=== PATIENT | female | born 1965 | race Caucasian/White ===

== ENCOUNTER → 2019-10-27 10:29 | Outpatient (CLI) | payer BC, SELFPAY ==
--- NOTE | ~2019-10-27 | US_ITS ---
EXAMINATION: US transvaginal DATE: 10/27/2019 10:52 INDICATION: Pelvic pain Comparison:11/20/2017 TECHNIQUE: Multiple endovaginal sonographic images of the pelvis performed. FINDINGS: The uterus measures 7.4 x 3.7 x 4.7 cm. There is a uterine fibroid measuring 1.7 x 1.2 x 1. 7 cm The endometrial complex measures 9 mm. The right ovary measures 1.7 x 1.3 x 1.2 cm and the left ovary measures 1.6 x 1.1 x 1.3 cm. There ar e small follicles in each ovary. There is no free fluid in the pelvis. There are no abnormal masses seen on either side. IMPRESSION: 1. Thickened endomtrial complex. The differential diagnosis includes endometrial hyperplasia, polyp a nd carcinoma. Biopsy is recommended. 2: Uterine fibroid measuring 1.7 cm. Reviewed, dictated and finalized at location A. IMPRESSION: 1. Thickened endomtrial complex. The differential diagnosis includes endometria l hyperplasia, polyp and carcinoma. Biopsy is recommended. 2: Uterine fibroid measuring 1.7 cm.
== END ==
PROVIDERS: PCP Family Medicine; Visit Provider Nurse Practitioner
DX: D25.9 Leiomyoma of uterus, unspecified (principal)
CPT/HCPCS: 76830

== ENCOUNTER 2019-11-10 09:47 | Outpatient (CLI) | payer BC, SELFPAY ==
[2019-11-10 09:59] LABS: Hemoglobin 12.3 g/dL (12.0-15.0)
== END 2019-11-10 09:48 | disposition home or self-care (01) ==
LOC: ANHSURGERY 09:49
PROVIDERS: Anesthesiology; PCP Family Medicine; Visit Provider Obstetrics & Gynecology Gynecology
DX: Z01.812 Encounter for preprocedural laboratory examination (principal); D64.9 Anemia, unspecified
CPT/HCPCS: 36415; 85014; 85018

== ENCOUNTER 2019-11-17 01:28 | Outpatient (CLI) | payer BC, SELFPAY ==
[2019-11-17 16:30] LABS: SARS-CoV-2 RNA PCR Negative
== END 2019-11-17 01:29 | disposition home or self-care (01) ==
LOC: ANHCOVIDDT 01:28
PROVIDERS: PCP Family Medicine; Visit Provider Obstetrics & Gynecology Gynecology
DX: Z01.812 Encounter for preprocedural laboratory examination (principal); Z20.828 Contact with and (suspected) exposure to other viral communicable diseases
CPT/HCPCS: 87635; C9803; U0003

== ENCOUNTER 2019-11-20 02:30 | Day surgery (SDC) | payer BC, SELFPAY ==
[2019-11-06 15:44] VITALS: BMI 25.1
[2019-11-20 06:52] VITALS: BP 109/74; PULSE 77; RESP 16; TEMP 36.8; O2SAT 99
[2019-11-20] MEDS: ACETAMINOPHEN 500 MG TABLET 1000 MG PO (07:06)
[2019-11-20] MEDS: LACTATED RINGERS 1,000 ML 30 ML IV CONT (07:15)
--- NOTE | 2019-11-20 07:23 | P.HP_ITS ---
History of Present Illness History of Present Illness Consent: Risks, benefits, and alternatives have been discussed and questions answered. Patient agrees to proceed with procedure. Chief complaint: thick endometrium Narrative: Ira Virk is a 54 year old female who had pelvic u/s done for pelvic pain. U/s showed thickened endometrium at 9 mm. Recommend to work up with hysteroscopy and EMB. Risks of infection, bleeding, perforation, and possible pathology reviewed. Agrees to proceed and questions answered. [facility] Past Medical History Medical History (Updated 11/20/19 @ 07:28 by Missy Gallardo MD) Atrial flutter Breast cancer Left DCIS Fibromyalgia Hypothyroidism Interstitial cystitis MVP (mitral valve prolapse) (normal spontaneous vaginal delivery) x 2 Status post hysteroscopy 2016 Surgical History Surgical History (Updated 11/20/19 @ 07:27 by Missy Gallardo MD) H/O breast biopsy H/O lumpectomy S/P D&C (status post dilation and curettage) 1998 for SAb S/P laparoscopic procedure Social History Social History Smoking status: Never smoker Alcohol intake: current Spiritual care concerns: No Meds Home Medications and Allergies Home Medications Medication Instructions Recorded Confirmed Type anastrozole 1 mg tablet 1 mg PO DAILY 02/22/19 11/20/19 History lactobacillus combination no.4 3 3,000 mmu cells PO DAILY 02/22/19 11/20/19 History billion cell capsule metoprolol tartrate 25 mg tablet 25 mg PO QPM 02/22/19 11/20/19 History omega-3 fatty acids 1,000 mg 1,000 mg PO DAILY 02/22/19 11/20/19 History capsule ascorbic acid (vitamin C) 500 mg 500 mg PO DAILY 08/21/19 11/20/19 History tablet cholecalciferol (vitamin D3) 125 125 mcg PO DAILY 08/21/19 11/20/19 History mcg (5,000 unit) capsule glucosamine HCl 500 mg tablet 500 mg PO DAILY tablet 08/21/19 11/20/19 History coenzyme Q10 100 mg PO DAILY 11/06/19 11/20/19 History iron 159 mg PO DAILY PRN 11/06/19 11/20/19 History levothyroxine [Synthroid] 75 mcg PO DAILY 11/06/19 11/20/19 History Allergies Allergy/AdvReac Type Severity Reaction Status Date / Time Sulfa (Sulfonamide Allergy Intermediate Muscle Verified 11/20/19 07:07 Antibiotics) Spasms moxifloxacin Allergy Mild Rash Verified 11/20/19 07:07 peanut Allergy Mild Itchy Mouth Verified 11/20/19 07:07 Exam Const: General: no acute distress Resp: Auscultation: clear to auscultation bilaterally Cardio: Rate: regular rate Rhythm: regular rhythm GI: GI Palp: Yes Soft to palpation : Speculum Exam - Vagina: normal appearance of the vagina Speculum Exam - Cervix: normal appearance of the cervix Bimanual exam- vagina & uterus: normal bimanual exam Assessment and Plan Assessment and plan (1) Endometrial thickening on ultrasound: Code(s): R93.89 - Abnormal findings on diagnostic imaging of other specified body structures Status: Acute Assessment and Plan: Plan to proceed with hysteroscopy with D&C.
--- NOTE | 2019-11-20 07:29 | WPDHPUPDATE1 ---
History and Physical Update Update Date/Time: 11/20/19 07:29 History and Physical has been reviewed, including an updated exam of the patient. There are NO changes in the patient's condition. Risks, benefits, and alternatives have been discussed and questions answered. Patient agrees to proceed with procedure.
--- NOTE | 2019-11-20 07:50 | WPDANESEPPF ---
Anes - Initial Pre Proc Eval Procedure: Operation Date: 11/20/19 08:30 Proposed Procedures p Hysteroscopy, Dilation and Curettage - Missy Gallardo MD Date/Time: 11/20/19 07:50 Surgeon: Missy Gallardo MD Pre Op Diagnosis: thick endometrium Patient Data Age: 54 Gender: F Height: 1.75 m Weight: 76.1 kg Allergies Allergy/AdvReac Type Severity Reaction Status Date / Time Sulfa (Sulfonamide Allergy Intermediate Muscle Verified 11/20/19 07:07 Antibiotics) Spasms moxifloxacin Allergy Mild Rash Verified 11/20/19 07:07 peanut Allergy Mild Itchy Mouth Verified 11/20/19 07:07 Home Medications Medication Instructions Recorded Confirmed Type anastrozole 1 mg tablet 1 mg PO DAILY 02/22/19 11/20/19 History lactobacillus combination no.4 3 3,000 mmu cells PO DAILY 02/22/19 11/20/19 History billion cell capsule metoprolol tartrate 25 mg tablet 25 mg PO QPM 02/22/19 11/20/19 History omega-3 fatty acids 1,000 mg 1,000 mg PO DAILY 02/22/19 11/20/19 History capsule ascorbic acid (vitamin C) 500 mg 500 mg PO DAILY 08/21/19 11/20/19 History tablet cholecalciferol (vitamin D3) 125 125 mcg PO DAILY 08/21/19 11/20/19 History mcg (5,000 unit) capsule glucosamine HCl 500 mg tablet 500 mg PO DAILY tablet 08/21/19 11/20/19 History coenzyme Q10 100 mg PO DAILY 11/06/19 11/20/19 History iron 159 mg PO DAILY PRN 11/06/19 11/20/19 History levothyroxine [Synthroid] 75 mcg PO DAILY 11/06/19 11/20/19 History Patient hx anesthesia problems: post op nausea/vomiting Family hx anesthesia problems: none PMFSH Past Medical History Medical History (Updated 11/20/19 @ 07:51 by Keo Dozier DO) Atrial flutter one occurence, 8 years ago while on sudafed. Came to ED and was treated with IV medication. No incidence since Breast cancer Left DCIS Fibromyalgia Hypothyroidism Interstitial cystitis MVP (mitral valve prolapse) occasional palpitation (normal spontaneous vaginal delivery) x 2 Status post hysteroscopy 2017 Surgical History Surgical History (Updated 11/20/19 @ 07:27 by Missy Gallardo MD) H/O breast biopsy H/O lumpectomy S/P D&C (status post dilation and curettage) 1998 for SAb S/P laparoscopic procedure Social History Social History Smoking status: Never smoker Alcohol intake: current Spiritual care concerns: No Anes - Eval Final PreProcedure Day of Procedure 11/20/19 07:50 Patient weight: normal Heart: regular rate and rhythm Lungs: clear to auscultation and normal air movement Airway: Mallampati scale class II Neurological: alert and oriented Last oral intake: >/= 8 hours ASA classification: III Emergent: no Anesthetic plan: proceed Anesthesia type and monitoring: general GIVS and standard monitoring Informed Consent: The patient's anesthetic plan and its attendant risks and benefits were discussed with the patient/family/POA. Questions were solicited and answers provided to the satisfaction of the patient/family/POA.
--- NOTE | 2019-11-20 08:53 | SUR.OPER ---
50ml ns in, 50ml ns out. aware
[2019-11-20 09:00] VITALS: BP 103/58; PULSE 70; RESP 18; O2SAT 98
--- NOTE | 2019-11-20 09:03 | P.OP_ITS ---
Procedure Note - Detailed Date of procedure: 11/20/19 Pre-op diagnosis: thick endometrium Post-op diagnosis: same Procedure performed: D&C hysteroscopy Description of procedure: The patient is taken to the operating room and placed in the dorsal lithotomy position under anesthesia. [place] speculum was placed in the vagina and the cervix grasped anterior lip with a tenaculum. The uterus was attempted to be sounded and the internal os is noted to be stenotic. The os Finders were requested and used to open the cervix. The uterus is then sounded to 7cm. The cervix is serially dilated with Hegars. The diagnostic hysteroscope was placed with no abnormalities noted. The endometrium is then sharply curetted until a good uterine cry was noted in all areas. Minimal material is obtained consistent with the atrophic appearance. All instruments are then removed and the patient is awakened from anesthesia. She was taken to the recovery room in stable condition. Anesthesia: MAC and local Surgeon: Missy Gallardo MD Estimated blood loss (mL): 5 Drains: No Packing: No Pathology: yes (endometrial) Complications: No immediate complications Condition: stable Disposition: PACU Findings: internal os stenotic; endometrium atrophic
[2019-11-20 09:30] VITALS: BP 97/57; PULSE 64; RESP 14; O2SAT 100
[2019-11-20 10:00] VITALS: BP 105/60; PULSE 70; RESP 14
--- NOTE | 2019-11-20 10:19 | SUR.PHASEII ---
1005; PT AWAKE AND ALERT. DENIES PAIN OR NAUSEA. MEETS DISCHARGE CRITERIA.
== END 2019-11-20 10:12 | disposition home or self-care (01) ==
PROVIDERS: PCP Family Medicine; Visit Provider Obstetrics & Gynecology Gynecology
PROC: 0U5B8ZZ Destruction of Endometrium, Via Natural or Artificial Opening Endoscopic (ICD-10-PCS; CPT 58563; principal; 2019-11-20 08:30)
DX: R93.89 Abnormal findings on diagnostic imaging of other specified body structures (principal); M79.7 Fibromyalgia; E03.9 Hypothyroidism, unspecified; I34.1 Nonrheumatic mitral (valve) prolapse; Z85.3 Personal history of malignant neoplasm of breast; Z79.811 Long term (current) use of aromatase inhibitors
CPT/HCPCS: 58558; 88305; A9270; J1100; J2250; J2405; J2704; J3010; J7120

== ENCOUNTER 2019-12-30 06:17 | Emergency (ER) | payer BC, SELFPAY ==
[2019-12-30 06:21] VITALS: BP 116/78; PULSE 96; RESP 18; TEMP 36.1; O2SAT 100
--- NOTE | 2019-12-30 07:20 | ED.ABDPAIN ---
HPI - Abdominal Pain General Chief Complaint: Abdominal Pain Stated Complaint: stomach ache/chills/diarrhea/weak Time Seen by Provider: 12/30/19 06:49 Source: patient Mode of arrival: ambulatory Limitations: no limitations History of Present Illness HPI narrative: This patient is a 54 year old female with history of IBS who presents for evaluation of diarrhea. She reports mid abdominal cramping intermittently with diarrhea since Wednesday. She reports she had multiple episodes of watery diarrhea today. She also reports chills but she denies having a fever. She also denies blood in her stool. She has not taken any medication for her diarrhea. She is here because she is concerned that she has COVID, and she is due to pick her mother up from the hospital today. She denies cough, sob, or loss of taste or smell. Related Data Home Medications Medication Instructions Recorded Confirmed anastrozole 1 mg tablet 1 mg PO DAILY 02/22/19 11/20/19 lactobacillus combination no.4 3 3,000 mmu cells PO DAILY 02/22/19 11/20/19 billion cell capsule metoprolol tartrate 25 mg tablet 25 mg PO QPM 02/22/19 11/20/19 omega-3 fatty acids 1,000 mg 1,000 mg PO DAILY 02/22/19 11/20/19 capsule ascorbic acid (vitamin C) 500 mg 500 mg PO DAILY 08/21/19 11/20/19 tablet cholecalciferol (vitamin D3) 125 125 mcg PO DAILY 08/21/19 11/20/19 mcg (5,000 unit) capsule glucosamine HCl 500 mg tablet 500 mg PO DAILY tablet 08/21/19 11/20/19 coenzyme Q10 100 mg PO DAILY 11/06/19 11/20/19 iron 159 mg PO DAILY PRN 11/06/19 11/20/19 levothyroxine [Synthroid] 75 mcg PO DAILY 11/06/19 11/20/19 Allergies Allergy/AdvReac Type Severity Reaction Status Date / Time Sulfa (Sulfonamide Allergy Intermediate Muscle Verified 12/30/19 06:24 Antibiotics) Spasms moxifloxacin Allergy Mild Rash Verified 12/30/19 06:24 peanut Allergy Mild Itchy Mouth Verified 12/30/19 06:24 Review of Systems Review of Systems: All systems reviewed & are unremarkable except as noted in HPI and below Constitutional: Constitutional: Reports chills, Reports fatigue and Denies fever(s) Cardiovascular: Cardiovascular: Denies chest pain Respiratory: Respiratory: Denies cough and Denies dyspnea Gastrointestinal: Gastrointestinal: Reports abdominal pain, Denies constipation and Reports diarrhea PMFSH Past Medical History Medical History Atrial flutter one occurence, 8 years ago while on sudafed. Came to ED and was treated with IV medication. No incidence since Breast cancer Left DCIS Fibromyalgia Hypothyroidism Interstitial cystitis MVP (mitral valve prolapse) occasional palpitation (normal spontaneous vaginal delivery) x 2 Status post hysteroscopy 2016 Surgical History Surgical History H/O breast biopsy H/O lumpectomy S/P D&C (status post dilation and curettage) 1998 for SAb S/P laparoscopic procedure Family History Family History Other Diabetes mellitus Family history of Alzheimer's disease Family history of arthritis Family history of atrial fibrillation Family history of cardiovascular disease Family history of congestive heart failure Family history of kidney disease Family history of osteoporosis Family history of thyroid disease Hypertension Social History Social History Smoking status: Never smoker Alcohol intake: current Gender identity (if verbalized by the patient): Female Sexual Orientation (if Verbalized by the Patient): Straight or Heterosexual Spiritual care concerns: No Exam Const: General: no acute distress and alert Orientation/consciousness: patient oriented x3 Eyes: EOM: EOMs intact bilaterally Neck: Neck: normal visual inspection Chest: Chest palpation & inspection: normal insp
[2019-12-30 07:26] LABS: Basophils Absolute Auto 0.1 K/mm3 (0.0-0.1); Basophils Percent Auto 1.1 % (0.2-1.2); Eosinophils Absolute Auto 0.1 K/mm3 (0-0.3); Hematocrit 35.9 % (37.0-47.0); Immature Granulocyte Absolute 0.02 K/mm3 (0.00-0.031); Immature Granulocyte Percent A 0.3 % (0-0.5); Lymphocytes Percent Auto 25.4 % (18.3-44.2); Mean Corpuscular HGB Conc 33.4 g/dl (32-36); Mean Corpuscular Hemoglobin 32.4 pg (26-34); Mean Platelet Volume 9.8 fl (7.4-10.4); Monocytes Absolute Auto 0.5 K/mm3 (0.1-0.6); Monocytes Percent Auto 7.3 % (2.6-8.5); Neutrophils Absolute Auto 4.5 K/mm3 (1.3-6.7); Neutrophils Percent Auto 63.9 % (45.5-73.1); Platelet Count Result 266 k/mm3 (150-375); Red Cell Distribution Width 12.6 % (11.5-14.5); White Blood Count 7.1 K/mm3 (4.5-10.0)
[2019-12-30 07:28] LABS: Add Urine Microscopic? NO; Appearance Urine Clear (Clear); Bilirubin Urine Negative (Negative); Blood Urine Negative (Negative); Color Urine Yellow (Yellow); Glucose Urine UA Negative (Negative); Ketones Urine Negative (Negative); Leukocyte Esterase Ur Negative LEU/UL (Negative); Nitrate Urine Negative (Negative); Protein Urine Negative (Negative); Specific Grav Ur 1.019 (1.001-1.035); Urobilinogen Urine Negative mg/dL (<2.0)
[2019-12-30 07:40] LABS: Alanine Aminotransferase 20 U/L (4-35); Albumin Level 4.3 g/dL (3.5-5.1); Alkaline Phosphatase 50 U/L (38-126); Anion Gap 11 mmol/L (8-16); Aspartate Amino Transferase 28 U/L (14-36); Bilirubin,Total 0.3 mg/dL (0.2-1.3); Blood Urea Nitrogen 17 mg/dL (7-17); Calcium 9.3 mg/dL (8.4-10.2); Carbon Dioxide 26 mmol/L (22-30); Chloride 103 mmol/L (98-107); Estimated CRCL calculation 84 ml/min; Estimated Glomerular Filt Rate > 60; Glucose 124 mg/dL (65-105); Lipase 46 U/L (23-300); Sodium 140 mmol/L (137-145)
[2019-12-30 08:25] VITALS: BP 132/78; PULSE 75; RESP 16; O2SAT 100
[2019-12-30 21:18] LABS: SARS-CoV-2 RNA PCR Negative
== END 2019-12-30 08:25 | disposition home or self-care (01) ==
PROVIDERS: Emergency Provider General Practice; PCP Family Medicine
DX: K58.0 Irritable bowel syndrome with diarrhea (principal); Z20.828 Contact with and (suspected) exposure to other viral communicable diseases; I48.92 Unspecified atrial flutter; Z85.3 Personal history of malignant neoplasm of breast; M79.7 Fibromyalgia; E03.9 Hypothyroidism, unspecified; I34.1 Nonrheumatic mitral (valve) prolapse
CPT/HCPCS: 36415; 80053; 81003; 81025; 83690; 85025; 87635; 99283; C9803; U0003

== ENCOUNTER → 2020-04-25 10:26 | Outpatient (CLI) | payer BC, SELFPAY ==
[2020-04-26 18:59] LABS: SARS-CoV-2 RNA PCR Negative
== END ==
PROVIDERS: PCP Family Medicine; Visit Provider Physician Assistant
DX: Z20.822 Contact with and (suspected) exposure to COVID-19 (principal)
CPT/HCPCS: C9803; U0003; U0005

== ENCOUNTER 2020-04-28 20:21 | Emergency (ER) | payer BC, SELFPAY ==
--- NOTE | ~2020-04-28 | XR_ITS ---
EXAMINATION: XR chest 1V portable 04/28/2020 20:59 INDICATION: Chest palpitations PROCEDURE: AP portable chest COMPARISON: 09/10/2014 FINDINGS: The lungs are clear. The cardiomediastinal silhouette is within normal limits. There are no pleural effusions. There is no pneumothorax suspected. IMPRESSION: 1: NO ACUTE CARDIOPULMONARY DISEASE. Reviewed, dictated and finalized at location A.
[2020-04-28 20:24] VITALS: BP 144/99; PULSE 79; RESP 19; TEMP 36.6; O2SAT 100
--- NOTE | 2020-04-28 20:47 | ECG_ITS ---
Measurements Intervals [place] Rate: 77 P: 35 OR: 139 QRS: 23 QRSD: 85 T: 32 QT: 374 QTc: 424 Interpretive Statements SINUS RHYTHM VENTRICULAR PREMATURE COMPLEX EARLY PRECORDIAL R/S TRANSITION BORDERLINE ST-T WAVE ABNORMALITY- DIFFUSE LEADS BASELINE WANDER- V1-V3 BORDERLINE ECG Electronically Signed On 04-29-2020 7:04:37 CDT by Dickson Ríos D.O.
[2020-04-28 20:57] LABS: Basophils Absolute Auto 0.1 K/mm3 (0.0-0.1); Basophils Percent Auto 1.1 % (0.2-1.2); Eosinophils Absolute Auto 0.5 K/mm3 (0-0.3); Eosinophils Percent Auto 5.7 % (0-4.4); Hematocrit 37.1 % (37.0-47.0); Hemoglobin 12.5 g/dL (12.0-15.0); Immature Granulocyte Absolute 0.03 K/mm3 (0.00-0.031); Immature Granulocyte Percent A 0.4 % (0-0.5); Lymphocytes Absolute Auto 3.57 K/mm3 (0.9-3.2); Lymphocytes Percent Auto 43.2 % (18.3-44.2); Mean Corpuscular HGB Conc 33.7 g/dl (32-36); Mean Corpuscular Hemoglobin 32.2 pg (26-34); Mean Corpuscular Volume 95.6 fl (80-100); Mean Platelet Volume 9.6 fl (7.4-10.4); Monocytes Absolute Auto 0.7 K/mm3 (0.1-0.6); Monocytes Percent Auto 8.7 % (2.6-8.5); Neutrophils Absolute Auto 3.4 K/mm3 (1.3-6.7); Neutrophils Percent Auto 40.9 % (45.5-73.1); Platelet Count Result 280 k/mm3 (150-375); Red Blood Count 3.88 M/mm3 (4.2-5.4); Red Cell Distribution Width 12.8 % (11.5-14.5); White Blood Count 8.3 K/mm3 (4.5-10.0)
[2020-04-28 21:00] VITALS: BP 115/80; PULSE 69; RESP 15; O2SAT 98
[2020-04-28 21:00] LABS: Add Urine Microscopic? NO; Appearance Urine Clear (Clear); Bilirubin Urine Negative (Negative); Blood Urine Negative (Negative); Color Urine Colorless (Yellow); Glucose Urine UA Negative (Negative); Ketones Urine Negative (Negative); Leukocyte Esterase Ur Negative LEU/UL (Negative); Nitrate Urine Negative (Negative); Protein Urine Negative (Negative); Specific Grav Ur 1.006 (1.001-1.035); Urobilinogen Urine Negative mg/dL (<2.0)
[2020-04-28 21:07] LABS: INR 0.8; Partial Thromboplastin Time 26.3 SECONDS (22.3-36.8); Prothrombin Time 12.1 Seconds (11.1-14.7)
[2020-04-28 21:09] LABS: Anion Gap 6 mmol/L (8-16); Blood Urea Nitrogen 19 mg/dL (7-17); Calcium 9.4 mg/dL (8.4-10.2); Carbon Dioxide 31 mmol/L (22-30); Chloride 103 mmol/L (98-107); Estimated CRCL calculation 73 ml/min; Estimated Glomerular Filt Rate > 60; Glucose 127 mg/dL (65-105); Sodium 140 mmol/L (137-145)
[2020-04-28 21:21] LABS: Troponin I < 0.012 ng/mL (0.000-0.034)
[2020-04-28 21:28] LABS: Alanine Aminotransferase 20 U/L (4-35); Albumin Level 4.5 g/dL (3.5-5.1); Alkaline Phosphatase 49 U/L (38-126); Aspartate Amino Transferase 30 U/L (14-36); Bilirubin,Total 0.2 mg/dL (0.2-1.3); Lipase 76 U/L (23-300)
[2020-04-28 21:30] VITALS: BP 103/80; PULSE 66; RESP 17; O2SAT 98
--- NOTE | 2020-04-28 21:41 | ED.GENADULT ---
HPI - General Adult General Chief complaint: Arrhythmia/Palpitations Stated complaint: chest palpitations Time Seen by Provider: 04/28/20 20:28 History of Present Illness HPI narrative: Patient is a 55-year-old female who presents the emergency department with chief complaint of palpitations. Patient reports she has history of PACs and also history of PVCs is also had mitral valve prolapse the patient reports that today she had some tightness in her chest and also started feeling some palpitations in her chest. Patient denies diaphoresis denies shortness of breath. The patient reports symptoms or not worsened by anything or they improved by anything. Related Data Home Medications Medication Instructions Recorded Confirmed anastrozole 1 mg tablet 1 mg PO DAILY 02/22/19 11/20/19 lactobacillus combination no.4 3 3,000 mmu cells PO DAILY 02/22/19 11/20/19 billion cell capsule metoprolol tartrate 25 mg tablet 25 mg PO QPM 02/22/19 11/20/19 omega-3 fatty acids 1,000 mg 1,000 mg PO DAILY 02/22/19 11/20/19 capsule ascorbic acid (vitamin C) 500 mg 500 mg PO DAILY 08/21/19 11/20/19 tablet glucosamine HCl 500 mg tablet 500 mg PO DAILY tablet 08/21/19 11/20/19 coenzyme Q10 100 mg PO DAILY 11/06/19 11/20/19 azithromycin 04/28/20 levothyroxine [Tirosint] PO 04/28/20 lifitegrast [Xiidra] drp 04/28/20 Allergies Allergy/AdvReac Type Severity Reaction Status Date / Time Sulfa (Sulfonamide Allergy Intermediate Muscle Verified 04/28/20 20:36 Antibiotics) Spasms moxifloxacin Allergy Mild Rash Verified 04/28/20 20:36 peanut Allergy Mild Itchy Mouth Verified 04/28/20 20:36 Review of Systems Review of Systems: Narrative: A 10 system review of systems was completed on the patient and is negative except for what is stated in the HPI. Nursing and ancillary documentation was reviewed. [facility] Past Medical History Medical History Atrial flutter one occurence, 8 years ago while on sudafed. Came to ED and was treated with IV medication. No incidence since Breast cancer Left DCIS Colon cancer screening Fibromyalgia Hypothyroidism Interstitial cystitis MVP (mitral valve prolapse) occasional palpitation (normal spontaneous vaginal delivery) x 2 Status post hysteroscopy 2017 Surgical History Surgical History H/O breast biopsy H/O lumpectomy S/P D&C (status post dilation and curettage) 1998 for SAb S/P laparoscopic procedure Family History Family History Other Diabetes mellitus Family history of Alzheimer's disease Family history of arthritis Family history of atrial fibrillation Family history of cardiovascular disease Family history of congestive heart failure Family history of kidney disease Family history of osteoporosis Family history of thyroid disease Hypertension Social History Social History Smoking status: Never smoker Alcohol intake: current Gender identity (if verbalized by the patient): Female Spiritual care concerns: No Exam Narrative: Exam Narrative: GENERAL: Well-appearing, well-nourished, and in no acute distress. HEAD: Normocephalic, atraumatic. EYES: PERRLA and EOMI. ENT: Nares clear, no rhinorrhea or epistaxis. Mucous membranes moist. NECK: Supple. CHEST: Clear to auscultation. No respiratory distress. HEART: Regular rate and rhythm. No murmur heard. Normal peripheral pulses. ABDOMEN: Soft, nontender, nondistended, normal active bowel sounds. EXTREMITIES: Normal range of motion. No edema. SKIN: Warm, dry, no rash. NEURO: No focal deficits. Alert and oriented x3. PSYCH: Normal mood and affect. Course Course Emergency Course: EKG shows sinus rhythm rate of [address] elevation or ST depression there is an occasion
[2020-04-28 21:45] VITALS: BP 114/79; PULSE 65; RESP 12; TEMP 36.6; O2SAT 99
[2020-04-28 22:37] VITALS: BP 114/84; PULSE 69; RESP 13; O2SAT 98
== END 2020-04-28 22:38 | disposition home or self-care (01) ==
PROVIDERS: Emergency Provider Emergency Medicine; PCP Family Medicine
DX: R00.2 Palpitations (principal); R07.89 Other chest pain; I34.1 Nonrheumatic mitral (valve) prolapse; Z85.3 Personal history of malignant neoplasm of breast; M79.7 Fibromyalgia; E03.9 Hypothyroidism, unspecified; I49.3 Ventricular premature depolarization; R94.31 Abnormal electrocardiogram [ECG] [EKG]
CPT/HCPCS: 36415; 71045; 80053; 81003; 81025; 83690; 83735; 84484; 85025; 85610; 85730; 93005; 99284

== ENCOUNTER 2020-07-08 13:38 | Outpatient (CLI) | payer BC, SELFPAY ==
--- NOTE | ~2020-07-08 | XR_ITS ---
XR hand RT min 3V 07/08/2020 13:54 Indication: Right hand pain Procedure: 3 views right hand Comparison: No prior studies for comparison. Findings: No fracture or traumatic malalignment. No significant soft tissue abnormality. No foreign b odies. Normal mineralization. There are mild degenerative changes of multiple interphalangeal joints. Impression: 1: Mild polyarticular osteoarthritis. Reviewed, dictated and finalized at location A. Impression: 1: Mild polyarticular osteoarthritis.
== END 2020-07-08 13:39 | disposition home or self-care (01) ==
LOC: ANHIMG 13:40
PROVIDERS: PCP Family Medicine; Visit Provider Family Medicine
DX: M19.041 Primary osteoarthritis, right hand (principal)
CPT/HCPCS: 73130

== ENCOUNTER → 2020-11-30 00:39 | Outpatient (CLI) | payer BC, SELFPAY ==
[2020-11-30 17:04] LABS: SARS-CoV-2 RNA PCR Negative
== END ==
PROVIDERS: PCP Family Medicine; Visit Provider Internal Medicine Gastroenterology
DX: Z01.812 Encounter for preprocedural laboratory examination (principal); Z20.822 Contact with and (suspected) exposure to COVID-19
CPT/HCPCS: C9803; U0003; U0005

== ENCOUNTER 2020-12-04 01:03 | Day surgery (SDC) | payer BC, SELFPAY ==
[2020-11-20 12:18] VITALS: BMI 18.5
--- NOTE | 2020-12-03 10:26 | WPDANESEPPF ---
Anes - Initial Pre Proc Eval Procedure: Operation Date: 12/04/20 10:30 Proposed Procedures p Esophagogastroduodenoscopy - Scott Mccurdy MD Date/Time: 12/03/20 10:26 Surgeon: Scott Mccurdy MD Pre Op Diagnosis: GERD Patient Data Age: 55 Gender: F Height: 1.75 m Weight: 57 kg Allergies Allergy/AdvReac Type Severity Reaction Status Date / Time Sulfa (Sulfonamide Allergy Intermediate Muscle Verified 12/04/20 10:02 Antibiotics) Spasms moxifloxacin Allergy Mild Rash Verified 12/04/20 10:02 peanut Allergy Mild Itchy Mouth Verified 12/04/20 10:02 Home Medications Medication Instructions Recorded Confirmed Type anastrozole 1 mg tablet 1 mg PO DAILY 02/22/19 12/04/20 History metoprolol tartrate 25 mg tablet 25 mg PO QPM 02/22/19 12/04/20 History omega-3 fatty acids 1,000 mg 1,000 mg PO DAILY 02/22/19 12/04/20 History capsule ascorbic acid (vitamin C) 500 mg 500 mg PO DAILY 08/21/19 12/04/20 History tablet glucosamine HCl 500 mg tablet 500 mg PO DAILY tablet 08/21/19 12/04/20 History coenzyme Q10 100 mg PO DAILY 11/06/19 12/04/20 History Bacillus coagulans 250 million 250 cell PO DAILY 10/28/20 12/04/20 History cell chewable tablet cholecalciferol (vitamin D3) 125 125 mcg PO DAILY 10/28/20 12/04/20 History mcg (5,000 unit) capsule zinc acetate 50 mg (zinc) capsule 50 mg PO DAILY 10/28/20 12/04/20 History cetirizine [Zyrtec] 10 mg PO DAILY 11/20/20 12/04/20 History famotidine [Pepcid AC] 10 mg PO DAILY 11/20/20 12/04/20 History levothyroxine [Tirosint] 88 mcg PO DAILY 11/20/20 12/04/20 History omeprazole 20 mg capsule,delayed 20 mg PO DAILY #30 cap 12/04/20 Rx release Patient hx anesthesia problems: none Family hx anesthesia problems: none Results Review: All pre-operative results and documents have been reviewed as part of the pre-operative evaluation. [facility] Past Medical History Medical History (Updated 12/04/20 @ 11:00 by Scott Mccurdy MD) Atrial flutter one occurence, 8 years ago while on sudafed. Came to ED and was treated with IV medication. No incidence since Bloating Breast cancer Left DCIS Colon cancer screening Epigastric pain Fibromyalgia Hypothyroidism Interstitial cystitis MVP (mitral valve prolapse) occasional palpitation (normal spontaneous vaginal delivery) x 2 Overweight (BMI 25.0-29.9) Status post hysteroscopy 2016 Surgical History Surgical History H/O breast biopsy H/O lumpectomy S/P D&C (status post dilation and curettage) 1998 for SAb S/P laparoscopic procedure Family History Family History Other Diabetes mellitus Family history of Alzheimer's disease Family history of arthritis Family history of atrial fibrillation Family history of cardiovascular disease Family history of congestive heart failure Family history of kidney disease Family history of osteoporosis Family history of thyroid disease Hypertension Social History Social History Smoking status: Never smoker Alcohol intake: never Substance use type: does not use Living arrangements: with family Gender identity (if verbalized by the patient): Female Sexual Orientation (if Verbalized by the Patient): Straight or Heterosexual Spiritual care concerns: No Anes - Eval Final PreProcedure Day of Procedure 12/03/20 10:26 Patient weight: thin Heart: regular rate and rhythm Lungs: clear to auscultation and normal air movement Airway: Mallampati scale class II Neurological: alert and oriented Last oral intake: >/= 8 hours ASA classification: III Emergent: no Anesthetic plan: proceed Anesthesia type and monitoring: general GIVS and standard monitoring Results Review: All pre-operative results and documents have been reviewed as part of the pre-operat
[2020-12-04 10:03] VITALS: BP 119/71; PULSE 68; RESP 16; TEMP 35.7; O2SAT 100
[2020-12-04] MEDS: LACTATED RINGERS 1,000 ML 150 ML IV CONT (10:15)
--- NOTE | 2020-12-04 10:59 | PM.HPGS ---
History of Present Illness History of Present Illness Consent: Risks, benefits, and alternatives have been discussed and questions answered. Patient agrees to proceed with procedure. Chief complaint: GERD Narrative: Ira Virk is a 55 year old female with epigastric pain and bloating but lately better, never had egd Review of Systems Constitutional: Constitutional: Denies headache(s) and Denies weakness Eyes: Eyes: Denies blurry vision ENT: Reports Normal hearing present, Denies headache(s) and Denies neck pain Cardiovascular: Cardiovascular: Denies chest pain and Denies dyspnea Respiratory: Respiratory: Denies dyspnea Gastrointestinal: Gastrointestinal: Reports no additional gastrointestinal complaints Genitourinary: Genitourinary: Denies dysuria Musculoskeletal: Musculoskeletal: Denies neck pain Integumentary/Breasts: Skin/Breast: Denies dry skin Neurologic: Reports Normal hearing present, Denies headache(s) and Denies weakness Psychiatric: Psychiatric: Denies anxiety Endocrine: Endocrine: Denies change in body appearance Hematologic/Lymphatic: Hematologic/Lymphatic: Denies easy bleeding Allergic/Immunologic: Allergic/Immunologic: Denies urticaria PMF Past Medical History Medical History (Updated 12/04/20 @ 11:00 by Scott Mccurdy MD) Atrial flutter one occurence, 8 years ago while on sudafed. Came to ED and was treated with IV medication. No incidence since Bloating Breast cancer Left DCIS Colon cancer screening Epigastric pain Fibromyalgia Hypothyroidism Interstitial cystitis MVP (mitral valve prolapse) occasional palpitation (normal spontaneous vaginal delivery) x 2 Overweight (BMI 25.0-29.9) Status post hysteroscopy 2016 Surgical History Surgical History H/O breast biopsy H/O lumpectomy S/P D&C (status post dilation and curettage) 1998 for SAb S/P laparoscopic procedure Family History Family History Other Diabetes mellitus Family history of Alzheimer's disease Family history of arthritis Family history of atrial fibrillation Family history of cardiovascular disease Family history of congestive heart failure Family history of kidney disease Family history of osteoporosis Family history of thyroid disease Hypertension Social History Social History Smoking status: Never smoker Alcohol intake: never Substance use type: does not use Living arrangements: with family Gender identity (if verbalized by the patient): Female Sexual Orientation (if Verbalized by the Patient): Straight or Heterosexual Spiritual care concerns: No Meds Home Medications and Allergies Home Medications Medication Instructions Recorded Confirmed Type anastrozole 1 mg tablet 1 mg PO DAILY 02/22/19 12/04/20 History metoprolol tartrate 25 mg tablet 25 mg PO QPM 02/22/19 12/04/20 History omega-3 fatty acids 1,000 mg 1,000 mg PO DAILY 02/22/19 12/04/20 History capsule ascorbic acid (vitamin C) 500 mg 500 mg PO DAILY 08/21/19 12/04/20 History tablet glucosamine HCl 500 mg tablet 500 mg PO DAILY tablet 08/21/19 12/04/20 History coenzyme Q10 100 mg PO DAILY 11/06/19 12/04/20 History Bacillus coagulans 250 million 250 cell PO DAILY 10/28/20 12/04/20 History cell chewable tablet cholecalciferol (vitamin D3) 125 125 mcg PO DAILY 10/28/20 12/04/20 History mcg (5,000 unit) capsule zinc acetate 50 mg (zinc) capsule 50 mg PO DAILY 10/28/20 12/04/20 History cetirizine [Zyrtec] 10 mg PO DAILY 11/20/20 12/04/20 History famotidine [Pepcid AC] 10 mg PO DAILY 11/20/20 12/04/20 History levothyroxine [Tirosint] 88 mcg PO DAILY 11/20/20 12/04/20 History Allergies Allergy/AdvReac Type Severity Reaction Status Date / Time Sulfa (Sulfonamide Allergy Intermediate Muscle Verified 12/04/20 1
[2020-12-04 11:18] VITALS: BP 87/57; PULSE 62; RESP 18; O2SAT 100
[2020-12-04 11:28] VITALS: BP 95/63; PULSE 63; RESP 20; O2SAT 100
[2020-12-04 11:38] VITALS: BP 94/62; PULSE 62; RESP 16; O2SAT 100
[2020-12-04 11:47] VITALS: BP 96/66; PULSE 61; RESP 12; O2SAT 100
== END 2020-12-04 12:03 | disposition home or self-care (01) ==
PROVIDERS: PCP Family Medicine; Visit Provider Internal Medicine Gastroenterology
PROC: 0DJ08ZZ Inspection of Upper Intestinal Tract, Via Natural or Artificial Opening Endoscopic (ICD-10-PCS; CPT 43235; principal; 2020-12-04 10:30)
DX: K29.70 Gastritis, unspecified, without bleeding (principal); E03.9 Hypothyroidism, unspecified; M79.7 Fibromyalgia; I34.1 Nonrheumatic mitral (valve) prolapse; Z79.811 Long term (current) use of aromatase inhibitors; Z85.3 Personal history of malignant neoplasm of breast
CPT/HCPCS: 43239; 87081; 88305; J2704; J7120

== ENCOUNTER → 2021-02-18 08:52 | Outpatient (CLI) | payer BC, SELFPAY ==
--- NOTE | ~2021-02-18 | XR_ITS ---
XR hand RT 2V DATE: 02/18/2021 09:27 INDICATION: Right hand pain TECHNIQUE: AP and lateral views COMPARISON: None FINDINGS: There is minimal spurring at the first carpometacarpal joint. There is narrowing at some in terphalangeal joints. A small degenerative ossicle at the medial aspect of the distal interphalangeal joint of the second digit. No fracture, dislocation, periosteal reaction or bone destruction, erosive change or chondrocalcinosi s. IMPRESSION: Mild polyarticular osteoarthritis Reviewed, dictated and finalized at location A. APPLICATIONS ARCHITECT
--- NOTE | ~2021-02-18 | XR_ITS ---
XR foot RT 2V DATE: 02/18/2021 09:27 INDICATION: Right foot pain. Myalgia. Malaise. TECHNIQUE: AP and lateral views COMPARISON: None FINDINGS: There is mild osteoarthritis at the first metatarsophalangeal joint. Mild hallux valgus and bunion deformity. No fracture or dislocation, periosteal reaction or bone destruction. IMPRESSION: Mild osteoarthritic the first metatarsophalangeal joint Mild hallux valgus and bunion deformity Reviewed, dictated and finalized at location A. R WINDER
--- NOTE | ~2021-02-18 | XR_ITS ---
XR ankle LT 2V DATE: 02/18/2021 09:27 INDICATION: Left ankle pain, myalgia TECHNIQUE: AP and lateral views COMPARISON: None FINDINGS: No fracture or dislocation of the ankle or disruption of the ankle mortise. No periosteal r eaction or bone destruction. No soft tissue swelling. IMPRESSION: Negative Reviewed, dictated and finalized at location A. S ADMINISTRATOR IMPRESSION: Negative
--- NOTE | ~2021-02-18 | XR_ITS ---
XR ankle RT 2V DATE: 02/18/2021 09:27 INDICATION: Right ankle pain TECHNIQUE: AP and lateral views COMPARISON: None FINDINGS: No fracture or dislocation of the ankle or disruption of the ankle mortise. No soft tissue swelling. IMPRESSION: Negative Reviewed, dictated and finalized at location A. NE STEAMFITTER IMPRESSION: Negative
--- NOTE | ~2021-02-18 | XR_ITS ---
XR sacroiliac joints min 3V DATE: 02/18/2021 09:27 INDICATION: Sacroiliac pain. Myalgia. Malaise. TECHNIQUE: 6 views COMPARISON: None FINDINGS: The pubic symphysis and sacroiliac joints are intact. No sacroiliac erosions or ankylosis. No fracture or bone destruction of the sacrum is detected. IMPRESSION: Negative Reviewed, dictated and finalized at Location A. Reviewed, dictated and finalized at location A. GHT CAR CLEANER IMPRESSION: Negative
--- NOTE | ~2021-02-18 | XR_ITS ---
XR hand LT 2V DATE: 02/18/2021 09:27 INDICATION: Left hand pain. Myalgia. Malaise. TECHNIQUE: AP and lateral views COMPARISON: None FINDINGS: There is mild spurring at the first carpometacarpal joint. There is joint space narrowing at some of the interphalangeal joints and minimal spurring at the inte rphalangeal joint of the first digit. No fracture or dislocation, periosteal reaction or bone destruction. No erosive change or chondrocalc inosis. IMPRESSION: Mild polyarticular osteoarthritis Reviewed, dictated and finalized at location A. ERCIAL PROPERTY ADMINISTRATOR
--- NOTE | ~2021-02-18 | XR_ITS ---
XR wrist LT 2V DATE: 02/18/2021 09:27 INDICATION: Left wrist pain. Myalgia. Malaise. TECHNIQUE: AP and lateral views COMPARISON: None FINDINGS: No fracture or dislocation, periosteal reaction or bone destruction, erosive change or abbey drocalcinosis. There is minimal spurring consistent with slight osteoarthritis at the first carpometa carpal joint. Joint spaces are preserved. IMPRESSION: Slight osteoarthritis at first carpometacarpal joint. Reviewed, dictated and finalized at location A. CT SUPPORT WORKER
--- NOTE | ~2021-02-18 | XR_ITS ---
XR foot LT 2V DATE: 02/18/2021 09:27 INDICATION: Left foot pain TECHNIQUE: AP and lateral views COMPARISON: None FINDINGS: There is mild osteoarthritis at first metatarsophalangeal joint. There is mild hallux valgus and bunion deformity. There is slight plantar calcaneal enthesopathy. No fracture or dislocation, periosteal reaction or bone destruction. IMPRESSION: Slight plantar calcaneal enthesopathy Mild osteoarthritis at first metatarsophalangeal joint Mild hallux valgus and bunion deformity Reviewed, dictated and finalized at location A. ITUTION LIBRARIAN
--- NOTE | ~2021-02-18 | XR_ITS ---
XR wrist RT 2V DATE: 02/18/2021 09:27 INDICATION: Right wrist pain TECHNIQUE: AP and lateral views COMPARISON: None FINDINGS: There is mild spurring at the first carpometacarpal joint consistent with osteoarthritis. No fracture or dislocation, periosteal reaction or bone destruction, erosive change or chondrocalcino sis. IMPRESSION: Mild osteoarthritis at first carpometacarpal joint Reviewed, dictated and finalized at location A. ESS TECHNICIAN
== END ==
DX: M25.50 Pain in unspecified joint (principal); R53.81 Other malaise; M79.10 Myalgia, unspecified site
CPT/HCPCS: 72202; 73100; 73120; 73600; 73620

== ENCOUNTER → 2021-06-16 15:29 | Outpatient (CLI) | payer BC, SELFPAY ==
--- NOTE | ~2021-06-16 | US_ITS ---
EXAMINATION: US soft tissue head and neck DATE: 06/16/2021 15:48 INDICATION: Goiter. Ibrahima's. TECHNIQUE: Multiple ultrasound images of the thyroid were obtained. COMPARISON: 09/17/2016 FINDINGS: The right thyroid lobe measures 1.7 x 0.6 x 0.9 cm. The left thyroid lobe measures 1.4 x 0.5 x 0.9 c m. No discrete nodules identified. There is coarsened echotexture throughout the left and right thyr oid lobes. IMPRESSION: 1. Diffusely small/atrophic thyroid with coarsened echotexture without discrete nodules, likely seque la of chronic thyroiditis. Reviewed, dictated and finalized at location A. IMPRESSION: 1. Diffusely small/atrophic thyroid with coarsened echotexture without discrete nodules, likely sequela of chronic thyroiditis.
== END ==
PROVIDERS: PCP Family Medicine; Visit Provider Internal Medicine Endocrinology, Diabetes & Metabolism
DX: E04.9 Nontoxic goiter, unspecified (principal)
CPT/HCPCS: 76536

== ENCOUNTER → 2021-08-13 10:10 | Outpatient (CLI) | payer BC, SELFPAY ==
--- NOTE | ~2021-08-13 | DEXA_ITS ---
Bone Density Report Name: LEIGH JOHNSON Age: 56 Sex: Female Ethnicity: White Date of : 1965 Indication: postmenopausal; screening for osteoporosis; parental hip fracture; cancer; rheumatoid arthritis; Referring Provider: CASPER VERDIN Study: Bone densitometry was performed. Exam Date: August 13, 2021 Accession number: [id number] Bone Density: Region BMD T-score Z-score Classification AP Spine (L1-L4) 0.860 -1.7 -0.6 Osteopenia Femoral Neck (Left) 0.718 -1.2 -0.1 Osteopenia Total Hip (Left) 0.842 -0.8 -0.1 Normal Femoral Neck (Right) 0.703 -1.3 -0.2 Osteopenia Total Hip (Right) 0.830 -0.9 -0.2 Normal Total Hip Mean 0.836 -0.9 -0.2 Normal World Health Organization criteria for BMD impression classify patients as: Normal (T-score at or above -1.0), Osteopenia (T-score between -1.0 and -2.5), or Osteoporosis (T-score at or below -2.5). 10-year Fracture Risk(1): Major Osteoporotic Fracture 16% Hip Fracture 0.6% Reported Risk Factors: [place] (), Neck BMD=0.703, BMI=26.5, parental fracture, rheumatoid arthritis (1) FRAX(R) Version 3.08. Fracture probability calculated for an untreated patient. Fracture probability may be lower if the patient has received treatment. Clinical Information Provided by Patient: Parent has had a hip fracture Has rheumatoid arthritis Has used the following medications: Vitamin D, Calcium, anestrozol Has the following medical conditions: Cancer Patient maximum height was 68.5 Menopause Age: 48 No regular weight bearing exercise Drinks caffeinated beverages Onset of menses at age 14 Number of children 2 Impression: The patient has low bone mass, based on the Total Spine T-score. The patient has an estimated ten-year risk of hip fracture of 0.6% and an estimated ten-year risk of major fracture of 16%, based on the WHO FRAX algorithm. The patient has risk factors, including: parental hip fracture. Discussion: BONE DENSITY IS LOW AT ONE OR MORE SKELETAL SITES. This patient's lowest T-score is low at one or more skeletal sites. It meets the World Health Organization's (WHO) criteria for ?low bone mass? (T-score between -1.0 and -2.5). The patient's 10-year risk of fracture as calculated by FRAX is less than the threshold where pharmacological therapy is recommended by the National Osteoporosis Foundation (NOF). However, all treatment decisions require clinical judgment and consideration of individual patient factors, including patient preferences, comorbidities, previous drug use, risk factors not captured in the FRAX model (e.g., frailty, falls, vitamin D deficiency, increased bone turnover, interval significant decline in bone density) and possible under or overestimation of fracture risk by FRAX. The patient should follow a healthful lifestyle (good nu
== END ==
PROVIDERS: PCP Family Medicine; Visit Provider Obstetrics & Gynecology Gynecology
DX: Z78.0 Asymptomatic menopausal state (principal); M85.88 Other specified disorders of bone density and structure, other site; M85.852 Other specified disorders of bone density and structure, left thigh; M85.851 Other specified disorders of bone density and structure, right thigh
CPT/HCPCS: 77080

== ENCOUNTER 2021-10-13 08:59 | Emergency (ER) | payer BC, SELFPAY ==
--- NOTE | ~2021-10-13 | XR_ITS ---
EXAMINATION: XR chest 1V portable DATE: 10/13/2021 10:00 INDICATION: Fever. TECHNIQUE: A single frontal view of the chest was obtained. COMPARISON: Chest single view 04/28/2020 FINDINGS: The chest demonstrates clear lungs without pneumonia, pleural effusion, or pneumothorax. Th e heart size is normal. IMPRESSION: 1. No acute cardiopulmonary disease. Reviewed, dictated and finalized at location A.
[2021-10-13 09:01] VITALS: BP 137/84; PULSE 106; RESP 16; TEMP 37.9; O2SAT 98
[2021-10-13] MEDS: ACETAMINOPHEN 500 MG TABLET 1000 MG PO (09:19)
--- NOTE | 2021-10-13 09:24 | ED.FEVER ---
HPI - Fever General Chief Complaint: Fever Stated Complaint: elevated HR and low fever that began this morning Time Seen by Provider: 10/13/21 09:08 History of Present Illness HPI Narrative: 56-year-old female presents the emergency room with a sudden onset of elevated temperature and heart rate. Patient states she woke up this morning with body aches and a headache and noticed that her heart rate was in the low 100s. Patient proceeded to take her temperature where she found that the T-max of 100. Patient denies any ear pain, sinus congestion, postnasal drip, sore throat, cough, abdominal pain, or dysuria. Denies any known rashes or recent insect bites. Patient states she is concerned that she is experiencing thyroid storm, and is requesting to have her thyroid level checked. Related Data Home Medications Medication Instructions Recorded Confirmed anastrozole 1 mg tablet 1 mg PO DAILY 02/22/19 12/04/20 metoprolol tartrate 25 mg tablet 25 mg PO QPM 02/22/19 12/04/20 omega-3 fatty acids 1,000 mg 1,000 mg PO DAILY 02/22/19 12/04/20 capsule (Fish Oil Concentrate) ascorbic acid (vitamin C) 500 mg 500 mg PO DAILY 08/21/19 12/04/20 tablet glucosamine HCl 500 mg tablet 500 mg PO DAILY 08/21/19 12/04/20 coenzyme Q10 100 mg tablet 100 mg PO DAILY 11/06/19 12/04/20 Bacillus coagulans 250 million 250 cell PO DAILY 10/28/20 12/04/20 cell chewable tablet (Digestive Advantage Probiotic Gummy) cholecalciferol (vitamin D3) 125 125 mcg PO DAILY 10/28/20 12/04/20 mcg (5,000 unit) capsule zinc acetate 50 mg (zinc) capsule 50 mg PO DAILY 10/28/20 12/04/20 (Galzin) cetirizine 10 mg capsule (Zyrtec) 10 mg PO DAILY 11/20/20 12/04/20 famotidine 10 mg tablet (Pepcid AC) 10 mg PO DAILY 11/20/20 12/04/20 levothyroxine 88 mcg capsule 88 mcg PO DAILY 11/20/20 12/04/20 (Tirosint) Allergies Allergy/AdvReac Type Severity Reaction Status Date / Time Sulfa (Sulfonamide Allergy Intermediate Muscle Verified 10/13/21 09:00 Antibiotics) Spasms moxifloxacin Allergy Mild Rash Verified 10/13/21 09:00 peanut Allergy Mild Itchy Mouth Verified 10/13/21 09:00 Review of Systems Review of Systems: CONSTITUTIONAL: Reports fever EYES: Denies visual changes, redness, or discharge. ENT: Denies rhinorrhea, congestion, sore throat, or otalgia. CARDIOVASCULAR: Denies chest pain, palpitations, or edema. RESPIRATORY: Denies cough or dyspnea. GASTROINTESTINAL: Denies abdominal pain, nausea, vomiting, or diarrhea. GENITOURINARY: Denies dysuria or hematuria. SKIN: Denies rash or itching. MUSCULOSKELETAL: Denies back pain, joint pain, or myalgia. NEUROLOGIC: Denies headache, numbness, dizziness, or weakness. PSYCHIATRIC: Denies anxiety or depression. [facility] Past Medical History Medical History Atrial flutter one occurence, 8 years ago while on sudafed. Came to ED and was treated with IV medication. No incidence since Bloating Breast cancer Left DCIS Colon cancer screening Epigastric pain Fibromyalgia Hypothyroidism Interstitial cystitis MVP (mitral valve prolapse) occasional palpitation (normal spontaneous vaginal delivery) x 2 Overweight (BMI 25.0-29.9) Status post hysteroscopy 2016 Surgical History Surgical History H/O breast biopsy H/O lumpectomy S/P D&C (status post dilation and curettage) 1998 for SAb S/P laparoscopic procedure Family History Family History Other Diabetes mellitus Family history of Alzheimer's disease Family history of arthritis Family history of atrial fibrillation Family history of cardiovascular disease Family history of congestive heart failure Family history of kidney disease Family history of osteoporosis Family history of thyroid disease Hypertension Social History Social History (Reviewed 10/13/21 @ 09:25 by Wes San
[2021-10-13 09:43] LABS: Basophils Absolute Auto 0.1 K/mm3 (0.0-0.1); Basophils Percent Auto 0.7 % (0.2-1.2); Eosinophils Absolute Auto 0.2 K/mm3 (0-0.3); Eosinophils Percent Auto 3.4 % (0-4.4); Hematocrit 36.6 % (37.0-47.0); Hemoglobin 12.2 g/dL (12.0-15.0); Immature Granulocyte Absolute 0.01 K/mm3 (0.00-0.031); Immature Granulocyte Percent A 0.1 % (0-0.5); Lymphocytes Absolute Auto 0.56 K/mm3 (0.9-3.2); Lymphocytes Percent Auto 7.9 % (18.3-44.2); Mean Corpuscular HGB Conc 33.3 g/dl (32-36); Mean Corpuscular Hemoglobin 31.4 pg (26-34); Mean Corpuscular Volume 94.3 fl (80-100); Mean Platelet Volume 9.5 fl (7.4-10.4); Monocytes Absolute Auto 0.6 K/mm3 (0.1-0.6); Monocytes Percent Auto 7.9 % (2.6-8.5); Neutrophils Absolute Auto 5.7 K/mm3 (1.3-6.7); Platelet Count Result 253 k/mm3 (150-375); Red Blood Count 3.88 M/mm3 (4.2-5.4); Red Cell Distribution Width 13.2 % (11.5-14.5); White Blood Count 7.1 K/mm3 (4.5-10.0)
[2021-10-13 09:52] LABS: Appearance Urine Clear (Clear); Bilirubin Urine Negative (Negative); Color Urine Yellow (Yellow); Glucose Urine UA Negative (Negative); Ketones Urine Negative (Negative); Leukocyte Esterase Ur Negative LEU/UL (Negative); Nitrate Urine Negative (Negative); Protein Urine Negative (Negative); Specific Grav Ur <= 1.005 (1.001-1.035); Urobilinogen Urine 0.2 mg/dL (<2.0)
[2021-10-13 09:53] LABS: Add Urine Microscopic? YES; Blood Urine Trace-Intact (Negative)
[2021-10-13 09:53] LABS: Alanine Aminotransferase 21 U/L (6-35); Albumin Level 4.6 g/dL (3.5-5.1); Alkaline Phosphatase 56 U/L (38-126); Anion Gap 14 mmol/L (8-16); Aspartate Amino Transferase 28 U/L (14-36); Bilirubin,Total 0.3 mg/dL (0.2-1.3); Blood Urea Nitrogen 17 mg/dL (7-17); Calcium 9.4 mg/dL (8.4-10.2); Carbon Dioxide 25 mmol/L (22-30); Chloride 100 mmol/L (98-107); Estimated CRCL calculation 79 ml/min; Estimated Glomerular Filt Rate > 60; Glucose 109 mg/dL (65-110); Potassium 3.8 mmol/L (3.4-5.0); Sodium 139 mmol/L (137-145)
[2021-10-13 10:07] LABS: Mucus Urine Rare /lpf; RBC Urine 0-2 /hpf (0-2); Squamous Epithelial Cell Urine Rare /hpf (Few); WBC Urine 0-3 /hpf
[2021-10-13 10:14] VITALS: BP 118/65; PULSE 105; RESP 18; O2SAT 97
[2021-10-13 10:19] LABS: Influenza A QL RT-PCR Negative (Negative); Influenza B QL RT-PCR Negative (Negative); SARS-CoV-2 RNA PCR Positive
[2021-10-13 10:23] LABS: Thyroid Stimulating Hormone 0.226 uIU/mL (0.465-4.680)
[2021-10-13 11:09] VITALS: PULSE 91; RESP 18; O2SAT 97
== END 2021-10-13 11:11 | disposition home or self-care (01) ==
PROVIDERS: Emergency Provider Nurse Practitioner Family; PCP Family Medicine
DX: U07.1 COVID-19 (principal); R94.6 Abnormal results of thyroid function studies; Z85.3 Personal history of malignant neoplasm of breast; M79.7 Fibromyalgia; E03.9 Hypothyroidism, unspecified; I34.1 Nonrheumatic mitral (valve) prolapse; E66.3 Overweight; Z68.26 Body mass index [BMI] 26.0-26.9, adult; Z90.710 Acquired absence of both cervix and uterus
CPT/HCPCS: 36415; 71045; 80053; 81001; 84443; 85025; 87502; 99283; A9270; C9803; U0003; U0005

== ENCOUNTER 2022-03-10 08:52 | Emergency (ER) | payer BC, SELFPAY ==
[2022-03-10] VITALS (23 sets, daily range): BP systolic 108–126; BP diastolic 74–95; PULSE 70–90; RESP 12–18; TEMP 36.7; O2SAT 96–100
--- NOTE | ~2022-03-10 | XR_ITS ---
Clinical Indication: Shortness of breath PA and lateral views of the chest: Comparison: 10/13/2021 Findings: The lungs are clear, without evidence of focal consolidation or pleural effusion. Cardiome diastinal silhouette is within normal limits. Bones and soft tissues are unremarkable. Impression: Normal chest. Reviewed, dictated and finalized at [facility]. SERVICES COORDINATOR Impression: Normal chest.
--- NOTE | 2022-03-10 09:12 | ECG_ITS ---
Measurements Intervals [place] Rate: 79 P: 47 MN: 127 QRS: 41 QRSD: 82 T: -15 QT: 370 QTc: 424 Interpretive Statements SINUS RHYTHM BORDERLINE ST-T WAVE ABNORMALITY- DIFFUSE LEADS BORDERLINE ECG COMPARED TO ECG 04/28/2020 20:27:36 NO SIGNIFICANT CHANGES Electronically Signed On 03-10-2022 10:14:37 BUTCHER ASSISTANT by Dickson Ríos D.O.
[2022-03-10 09:31] LABS: Basophils Absolute Auto 0.1 K/mm3 (0.0-0.1); Basophils Percent Auto 1.1 % (0.2-1.2); Eosinophils Absolute Auto 0.1 K/mm3 (0-0.3); Eosinophils Percent Auto 0.7 % (0-4.4); Hematocrit 40.3 % (37.0-47.0); Hemoglobin 13.3 g/dL (12.0-15.0); Immature Granulocyte Absolute 0.02 K/mm3 (0.00-0.031); Immature Granulocyte Percent A 0.3 % (0-0.5); Lymphocytes Absolute Auto 1.85 K/mm3 (0.9-3.2); Lymphocytes Percent Auto 26.2 % (18.3-44.2); Mean Corpuscular Hemoglobin 31.5 pg (26-34); Mean Corpuscular Volume 95.5 fl (80-100); Mean Platelet Volume 9.8 fl (7.4-10.4); Monocytes Absolute Auto 0.5 K/mm3 (0.1-0.6); Monocytes Percent Auto 6.9 % (2.6-8.5); Neutrophils Absolute Auto 4.6 K/mm3 (1.3-6.7); Neutrophils Percent Auto 64.8 % (45.5-73.1); Platelet Count Result 294 k/mm3 (150-375); Red Blood Count 4.22 M/mm3 (4.2-5.4); White Blood Count 7.1 K/mm3 (4.5-10.0)
[2022-03-10 09:46] LABS: Alanine Aminotransferase 28 U/L (6-35); Albumin Level 4.5 g/dL (3.5-5.1); Alkaline Phosphatase 56 U/L (38-126); Anion Gap 8 mmol/L (8-16); Aspartate Amino Transferase 33 U/L (14-36); Bilirubin,Total 0.4 mg/dL (0.2-1.3); Blood Urea Nitrogen 18 mg/dL (7-17); Calcium 9.2 mg/dL (8.4-10.2); Carbon Dioxide 28 mmol/L (22-30); Chloride 106 mmol/L (98-107); Estimated CRCL calculation 81 ml/min; Estimated Glomerular Filt Rate > 60; Glucose 127 mg/dL (65-110); Potassium 4.2 mmol/L (3.4-5.0); Sodium 142 mmol/L (137-145)
--- NOTE | 2022-03-10 11:19 | PC.NURSE ---
Patient report received from Brandy, RN. All questios answered and care of patient assumed.
--- NOTE | 2022-03-10 11:48 | PC.NURSE ---
Patient resting quietly in stretcher. NAD noted. VSS. Respirations regular and non-labored though she continues to report feeling SOB. Awaiting EDP evaluation and further orders. Call-light within reach.
--- NOTE | 2022-03-10 12:40 | ED.SOB ---
HPI - SOB/Dyspnea General Chief Complaint: Shortness of Breath/Dyspnea Stated Complaint: breathing feels off x3 days Time Seen by Provider: 03/10/22 11:28 History of Present Illness HPI Narrative: 57-year-old female presented emerged department for evaluation of shortness of breath this morning. Patient does have history of sleep apnea and feels that her sleep apnea has been worsening over the last few days. Patient states that she woke up she felt that she took longer to recover from sleeping. Patient denies any associated chest pain with this. Patient states that this time her symptoms have significantly improved. Related Data Home Medications Medication Instructions Recorded Confirmed anastrozole 1 mg tablet 1 mg PO DAILY 02/22/19 12/04/20 metoprolol tartrate 25 mg tablet 25 mg PO QPM 02/22/19 12/04/20 omega-3 fatty acids 1,000 mg 1,000 mg PO DAILY 02/22/19 12/04/20 capsule (Fish Oil Concentrate) ascorbic acid (vitamin C) 500 mg 500 mg PO DAILY 08/21/19 12/04/20 tablet glucosamine HCl 500 mg tablet 500 mg PO DAILY 08/21/19 12/04/20 coenzyme Q10 100 mg tablet 100 mg PO DAILY 11/06/19 12/04/20 Bacillus coagulans 250 million 250 cell PO DAILY 10/28/20 12/04/20 cell chewable tablet (Digestive Advantage Probiotic Gummy) cholecalciferol (vitamin D3) 125 125 mcg PO DAILY 10/28/20 12/04/20 mcg (5,000 unit) capsule zinc acetate 50 mg (zinc) capsule 50 mg PO DAILY 10/28/20 12/04/20 (Galzin) cetirizine 10 mg capsule (Zyrtec) 10 mg PO DAILY 11/20/20 12/04/20 famotidine 10 mg tablet (Pepcid AC) 10 mg PO DAILY 11/20/20 12/04/20 levothyroxine 88 mcg capsule 88 mcg PO DAILY 11/20/20 12/04/20 (Tirosint) Allergies Allergy/AdvReac Type Severity Reaction Status Date / Time Sulfa (Sulfonamide Allergy Intermediate Muscle Verified 10/13/21 09:00 Antibiotics) Spasms moxifloxacin Allergy Mild Rash Verified 10/13/21 09:00 peanut Allergy Mild Itchy Mouth Verified 10/13/21 09:00 Review of Systems Review of Systems: CONSTITUTIONAL: Denies fever, chills, or sweats. EYES: Denies visual changes, redness, or discharge. ENT: Denies rhinorrhea, congestion, sore throat, or otalgia. CARDIOVASCULAR: Denies chest pain, palpitations, or edema. RESPIRATORY: See HPI GASTROINTESTINAL: Denies abdominal pain, nausea, vomiting, or diarrhea. GENITOURINARY: Denies dysuria or hematuria. SKIN: Denies rash or itching. MUSCULOSKELETAL: Denies back pain, joint pain, or myalgia. NEUROLOGIC: Denies headache, numbness, or weakness. [facility] Past Medical History Medical History Atrial flutter one occurence, 8 years ago while on sudafed. Came to ED and was treated with IV medication. No incidence since Bloating Breast cancer Left DCIS Colon cancer screening Epigastric pain Fibromyalgia Hypothyroidism Interstitial cystitis MVP (mitral valve prolapse) occasional palpitation (normal spontaneous vaginal delivery) x 2 Overweight (BMI 25.0-29.9) Status post hysteroscopy 2016 Surgical History Surgical History H/O breast biopsy H/O lumpectomy S/P D&C (status post dilation and curettage) 1998 for SAb S/P laparoscopic procedure Family History Family History Other Diabetes mellitus Family history of Alzheimer's disease Family history of arthritis Family history of atrial fibrillation Family history of cardiovascular disease Family history of congestive heart failure Family history of kidney disease Family history of osteoporosis Family history of thyroid disease Hypertension Social History Social History Smoking status: Never smoker Alcohol intake: never Substance use type: does not use Living arrangements: with family Gender identity (if verbalized by the patient): Female Sexual [place]
--- NOTE | 2022-03-10 13:30 | PC.NURSE ---
RT at bedside to obtain ABG.
[2022-03-10 13:34] LABS: Base Excess ABG 3.8 mEq/l (+/-2.0); Fractional Inspired Oxygen 21 %; Oxygen Content ABG 19.5 %vol (16.0-22.0); Oxygen Saturation ABG 97.9 % (95.0-100.0); Oxyhemoglobin 96.6 % THb (90.0-100.0); PCO2 ABG 40.7 mmHg (35.0-45.0); PO2 ABG 101.7 mmHg (80.0-100.0); PO2 FiO2 Ratio Arterial Blood 4.84 %; Total Hemoglobin 14.3 g/dL (12.0-18.0); pH ABG 7.455 (7.350-7.450)
[2022-03-10 13:35] LABS: Device ROOM AIR; Modified Allen's Test Pass; Site Drawn RIGHT RADIAL
== END 2022-03-10 15:25 | disposition home or self-care (01) ==
PROVIDERS: Emergency Provider Emergency Medicine; PCP Family Medicine
DX: R06.02 Shortness of breath (principal); E03.9 Hypothyroidism, unspecified; M79.7 Fibromyalgia; Z85.3 Personal history of malignant neoplasm of breast
CPT/HCPCS: 36415; 36600; 71046; 80053; 82805; 85025; 93005; 99284

== ENCOUNTER 2022-07-17 03:11 | Day surgery (SDC) | payer BC, SELFPAY ==
[2022-07-01 14:00] VITALS: BMI 25.9
[2022-07-17 06:57] VITALS: BP 99/77; PULSE 83; RESP 20; TEMP 36.1; O2SAT 99; BMI 24.7
[2022-07-17] MEDS: LACTATED RINGERS 1,000 ML 150 ML IV CONT (07:08)
--- NOTE | 2022-07-17 07:50 | WPDANESEPPF ---
Anes - Initial Pre Proc Eval Procedure: Operation Date: 07/17/22 08:00 Proposed Procedures p Screening Colonoscopy - Scott Mccurdy MD Date/Time: 07/17/22 07:50 Surgeon: Scott Mccurdy MD Pre Op Diagnosis: neoplasm screening Patient Data Age: 57 Gender: F Height: 1.75 m Weight: 76.2 kg Last Vital Signs Temp 96.9 F L 07/17/22 06:57 Pulse 83 07/17/22 06:57 Resp 20 07/17/22 06:57 BP 99/77 L 07/17/22 06:57 Pulse Ox 99 07/17/22 06:57 O2 Del Method Room Air 07/17/22 06:57 Allergies Allergy/AdvReac Type Severity Reaction Status Date / Time Sulfa (Sulfonamide Allergy Intermediate Muscle Verified 07/17/22 06:56 Antibiotics) Spasms moxifloxacin Allergy Mild Rash Verified 07/17/22 06:56 peanut Allergy Mild Itchy Mouth Verified 07/17/22 06:56 Home Medications Medication Instructions Recorded Confirmed Type anastrozole 1 mg tablet 1 mg PO DAILY 02/22/19 07/01/22 History ascorbic acid (vitamin C) 500 mg 500 mg PO DAILY 08/21/19 07/01/22 History tablet coenzyme Q10 100 mg tablet 100 mg PO DAILY 11/06/19 07/01/22 History cholecalciferol (vitamin D3) 125 125 mcg PO DAILY 10/28/20 07/01/22 History mcg (5,000 unit) capsule cetirizine 10 mg capsule (Zyrtec) 10 mg PO DAILY 11/20/20 07/01/22 History famotidine 10 mg tablet (Pepcid AC) 10 mg PO DAILY PRN Indigestion 11/20/20 07/01/22 History levothyroxine 88 mcg tablet 88 mcg PO DAILY #90 tabs 03/25/22 07/01/22 Rx (Synthroid) metoprolol succinate 25 mg 25 mg PO DAILY #30 tabs 03/25/22 07/01/22 Rx tablet,extended release 24 hr omega-3 fatty acids 1,000 mg 1,000 mg PO DAILY PRN other 03/25/22 07/01/22 History capsule (Fish Oil Concentrate) ferrous sulfate 325 mg (65 mg 325 mg PO DAILY 04/03/22 07/01/22 History iron) tablet,delayed release magnesium carb,citrate,oxide 300 mg PO DAILY 04/03/22 07/01/22 History (Magnesium Complex) mecobalamin (vitamin B12) 5,000 5,000 mcg PO DAILY 07/01/22 07/01/22 History mcg lozenge multivitamin with minerals-folic 1 tablet PO DAILY 07/01/22 07/01/22 History acid 0.4 mg tablet Patient hx anesthesia problems: none Family hx anesthesia problems: none Results Review: All pre-operative results and documents have been reviewed as part of the pre-operative evaluation. [facility] Past Medical History Medical History (Updated 07/10/22 @ 15:12 by NANETTE Luz) Allergic rhinitis Fibromyalgia Generalized anxiety disorder GERD (gastroesophageal reflux disease) 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 Hypothyroidism Interstitial cystitis Irritable bowel syndrome (IBS) MVP (mitral valve prolapse) occasional palpitation Osteopenia after menopause Sleep apnea Vitamin D deficiency Surgical History Surgical History H/O breast biopsy H/O lumpectomy History of partial mastectomy of left breast 08/2017 S/P D&C (status post dilation and curettage) 1998 for SAb S/P laparoscopic procedure Family History Family History Other Diabetes mellitus Family history of Alzheimer's disease Family history of arthritis Family history of atrial fibrillation Family history of cardiovascular disease Family history of congestive heart failure Family history of kidney disease Family history of osteoporosis Family history of thyroid disease Hypertension Social History Social History Smoking status: Never smoker Alcohol intake: current Alcohol use details: sips Substance use: never Substance use type: does not use Lack of Transportation: No Lack of Food: Never True Current Housing: I Have Housing Concerned About Future Housing: No Difficulty Paying Gas/Electric Bills: No Difficulty Paying for Meds: No Currently Unemployed: No Education: Bachelor's Degre
--- NOTE | 2022-07-17 07:58 | PM.HPGS ---
History of Present Illness History of Present Illness Consent: Risks, benefits, and alternatives have been discussed and questions answered. Patient agrees to proceed with procedure. Chief complaint: neoplasm screening Narrative: Ira Virk is a 57 year old female here for screening colonoscopy, last one 2016 Review of Systems Constitutional: Constitutional: Denies headache(s) and Denies weakness Eyes: Eyes: Denies blurry vision ENT: Reports Normal hearing present, Denies headache(s) and Denies neck pain Cardiovascular: Cardiovascular: Denies chest pain and Denies dyspnea Respiratory: Respiratory: Denies dyspnea Gastrointestinal: Gastrointestinal: Reports no additional gastrointestinal complaints Genitourinary: Genitourinary: Denies dysuria Musculoskeletal: Musculoskeletal: Denies neck pain Integumentary/Breasts: Skin/Breast: Denies dry skin Neurologic: Reports Normal hearing present, Denies headache(s) and Denies weakness Psychiatric: Psychiatric: Denies anxiety Endocrine: Endocrine: Denies change in body appearance Hematologic/Lymphatic: Hematologic/Lymphatic: Denies easy bleeding Allergic/Immunologic: Allergic/Immunologic: Denies urticaria PMFSH Past Medical History Medical History (Updated 07/10/22 @ 15:12 by NANETTE Luz) Allergic rhinitis Fibromyalgia Generalized anxiety disorder GERD (gastroesophageal reflux disease) 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 Hypothyroidism Interstitial cystitis Irritable bowel syndrome (IBS) MVP (mitral valve prolapse) occasional palpitation Osteopenia after menopause Sleep apnea Vitamin D deficiency Surgical History Surgical History H/O breast biopsy H/O lumpectomy History of partial mastectomy of left breast 08/2017 S/P D&C (status post dilation and curettage) 1998 for SAb S/P laparoscopic procedure Family History Family History Other Diabetes mellitus Family history of Alzheimer's disease Family history of arthritis Family history of atrial fibrillation Family history of cardiovascular disease Family history of congestive heart failure Family history of kidney disease Family history of osteoporosis Family history of thyroid disease Hypertension Social History Social History Smoking status: Never smoker Alcohol intake: current Alcohol use details: sips Substance use: never Substance use type: does not use Lack of Transportation: No Lack of Food: Never True Current Housing: I Have Housing Concerned About Future Housing: No Difficulty Paying Gas/Electric Bills: No Difficulty Paying for Meds: No Currently Unemployed: No Education: Bachelor's Degree Difficulty w/ Childcare or Family Care: No Living arrangements: with family Occupation/Education: unemployed Gender identity (if verbalized by the patient): Female Sexual Orientation (if Verbalized by the Patient): Straight or Heterosexual Spiritual care concerns: No Meds Home Medications and Allergies Home Medications Medication Instructions Recorded Confirmed Type anastrozole 1 mg tablet 1 mg PO DAILY 02/22/19 07/01/22 History ascorbic acid (vitamin C) 500 mg 500 mg PO DAILY 08/21/19 07/01/22 History tablet coenzyme Q10 100 mg tablet 100 mg PO DAILY 11/06/19 07/01/22 History cholecalciferol (vitamin D3) 125 125 mcg PO DAILY 10/28/20 07/01/22 History mcg (5,000 unit) capsule cetirizine 10 mg capsule (Zyrtec) 10 mg PO DAILY 11/20/20 07/01/22 History famotidine 10 mg tablet (Pepcid AC) 10 mg PO DAILY PRN Indigestion 11/20/20 07/01/22 History levothyroxine 88 mcg tablet 88 mcg PO DAILY #90 tabs 03/25/22 07/01/22 Rx (Synthroid) metoprolol succinate 25 mg 25 mg PO DAILY #30 tabs 03/25/22 07/01/22 Rx tablet,extended release 24 hr omega-3
[2022-07-17 08:13] VITALS: BP 90/81; PULSE 61; RESP 18; O2SAT 99
[2022-07-17 08:23] VITALS: BP 98/74; PULSE 62; RESP 16; O2SAT 99
[2022-07-17 08:33] VITALS: BP 111/71; PULSE 66; RESP 16; O2SAT 99
== END 2022-07-17 08:44 | disposition home or self-care (01) ==
PROVIDERS: PCP Family Medicine; Visit Provider Internal Medicine Gastroenterology
PROC: 0DJD8ZZ Inspection of Lower Intestinal Tract, Via Natural or Artificial Opening Endoscopic (ICD-10-PCS; CPT 45378; principal; 2022-07-17 08:00)
DX: Z12.11 Encounter for screening for malignant neoplasm of colon (principal); K64.8 Other hemorrhoids; E03.9 Hypothyroidism, unspecified; K21.9 Gastro-esophageal reflux disease without esophagitis; M79.7 Fibromyalgia; F41.1 Generalized anxiety disorder; K58.9 Irritable bowel syndrome, unspecified; G47.30 Sleep apnea, unspecified; E55.9 Vitamin D deficiency, unspecified; Z85.3 Personal history of malignant neoplasm of breast; Z79.811 Long term (current) use of aromatase inhibitors
CPT/HCPCS: 45378; J2704; J7120

== ENCOUNTER 2022-11-08 02:12 | Emergency (ER) | payer BC, SELFPAY ==
--- NOTE | 2022-11-08 02:13 | ECG_ITS ---
Measurements Intervals [place] Rate: 80 P: 54 [place]: 140 QRS: 43 QRSD: 86 T: 87 QT: 366 QTc: 424 Interpretive Statements SINUS RHYTHM NONSPECIFIC ST & T-WAVE ABNORMALITY- DIFFUSE LEADS BORDERLINE ECG COMPARED TO ECG 03/10/2022 09:16:37 T-WAVE ABNORMALITY NOW PRESENT Electronically Signed On 11-08-2022 7:04:41 CDT by Dickson Ríos D.O.
[2022-11-08 02:20] VITALS: BP 125/79; PULSE 89; RESP 19; TEMP 36.4; O2SAT 100
[2022-11-08 03:01] VITALS: BP 120/72; PULSE 71; RESP 15; O2SAT 100
[2022-11-08 03:02] VITALS: PULSE 74
--- NOTE | 2022-11-08 03:22 | ED.ARRPALP ---
HPI - Arrhythmia/Palpitations General Chief Complaint: Arrhythmia/Palpitations Stated Complaint: Palpitations Time Seen by Provider: 11/08/22 03:07 History of Present Illness HPI narrative: Patient is a 57-year-old female presenting with palpitations. States that she has a history of palpitations and has undergone a work-up for this. She was recently placed on a higher dose of Synthroid due to an elevated TSH. States that she was having a lot of palpitations before this but it seemed to help for a while. States that she also had a Holter monitor at some point that read multiple episodes of SVT. States that she has had episodes of palpitations this week but they resolved on their own. States that for the last 12 hours she has had pretty persistent palpitations. States that she woke up from sleep with a sensation of heart pounding. No chest pain or shortness of breath. No lightheadedness or leg swelling. No further complaints. Related Data Home Medications Medication Instructions Recorded Confirmed anastrozole 1 mg tablet 1 mg PO DAILY 02/22/19 07/01/22 ascorbic acid (vitamin C) 500 mg 500 mg PO DAILY 08/21/19 07/01/22 tablet coenzyme Q10 100 mg tablet 100 mg PO DAILY 11/06/19 07/01/22 cholecalciferol (vitamin D3) 125 125 mcg PO DAILY 10/28/20 07/01/22 mcg (5,000 unit) capsule cetirizine 10 mg capsule (Zyrtec) 10 mg PO DAILY 11/20/20 07/01/22 famotidine 10 mg tablet (Pepcid AC) 10 mg PO DAILY PRN Indigestion 11/20/20 07/01/22 omega-3 fatty acids 1,000 mg 1,000 mg PO DAILY PRN other 03/25/22 07/01/22 capsule (Fish Oil Concentrate) ferrous sulfate 325 mg (65 mg 325 mg PO DAILY 04/03/22 07/01/22 iron) tablet,delayed release magnesium carb,citrate,oxide 300 mg PO DAILY 04/03/22 07/01/22 (Magnesium Complex) mecobalamin (vitamin B12) 5,000 5,000 mcg PO DAILY 07/01/22 07/01/22 mcg lozenge multivitamin with minerals-folic 1 tablet PO DAILY 07/01/22 07/01/22 acid 0.4 mg tablet Allergies Allergy/AdvReac Type Severity Reaction Status Date / Time Sulfa (Sulfonamide Allergy Intermediate Muscle Verified 11/08/22 02:23 Antibiotics) Spasms moxifloxacin Allergy Mild Rash Verified 11/08/22 02:23 peanut Allergy Mild Itchy Mouth Verified 11/08/22 02:23 Review of Systems Review of Systems: All systems reviewed & are unremarkable except as noted in HPI and below PMFSH Past Medical History Medical History Allergic rhinitis Fibromyalgia Generalized anxiety disorder GERD (gastroesophageal reflux disease) 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 Hypothyroidism Interstitial cystitis Irritable bowel syndrome (IBS) MVP (mitral valve prolapse) occasional palpitation Osteopenia after menopause Sleep apnea Vitamin D deficiency Surgical History Surgical History H/O breast biopsy H/O lumpectomy History of partial mastectomy of left breast 08/2017 S/P D&C (status post dilation and curettage) 1998 for SAb S/P laparoscopic procedure Family History Family History Other Diabetes mellitus Family history of Alzheimer's disease Family history of arthritis Family history of atrial fibrillation Family history of cardiovascular disease Family history of congestive heart failure Family history of kidney disease Family history of osteoporosis Family history of thyroid disease Hypertension Social History Social History Smoking status: Never smoker Alcohol intake: current Alcohol use details: sips Substance use: never Substance use type: does not use Lack of Transportation: No Lack of Food: Never True Current Housing: I Have Housing Concerned About Future Housing: No Difficulty Paying Gas/Electric Bills: No Difficulty Paying for Meds: No Curre
[2022-11-08 04:26] LABS: Basophils Absolute Auto 0.1 K/mm3 (0.0-0.1); Basophils Percent Auto 1.7 % (0.2-1.2); Eosinophils Absolute Auto 0.2 K/mm3 (0-0.3); Eosinophils Percent Auto 4.4 % (0-4.4); Hematocrit 36.3 % (37.0-47.0); Hemoglobin 11.9 g/dL (12.0-15.0); Immature Granulocyte Absolute 0.01 K/mm3 (0.00-0.031); Immature Granulocyte Percent A 0.2 % (0-0.5); Lymphocytes Absolute Auto 2.17 K/mm3 (0.9-3.2); Lymphocytes Percent Auto 40.2 % (18.3-44.2); Mean Corpuscular HGB Conc 32.8 g/dl (32-36); Mean Corpuscular Volume 97.6 fl (80-100); Mean Platelet Volume 9.9 fl (7.4-10.4); Monocytes Absolute Auto 0.5 K/mm3 (0.1-0.6); Neutrophils Absolute Auto 2.4 K/mm3 (1.3-6.7); Neutrophils Percent Auto 43.5 % (45.5-73.1); Platelet Count Result 247 k/mm3 (150-375); Red Blood Count 3.72 M/mm3 (4.2-5.4); Red Cell Distribution Width 12.8 % (11.5-14.5); White Blood Count 5.4 K/mm3 (4.5-10.0)
[2022-11-08 04:35] LABS: Alanine Aminotransferase 21 U/L (6-35); Albumin Level 4.4 g/dL (3.5-5.1); Alkaline Phosphatase 52 U/L (38-126); Anion Gap 6 mmol/L (8-16); Aspartate Amino Transferase 26 U/L (14-36); Bilirubin,Total 0.4 mg/dL (0.2-1.3); Blood Urea Nitrogen 19 mg/dL (7-17); Calcium 9.1 mg/dL (8.4-10.2); Carbon Dioxide 29 mmol/L (22-30); Chloride 105 mmol/L (98-107); Estimated CRCL calculation 81 ml/min; Estimated Glomerular Filt Rate > 60; Glucose 109 mg/dL (65-110); Magnesium 2.3 mg/dL (1.6-2.3); Potassium 3.9 mmol/L (3.4-5.0); Sodium 140 mmol/L (137-145)
[2022-11-08 04:41] LABS: Prothrombin Time 13.4 Seconds (11.1-14.7)
[2022-11-08 04:42] LABS: Partial Thromboplastin Time 28.7 SECONDS (22.3-36.8)
[2022-11-08 04:47] LABS: Troponin I 0.016 ng/mL (0.000-0.034)
[2022-11-08 06:00] VITALS: BP 116/74; PULSE 69; RESP 14; O2SAT 97
[2022-11-08 06:12] VITALS: PULSE 72
[2022-11-08] MEDS: SODIUM CHLORIDE 0.9% IV 1,000 ML 999 ML IV CONT (06:12)
[2022-11-08] MEDS: METOPROLOL TARTRATE 50 MG TAB 25 MG PO (06:12)
[2022-11-08 06:15] VITALS: BP 108/75; PULSE 83; RESP 14; O2SAT 100
[2022-11-08 07:24] LABS: Troponin I < 0.012 ng/mL (0.000-0.034)
== END 2022-11-08 07:54 | disposition home or self-care (01) ==
PROVIDERS: Emergency Provider Emergency Medicine; PCP Family Medicine
DX: R00.2 Palpitations (principal); I34.1 Nonrheumatic mitral (valve) prolapse; E03.9 Hypothyroidism, unspecified; E55.9 Vitamin D deficiency, unspecified; G47.30 Sleep apnea, unspecified; K58.9 Irritable bowel syndrome, unspecified; K21.9 Gastro-esophageal reflux disease without esophagitis; M85.80 Other specified disorders of bone density and structure, unspecified site; M79.7 Fibromyalgia; Z85.3 Personal history of malignant neoplasm of breast; Z90.12 Acquired absence of left breast and nipple
CPT/HCPCS: 36415; 80053; 83735; 84484; 85025; 85610; 85730; 93005; 96360; 99284; A9270; J7030

== ENCOUNTER 2022-12-18 10:33 | Outpatient (NON) | payer BC, SELFPAY | END 2022-12-18 10:34 | disposition home or self-care (01) | PROVIDERS: PCP Family Medicine; Visit Provider Nurse Practitioner | DX: K58.1 Irritable bowel syndrome with constipation (principal) | CPT/HCPCS: 87177; 87209 ==

== ENCOUNTER 2023-09-02 09:48 | Outpatient (CLI) | payer OTHER, SELFPAY ==
--- NOTE | ~2023-09-02 | US_ITS ---
Thyroid ultrasound. Clinical History: Autoimmune thyroiditis Findings: Real-time sonography of the thyroid gland was performed. The right lobe measures 1.8 x 0.8 x 0.7 cm. The left lobe measures 1.4 x 0.6 x 0.6 cm. The isthmus is 1 mm in AP diameter. No discrete thyroid nodule seen. Impression: Small thyroid gland, without discrete nodule.. Reviewed, dictated and finalized at location . Impression: Small thyroid gland, without discrete nodule..
== END 2023-09-02 09:49 ==
PROVIDERS: PCP Family Medicine
DX: E06.3 Autoimmune thyroiditis (principal)
CPT/HCPCS: 76536

== ENCOUNTER 2024-06-19 14:17 | Outpatient (CLI) | payer OTHER, SELFPAY ==
--- NOTE | ~2024-06-19 | CT_ITS ---
Non-contrast CT scan of the Abdomen Clinical indication: Disorder of adrenal gland Technique: 2.5 mm axial scans were obtained through the abdomen without intravenous or oral contrast . Dose reduction technique was used on this scan by utilizing automated exposure control and iterativ e reconstruction technique. The dose-length product (DLP) was 387.38 mGy-cm. Findings: Images through the lung bases reveal 5 mm left lower lobe pulmonary nodule (axial image 13 ). There is no evidence of renal or ureteral calculi. The kidneys and the ureters are nondilated. Probable diffuse hepatic steatosis. The spleen, pancreas, gallbladder, and adrenals appear normal. T here is no aortic aneurysm. Visualized bowel loops are unremarkable. No ascites. Impression: No adrenal gland abnormality seen. Probable diffuse hepatic steatosis. 5 mm left lower lobe pulmonary nodule. According to Fleischner Society criteria, for a low-risk patie nt, no further follow-up required. For a high-risk patient, consider 12 month follow-up CT. Reviewed, dictated and finalized at location . Impression: No adrenal gland abnormality seen. Probable diffuse hepatic steatosis. 5 mm left lower lobe pulmonary nodule. According to Fleischner Society criteria , for a low-risk patient, no further follow-up required. For a high-risk patien t, consider 12 month follow-up CT.
== END 2024-06-19 14:18 | disposition home or self-care (01) ==
LOC: MICIMG 14:18
PROVIDERS: PCP Family Medicine; Visit Provider Internal Medicine Endocrinology, Diabetes & Metabolism
DX: E27.9 Disorder of adrenal gland, unspecified (principal); R91.1 Solitary pulmonary nodule
CPT/HCPCS: 74150

== ENCOUNTER 2024-07-05 10:14 | Outpatient (CLI) | payer OTHER, SELFPAY ==
[2024-07-05 10:34] LABS: Hematocrit 39.5 % (37.0-47.0); Hemoglobin 12.7 g/dL (12.0-15.0); Mean Corpuscular HGB Conc 32.2 g/dl (32-36); Mean Corpuscular Hemoglobin 30.9 pg (26-34); Mean Corpuscular Volume 96.1 fl (80-100); Mean Platelet Volume 9.6 fl (7.4-10.4); Platelet Count Result 290 k/mm3 (150-375); Red Blood Count 4.11 M/mm3 (4.2-5.4); Red Cell Distribution Width 13.1 % (11.5-14.5); White Blood Count 5.5 K/mm3 (4.5-10.0)
[2024-07-05 10:44] LABS: Alanine Aminotransferase 42 U/L (6-35); Albumin Level 4.8 g/dL (3.5-5.1); Alkaline Phosphatase 48 U/L (38-126); Anion Gap 10 mmol/L (4-12); Aspartate Amino Transferase 43 U/L (14-36); Bilirubin,Total 0.4 mg/dL (0.2-1.3); Blood Urea Nitrogen 20 mg/dL (7-17); Calcium 9.4 mg/dL (8.4-10.2); Carbon Dioxide 26 mmol/L (22-30); Chloride 104 mmol/L (98-107); Estimated Glomerular Filt Rate > 60; Glucose 107 mg/dL (65-110); Potassium 4.5 mmol/L (3.4-5.0); Sodium 140 mmol/L (137-145)
[2024-07-05 10:45] LABS: INR 0.9
--- OUTSIDE RECORDS SUMMARY | 2024-07-05 10:49 | XMS_ITS | CONTINUITY OF CARE DOCUMENT ---
Author Name javier, javier Address Unknown Organization [facility] Address [address] [place] [address] Phone [phone] Care Team Providers Care Mingler Operator Name Role Phone Maximino RED, [place] Unavailable [phone] Hilda Molina Unavailable Hilda Molina Unavailable [phone] PROBLEMS Condition Status Date Provider Notes S/P Implantable Loop Recorde r-Biotronik ( MRI Safe) active Kandi Perez HYPOTHYROIDISM active Kaitlynn Streetmidviolette PALPITATIONS--echo ef 60%, 10/2020 active ? R ruchi Espino Abdominal pain on protonix a nd probiotics active Dayton Stanton MD SVT active Dayton Stanton MD Atrial flutter paroxysmal active Tariq zheng MD Hyperlipidemia active Dayton Stanton MD DCIS, left breast active Dayton Stanton MD Chest pain- active Dayton Stanton MD Exposure to COVID-19 coronavirus active Cale Stanton MD PVC active Derick Doyle Ventricular preexcitation syndrome active Violette Doyle NIKOLAY--on cpap active Dayton Stanton MD ENCOUNTERS Date Type Provider Location Encounter Diag nosis - In-person encounter Office Visit Melyssa Mccormick MD [place] [facility] - In-person encounter Office Visit [place] Stanton MD [facility] Office - In-person encounter Office Visit Dayton Stanton MD [place] [facility] - In-person encounter Office Visit Dayton Stanton MD [place] [facility] - In-person encounter Office Visit Melyssa Mccormick MD [place] [facility] - In-person encounter Office Visit Melyssa Mccormick MD [place] [facility] PVCVentricular preexcitation syndrome - In-person encounter Office Visit Dayton Stanton MD [place] [facility] SVTChest pain- - In-person encounter Office Visit Dayton Stanton MD [place] [facility] NIKOLAY--on cpap - In-person encounter Office Visit Dayton Stanton MD [facility] Office - In-person encounter Office Visit Dayton Stanton MD [facility] NIKOLAY--on cpapExposure to COVID-19 coronavirus - In-person encounter Office Visit Dayton Stanton MD [place] [facility] PALPITATIONS--echo e f 60%, 10/2020 - In-person encounter Office Visit Dayton Stanton MD [facility] PALPITATIONS--echo e f 60%, 10/2020 - In-person encounter Office Visit Dayton Stanton MD [place] [facility] - In-person encounter Office Visit Dayton Stanton MD [place] [facility] - In-person encounter Office Visit Dayton Stanton MD [place] [facility] - In-person encounter Office Visit Dayton Stanton MD [place] [facility] Chest pain- - In-person encounter Office Visit Dayton Stanton MD [place] [facility] DCIS, left breast - In-person encounter Office Visit Dayton Stanton MD [facility] Hyperlipidemia - In-person encounter Office Visit Dayton Stanton MD [place] [facility] - In-person encounter Office Visit Dayton Stanton MD [place] [facility] - In-person encounter Office Visit Tariq López Office - In-person encounter Office Visit Tariq Soresnon MD [facility] Atrial flutter paroxysmal - In-person encounter Office Visit Dayton Stanton MD [place] [facility] - In-person encounter Office Visit Dayton Stanton MD [place] SVT - In-person encounter Office Visit Hanna Irving MD [place] [facility] - In-person encounter Office Visit [place] Stanton MD [place] [facility] PALPITATIONS--echo e f 60%, bdominal pain on protonix and probiotics - In-person encounter Office Visit Dayton Stanton MD [place] [facility] - In-person encounter Office Visit Dayton Stanton MD [place] [facility] - In-person encounter Office Visit Dayton Stanton MD [place] [facility] - In-person encounter Office Visit Dayton Stanton MD [place] [facility] - In-person encounter Office Visit Dayton Stanton MD [place] [facility] - In-person encounter Office Visit Dayton Stanton MD [place] [facility] - In-person encounter Office Visit [place] Stanton MD [place] VITAL SIGNS Date Observation Value Provider Body Mass Index (Ratio) 28.35 kg/m2 Albaro Mccormick MD blood pressure, diastolic 80 mm[Hg] An jaswant Cornejo blood pressure, systolic 109 mm[Hg] Viviana vieira [place] oxygen saturation, oximetry 97 % [facility] 68 [facility] respiratory rate E&M 12 /min [facility] weight E&M 192 [lb_av] [facility] height E&M 69 [in_i] [facility] blood pressure, cuff size regular [facility] Body Mass Index (Ratio) 28.06 kg/m2 Beto Stanton MD blood pressure, cuff size regular Aguila price [facility] blood pressure, diastolic 77 mm[Hg] Aguila yla [facility] blood pressure, systolic 121 mm[Hg] Milagros [facility], oximetry 99 % Maura [facility] pulse rate 86 /min Maura [facility] weight E&M 190 [lb_av] Maura [facility] height E&M 69 [in_i] Maura [facility] Body Mass Index (Ratio) 28.06 kg/m2 Beto Stanton MD blood pressure, diastolic 80 mm[Hg] [facility], systolic 110 mm[Hg] Viviana [facility], oximetry 99 % [facility] pulse rate 68 /min [facility] respiratory rate E&M 12 /min [facility] weight E&M 190 [lb_av] [facility] height E&M 69 [in_i] [facility] blood pressure, cuff size regular [facility] Body Mass Index (Ratio) 26.73 kg/m2 Beto Stanton MD blood pressure, cuff size regular Micky Salgado RN blood pressure, diastolic 74 mm[Hg] Micky Salgado RN blood pressure, systolic 118 mm[Hg] Arnold Salgado RN oxygen saturation, oximetry 97 % Arnold Salgado RN respiratory rate E&M 18 /min Arnold corea RN pulse rate 88 /min Arnold Salgado RN weight E&M 181 [lb_av] Arnold Salgado RN Body Mass Index (Ratio) 25.40 kg/m2 Albaro Mccormick MD weight E&M 172 [lb_av] Renee Mcguire [facility] height E&M 69 [in_i] Renee Shayla [facility] Body Mass Index (Ratio) 25.10 kg/m2 Jigar smith [place] blood pressure, diastolic 84 mm[Hg] Li nkLogic blood pressure, systolic 102 mm[Hg] Belinda kLog blood pressure, cuff size regular [facility] blood pressure, diastolic 84 mm[Hg] [facility] blood pressure, systolic 102 mm[Hg] [facility], oximetry 97 % [facility] respiratory rate E&M 16 /min Kathy Levar illenelly pulse rate 65 /min [facility] weight E&M 170 [lb_av] [facility] height E&M 69 [in_i] [facility] Body Mass Index (Ratio) 26.14 kg/m2 Beto Stanton MD blood pressure, cuff size regular Micky rret blood pressure, diastolic 71 mm[Hg] Ja rret blood pressure, systolic 98 mm[Hg] Celio samuel pulse rate 72 /min Gunner elen lr oxygen saturation, oximetry 97 % [facility] respiratory rate E&M 12 /min Gunner weight E&M 177 [lb_av] Gunner height E&M 69 [in_i] [facility] y Body Mass Index (Ratio) 25.54 kg/m2 Beto Stanton MD blood pressure, diastolic 74 mm[Hg] Li nkLogic blood pressure, systolic 115 mm[Hg] Belinda kLogic blood pressure, cuff size regular Ja et blood pressure, diastolic 74 mm[Hg] Ja et blood pressure, systolic 115 mm[Hg] [facility] pulse rate 68 /min Gunner respiratory rate E&M 12 /min [facility] oxygen saturation, oximetry 96 % [facility] weight E&M 173 [lb_av] Gunner height E&M 69 [in_i] [facility] y Body Mass Index (Ratio) 26.61 kg/m2 Beto Stanton MD pulse rate 80 /min Beckie Reyes blood pressure, cuff size regular Li zbeth Reyes blood pressure, diastolic 78 mm[Hg] Li zbeth Reyes blood pressure, systolic 108 mm[Hg] Tash elicia Reyes oxygen saturation, oximetry 98 % Beckie Reyes respiratory rate E&M 14 /min Beckie Reyes weight E&M 180.2 [lb_av] Beckie Reyes height E&M 69 [in_i] Beckie Reyes Body Mass Index (Ratio) 27.17 kg/m2 Beto Stanton MD blood pressure, cuff size regular St zoraida Salgado blood pressure, diastolic 86 mm[Hg] zoraida Damian blood pressure, systolic 126 mm[Hg] Marck Salgado oxygen saturation, oximetry 98 % Renetta Damian pulse rate 76 /min Renetta Salgado weight E&M 184 [lb_av] Renetta Damian respiratory rate E&M 18 /min Renetta Chew charli height E&M 69 [in_i] Renetta Damian Body Mass Index (Ratio) 27.17 kg/m2 Beto Stanton MD blood pressure, diastolic 73 mm[Hg] Sa ra Leblanc blood pressure, systolic 118 mm[Hg] Jose Martin a Leblanc oxygen saturation, oximetry 98 % Carla Leblanc respiratory rate E&M 18 /min Carla Si ms pulse rate 84 /min Carla Leblanc blood pressure, cuff size regular Sa ra Leblanc weight E&M 184 [lb_av] Carla Leblanc height E&M 69 [in_i] Carla Leblanc Body Mass Index (Ratio) 26.28 kg/m2 Beto Stanton MD blood pressure, diastolic 72 mm[Hg] Ariela nkLog blood pressure, systolic 132 mm[Hg] Belinda kLog blood pressure, cuff size large Ke rri Gruenenfelder blood pressure, diastolic 72 mm[Hg] Ke rri Gruenenfelder blood pressure, systolic 132 mm[Hg] Sravani Morejon oxygen saturation, oximetry 98 % Renee Morejon respiratory rate E&M 16 /min Renee kaiser pulse rate 73 /min Renee haq weight E&M 178 [lb_av] Renee Duongnenfe [facility] height E&M 69 [in_i] Renee Shayla [facility] Body Mass Index (Ratio) 26.14 kg/m2 Beto Stanton MD blood pressure, diastolic 70 mm[Hg] To [facility] blood pressure, systolic 102 mm[Hg] Ton [facility] oxygen saturation, oximetry 96 % [facility] pulse rate 68 /min [facility] weight E&M 177 [lb_av] [facility] height E&M 69 [in_i] [facility] Body Mass Index (Ratio) 25.40 kg/m2 Beto Stanton MD blood pressure, diastolic 80 mm[Hg] Ki [facility] blood pressure, systolic 110 mm[Hg] Miguel Angel pennie [place] oxygen saturation, oximetry 98 % [facility] respiratory rate E&M 16 /min [facility] pulse rate 81 /min [facility] weight E&M 172 [lb_av] [facility] height E&M 69 [in_i] [facility] Body Mass Index (Ratio) 25.10 kg/m2 Beto Stanton MD blood pressure, cuff size regular Ke rri Danieluenethais blood pressure, diastolic 70 mm[Hg] Ke rri Gruenenfmichelle blood pressure, systolic 110 mm[Hg] Sravani ri Darleen oxygen saturation, oximetry 98 % Renee Morejon respiratory rate E&M 18 /min Renee kaiser pulse rate 68 /min Renee Shayla [facility] weight E&M 170 [lb_av] Renee Shayla [facility] height E&M 69 [in_i] Renee Shayla [facility] Body Mass Index (Ratio) 24.98 kg/m2 Beto Stanton MD blood pressure, diastolic 75 mm[Hg] Margaux Keenan blood pressure, systolic 118 mm[Hg] Jalyn Keenan oxygen saturation, oximetry 98 % Watson Keenan respiratory rate E&M 18 /min Francesco Keenan pulse rate 73 /min Watson cota weight E&M 169.2 [lb_av] Watson loeraon height E&M 69 [in_i] Watson cota Body Mass Index (Ratio) 24.95 kg/m2 Beto Stanton MD blood pressure, diastolic 70 mm[Hg] Margaux Crowley Keenan blood pressure, systolic 102 mm[Hg] Jalyn Keenan oxygen saturation, oximetry 97 % Watson Keenan respiratory rate E&M 18 /min Francesco Keenan pulse rate 70 /min Watson cota weight E&M 169 [lb_av] Watson cota height E&M 69 [in_i] Watson Duffy iván Body Mass Index (Ratio) 26.58 kg/m2 Beto Stanton MD blood pressure, diastolic 78 mm[Hg] Al galo Banda blood pressure, systolic 118 mm[Hg] All paul [facility] oxygen saturation, oximetry 99 % Sagrario [facility] respiratory rate E&M 15 /min Sagrario [facility] pulse rate 79 /min Sagrario [facility] blood pressure, resting No Kvng joe Veronika weight E&M 180 [lb_av] Sagrario [facility] height E&M 69 [in_i] Sagrario Veronika Body Mass Index (Ratio) 26.73 kg/m2 Beto Stanton MD blood pressure, cuff size regular Basia Elliott blood pressure, diastolic 80 mm[Hg] Basia Elliott blood pressure, systolic 110 mm[Hg] Merced Elliott oxygen saturation, oximetry 99 % Aicha Elliott respiratory rate E&M 16 /min Aicha Elliott pulse rate 70 /min Aicha Elliott weight E&M 181 [lb_av] Aicha Elliott height E&M 69 [in_i] Aicha Elliott blood pressure, diastolic 74 mm[Hg] Margaux Crowley Keenan blood pressure, systolic 106 mm[Hg] Jalyn Kruse Keenan pulse rate 74 /min Watson Duffy ishmaeliván oxygen saturation, oximetry 98 % Watson Keenan respiratory rate E&M 16 /min SahraDestini junie Keenan Body Mass Index (Ratio) 26.43 kg/m2 Sahra Keenan weight E&M 179 [lb_av] Watson Duffy iván blood pressure, diastolic 77 mm[Hg] Me damion Morfin blood pressure, systolic 107 mm[Hg] Ashley Morfin pulse rate 76 /min Lillie Morfin oxygen saturation, oximetry 98 % Lillie Morfin respiratory rate E&M 16 /min Lillie Morfin Body Mass Index (Ratio) 26.11 kg/m2 Kendra Morfin weight E&M 176.8 [lb_av] Lillie Navjot Body Mass Index (Ratio) 25.10 kg/m2 Maine Gordon blood pressure, diastolic 74 mm[Hg] Aries Gordon blood pressure, systolic 117 mm[Hg] Javi Gordon pulse rate 71 /min Suzanne Gordon oxygen saturation, oximetry 98 % Suzanne Gordon respiratory rate E&M 17 /min Suzanne Gordon weight E&M 170 [lb_av] Suzanne Gordon pulse rate 86 /min Lillie Henley oxygen saturation, oximetry 97 % Lillie Henley respiratory rate E&M 14 /min Lillie Henley blood pressure, diastolic 65 mm[Hg] Me bruno Henley blood pressure, systolic 107 mm[Hg] Ashley denson Henley Body Mass Index (Ratio) 24.95 kg/m2 Kendra fowler Hen[place] weight E&M 169 [lb_av] Lillie Henley Body Mass Index (Ratio) 25.10 kg/m2 Kendra fowler [place] blood pressure, diastolic 77 mm[Hg] Me bruno Henley blood pressure, systolic 115 mm[Hg] Ashley denson [place] pulse rate 73 /min Lillie Henley oxygen saturation, oximetry 98 % Lillie Henley respiratory rate E&M 14 /min Lillie Henley weight E&M 170 [lb_av] Lillie Henley Body Mass Index (Ratio) 24.81 kg/m2 Anea gretta [facility] blood pressure, diastolic, left arm 76 mm [Hg] Aneatris Brown blood pressure, systolic, left arm 108 mm [Hg] Aneatris Brown blood pressure, diastolic, right arm 79 m m[Hg] Aneatris Brown blood pressure, systolic, right arm 114 m m[Hg] Aneatris Brown blood pressure, diastolic 76 mm[Hg] An eatris Brown blood pressure, systolic 108 mm[Hg] Ane atris Brown pulse rate 85 /min Aneatris Brown oxygen saturation, oximetry 98 % Aneatris Brown respiratory rate E&M 17 /min Aneatri s Brown weight E&M 168 [lb_av] Aneatris Brown Body Mass Index (Ratio) 24.95 kg/m2 Anea gretta Brown blood pressure, diastolic 74 mm[Hg] An eatris Rosas blood pressure, systolic 108 mm[Hg] Ane atris Brown pulse rate 84 /min Aneatris Brown oxygen saturation, oximetry 98 % Aneatris Rosas respiratory rate E&M 18 /min Aneatri tania Pillai weight E&M 169 [lb_av] Jocelynatris Rosas blood pressure, diastolic 90 mm[Hg] Micky velez Salgado RN blood pressure, systolic 132 mm[Hg] Arnold Isaacs RN pulse rate 96 /min Arnold Isaacs RN oxygen saturation, oximetry 97 % Arnold Isaactania AVILES respiratory rate E&M 16 /min Arnold Dominguez tania AVILES Body Mass Index (Ratio) 24.90 kg/m2 Arnold Isaactania AVILES weight E&M 168 [lb_av] Arnold Isaactania AVILES Body Mass Index (Ratio) 25.64 kg/m2 Meza i Darleen blood pressure, diastolic 73 mm[Hg] Ke rri Darleen blood pressure, systolic 105 mm[Hg] Sravani Morejon pulse rate 88 /min Renee dukeer oxygen saturation, oximetry 98 % Renee Morejon respiratory rate E&M 15 /min Renee kaiser weight E&M 173 [lb_av] Renee dukeer Body Mass Index (Ratio) 25.34 kg/m2 Meza i Darleen blood pressure, diastolic 79 mm[Hg] Ke rri Darleen blood pressure, systolic 116 mm[Hg] Sravani Morejon pulse rate 75 /min Renee dukeer oxygen saturation, oximetry 99 % Renee Morejon respiratory rate E&M 17 /min Reneeniya kaiser weight E&M 171 [lb_av] Renee Shayla dukeer height E&M 69 [in_i] Renee Shayla dukeer blood pressure, diastolic 68 mm[Hg] Lionel flacorosie Espinosa blood pressure, systolic 104 mm[Hg] Miles wheeler [place] pulse rate 68 /min Luiz Espinosa oxygen saturation, oximetry 98 % Milesitzelrita Espinosa respiratory rate E&M 16 /min Milesitzelrita Espinosa weight E&M 160 [lb_av] Luiz Espinosa blood pressure, diastolic 70 mm[Hg] Dann Thrasher blood pressure, systolic 102 mm[Hg] Russell Thrasher pulse rate 71 /min Bria Thrasher oxygen saturation, oximetry 96 % Bria Thrasher respiratory rate E&M 14 /min Guerrero Thrasher weight E&M 158 [lb_av] Bria Thrasher blood pressure, diastolic 67 mm[Hg] Anya arellano [place] blood pressure, systolic 101 mm[Hg] Mitul anand [facility] pulse rate 69 /min [facility]y [facility], oximetry 98 % [facility]y [facility] rate E&M 16 /min Dusty [place] weight E&M 161 [lb_av] Dusty Dao blood pressure, diastolic, left arm 62 mm [Hg] Libby [place] blood pressure, systolic, left arm 105 mm [Hg] Libby [place] blood pressure, diastolic 65 mm[Hg] Markos [place] blood pressure, systolic 100 mm[Hg] Healy pulse rate 70 /min Libby [place] oxygen saturation, oximetry 98 % Libby [place] respiratory rate E&M 18 /min Libby barrera weight E&M 156 [lb_av] Libby [place] ALLERGIES Allergy Name Onset Date Reaction Criticality Status AUGMENTIN High Criticality active SULFA High Criticality active AVELOX Low Criticality active RESULTS Date Observation Value Provider Reference Range Interpretation Location thyroid stimulating hormone, serum 6.28 u[IU]/mL [facility] 0.40-4.50 High thyroxine, serum, free 1.0 ng/dL [facility] 0.8-1.8 Normal triiodothyronine (T3), serum 88 ng/dL [facility] 76-181 Normal alanine aminotransferase (SGPT), serum 17 1/L [facility] 6-29 Normal aspartate aminotransferase (SGOT), serum 19 1/L [facility] 10-35 Normal alkaline phosphatase, serum 56 1/L [facility] 37-153 Normal bilirubin, serum, total 0.3 mg/dL [facility] 0.2-1.2 Normal albumin/globulin ratio, serum 1.6 (calc) [facility] 1.0-2.5 Normal globulins, serum, total 2.8 G/DL (CALC) [facility] 1.9-3.7 Normal albumin, serum 4.5 g/dL [facility] 3.6-5.1 Normal protein, total, serum 7.3 g/dL [facility] 6.1-8.1 Normal calcium, serum 9.3 mg/dL [facility] 8.6-10.4 Normal carbon dioxide, venous blood 28 mmol/L [facility] 20-32 Normal chloride, serum 100 mmol/L [facility] 98-110 Normal potassium, serum 4.1 mmol/L [facility] 3.5-5.3 Normal sodium, serum 138 mmol/L [facility] 135-146 Normal urea nitrogen/creatinine ratio, serum 30 (calc) [facility] 6-22 High creatinine, serum 0.87 mg/dL [facility] 0.50-1.03 Normal urea nitrogen, blood 26 mg/dL [facility] 7-25 High blood glucose, random 108 mg/dL [facility] 65-139 Normal magnesium, serum 2.3 mg/dL [facility] 1.5-2.5 Normal magnesium, serum 2.3 mg/dL [facility] 1.6-2.3 lipoprotein, beta, serum, point, quantitative, calculated 68 mg/dL [facility] 0-99 very low density lipoproteins 50 mg/dL [facility] 5-40 High HDL cholesterol, serum 66 mg/dL [facility] >39 triglyceride, serum, random 248 mg/dL [facility] 0-149 High cholesterol, serum 184 mg/dL [facility] [id number] 3851/01/ 09 alanine aminotransferase (SGPT), serum 14 1/L [facility] 0-32 aspartate aminotransferase (SGOT), serum 17 1/L [facility] 0-40 alkaline phosphatase, serum 49 1/L [facility] 39-117 bilirubin, serum, total <0.2 mg/dL [facility] 0.0-1.2 albumin/globulin ratio, serum 1.6 [facility] 1.2-2.2 globulin, serum 2.8 [facility] 1.5-4.5 albumin, serum 4.6 g/dL [facility] 3.5-5.5 protein, total, serum 7.4 g/dL [facility] 6.0-8.5 calcium, serum 9.4 mg/dL [facility] 8.7-10.2 carbon dioxide, venous blood 24 mmol/L [facility] 20-29 chloride, serum 101 mmol/L [facility] 96-106 potassium, serum 4.2 mmol/L [facility] 3.5-5.2 sodium, serum 142 mmol/L [facility] [phone]/01/ 09 urea nitrogen/creatinine ratio, serum 16 [facility] 9-23 eGFR if 108 mL/min/{1 .73_m2} [facility] >59 eGFR if not 94 mL/min/{1 .73_m2} [facility] >59 creatinine, serum 0.74 mg/dL [facility] 0.57-1.00 urea nitrogen, blood 12 mg/dL [facility] 6-24 blood glucose, random 107 mg/dL [facility] High platelet count 259 10*3/mm3 [facility] hematocrit, blood 36.2 % [facility] triglyceride, serum, fasting 77 mg/dL [facility] HDL cholesterol, serum 77 mg/dL [facility] cholesterol/HDL ratio, serum 2.3 [facility] lipoprotein, beta, serum, point, quantitative, calculated 84 mg/dL [facility] cholesterol, serum 176 mg/dL [facility] thyroid stimulating hormone, serum 1.59 u[IU]/mL [facility] alanine aminotransferase (SGPT), serum 11 1/L [facility] aspartate aminotransferase (SGOT), serum 18 1/L [facility] blood glucose, random 74 mg/dL [facility] creatinine, serum 0.79 mg/dL [facility] urea nitrogen, blood 16 mg/dL [facility] potassium, serum 4.6 mmol/L [facility] sodium, serum 139 mmol/L [facility] thyroid stimulating hormone, serum 0.4503 u[IU]/mL [facility] cholesterol/HDL ratio, serum 2.5 [facility] triglyceride, serum, fasting 56 mg/dL [facility] HDL cholesterol, serum 61 mg/dL [facility] LDL cholesterol, serum 81 mg/dL [facility] cholesterol, serum 153 mg/dL [facility] globulins, serum, total 3.1 g/dL [facility] Estimated Glomerular Filtration Rate (calc) >60 [facility] anion gap, serum 13 [facility] albumin/globulin ratio, serum 1.3 [facility] protein, total, serum 7.2 g/dL [facility] albumin, serum 4.1 g/dL [facility] bilirubin, serum, total 0.4 mg/dL [facility] alkaline phosphatase, serum 31 1/L [facility] alanine aminotransferase (SGPT), serum 10 1/L [facility] aspartate aminotransferase (SGOT), serum 16 1/L [facility] calcium, serum 8.9 mg/dL [facility] blood glucose, fasting 78 mg/dL [facility] creatinine, serum 0.8 mg/dL [facility] urea nitrogen, blood 11 mg/dL [facility] carbon dioxide, serum, total 26 mmol/L [facility] chloride, serum 107 mmol/L [facility] potassium, serum 4.5 mmol/L [facility] sodium, serum 141 mmol/L [facility] platelet count 253 10*3/uL [facility] red blood cell distribution width 13.6 % [facility] mean corpuscular hemoglobin concentration, RBC 34.5 g/dL [facility] mean corpuscular hemoglobin, RBC 33.8 pg [facility] mean corpuscular volume, RBC 97.9 fL [facility] hematocrit, blood 37.2 % [facility] hemoglobin, blood 12.8 g/dL [facility] erythrocyte (RBC) count 3.80 10*6/mm3 [facility] monocyte count, blood 0.4 10*3/mm3 [facility] lymphocyte count, blood 2.5 10*3/mm3 [facility] monocytes as percent of blood leukocytes 5.5 % [facility] lymphocytes as percent of blood leukocytes 38.6 % [facility] leukocyte count, blood 6.4 10*3/mm3 [facility] HISTORY OF MEDICATION USE Medication Status Instructions Dates Provider Indications Com ments cephalexin 500 mg capsule active one capsule three times daily for 10 days 03/03 Melyssa Mccormick MD clindamycin HCl 300 mg capsule completed Take 1 capsule by mouth three times a day - 03/03 Melyssa Mccormick MD Percocet 5-325 mg tablet active Take 1 tablet by mouth every eight hours for pain 03/02 Melyssa Mccormick MD metoprolol succinate 25 mg tablet extended release 24 hr active Take 1 tablet by mouth once a day Renee Morejon levothyroxine 100 mcg tablet active Take 1 tablet by mouth once a day alternating with 88 mcg Dayton Stanton MD omeprazole 40 mg capsule,delayed release(DR/EC) active TAKE 1 CAPSULE BY MOUTH DAILY Dayton Stanton MD Percocet 5-325 mg tablet completed Take 1 tablet by mouth every eight hours as needed for pain do not drive or use any machinery for 12 hours after taking this medication 04/01 - 07/20 Dayton Stanton MD cephalexin 250 mg capsule completed Take 1 capsule by mouth three times a day 04/01 - 07/20 Dayton Stanton MD flecainide 100 mg tablet completed Take 1 tablet by mouth twice a day 02/15 - 07/20 Dayton Stanton MD alprazolam 0.25 mg tablet completed TAKE 1 TABLET BY MOUTH EVERY DAY AT BEDTIME NEEDED FOR ANXIETY - 07/20 Dayton Stanton MD metformin (Glucophage XR) 500 mg tablet extended release 24 hr completed TAKE 1 TABLET BY MOUTH EVERY DAY AT DINNER - 07/20 Dayton Stanton MD insulin syringe-needle U-100 1 mL 31 gauge x 5/16 syringe completed INJECT B12 SUBCUATENEOUSLY ONCE WEEKLY FOR 90 DAYS - 07/20 Dayton Stanton MD metoprolol succinate 25 mg tablet extended release 24 hr completed Take 1 tablet by mouth once a day TAKE 1 TABLET BY MOUTH ONCE DAILY DIRECTED 08/17 - Renee Morejon metoprolol succinate 25 mg tablet extended release 24 hr completed TAKE 1 TABLET BY MOUTH ONCE DAILY DIRECTED 04/11 - 08/17 Amanuel Nicole Tirosint 88 mcg capsule completed TAKE 1 CAPSULE BY MOUTH EVERY DAY IN THE MORNING - 07/20 Dayton Stanton MD Arimidex 1 mg tablet completed once a day - 07/20 Dayton Stanton MD Vitamin D3 125 mcg (5,000 unit) tablet active 1 tablet by mouth once a day Dayton Stanton MD vitamin E (dl, acetate) 180 mg (400 unit) capsule completed 1 tablet once a day - 10/06 Kulwant Espino ZYRTEC ALLERGY 10 MG ORAL CAPSULE completed take one cap po once daily prn - 09/20 Watson Shlomo LINZESS CAPSULE completed 1 tab daily - 09/20 Aicha Elliott Acidophilus capsule completed Take as directed - 10/06 Kulwant Ahmedzai MAGNESIUM 500 MG ORAL CAPSULE active 1 tablet once a day Kulwant Espino VITAMIN D3 53983 UNIT ORAL TABLET completed take 1 tab once weekly - 09/25 Mukul Sanchez CYCLOBENZAPRINE HCL 10 MG ORAL TABLET completed as needed to sleep - 09/20 Renee Morejon PANTOPRAZOLE SODIUM 40 MG INTRAVENOUS SOLUTION RECONSTITUTED completed - 09/20 Aneatris Brown IRON FORMULA CAPSULE completed 27 daily - 09/20 Aneatris Brown VITAMIN B COMPLEX completed daily - 09/20 Aneatris Brown ascorbic acid (vitamin C) 500 mg capsule completed once a day - 07/20 Dayton Stanton MD TRAVIS ALLERGY TABLET completed - 07/23 Lillie Henley VITAMIN D (ERGOCALCIFEROL) 57613 UNIT ORAL CAPSULE completed every 10 days - 09/20 Renee Morejon FLAX SEED OIL CAPSULE completed take daily - 09/20 Renee Morejon OMEGA-3 FISH OIL CAPS completed Take once a day - 05/27 Kulwant Ahmedzaariane MONONESSA TABLET completed 1 tablet by rina th daily - 09/20 Enma Pillai metoprolol succinate 25 mg tablet extended release 24 hr completed Take 1 tablet by mouth once a day as directed 09/18 - 04/11 Danya Rider RN ZYRTEC 10 MG TABS completed ONE TAB. DAILY - 04/17 Arnold Salgado RN Synthroid 75 mcg tablet completed Take 1 tablet once a day 09/27 - 09/24 Renee Morejon SOCIAL HISTORY Date Observation Value Provider drug use none Derick Doyle alcohol use no Derick Doyle passive cigarette sm sherman exposure no Derick Doyle smoking status Never smoker Derick Doyle drug use none Bong Khalil alcohol use no Bong Khalil passive cigarette sm sherman exposure no Bong [place] smoking status Never smoker [place] drug use none Kulwant Espino alcohol use no Kulwant Espino passive cigarette sm sherman exposure no Kulwant Espino smoking status Never smoker Kulwant Espino drug use none Sharad Orourke alcohol use no Sharad Orourke passive cigarette sm sherman exposure no Sharad Orourke smoking status Never smoker Sharad núñez number of grandchildren Melyssa Orourke drug use none Kathy Campuzano alcohol use no Kathy Campuzano passive cigarette sm sherman exposure no [facility] smoking status Never smoker Kathy [place] social history reviewed E&M revi ewed - no changes required Dayton Stanton MD social history reviewed E&M revi ewed - no changes required Kulwant Espino social history E&M Marital Statu s: L shubham with family/friends E thnicity: Smoking History: P elieco has never smoked. Kulwant Espino smoking status Never smoker Beckie Reyes social history reviewed E&M revi ewed - no changes required Kulwant Espino social history E&M Marital Statu s: L shubham with family/friends E thnicity: Smoking History: P eliceo has never smoked. Kulwant Espino physical exercise, f requency, days per week yes Renetta Salgado caffeine use, averag e drinks per day yes Renetta Salgado passive cigarette sm sherman exposure no Renetta Salgado smoking status Never smoker Renetta Salgado social history reviewed E&M revi ewed - no changes required Dayton Stanton MD social history reviewed E&M revi ewed - no changes required Kulwant Espino social history E&M Marital Statu s: L shubahm with family/friends E thnicity: S moking History: P eliceo has never smoked. Kulwant Espino social history reviewed E&M revi ewed - no changes required Kulwant Espino drug use none Xavier Doyle alcohol use no Xavier Doyle social history reviewed E&M revi ewed - no changes required Xavier Doyle social history E&M Marital Statu s: L shubham with family/friends E thnicity: Smoking History: P eliceo has never smoked. Xavier Doyle smoking status Never smoker Xavier Doyle social history E&M Marital Statu s: L shubham with family/friends E thnicity: Smoking History: P eliceo has never smoked. Dayton Stanton MD social history reviewed E&M revi ewed - no changes required Dayton Stanton MD physical exercise, f requency, days per week yes Negin Quiroz caffeine use, averag e drinks per day yes Negin Quiroz passive cigarette sm sherman exposure no Negin Quiroz smoking status Never smoker Negin santillan social history reviewed E&M revi ewed - no changes required Dayton Stanton MD physical exercise, f requency, days per week yes Reneeniya Morejon alcohol use, average drinks per day none Reneeniya Morejon alcohol use no Reneeniya dukeer caffeine use, averag e drinks per day yes Reneeniya Morejon drug use none Renee Shayla dukeer passive cigarette sm sherman exposure no Renee Darleen smoking status Never smoker Renee Sanchezcasper sanchez social history E&M Marital Statu s: L shubham with family/friends E thnicity: Smoking History: P eliceo has never smoked. Dayton Stanton MD social history reviewed E&M revi ewed - no changes required Dayton Stanton MD physical exercise, f requency, days per week yes Watson Keenan alcohol use, average drinks per day none Watson Keenan alcohol use no Watson cota caffeine use, averag e drinks per day yes Watson Keenan drug use none Watson Sinclaire beata passive cigarette sm sherman exposure no Watson Keenan smoking status Never smoker Watson Merchant physical exercise, f requency, days per week yes Watson Keenan alcohol use, average drinks per day none Watson Keenan alcohol use no Watson cota caffeine use, averag e drinks per day yes Watson Keenan drug use none Watson quiñoneson passive cigarette sm sherman exposure no Watson Keenan smoking status Never smoker Watson Merchant social history reviewed E&M revi ewed - no changes required Dyaton Stanton MD number of grandchildren Dayton Stanton MD A sharonapaul Veronika social history reviewed E&M revi ewed - no changes required Dayton Stanton MD physical exercise, f requency, days per week yes Aicha Elliott alcohol use, average drinks per day none Aicha Elliott alcohol use no Aicha Elliott caffeine use, averag e drinks per day yes Aicha Ellitot drug use none Aicha Elliott passive cigarette sm sherman exposure no Aichacontreras Elliott smoking status Never smoker Aicha Earl social history reviewed E&M revi ewed - no changes required Dayton Stanton MD physical exercise, f requency, days per week yes Watson Keenan alcohol use, average drinks per day none Watson Keenan alcohol use no Watson Duffy ishmaeliván caffeine use, averag e drinks per day yes Watson Keenan drug use none Watson Duffy ishmaeliván passive cigarette sm sherman exposure no Watson Keenan smoking status Never smoker Watson Merchant social history reviewed E&M revi ewed - no changes required Tariq Sorenson MD physical exercise, f requency, days per week yes Lillie Morfin alcohol use, average drinks per day none Lilliejaniya Morfin alcohol use no Lillie Navjot caffeine use, averag e drinks per day yes Lillie Morfin drug use none Lillie Morfin passive cigarette sm sherman exposure no Lillie Morfin smoking status Never smoker Lillie Morfin social history reviewed E&M revi ewed - no changes required Tariq Sorenson MD social history reviewed E&M revi ewed - no changes required Dayton Stanton MD physical exercise, f requency, days per week yes Lillie Henley alcohol use, average drinks per day none Lillie Henley caffeine use, averag e drinks per day yes Lillie Henley drug use none Lillie Henley passive cigarette sm sherman exposure no Lillie Henley smoking status Never smoker Lillie Urbina n social history reviewed E&M revi ewed - no changes required Dayton Stanton MD physical exercise, f requency, days per week yes Lillie Henley alcohol use, average drinks per day none Lillie Henley caffeine use, averag e drinks per day yes Lillie Henley drug use none Lillie Henley passive cigarette sm sherman exposure no Lillie Henley smoking status Never smoker Lillie Urbina n smoking status Never smoker Cristin william NP social history reviewed E&M revi ewed - no changes required Dayton Stanton MD social history reviewed E&M reviewed Arnold Salgado RN social history reviewed E&M reviewed Dayton Stanton MD social history reviewed E&M reviewed Dayton Stanton MD drug use none Dayton Stanton MD passive cigarette sm sherman exposure no Renee Morejon smoking status never smoker Renee sanchez social history reviewed E&M reviewed Dayton Stanton MD drug use none Dayton Stanton MD social history reviewed E&M reviewed Dayton Stanton MD social history E&M Marital Statu s: Phil jalloh with family/friends E thnicity: Dayton Stanton MD social history reviewed E&M reviewed Hilda Moon RN physical exercise, f requency, days per week yes [employer] caffeine use, averag e drinks per day yes [employer] alcohol use, average drinks per day none [employer] smoking status Non-smoker [facility] MENTAL STATUS Date Observation Value Provider assessment of judgme nt and insight E&M Alert and oriented to time, place and person. Mood and affect are normal. Arnold Salgado RN assessment of judgme nt and insight E&M Alert and oriented to time, place and person. Mood and affect are normal. Dayton Stanton MD assessment of judgme nt and insight E&M Alert and oriented to time, place and person. Mood and affect are normal. Dayton Stanton MD assessment of judgme nt and insight E&M Alert and oriented to time, place and person. Mood and affect are normal. Dayton Stanton MD assessment of judgme nt and insight E&M Alert and oriented to time, place and person. Mood and affect are normal. Dayton Stanton MD assessment of judgme nt and insight E&M Alert and oriented to time, place and person. Mood and affect are normal. Hilda Moon RN assessment of judgme nt and insight E&M Alert and oriented to time, place and person. Mood and affect are normal. Dayton Stanton MD FAMILY HISTORY Family Member Condition Mother Family History of Co ronary Artery Disease: Mother Family History of Di abetes: INSURANCE PROVIDERS Payer name Policy type / Coverage type [employer] democr[email or web address] Other [id number] ADVANCE DIRECTIVES Name Date DISCUSSED - NO DECISION MADE TREATMENT PLAN Date Name Performer [id number] Riaz Ahmedza i [id number],Kulwant Messina i [id number],S, Kulwant Ahmedza i [id number],S, Kulwant Ahmedza i [id number],S, Kulwant Ahmedza i [id number],S, Kulwant Ahmedza i [id number],S, Kulwant Ahmedza i [id number],S, Kulwant Ahmedza i [id number],S, Kulwant Ahmedza i [id number],S, Kulwant Ahmedza i [id number],S, Kulwant Ahmedza i [id number],W, Kulwant Ahmedza i [id number],S, Kulwant Ahmedza i [id number],S, Kulwant Ahmedza i [id number],S, Kulwant Ahmedza i [id number],S, Kulwant Ahmedza i [id number],S, Kulwant Ahmedza i [id number],S, Kulwant Ahmedza i [id number],S, Kulwant Ahmedza i [id number],S, Kulwant Ahmedza i [id number],S, Kulwant Ahmedza i [id number],S, Kulwant Ahmedza i [id number],S, Kulwant Ahmedza i [id number],B, Kulwant Ahmedza i [id number],B, Kulwant Ahmedza i [id number],S, Kulwant Ahmedza i [id number],B, Kulwant Ahmedza i [id number],S, Kulwant Ahmedza i [id number],S, Kulwant Ahmedza i [id number],B, Kulwant medza i [id number],S, Kulwant Ahmedza i [id number],B, Kulwant medza i [id number],S, Dayton Stanton MD [id number],B, Datyon Stanton MD [id number],B, Dayton Stanton MD [id number],B, Dayton Stanton MD [id number],S, Kulwant Leyvamedza i [id number],S, Kulwant Ahmedza i [id number],S, Kulwant Ahmedza i [id number],S, Kulwant Ahmedza i [id number],S, Kulwant Ahmedza i [id number],S, Kulwant Gordonmedza i Electrophysiology: H er updated medication list for this problem includes: Metoprolol Succinate 25 Mg Tablet Extended Release 24 Hr (Metoprolol succinate) ..... Take 1 tablet by mouth once a day Melyssa Mccormick MD Electrophysiology Melyssa maza MD Electrophysiology Melyssa maza MD Electrophysiology Melyssa maza MD Electrophysiology: H er updated medication list for this problem includes: Metoprolol Succinate 25 Mg Tablet Extended Release 24 Hr (Metoprolol succinate) ..... Take 1 tablet by mouth once a day Melyssa Mccormick MD Cardiology:This visi t has been a part of the consistent, comprehensive, and ongoing management of the chronic medical condition(s) listed above for the patient. Dayton Stanton MD Cardiology Bong Khalil Cardiology Bong Khalil Cardiology Bong Khalil Cardiology Bong Khalil Cardiology Bong Khalil Cardiology: H er updated medication list for this problem includes: Metoprolol Succinate 25 Mg Tablet Extended Release 24 Hr (Metoprolol succinate) ..... Take 1 tablet by mouth once a day Dayton Stanton MD Cardiology Dayton Stanton MD Cardiology: H er updated medication list for this problem includes: Metoprolol Succinate 25 Mg Tablet Extended Release 24 Hr (Metoprolol succinate) ..... Take 1 tablet by mouth once a day Dayton Stanton MD Cardiology: H er updated medication list for this problem includes: Metoprolol Succinate 25 Mg Tablet Extended Release 24 Hr (Metoprolol succinate) ..... Take 1 tablet by mouth once a day Dayton Stanton MD Cardiology: H er updated medication list for this problem includes: Metoprolol Succinate 25 Mg Tablet Extended Release 24 Hr (Metoprolol succinate) ..... Take 1 tablet by mouth once a day T his visit has been a part of the consistent, comprehensive, and ongoing management of the chronic medical condition(s) listed above for the patient. Dayton Stanton MD Cardiology Dayton Stanton MD Cardiology Dayton Stanton MD Cardiology: T he following medications were removed from the medication list: Tirosint 88 Mcg Capsule (Levothyroxine) ..... Take 1 capsule by mouth every day in the morning Her updated medication list for this problem includes: Levothyroxine 100 Mcg Tablet (Levothyroxine) ..... Take 1 tablet by mouth once a day alternating with 88 mcg Dayton Stanton MD Cardiology Dayton Stanton MD Cardiology Dayton Stanton MD Electrophysiology wound check -I LR> 10 days Melyssa Mccormick MD Electrophysiology wo und check -ILR> 10 days: W ould not recommend antirhytmics at this time Sharad Haven Electrophysiology wo und check -ILR> 10 days:The patient is using CPAP on a regular basis. The patient has been benefiting from therapy and should continue use. Sharad Orourke Electrophysiology wo und check -ILR> 10 days:noted on ILR Sharad Orourke Electrophysiology wo und check -ILR> 10 days:attributes some episodes to anxiety but others seem to have no clear etiology P ACs and PVCs on ILR H er updated medication list for this problem includes: Flecainide 100 Mg Tablet (Flecainide) ..... Take 1 tablet by mouth twice a day Metoprolol Succinate 25 Mg Tablet Extended Release 24 Hr (Metoprolol succinate) ..... Take 1 tablet by mouth once a day take 1 tablet by mouth once daily as directed Sharad Orourke Electrophysiology:Wo uld not recommend antirhytmics at this time Derick Doyle Electrophysiology:Th e patient is using CPAP on a regular basis. The patient has been benefiting from therapy and should continue use. Derick Doyle Electrophysiology Derick Doyle Electrophysiology Derick Doyle Electrophysiology: H er updated medication list for this problem includes: Flecainide 100 Mg Tablet (Flecainide) ..... Take 1 tablet by mouth twice a day Metoprolol Succinate 25 Mg Tablet Extended Release 24 Hr (Metoprolol succinate) ..... Take 1 tablet by mouth once a day take 1 tablet by mouth once daily as directed Derick Doyle Electrophysiology:katie Doyle Cardiology Kulwant Ahmedzai Cardiology Kulwant Ahmedzai Cardiology Kulwant Ahmedzai Cardiology Kulwant Ahmedzai Cardiology Kulwant Ahmedzai Telehealth Kulwant Ahmedzai Telehealth Kulwant Ahmedzai Telehealth Kulwant Ahmedzai Telehealth Kulwant Ahmedzai Telehealth Kulwant Ahmedzai Cardiology Kulwant Ahmedzai Cardiology Kulwant Ahmedzai Cardiology Kulwant Ahmedzai Cardiology Kulwant Ahmedzai Cardiology Kulwant Ahmedzai Cardiology Kulwant Ahmedzai Cardiology Kulwant Ahmedzai Cardiology Kulwant Ahmedzai Cardiology Kulwant Ahmedzai Cardiology Kulwant Ahmedzai Cardiology Kulwant Ahmedzai Cardiology Kulwant Ahmedzai Cardiology Kulwant Ahmedzai Cardiology Kulwant Ahmedzai Cardiology Kulwant Ahmedzai Cardiology Kulwant Ahmedzai Cardiology Kulwant Ahmedzai Cardiology Kulwant Ahmedzai Cardiology Kulwant Ahmedzai Cardiology Kulwant Ahmedzai Cardiology Kulwant Ahmedzai Cardiology Kulwant Ahmedzai Telehealth needs f/up May 27 1 45 pm/done Dayton Stanton MD Telehealth needs f/up May 27 1 45 pm/done Dayton Stanton MD Telehealth needs f/up May 27 1 45 pm/done Dayton Stanton MD Telehealth needs f/up May 27 1 45 pm/done Dayton Stanton MD Cardiology Kulwant Ahmedzai Cardiology Kulwant Ahmedzai Cardiology Kulwant Ahmedzai Cardiology Kulwant Ahmedzaariane Cardiology Kulwant Leyvamedzaariane Cardiology Kulwant Leyvamedzaariane Cardiology:Patient b rought labs to ofc visit today. Her TSH is high but T4 is low. This may be secondary to stress. These labs were taken as her son was in the hospital. Advised that she gets this re-checked in a few weeks. She reports that when her thyroid was low she was fatigued and not very active. H er updated medication list for this problem includes: Synthroid 75 Mcg Oral Tablet (Levothyroxine sodium) ..... Take 1 tab once orin Stanton MD Cardiology:Patient b rought labs to ofc visit today. Her TSH is high but T4 is low. This may be secondary to stress. These labs were taken as her son was in the hospital. Advised that she gets this re-checked in a few weeks. H er updated medication list for this problem includes: Synthroid 75 Mcg Oral Tablet (Levothyroxine sodium) ..... Take 1 tab once orin Doyle Cardiology:No reoccurance of pal pitations at night Xavier Doyle Cardiology Xavier Doyle Cardiology Dayton Stanton MD Cardiology Dayton Stanton MD Cardiology Dayton Stanton MD Cardiology Dayton Stanton MD Cardiology Dayton Stanton MD Cardiology Follow up Dayton shields MD Cardiology Follow up Dayton shields MD Cardiology Follow up Dayton shields MD Cardiology Follow up Dayton shields MD Cardiology Dayton Stanton MD Cardiology Dayton Stanton MD Cardiology Dayton Stanton MD Cardiology Dayton Stanton MD Cardiology Dayton Stanton MD Cardiology:TSH normal Dayton benitez MD Cardiology:a1c decreased, LDL sl ightly high Dayton Stanton MD Cardiology:Was on Re [facility] to address her menopause symptoms. Had a lumpectomy on her left breast on August 20, 2017, and was recommended for radiation. Candidate for partial 5 day radiation. Would not recommend radiation. Dayton Stanton MD Cardiology:We await labs from Ms Jason Miles's office. Dayton Stanton MD Cardiology Dayton Stanton MD Cardiology:Recurrenc e of symptoms that wake the patient from sleep. Unknown etiology. Will check in-home sleep study and get recent labs from PCP. Her TSH has, per pt, remained within normal limits. No increase in caffeine use or noncompliance with Toprol. Will also check echocardiogram. Dayton Stanton MD Cardiology Follow up Dayton shields MD Cardiology Follow up Dayton shields MD Cardiology Follow up Dayton shields MD Cardiology Follow up Dayton shields MD Cardiology Dayton Stanton MD Cardiology Dayton Stanton MD Cardiology Dayton Stanton MD Cardiology:Today Ms. Virk and I readdressed the pathophysiology and treatment of atrial flutter. Her symptoms are well controlled with Toprol 50 mg once daily and we will continue the medication. Further, her CHADS-VASc score remains 1 and, therefore, we will continue ASA 81 mg once daily. Ms. Virk will return to clinic in nine months. Tariq Sorenson MD Cardiology,HFU:Today I discussed in depth with Ms. Virk the pathophysiology and treatment of atrial flutter. Her CHADS-VASc score is 1 and, therefore, I advised her to start ASA 81 mg once daily. We also discussed the risks and benefits of medical management versus cardiac electrophysiologic study. At this time Ms. Virk would like to increase the Toprol to 25 mg bid. She will reconsider electrophysiologic study if the episodes of atrial flutter become more frequent despite the Toprol. She will return to clinic in two months. Tariq Sorenson MD follow up: H er updated medication list for this problem includes: Synthroid 88 Mcg Tabs (Levothyroxine sodium) ..... Take one a day Labs Reviewed: T SH: 1.59 (03/11/2013) C hol: 176 (03/11/2013) HDL: 77 (03/11/2013) LDL: 84 (03/11/2013) T (03/11/2013) Dayton Stanton MD follow up: H er updated medication list for this problem includes: Synthroid 88 Mcg Tabs (Levothyroxine sodium) ..... Take one a day Labs Reviewed: T SH: 1.59 (03/11/2013) C hol: 176 (03/11/2013) HDL: 77 (03/11/2013) LDL: 84 (03/11/2013) T (03/11/2013) Dayton Stanton MD follow up:Patient is having increased palpitations. We will ask that she get her TSH checked with her PCP this week. Her updated medication list for this problem includes: Synthroid 88 Mcg Tabs (Levothyroxine sodium) ..... Take one a day Cristin Talavera NP follow up:Patient pr esents with continued complaints of palpitations. She has had an echocardiogram in 04/2013 with normal LV function and wore a 24 hour Holter which show no arrhythmias. She had been takin Metoprolol XL 12.5mg each evening. She had an episode last night when lying down when she could feel her heart beating throughout her entire torso. Denies chest pain, SOB or syncope. Will ask that she wear a event monitor to r/o arrhythmia. She will increase her Metoprolol XL to 25mg each evening. She will get her TSH and CBC checked through her PCP this week and forward results to our office. F/U with Dr. Stanton in 4 weeks. H er updated medication list for this problem includes: Toprol Xl 25 Mg Tb24 (Metoprolol succinate) ..... Po daily Orders: E KG ([id number]) Cristin Talavera NP follow up: H er updated medication list for this problem includes: Synthroid 88 Mcg Tabs (Levothyroxine sodium) ..... Take one a day Labs Reviewed: T SH: 1.59 (03/11/2013) C hol: 176 (03/11/2013) HDL: 77 (03/11/2013) LDL: 84 (03/11/2013) T (03/11/2013) Dayton Stanton MD : H er updated medication list for this problem includes: Toprol Xl 25 Mg Tb24 (Metoprolol succinate) ..... 1/2 tad qd BP today: / Prior BP: 105/73 (01/09/2013) H gb: 12.8 (09/14/2009) HCT: 37.2 (09/14/2009) RBC: 3.80 (09/14/2009) WBC: 6.4 (09/14/2009) B UN: 11 (09/14/2009) Creat: 0.8 (09/14/2009) Glucose: 78 (09/14/2009) N a+: 141 (09/14/2009) K+: 4.5 (09/14/2009) Cl: 107 (09/14/2009) Anion Gap: 13 (09/14/2009) Calcium: 8.9 (09/14/2009) TSH: 0.4503 (09/14/2009) Holter Monitor Comments: NS and SB up to 1mm ST segment depression noted. QT interval up to .46. There were 221 multifocal ventricular ectopic beats detected with no repetitive ventricular ectopy. 1 supraventricular ectopic beat detected. (04/09/2003) Orders: E KG (CPT-35090) Dayton Stanton MD : H er updated medication list for this problem includes: Synthroid 88 Mcg Tabs (Levothyroxine sodium) ..... Take one a day Labs Reviewed: T SH: 0.4503 (09/14/2009) C hol: 153 (09/14/2009) HDL: 61 (09/14/2009) LDL: 81 (09/14/2009) T (09/14/2009) Dayton Stanton MD Follow up: H er updated medication list for this problem includes: Toprol Xl 25 Mg Tb24 (Metoprolol succinate) ..... 1/2 tad qd Orders: E KG (CPT-[id number]) BP today: 105/73 Prior BP: 116/79 (12/22/2011) H gb: 12.8 (09/14/2009) HCT: 37.2 (09/14/2009) RBC: 3.80 (09/14/2009) WBC: 6.4 (09/14/2009) B UN: 11 (09/14/2009) Creat: 0.8 (09/14/2009) Glucose: 78 (09/14/2009) Na+: 141 (09/14/2009) K+: 4.5 (09/14/2009) Cl: 107 (09/14/2009) Anion Gap: 13 (09/14/2009) Calcium: 8.9 (09/14/2009) TSH: 0.4503 (09/14/2009) Holter Monitor Comments: NS and SB up to 1mm ST segment depression noted. QT interval up to .46. There were 221 multifocal ventricular ectopic beats detected with no repetitive ventricular ectopy. 1 supraventricular ectopic beat detected. (04/09/2003) Dayton Stanton MD Follow up: H er updated medication list for this problem includes: Synthroid 88 Mcg Tabs (Levothyroxine sodium) ..... Take one a day Labs Reviewed: T SH: 0.4503 (09/14/2009) C hol: 153 (09/14/2009) HDL: 61 (09/14/2009) LDL: 81 (09/14/2009) T (09/14/2009) Dayton Stanton MD follow up: H er updated medication list for this problem includes: Toprol Xl 25 Mg Tb24 (Metoprolol succinate) ..... 1/2 tad qd Orders: E KG (CPT-[id number]) BP today: 116/79 Prior BP: 104/68 (09/01/2010) H gb: 12.8 (09/14/2009) HCT: 37.2 (09/14/2009) RBC: 3.80 (09/14/2009) WBC: 6.4 (09/14/2009) B UN: 11 (09/14/2009) Creat: 0.8 (09/14/2009) Glucose: 78 (09/14/2009) Na+: 141 (09/14/2009) K+: 4.5 (09/14/2009) Cl: 107 (09/14/2009) Anion Gap: 13 (09/14/2009) Calcium: 8.9 (09/14/2009) TSH: 0.4503 (09/14/2009) Holter Monitor Comments: NS and SB up to 1mm ST segment depression noted. QT interval up to .46. There were 221 multifocal ventricular ectopic beats detected with no repetitive ventricular ectopy. 1 supraventricular ectopic beat detected. (04/09/2003) Dayton Stanton MD follow up: H er updated medication list for this problem includes: Synthroid 88 Mcg Tabs (Levothyroxine sodium) ..... Take one a day Labs Reviewed: T SH: 0.4503 (09/14/2009) C hol: 153 (09/14/2009) HDL: 61 (09/14/2009) LDL: 81 (09/14/2009) T (09/14/2009) Dayton Stanton MD follow up: H er updated medication list for this problem includes: Toprol Xl 25 Mg Tb24 (Metoprolol succinate) ..... 1/2 tad qd Orders: E KG (CPT-[id number]) BP today: 104/68 Prior BP: 102/70 (08/30/2009) H gb: 12.8 (09/14/2009) HCT: 37.2 (09/14/2009) RBC: 3.80 (09/14/2009) WBC: 6.4 (09/14/2009) B UN: 11 (09/14/2009) Creat: 0.8 (09/14/2009) Glucose: 78 (09/14/2009) Na+: 141 (09/14/2009) K+: 4.5 (09/14/2009) Cl: 107 (09/14/2009) Anion Gap: 13 (09/14/2009) Calcium: 8.9 (09/14/2009) TSH: 0.4503 (09/14/2009) Holter Monitor Comments: NS and SB up to 1mm ST segment depression noted. QT interval up to .46. There were 221 multifocal ventricular ectopic beats detected with no repetitive ventricular ectopy. 1 supraventricular ectopic beat detected. (04/09/2003) Echocardiogram: Normal LV systolic function, size and wall thickness. Normal E/E` 5.0. LV EF 60%. [place] [facility] (08/03/2008) Dayton Stanton MD follow up: H er updated medication list for this problem includes: Synthroid 100 Mcg Tabs (Levothyroxine sodium) ..... Qd Labs Reviewed: T SH: 0.4503 (09/14/2009) C hol: 153 (09/14/2009) HDL: 61 (09/14/2009) LDL: 81 (09/14/2009) T (09/14/2009) Dayton Stanton MD f/u: H er updated medication list for this problem includes: Toprol Xl 25 Mg Tb24 (Metoprolol succinate) ..... 1/2 tad qd BP today: 102/70 Prior BP: 101/67 (08/03/2008) H olter Monitor Comments: NS and SB up to 1mm ST segment depression noted. QT interval up to .46. There were 221 multifocal ventricular ectopic beats detected with no repetitive ventricular ectopy. 1 supraventricular ectopic beat detected. (04/09/2003) E chocardiogram: Normal LV systolic function, size and wall thickness. Normal E/E` 5.0. LV EF 60%. [place] [facility] (08/03/2008) Dayton Stanton MD f/u: H er updated medication list for this problem includes: Synthroid 100 Mcg Tabs (Levothyroxine sodium) ..... Qd Dayton Stanton MD yearly follow-up-: H er updated medication list for this problem includes: Synthroid 100 Mcg Tabs (Levothyroxine sodium) ..... Qd Dayton Stanton MD yearly follow-up-: H er updated medication list for this problem includes: Toprol Xl 25 Mg Tb24 (Metoprolol succinate) ..... 1/2 tad qd BP today: 101/67 Prior BP: 100/65 (07/29/2007) Holter Monitor Comments: NS and SB up to 1mm ST segment depression noted. QT interval up to .46. There were 221 multifocal ventricular ectopic beats detected with no repetitive ventricular ectopy. 1 supraventricular ectopic beat detected. (04/09/2003) E chocardiogram: EF 55-60%. Diastolic dysfuncton. MVP. Trace MR & TR with a PA pressure of 25mmHg. (05/12/2006) Dayton Stanton MD yearly follow-up-: H er updated medication list for this problem includes: Toprol Xl 25 Mg Tb24 (Metoprolol succinate) ..... 1/2 tad qd BP today: 101/67 Prior BP: 100/65 (07/29/2007) Holter Monitor Comments: NS and SB up to 1mm ST segment depression noted. QT interval up to .46. There were 221 multifocal ventricular ectopic beats detected with no repetitive ventricular ectopy. 1 supraventricular ectopic beat detected. (04/09/2003) E chocardiogram: EF 55-60%. Diastolic dysfuncton. MVP. Trace MR & TR with a PA pressure of 25mmHg. (05/12/2006) Hilda Moon RN Date Name EKG EKG CT, Coronary Calcium Score BASIC METABOLIC PANE L W/EGFR Stress Exercise Card iolite Holter Monitor 48 hr MAGNESIUM TSH, free T4, total T3 COMPREHENSIVE METABO LIC PANEL, W/EGFR Sleep Study Home Complete Echo Monitor - Telemetry (Mobile Cardiac) MAGNESIUM COMPREHENSIVE METABO LIC PANEL, W/EGFR LIPID PANEL Complete Echo Sleep Study Home Complete Echo Sleep Study Home Complete Echo HISTORY OF PROCEDURES Procedure Date Procedure Name Provider Procedure Notes S tatus Complex e/m visit add on Melyssa Mccormick MD completed Complex e/m visit add on Dayton Stanton MD completed Complex e/m visit add on Dayton Stanton MD completed Complex e/m visit add on Dayton Stanton MD completed Complex e/m visit add on Dayton Stanton MD completed EKG Melyssa Mccormick MD comp leted EKG Dayton Stanton MD completed EKG Dayton Stanton MD completed Event Monitor Dayton Stanton MD comple pino EKG Dayton Stanton MD completed EKG Dayton Stanton MD completed EKG Dayton Stanton MD completed EKG Dayton Stanton MD completed SNOMED-CT: 780911363932346 Current Medications Documented Dayton Stanton MD completed ZIO Avelinoter Hookfroilan Stanton MD co mpleted EKG Dayton Stanton MD completed SNOMED-CT: 624045991948946 Current Medications Documented Dayton Stanton MD completed SNOMED-CT: [id number] Physical Exam, Performed: Pulse Exam of Foot Dayton Stanton MD completed SNOMED-CT: [id number] Current Medications Documented Dayton Stanton MD completed SNOMED-CT: [id number] Current Medications Documented Tariq Sorenson MD completed EKG Tariq Sorenson MD comp leted EKG Tariq Sorenson MD comp leted EKG Hanna Irving MD compl eted EKG Dayton Stanton MD completed EKG Dayton Stanton MD completed EKG Dayton Stanton MD completed EKG Dayton Stanton MD completed
--- OUTSIDE RECORDS SUMMARY | 2024-07-05 10:49 | XMS_ITS | Referral Summary ---
Author Organization [facility] Healthcare Address [address] [place] [address] Care Team Providers Care Tire Trucker Name Role Phone Ean Yuen MD Primary Care Provider [phone] Yasmeen Todd MD Unavailable Allergies Active Allergy Reactions Criticality Noted Date Comments Amoxicillin-Pot Clavulanate Other (See comments) Low 06/21/2022 Ear pain and hearing loss Moxifloxacin Rash Medium 07/26/2017 Peanut Other (See comments) Medium 07/26/2017 Itchy throat Sulfa (Sulfonamide Antibiotics) Muscle pain Medium 07/26/2017 Medications cetirizine (ZyrTEC) 10 mg tabletIndicatio ns:Seasonal Allergic Rhinitis Take 1 tablet (10 mg total) by mouth daily as needed for allergies Active metoprolol XL (TOPROL-XL) 25 mg extended release tablet daily 0 Active levothyroxine (SYNTHROID) 88 mcg tablet Take 1 tablet (88 mcg total) by mouth pourer metal before breakfast Active famotidine (PEPCID) 20 mg tablet Take 1 tablet (20 mg total) by mouth as needed for heartburn Active omega 4-wkz-zgm-fish oil (Fish OiL) 1,000 mg (120 mg-180 mg) capsule Active cholecalciferol (VITAMIN D-3) 50,000 unit capsule Take 1 capsule (50,000 Units total) by mouth once a week 4 Active Active Problems Problem Noted Date Diagnosed Date Chronic maxillary sinusitis 07/20/2022 Non-seasonal allergic rhinitis due to pollen 06/2022 Theresa bullosa 07/20/2022 Chronic pansinusitis 06/29/2022 Hypertrophy of both inferior nasal turbinates Tinnitus of both ears 06/29/2022 Encounter for follow-up surveillance of breast c ancer 01/01/2021 manager terminal (current) use of aromatase inhibitors 01/01/2021 ER+ (estrogen receptor positive status) 04/28/19 19 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 Cancer Staging:Pathologic stage from 08/20/2017:Stage 0(pTis (DCIS), pN0, cM0, ER: Positive, KS: Negative, HER2: Not Assessed) - Signed by Yasmeen Todd MD on 09/24/2017 Resolved Problems Problem Noted Date Diagnosed Date Resolved Date Abnormal mammogram of right breast 07/26/2017 09/09/2017 Social History Tobacco Use Types Packs/Day Years Used Date Smoking Tobacco: Never Smokeless Tobacco: Never Tobacco Cessation:Counseling Given: Not Answered Alcohol Use Standard Drinks/Week Comments Yes 1 (1 standard drink = 0.6 oz pur e alcohol) socially Comments Unknown Sex and Gender Information Value Date Recorded Sex Assigned at Not on file Legal Sex Female 8:51 AM CDT Gender Identity Not on file Sexual Orientation Not on file Last Filed Vital Signs Vital Sign Reading Time Taken Comments Blood Pressure 122/75 11/19/2022 1:00 PM CDT Pulse 82 11/19/2022 1:00 PM CDT Temperature 36.3 C (97.4 F) 11/19/2022 1:00 PM CDT Respiratory Rate 18 11/19/2022 1:00 PM CDT Oxygen Saturation 99% 11/19/2022 1:00 PM CDT Inhaled Oxygen Concentration - - Weight 78.5 kg (173 lb) 11/29/2023 9:23 AM CDT Height 175.3 cm (5' 9 ) 11/29/2023 9:23 AM CDT Body Mass Index 25.55 11/29/2023 9:23 AM CDT Plan of Treatment Not on file Procedures Procedure Name Priority Date/Time Associated Diagnosis Comments DIAGNOSTIC MAMMOGRAM BILATERAL W BILL Schedule Routine, Read Routine (OP Routine) 04/23/2022 1:10 PM SEDIMENT REMEDIATION CONSULTANT Ductal carcinoma in situ (DCIS) of left breast from Last 3 Months or Most Recently Relevant to Health Maintenance Results * Diagnostic Mammogram Bilateral W Bill (04/23/2022 1:10 PM SEDIMENT REMEDIATION CONSULTANT) Anatomical Region Laterality Modality Breast Bilateral Mammography 04/23/2022 1:14 PM SEDIMENT REMEDIATION CONSULTANT Impressions 04/23/2022 1:14 PM SEDIMENT REMEDIATION CONSULTANT No mammographic or sonographic evidence of malignancy. OVERALL FINAL ASSESSMENT: BI-RADS Category 2: Benign. RECOMMENDATION: Annual screening mammography is recommended. Electronically signed by: Missy Murdock M.D. 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 The patient describes 2 bands of palpable tissue in the upper inner RIGHT breast. COMPARISON: Multiple priors, most recently 04/14/2021 and dating back to 07/26/2017 TECHNIQUE: Full field digital mammographic views of BOTH breasts were performed, including computer aided detection (CAD) and BILATERAL digital breast tomosynthesis (DBT). Directed ultrasound evaluation of the RIGHT breast was performed. BREAST PARENCHYMAL COMPOSITION: The breasts are heterogenously dense, which may obscure small masses. MAMMOGRAM FINDINGS: No suspicious new dominant mass, grouped microcalcification, or architectural distortion is seen within EITHER breast. Treatment changes are stable within the LEFT breast. Palpable markers were placed upon the patient's skin in the RIGHT breast and no suspicious underlying abnormality is seen. SONOGRAM FINDINGS: There is no focal abnormal solid or cystic lesion suggestive of malignancy in the area of recent concern. 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 The patient describes 2 bands of palpable tissue in the upper inner RIGHT breast. COMPARISON: Multiple priors, most recently 04/14/2021 and dating back to 07/26/2017 TECHNIQUE: Full field digital mammographic views of BOTH breasts were performed, including computer aided detection (CAD) and BILATERAL digital breast tomosynthesis (DBT). Directed ultrasound evaluation of the RIGHT breast was performed. BREAST PARENCHYMAL COMPOSITION: The breasts are heterogenously dense, which may obscure small masses. MAMMOGRAM FINDINGS: No suspicious new dominant mass, grouped microcalcification, or architectural distortion is seen within EITHER breast. Treatment changes are stable within the LEFT breast. Palpable markers were placed upon the patient's skin in the RIGHT breast and no suspicious underlying abnormality is seen. SONOGRAM FINDINGS: There is no focal abnormal solid or cystic lesion suggestive of malignancy in the area of recent concern. IMPRESSION: No mammographic or sonographic evidence of malignancy. OVERALL FINAL ASSESSMENT: BI-RADS Category 2: Benign. RECOMMENDATION: Annual screening mammography is recommended. Electronically signed by: Missy Murdock M.D. Tati Garza MD PhD IMG MAMMO PROCEDURES Final Result from Last 3 Months or Most Recently Relevant to Health Maintenance Insurance [employer] [facility] [id number] Care Teams Tire Trucker Relationship Specialty Start Date End Date Ean Yuen MD [address] [place] [address] [place] [address] PCP - General 06/30/17 Yasmeen Todd MD [address] [facility] [address] [place] [address] Radiation Oncologist Radiation Oncology 09/21/17
--- OUTSIDE RECORDS SUMMARY | 2024-07-05 10:49 | XMS_ITS | Clinical Summary ---
Author Organization 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 exterminator helper termite (current) use of aromatase inhibitors 01/01/2021 ER+ (estrogen receptor positive status) 04/28/19 19 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 Cancer Staging:Pathologic stage from 08/20/2017:Stage 0(pTis (DCIS), pN0, cM0, ER: Positive, NE: Negative, HER2: Not Assessed) - Signed by Yasmeen Todd MD on 09/24/2017 Resolved Problems Problem Noted Date Diagnosed Date Resolved Date Abnormal mammogram of right breast 07/26/2017 09/09/2017 Surgical History Surgery Date Site/Laterality Comments BREAST BIOPSY BREAST BIOPSY 07/26/2017 Left LAPAROSCOPY 02/15/1998 - 02/14/1999 DILATION AND CURETTAGE OF UTERUS 02/15/1998 - 02/14/1999 INCISIONAL BREAST BIOPSY 02/16/1996 - 02/14/1997 SINUS SURGERY Balloon procedure done by outside ENT office Medical History Medical History Date Comments Thyroid disease Ibrahima's Thyr oiditis Fibromyalgia MVP (mitral valve prolapse) Atrial flutter (HCC) Breast cancer (HCC) PONV (postoperative nausea and vomiting) Allergic rhinitis Autoimmune disease Anxiety GERD (gastroesophageal reflux disease) Sinusitis Ear problems Tinnitus Sleep difficulties Family History Medical History Relation Name Comments PPM Father Stomach cancer Maternal Grandfather Dementia Maternal Grandmother Diabetes Maternal Grandmother Heart disease Maternal Grandmother Dementia Mother Diabetes Mother Heart disease Mother Heart failure Mother Stomach cancer Mother's Brother Breast cancer Mother's Sister Relation Name Status Comments Father Maternal Grandfather Maternal Grandmother Mother living age 85 Mother's Brother Mother's Sister Social History Tobacco Use Types Packs/Day Years [...] on file Sexual Orientation Not on file Obstetrics History Last Filed Vital Signs Vital Sign Reading [...] 11/29/2023 9:23 AM CDT Plan of Treatment Health Maintenance Due Date Last Done Comments Cervical Cancer Screening 1966 Colon Cancer Screening-Colonoscopy 1966 Depression Screening 1966 Hepatitis C Screening 1966 Hepatitis B Screening 1984 Regular Well Visit/Exam 18-64 1984 Zoster Vaccine (1 of 2) 2016 DTaP/Tdap/Td Vaccine (2 - Td or Tdap) 11/16/2016 11/16/2006 Breast Cancer Screening-Mammogram 04/24/2023 04/23/2022, 04/14/2021, 04/08/2020, Additional history exists Influenza Vaccine (Season Ended) 2024 Pneumococcal vaccine <65 Aged Out No longer eligible based on patient's age to complete this topic Procedures Procedure Name Priority Date/Time Associated Diagnosis Comments DIAGNOSTIC MAMMOGRAM BILATERAL W BILL Schedule Routine, Read Routine (OP Routine) 04/23/2022 1:10 PM BUSINESS MANAGER Ductal carcinoma in situ (DCIS) of left breast from Last 3 Months or Most Recently Relevant to Health Maintenance Results * Diagnostic Mammogram Bilateral W Bill (04/23/2022 1:10 PM BUSINESS MANAGER) Anatomical Region Laterality Modality Breast Bilateral Mammography 04/23/2022 1:14 PM BUSINESS MANAGER Impressions 04/23/2022 1:14 PM BUSINESS MANAGER No mammographic or sonographic evidence of malignancy. OVERALL FINAL ASSESSMENT: BI-RADS Category 2: Benign. RECOMMENDATION: Annual screening mammography is recommended. Electronically signed by: Missy Murdock M.D. Narrative 04/23/2022 1:14 PM BUSINESS MANAGER EXAMINATION: BILATERAL DIGITAL DIAGNOSTIC MAMMOGRAM INCLUDING CAD [...] Most Recently Relevant to Health Maintenance Insurance Smart Panel ID Smart Panel ID [facility] [id number] Care Teams Vulnerability Assessment Analyst Relationship Specialty Start Date End Date Ean Yuen MD [address] [place] [address] [place] [address] PCP - General 06/30/17 Yasmeen Todd MD [address] [facility] [address] [place] [address] Radiation Oncologist Radiation Oncology 09/21/17
--- OUTSIDE RECORDS SUMMARY | 2024-07-05 10:50 | XMS_ITS | Encounter Summary ---
Author Organization [facility] Address [address] [place] [address] Phone Care Team Providers Care Assistant Department Manager Name Role Phone Ean Yuen MD Primary Care Provider [phone] Yasmeen Todd MD Unavailable Encounter Details Date Type Department Care Team (Latest Contact Info) Description 03/05/2019 Orders Only [facility] Scanning, Provider Social History Tobacco Use Types Packs/Day Years Used Date Smoking Tobacco: Never Smokeless Tobacco: Never Alcohol Use Standard Drinks/Week Comments Yes 1 (1 standard drink = 0.6 oz pur e alcohol) socially Comments Unknown Sex and Gender Information Value Date Recorded Sex Assigned at Not on file Legal Sex Female 8:51 AM CDT Gender Identity Not on file Sexual Orientation Not on file documented as of this encounter Plan of Treatment Not on file documented as of this encounter Procedures Procedure Name Priority Date/Time Associated Diagnosis Comments SCAN - LABS 03/05/2019 documented in this encounter Results * SCAN - LABS (03/05/2019) us Provider Scanning Final Result documented in this encounter Visit Diagnoses Not on filedocumented in this encounter Care Teams Assistant Department Manager Relationship Specialty Start Date End Date Ean Yuen MD [address] [place] [address] [place] [address] PCP - General 06/30/17 Yasmeen Todd MD [address] [facility] [address] [place] [address] Radiation Oncologist Radiation Oncology 09/21/17 documented as of this encounter
--- OUTSIDE RECORDS SUMMARY | 2024-07-05 10:50 | XMS_ITS | Encounter Summary ---
Author Organization [facility] Address [address] [place] [address] Phone Care Team Providers Care Steel Post Installer Supervisor Name Role Phone Ean Yuen MD Primary Care Provider [phone] Yasmeen Todd MD Unavailable Encounter Details Date Type Department Care Team (Latest Contact Info) Description 11/22/2018 Orders Only [facility] Scanning, Provider [...] Date/Time Associated Diagnosis Comments SCAN - LABS 11/22/2018 documented in this encounter Results * SCAN - LABS (11/22/2018) us Provider Scanning Final Result documented in this encounter Visit Diagnoses Not on filedocumented in this encounter Care Teams Steel Post Installer Supervisor Relationship Specialty Start Date End Date Ean Yuen MD [address] [place] [address] [place] [address] PCP - General 06/30/17 Yasmeen Todd MD [address] [facility] [address] [place] [address] Radiation Oncologist Radiation Oncology 09/21/17 documented as of this encounter
--- OUTSIDE RECORDS SUMMARY | 2024-07-05 10:50 | XMS_ITS | Encounter Summary ---
Author Organization [facility] Address [address] [place] [address] Phone Care Team Providers Care Shirrer Name Role Phone Ean Yuen MD Primary Care Provider [phone] Yasmeen Todd MD Unavailable Encounter Details Date Type Department Care Team (Latest Contact Info) Description 02/28/2019 Orders Only [facility] Scanning, Provider [...] Date/Time Associated Diagnosis Comments SCAN - LABS 02/28/2019 documented in this encounter Results * SCAN - LABS (02/28/2019) us Provider Scanning Final Result documented in this encounter Visit Diagnoses Not on filedocumented in this encounter Care Teams Shirrer Relationship Specialty Start Date End Date Ean Yuen MD [address] [place] [address] [place] [address] PCP - General 06/30/17 Yasmeen Todd MD [address] [facility] [address] [place] [address] Radiation Oncologist Radiation Oncology 09/21/17 documented as of this encounter
--- OUTSIDE RECORDS SUMMARY | 2024-07-05 10:50 | XMS_ITS | Encounter Summary ---
Author Organization [facility] Health Address [address] [place] [address] Care Team Providers Care Biomedical Engineering Supervisor Name Role Phone Unavailable Primary Care Provider Unavailabl e Encounter Details Date Type Department Care Team (Late st Contact Info) Description 07/07/2022 Lab Requisition [facility] - DermPath Lab [address] [facility] [place] [id number] Kaitlynn Varner DO [address] [facility] [address] [place] [address] Social History Tobacco Use Types Packs/Day Years Used Date Smoking Tobacco: Never Assessed Comments Unknown Sex and Gender Information Value Date Recorded Sex Assigned at Not on file Legal Sex Female 6:26 AM SERVER MANAGER Gender Identity Not on file Sexual Orientation Not on file documented as of this encounter Plan of Treatment Not on file documented as of this encounter Procedures Procedure Name Priority Date/Time Associated Diagnosis Comments DERMATOPATHOLOGY Routine 07/07/2022 1:23 PM CDT documented in this encounter Results * DERMATOPATHOLOGY (07/07/2022 1:23 PM CDT) Case Report Dermatopathology Report Case: [id number] Authorizing Provider: Kaitlynn Varner DO Collected: 07/07/2022 01:23 PM Ordering Location: [facility] DermPath Lab Received: 07/09/2022 05:59 AM Pathologist: Mila Elliott MD Specimen: Skin, left popliteal fossae 1:05 PM CDT DERMATOPATHOLOGY LABORATORY Final Diagnosis Specimen A. 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 The specimen consists of a shave biopsy measuring 6x4x1 mm. Jar 0. 3 1:05 PM CDT DERMATOPATHOLOGY LABORATORY Microscopic Description Specimen A. SKIN, left popliteal fossae: The epidermis is mildly acanthotic. There is a lichenoid infiltrate with vacuolar changes of basilar keratinocytes and scattered necrotic keratinocytes. Mild papillary dermal edema and scattered eosinophils are present. COMMENT: Arthropod bite reaction was also considered. 3 1:05 PM CDT DERMATOPATHOLOGY LABORATORY Disclaimer An external and internal positive and negative controls are appropriate for the histochemical, immunohistochemical and immunofluorescence stain(s) in this case (if any), except where stated explicitly. The performance characteristics of the stain(s) cited in this report were developed and its performance characteristic determined by the Dermatopathology Laboratory at [facility], directed by Dr. Robert Mendez. These tests need not be, and therefore are not, approved by the [place] Food and Drug Administration. The tests are used for clinical purposes. Billing Codes Specimen Charges Stain Charges 95896 1 3 1:05 PM CDT DERMATOPATHOLOGY LABORATORY Embedded Images 3 1:05 PM CDT DERMATOPATHOLOGY LABORATORY Pathology/Cytolo gy TISSUE SPECIMEN FROM SKIN / Unknown 07/07/2022 1:23 PM CDT 07/09/2022 5:59 AM CDT us Kaitlynn Varner DO LAB - PATHOLOGY/CYTOLOGY ORDERABLES Final Result DERMATOPATHOLOGY LABORATORY [facility] - Department of Dermatology [address], [address] [phone] documented in this encounter Visit Diagnoses Not on filedocumented in this encounter
--- OUTSIDE RECORDS SUMMARY | 2024-07-05 10:50 | XMS_ITS | Clinical Summary ---
Author Organization [facility] Address [address] [place] [address] Care Team Providers Care Leach Runner Name Role Phone Unavailable Primary Care Provider Unavailabl e Source Comments [facility],non-owned Affiliates and Associated Physician Practices is amultiple site organization consisting of ambulatory clinics and hospital sitesin [place], [place], [place] and [place]. This disclosure is being madepursuant to the Care Everywhere program and may not contain all information available regarding this patient. 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 Gender Identity Not on file Sexual Orientation Not on file Plan of Treatment Health Maintenance Due Date Last Done Comments COLOGUARD (AGES 45-75) - COL ON CA SCREENING 1966 COLON MONITORING 1966 COLONOSCOPY - COLON CA SCREENING 1966 CT COLONOGRAPHY - COLON CA SCREENING 1966 Colorectal Cancer Screening 1966 FIT - COLON CA SCREENING 1966 FLEX SIG - COLON CA SCREENING 1966 LIPID TESTING 1966 MAMMOGRAM 1966 PAP SMEAR 1966 HIV SCREENING 1981 HEPATITIS C SCREENING 02/27/1984 DTAP/TDAP/TD VACCINES (1 - Tdap) 1985 HEPATITIS B VACCINE (1 of 3 - 19+ 3-dose series) 1985 PNEUMOCOCCAL VACCINE 50+ (1 of 1 - PCV) 2016 ZOSTER VACCINE (1 of 2) 2016 COVID-19 VACCINE ( - 2023-2 5 season) 2023 DEPRESSION SCREENING 02/16/2024 INFLUENZA VACCINE (Season Ended) 2024 HIB VACCINE Aged Out No longer eligi ble based on patient's age to complete this topic HPV VACCINE Aged Out No longer eligi ble based on patient's age to complete this topic MENINGOCOCCAL (Group B) VACC INE SHARED DECISION-MAKING Aged Out No longer eligibl e based on patient's age to complete this topic MENINGOCOCCAL GROUPS A/C/Y/W VACCINE Aged Out No longer eligible b ased on patient's age to complete this topic Insurance [employer]
[2024-07-05 10:54] LABS: Immunoglobulin G 1296 mg/dL (700-1600)
[2024-07-05 14:02] LABS: Hepatitis B Surface Antigen Negative (Negative)
[2024-07-05 14:08] LABS: HAV RESULT Negative (Negative); Hepatitis B Core IgM Result Negative (Negative)
[2024-07-05 14:19] LABS: Hepatitis B Surface Anti Res Negative; Hepatitis C Virus Antibody Negative (Negative)
[2024-07-06 05:19] LABS: Alpha-1-Antitrypsin, QN 120 mg/dL (83-199); Ceruloplasmin 31 mg/dL (14-48)
[2024-07-06 07:04] LABS: Hepatitis A Antibody Total NON-REACTIVE (NON-REACTIVE); Hepatitis B Core Ab Total NON-REACTIVE (NON-REACTIVE)
[2024-07-08 22:59] LABS: Actin Antibody (IgG) <20 U (<20)
[2024-07-09 14:04] LABS: LKM 1 Antibody <=20.0 U (<=20.0)
[2024-07-10 12:54] LABS: ALT 30 U/L (6-29); Alpha-2-Macroglobulin 196 mg/dL (106-279); Apolipoprotein A1 190 mg/dL (101-198); Fibrosis Score 0.07; Fibrosis Stage F0; GGT 12 U/L (3-70); Haptoglobin 145 mg/dL (43-212); Necroinflammat Act Grade A0; Reference ID 5503361; Total Bilirubin 0.4 mg/dL (0.2-1.2)
[2024-07-11 13:35] LABS: Mitochondrial (M2) Ab (IgG) <20.0 U
== END 2024-07-05 10:15 | disposition home or self-care (01) ==
LOC: ANHLAB 10:16
PROVIDERS: PCP Family Medicine; Visit Provider Nurse Practitioner
DX: K76.0 Fatty (change of) liver, not elsewhere classified (principal)
CPT/HCPCS: 36415; 80053; 80074; 81596; 82103; 82390; 82728; 82784; 83520; 85027; 85610; 86038; 86039; 86364; 86376; 86704; 86706; 86708

== ENCOUNTER 2024-09-01 11:37 | Emergency (ER) | payer OTHER, SELFPAY ==
--- OUTSIDE RECORDS SUMMARY | 2024-09-01 11:40 | XMS_ITS | Encounter Summary ---
Author Organization [facility] Address [address] [place] [id number] Care Team Providers Care Night Auditor Name Role Phone Brandi Houston DO Primary Care Provider [phone] Encounter Details Date Type Department Care Team (Late st Contact Info) Description 02/06/2024 [employer] Message Enc [facility] [place] [address] [place] [address] Brandi Houston DO 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 Legal Sex Female 1:00 PM CDT Gender Identity Female 04/18/2024 1:56 PM HOUSEHOLD REFRIGERATION MECHANIC Sexual Orientation Not on file documented as of this encounter Plan of Treatment Not on file documented as of this encounter Visit Diagnoses Not on filedocumented in this encounter Additional Health Concerns Infection Onset Date Last Indicated Resolved Time Respiratory Rule Out 04/18/2024 04/18/2024 025 2:09 PM HOUSEHOLD REFRIGERATION MECHANIC Influenza - Seasonal 04/18/2024 04/18/2024 025 12:32 AM CDT Assessment Noted Time PHQ-9 Depression Total Score: 6 12/12/20 24 10:34 AM HOUSEHOLD REFRIGERATION MECHANIC documented as of this encounter Care Teams Night Auditor Relationship Specialty Start Date End Date Brandi Houston DO [address] [place] [address] PCP - General FAMILY PRACTICE 11/23/23 10/08/24 documented as of this encounter
--- OUTSIDE RECORDS SUMMARY | 2024-09-01 11:40 | XMS_ITS | Patient Health Record ---
Author Organization [employer] [facility] Address [address] [address] Care Team Providers Care Clinical Counselor Name Role Phone Kali Mel Primary Care Provider Liz Dickerson Unavailable [phone] Lance Moon Unavailable [phone] Migration, Provider Unavailable Unavailable Allergies Allergen (clinical drug ingredient) Drug/Non Drug Allergy documented on EMR Reaction Allergy Type Onset Date Status sulfamethoxazole / trimethoprim Sulfamethoxazole-Tr imethoprim Unknown Drug Allergy Active amoxicillin / clavulanate Augmentin Unknown Drug Allergy Active Results Component Value Reference Range Notes CORTISOL, TOTAL Reviewed date:09/15/2023 09:42:58 AM Interpretation: Performing Lab:[place], [facility], [address] [place], [address] Emmy Loomis MD Notes/Report: COMPREHENSIVE METABOLIC PANE L Reviewed date:09/30/2023 09:36:15 AM Interpretation: Performing Lab:[facility], [address], [place], [address] Emmy Loomis Notes/Report: FASTING:YES FASTING: YES ALDOSTERONE/PLASMA RENIN ACT IVITY RATIO,LC/MS/MS Reviewed date:10/04/2023 02:22:37 PM Interpretation: Performing Lab:[facility],, [address] [place], [address] Evon Dodge MD,PhD,BRENDA Notes/Report: FASTING:YES FASTING: YES ALDOSTERONE, LC/MS/MS 8 Adult Reference Ranges for Aldosterone: Upright 8:00-10:00 am < or = 28 ng/dL Upright 4:00-6:00 pm < or = 21 ng/dL Supine 8:00-10:00 am 3-16 ng/dL This test was developed and its analytical performance characteristics have been determined by [employer]. It has not been cleared or approved by FDA. This assay has been validated pursuant to the CLIA regulations and is used for clinical purposes. PLASMA RENIN ACTIVITY, LC/MS/MS 0.79 0.25-5.82 ng/mL/h EFRAIN/PRA RATIO 10.1 0.9-28.9 Ratio ACTH, PLASMA Reviewed date:10/06/2023 03:25:26 PM Interpretation: Performing Lab:[facility], [address], [place], [address] Mike Atkinson M.D.,PhD Notes/Report: FASTING:YES FASTING: YES T3, FREE Reviewed date:10/04/2023 02:22:37 PM Interpretation: Performing Lab:[facility], [address] [place], [address] Emmy Loomis MD Notes/Report: FASTING:YES FASTING: YES INSULIN Reviewed date:09/30/2023 09:36:15 AM Interpretation: Performing Lab:[facility], [address] [place], [address] Emmy Loomis MD Notes/Report: FASTING:YES FASTING: YES T4, FREE Reviewed date:09/30/2023 09:36:15 AM Interpretation: Performing Lab:[facility], [address] , [place], [address] Emmy Loomis Notes/Report: FASTING:YES FASTING: YES TSH Reviewed date:09/30/2023 09:36:15 AM Interpretation: Performing Lab:[facility], [address] [place], [address] Emmy Loomis Notes/Report: FASTING:YES FASTING: YES VITAMIN D, 25-HYDROXY, LC/MS /MS Reviewed date:12/23/2023 08:38:11 PM Interpretation: Performing Lab:[facility], [address], [place], [place], [address] Emmy Loomis MD Notes/Report: FASTING:YES FASTING: YES T3, FREE Reviewed date:12/23/2023 08:38:26 PM Interpretation: Performing Lab:[place], [facility], [address], [place], [place], [address] Emmy Loomis MD Notes/Report: FASTING:YES FASTING: YES CORTISOL, A.M. Reviewed date:12/23/2023 08:38:48 PM Interpretation: Performing Lab:[place], [facility], [address], [place], [place], [address] Emmy Loomis MD Notes/Report: FASTING:YES FASTING: YES CORTISOL, A.M. 8.7 Reference Range 8 a.m. (7-9 a.m.) Specimen: 4.0-22.0 HEMOGLOBIN A1c Reviewed date:12/23/2023 08:38:04 PM Interpretation: Performing Lab:[facility], [address] [place], [address] [facility] Notes/Report: FASTING:YES FASTING: YES T4, FREE Reviewed date:12/23/2023 08:38:41 PM Interpretation: Performing Lab:[facility], [address] [place], [address] [facility] Georgina Notes/Report: FASTING:YES FASTING: YES TSH Reviewed date:12/23/2023 08:38:18 PM Interpretation: Performing Lab:[facility], [address] [place], [address] [facility] Georgina Notes/Report: FASTING:YES FASTING: YES THYROID PEROXIDASE ANTIBODIE S Reviewed date:12/30/2023 08:12:22 PM Interpretation: Performing Lab:[facility], [address] [facility], [place], [address] Giuseppe Sepulveda Notes/Report: FASTING:YES FASTING: YES THYROID PEROXIDASE ANTIBODIES 17 <9 IU/mL VITAMIN D, 25-HYDROXY, LC/MS /MS Reviewed date:06/07/2024 08:06:51 AM Interpretation: Performing Lab:[facility], [address] [place], [address] Emmy Loomis MD Notes/Report: FASTING:YES FASTING: YES T3, FREE Reviewed date:06/07/2024 08:06:51 AM Interpretation: Performing Lab:[facility], [address] [place], [address] Emmy Loomis MD Notes/Report: FASTING:YES FASTING: YES HEMOGLOBIN A1c Reviewed date:06/07/2024 08:06:51 AM Interpretation: Performing Lab:[facility], [address], [place], [address] Emmy Loomis Notes/Report: FASTING:YES FASTING: YES T4, FREE Reviewed date:06/07/2024 08:06:51 AM Interpretation: Performing Lab:[facility], [address] [place], [address] Emmy Loomis MD Notes/Report: FASTING:YES FASTING: YES TSH Reviewed date:06/07/2024 08:06:51 AM Interpretation: Performing Lab:[facility], [address] [place], [address] Emmy Loomis MD Notes/Report: FASTING:YES FASTING: YES Reason For Referral No Information Medications Medication SIG (Take, Route, Frequency, Duration) Notes Start Date End Date Status Cholecalciferol 1250 MCG 1 CAP(S) ORALLY ONCE A WEEK for 90 days *Please review and pick correct strength-formulati on from Medispan options. If intended option is not shown, discontinue and re-order from Quick Search* 10/22/2023 Active Vitamin D3 *Please review a nd pick correct strength-formulati on from Medispan options. If intended option is not shown, discontinue and re-order from Quick Search* Active ZINC IMMUNE HEALTH *Please revie w for potential replacement for e-prescription and drug interaction check* Active Potassium Citrate *Please review and pick correct strength-formulati on from Medispan options. If intended option is not shown, discontinue and re-order from Quick Search* Active Pepcid *Please review a nd pick correct strength-formulati on from Medispan options. If intended option is not shown, discontinue and re-order from Quick Search* Active Metoprolol Succinate ER 25 MG 1 TAB(S) ORALLY ONCE A DAY *Please review and pick correct strength-formulati on from Medispan options. If intended option is not shown, discontinue and re-order from Quick Search* Active ZyrTEC *Please review a nd pick correct strength-formulati on from Medispan options. If intended option is not shown, discontinue and re-order from Quick Search* Active MAGNESIUM AMINO ACIDS CHELATE *Please review for potential replacement for e-prescription and drug interaction check* Active Hydroxocobalamin *Please review and pick correct strength-formulati on from [employer] options. If intended option is not shown, discontinue and re-order from Quick Search* Active Synthroid 100 MCG 1 tab(s) orally once a day alternating 100 mcg and 88mcg Active Vitamin D (Ergocalciferol) 1.25 MG (85246 UT) 1 cap(s) orally once a week for 90 days 10/22/2023 Active Synthroid 100 MCG 1 tab(s) orally once a day for 45 days 10/12/2023 Active Synthroid 88 MCG 1 tab(s) orally once a day for 45 days 10/12/2023 Active Problems Problem Type SNOMED Code ICD Code Onset Dates Problem Status W/U Status Risk Notes Problem Vitamin D deficiency (75632797) Vitamin D deficiency, unspecified (E55.9) Active confirmed Problem Insomnia (160787460) Insomnia, unspecified (G47.00) Active confirmed Problem Autoimmune thyroiditis (03359465) Autoimmune thyroiditis (E06.3) Active confirmed Problem Corticoadrenal insufficiency (370564603) Unspecified adrenocortical insufficiency (E27.40) Active confirmed Problem Ventricular premature depolarization (098569385) Ventricular premature depolarization (I49.3) Active confirmed Vital Signs Heart Rate 81 /min 01/05/2024 Blood pressure diastolic 65 mm Hg 01/05/2024 Height 69 in 01/05/2024 Blood pressure systolic 97 mm Hg 01/05/2024 Weight 188.0 lbs 01/05/2024 BMI 27.76 kg/m2 01/05/2024 Encounters Encounter Location Date Provider Diagnosis [facility] [address] [place] [address] 10/08/2023 Liz Dickerson Insomnia, unspecifie d G47.00 ; Autoimmune thyroiditis E06.3 ; Unspecified adrenocortical insufficiency E27.40 ; Ventricular premature depolarization I49.3 ; Other fatigue R53.83 and Vitamin D deficiency, unspecified E55.9 [facility] - Mel Bass [address] [place] [address] 01/05/2024 LiliaBraeden Moon Insomnia, unspecifie d G47.00 ; Autoimmune thyroiditis E06.3 ; Unspecified adrenocortical insufficiency E27.40 ; Ventricular premature depolarization I49.3 ; Other fatigue R53.83 ; Vitamin D deficiency, unspecified E55.9 and Prediabetes R73.03 [facility] - Mel Bass [address] [place] [address] 04/04/[address] [address] 01/01/2024 Provider [facility]- [facility]. Nix [address] [place] [address] 09/02/2023 Mel Bass [facility] [address] [place] [address] 09/03/2023 Mel [facility] - Mel Bass [address] [place] [address] 09/09/2023 Mel [facility] - Mel Bass [address] [place] [address] 12/29/2023 Mel [facility] - Mel Bass [address] [place] [address] 12/30/2023 Mel [facility] - Mel Bass [address] [place] [address] 09/15/2023 Mel [facility] - Mel Bass [address] [place] [address] 10/08/2023 Mel [facility] - Mel Bass [address] [place] [address] 10/12/2023 Mel [facility] - Mel Bass [address] [place] [address] 10/21/2023 Mel [facility], [facility] - Mel Bass [address] [place] [address] 10/22/2023 Mel [facility], [facility] - Mel Kali [address] [place] [address] 10/22/2023 Mel Bass [facility], [facility] - Mel Bass [address] [place] [address] 11/01/2023 Mel Bass [facility], [facility] - Mel Bass [address] [place] [address] 04/25/2024 Mel Kali Assessments Encounter Date Diagnosis (ICD Code) Assessment Notes Treatment Notes Treatment Clinical Notes Section Notes 10/08/2023 Insomnia, unspecified (ICD-10 - G47.00) Continue seeing a chiropractor for temporary relief. - Continue counseling and therapy sessions. - Monitor sleep quality with CPAP, ensure no issues. - Reassess sleep patterns after adjusting other factors (e.g., medication, diet). Plan: Monitor and reassess sleep quality and patterns, continue supportive therapies. 10/08/2023 Autoimmune thyroiditis (ICD-10 - E06.3) - Continue alternating 100 and 88 mcg for TSH. - Monitor thyroid levels with labs in December. - Maintain current Synthroid dosage. - Consider adjusting dosage if weight changes significantly. Plan: Monitor thyroid function and adjust treatment as necessary. 01/05/2024 Insomnia, unspecified (ICD-10 - G47.00) 10/08/2023 Unspecified adrenocortical insufficiency (ICD-10 - E27.40) 01/05/2024 Autoimmune thyroiditis (ICD-10 - E06.3) 01/05/2024 Unspecified adrenocortical insufficiency (ICD-10 - E27.40) 10/08/2023 Ventricular premature depolarization (ICD-10 - I49.3) - Continue Metoprolol as prescribed. - Discuss long-term use with primary care provider given her hypotension. She denies side effects like dizziness or feeling faint. - Monitor blood pressure at home and report any significant changes. Plan: Continue medication and monitoring, discuss long-term management. 01/05/2024 Ventricular premature depolarization (ICD-10 - I49.3) 10/08/2023 Other fatigue (ICD-10 - R53.83) - Continue gluten-free diet and avoidance of oxalates. - Monitor reactions to specific foods. - Maintain consumption of low-oxalate vegetables and lean meats. - Avoid overeating and skipping meals. - Consider following the autoimmune paleo diet for additional guidance. Plan: Continue dietary management and monitor for improvements or necessary adjustments. 01/05/2024 Other fatigue (ICD-10 - R53.83) 10/08/2023 Vitamin D deficiency, unspecified (ICD-10 - E55.9) - Continue taking 4,000 IU of Vitamin D daily. - Recheck Vitamin D levels during December labs. - Consider increasing dosage if levels remain suboptimal. - Discuss with provider if interested in trying 50,000 IU once a week. Plan: Monitor Vitamin D levels and adjust supplementation as needed. 01/05/2024 Vitamin D deficiency, unspecified (ICD-10 - E55.9) 01/05/2024 Prediabetes (ICD-10 - R73.03) 10/08/2023 Other - Continue nerv ous system and vagus nerve exercises. - Consider discussing ashwagandha with provider, keeping Ibrahima's in mind. - Monitor cortisol levels with AM cortisol test in December. Plan: Continue current management strategies and monitor for effectiveness. 01/05/2024 Other Assessment and Plan: 1. MTHFR mutation- Patient is currently taking folic acid and a non-methylated B12 supplement. Encourage the patient to continue with the current supplement regimen and monitor for any changes in mood or anxiety levels. 2. Hypothyroidism (Ibrahima's)- Patient is on Synthroid, alternating between 100 and 88 mcg depending on how they feel. They report improvement in hair loss and energy levels, but still experience fatigue and the need for daily naps.- Plan: Continue the current Synthroid regimen and monitor symptoms. Recheck thyroid function tests in 3 months. 3. Vitamin D deficiency- Patient is currently taking 50,000 units of vitamin D once a week. They report difficulty absorbing vitamin D.- Plan: Continue the current vitamin D supplementation and recheck vitamin D levels in 3 months. Consider switching to vitamin D3 if levels remain low. 4. Prediabetes- Patient has an A1c in the prediabetic range. They are hesitant to try metformin due to previous GI side effects.- Plan: Encourage the patient to start with a low dose of metformin (250 mg) and gradually increase to 500 mg if tolerated. Recheck A1c in 3 months. 5. Hyperlipidemia- Patient's cholesterol levels are stable but elevated. They are working on dietary changes to improve cholesterol levels.- Plan: Continue monitoring cholesterol levels and encourage the patient to maintain a heart-healthy diet. Recheck lipid panel in 3-6 months. 6. Postmenopausal osteopenia- Patient has a history of osteopenia and is due for a bone density test next year.- Plan: Schedule a bone density test next year to monitor for osteoporosis. If osteopenia persists, consider adding a calcium supplement to prevent fractures. 7. Fatigue and palpitations- Patient is on metoprolol 25 mg daily for palpitations. They report improvement in palpitations but experience fatigue, which may be related to the medication.- Plan: Discuss with the patient's research and insights executive the possibility of adjusting the metoprolol dose or switching to a cdb-ykwkuxqt-hmaio se formulation to help with fatigue. 8. Medication refills- Plan: Send in a refill for Synthroid to ensure the patient has an adequate supply. Dear Ira, Thank you for visiting us today. I appreciate your commitment to improving your health and managing your conditions. Here's a summary of the bajwa instructions we discussed: - Continue taking folic acid or folate supplements as discussed, considering your MTHFR mutation.- Maintain your current regimen of Synthroid, alternating between 100 mcg and 88 mcg as needed based on how you feel.- Monitor your vitamin D levels; continue taking 50,000 units once a week.- Consider trying metformin at 250 mg before potentially increasing to 500 mg, monitoring for GI side effects.- Stay on metoprolol 25 mg daily; discuss with your research and insights executive the possibility of adjusting the dose to manage fatigue.- Recheck your labs in three months, including vitamin D and A1c levels.- Continue using your CPAP machine and monitor its effectiveness on your sleep quality and anxiety.- Discuss with your primary care doctor or research and insights executive about any changes in your medication or symptoms, especially related to fatigue and palpitations. I have provided you with educational materials on vitamin supplementation and managing thyroid health. Please review these at your convenience to better understand your treatment plan. If you have any questions or need further clarification on your treatment plan, feel free to contact our office. Best regards, Sole Moon [facility] Medicine Patient assessment and plan of care discussed with patient Plan Of Treatment Pending Test Test Name Order Date Ultrasound thyroid 08/26/2023 VITAMIN D, 25-HYDROXY, LC/MS/MS 01/05/20 T3, FREE 01/05/2024 HEMOGLOBIN A1c 01/05/2024 T4, FREE 01/05/2024 TSH 01/05/2024 Insurance Providers Payer Name Payer Address Payer Phone Subscriber Number Group Number Insured Name Patient Relationship to Insured Coverage Start Date Coverage End Date [employer] [address] [place] [address] [phone] [id number] Ira Virk Self - patient is the insured Medical (General) History Medical History History ICD Code Hypothyroidism Hashimotos Fibromyaligia Sleep Apnea Chronic Fatigue Prediabetes MVP atrial flutter = Palpitations Surgical History Surgery Date(Month/Year) Implant Loop Recorder Septo plasty - Right side of nose Laparoscopy Breast Biopsy - left Hospitalization History Reason Date(Month/Year) pneumonia
--- OUTSIDE RECORDS SUMMARY | 2024-09-01 11:41 | XMS_ITS ---
Author Organization [employer] Address [address] [place] [address] Care Team Providers Care Flying Squad Salesperson Name Role Phone Mel Bass Primary Care Provider Lance Moon [phone] REASON FOR VISIT follow up Encounters Encounter Location Date Provider Diagnosis [facility] - Mel Bass [address] [place] [address] 04/04/2024 Lance Moon Plan Of Treatment No Information Progress Notes * Yobany VIRKOB:1965 (59 yo F)Acc No.[id number]:04/04/2024 Patient: Ira SMITH Provider: JESUS GANDHI EA :1965 A ge:59 Y S ex:Female Date:04/04/2024 Address:[facility] [address], [place] Pcp:Mel Bass Subjective: * Chief Complaints: * 1 . Follow up. * Medical History: Objective: * Vitals: Assessment: Plan: * Treatment: * Billing Information: * Visit Code: * Procedure Codes: * Electronic signature of JESUS Kimble on 09/01/2024 at 11:41 AM CDT Sign off status: Pending * Provider: JESUS GANDHI EA Date: 04/04/2024 Generated for Printi ng/Faxing/eTransmitting on: 0 09/01/2024 11:41 AM CDT
--- OUTSIDE RECORDS SUMMARY | 2024-09-01 11:41 | XMS_ITS | Clinical Summary ---
Author Organization [facility] Address [facility] [place] [address] Care Team Providers Care Travel Ticketing Reviewer Name Role Phone Brandi Houston DO Primary Care Provider [phone] Allergies Active Allergy Reactions Criticality Noted Date Comments Amoxicillin-Pot Clavulanate Other (see comment) Low 06/21/2022 Pressure in ear Moxifloxacin Rash Medium 07/26/2017 Peanut (Diagnostic) Other (see comment) Medium 018 Itchy throat Sulfa Antibiotics Myalgias High 06/21/2022 Muscle cramping Medications cetirizine (ZYRTEC) 10 MG tablet Take 1 tablet (10 mg total) by mouth daily as needed. Active famotidine (PEPCID) 20 MG tablet Take 1 tablet (20 mg total) by mouth nightly as needed for Heartburn. As needed Active levothyroxine (SYNTHROID) 88 MCG tablet Take 1 tablet (88 mcg total) by mouth 4 (four) times a week. Active levothyroxine (SYNTHROID) 100 MCG tablet Take 1 tablet (100 mcg total) by mouth 3 (three) times a week. Active metoprolol succinate ER (TOPROL-XL) 25 MG 24 hr tablet Take 1 tablet (25 mg total) by mouth daily. 4 Active MAGNESIUM MALATE OR Take 500 mg by mouth daily. Active Calcium 250 MG CapIndications:C alcium D Glucoronate Take 500 mg by mouth daily. Indications: Calcium D Glucoronate Active vitamin D2, ergocalciferol, (DRISDOL) 1.25 mg capsule Take 1 capsule (1.25 mg total) by mouth once a week. 4 Active CPAP MACHINE 1 Device by Does not apply route nightly at bedtime. Active Active Problems Problem Noted Date Diagnosed Date Decreased glomerular filtration rate (GFR) 04/18 Overview (04/18/2024): CMP 03/20/2024 GFR ESTIMATE > OR = 60 mL/min/1.73m2 72 04/18/2024: Patient is asking about decreased kidney function. Assessment & Plan (04/18/2024 2:35 PM FLOOR CLERK): Discussed with patient that this is likely teleservices representative of chronic decrease in GFR however will need to repeat in June 2024 Costochondritis 02/28/2024 Overview (02/28/2024): 02/28/2024: She reports she gets costochondritis when she gets stressed which has come and gone over the last 10 or so years. Wears contact lenses 01/27/2024 Overview (01/27/2024): She reports wearing contact lenses and glasses for many years. She reports last vision exam in August 2023. She reports following with Dr. Trevino in [place], [place]. Need for qvisjcskmr-awmqljh-gyhbatayp (Tdap) vac cine 12/28/2023 Overview (12/28/2023): Patient is due for Tdap vaccine. Assessment & Plan (12/28/2023 11:16 AM FLOOR CLERK): She was offered this vaccine at this visit however reports that she would like to think about it. Influenza vaccine refused 12/28/2023 Assessment & Plan (12/28/2023 11:17 AM FLOOR CLERK): Patient was offered influenza vaccine at this visit however she declined. H/O: whooping cough 12/28/2023 Overview (12/28/2023): Patient reports she was diagnosed with whooping cough when her son was 3 years old in 2001. Assessment & Plan (12/28/2023 11:18 AM FLOOR CLERK): Patient was counseled to obtain Tdap booster especially as she has had whooping cough in the past. History of vitamin D deficiency 12/28/2023 Overview (01/27/2024): 12/28/2023: Vitamin D, 25-OH, total 43 drawn 12/22/2023 She reports she has been taking vitamin D 50,000 units once daily however her levels have not increased. 01/27/2024: She reports vitamin D has only mildly increased based on labs and private banker wants to continue her on high-dose weekly supplementation at this time. Assessment & Plan (12/28/2023 12:58 PM FLOOR CLERK): She is counseled that her vitamin D levels are within normal limits and it is not necessary for her to take high-dose vitamin D at this time. She can however take vitamin D3/cholecalciferol 5000 IUs daily and we can continue to monitor her levels. Colon cancer screening 12/28/2023 Overview (12/28/2023): Colonoscopy 07/17/2022 at [facility] with Dr. Mccurdy: The colon was examined and was normal. No colitis, no polyps. A few small sized internal hemorrhoids were seen in the rectum. The hemorrhoids were not actively bleeding. Instructed to return in 10 years Internal hemorrhoids without complication 2023 Overview (12/28/2023): Colonoscopy 07/17/2022 at [facility] with Dr. Mccurdy: The colon was examined and was normal. No colitis, no polyps. A few small sized internal hemorrhoids were seen in the rectum. The hemorrhoids were not actively bleeding. Lipodystrophy, not elsewhere classified 12/28/19 Overview (12/28/2023): Patient reports noticing swelling and changes in her right leg. She denies pain and/or redness of the skin and pain in her calf. 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 This is primarily a cosmetic concern. No medical treatment necessary at this time. Mixed hyperlipidemia 12/27/2023 Overview (01/27/2024): Component Ref Range & Units 12/07/23 0730 CHOLESTEROL <200 MG/DL 223 High TRIGLYCERIDES <150 MG/DL 72 HDL >40 MG/DL 77 LDL-C <100 MG/DL 132 High VLDL CALCULATION 5 - 28 MG/DL 14 CHOL/HDL RATIO 0.0 - 4.0 2.9 LDL/HDL 0.41 - 2.13 1.7 NON HDL CHOLESTEROL <140 MG/DL 146 High She reports she saw her spring coverer recently and they recommended medication therapy to lower LDL cholesterol. She reports she wants to try to do with diet and exercise. Cardiology also recommended patient have coronary artery calcium score performed and patient reports that is scheduled within the next few months. Assessment & Plan (01/27/2024 10:46 AM FLOOR CLERK): The 10-year ASCVD risk score (Ana Lilia HERMAN, et al., 2019) is: 1.8% Values used to calculate the score: Age: 58 years Sex: Female Is Non- : No Diabetic: No Tobacco smoker: No Systolic Blood Pressure: 120 mmHg Is BP treated: No HDL Cholesterol: 77 MG/DL Total Cholesterol: 223 MG/DL Discussed ASCVD risk score with patient. I would recommend cholesterol-lowering medication in the setting of patient's family history of cardiovascular disease and her comorbidities with having increased LDL cholesterol. Patient would like to continue to try to address with diet and exercise. It was discussed with her at length regarding increasing dietary fiber. Assessment & Plan (12/28/2023 1:10 PM FLOOR CLERK): Patient was previously counseled on dietary modification such as increasing intake of dietary fiber and decreasing intake of saturated fats. Also, as patient has comorbidities, it is communicated to her that she would be a good candidate for cholesterol-lowering medication with statin therapy. Patient was counseled that it is not entirely necessary as she does not meet certain parameters such as LDL being greater than 190 however given her comorbidities and previous cancer history, it is recommended as cardiovascular disease develops over many years. Patient reports she is not interested at this time in medication therapy. 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 History of breast cancer in female 11/30/2023 Gastroesophageal reflux dise ase, unspecified whether esophagitis present 11/30/2023 Overview (12/28/2023): Reports she only takes Pepcid 20 mg as needed. She states she has not been taking this medication within the last week and denies dyspepsia symptoms. Reports her last upper endoscopy was in 2020. Assessment & Plan (12/28/2023 12:18 PM FLOOR CLERK): She is counseled to not eat for 3 to 4 hours prior to bedtime and to avoid trigger foods. Continue taking Pepcid as needed. Theresa bullosa 07/20/2022 Non-seasonal allergic rhinitis due to pollen 06/2022 Chronic pansinusitis 06/29/2022 Hypertrophy of both inferior nasal turbinates Tinnitus of both ears 06/29/2022 Overview (12/28/2023): She describes an occasional whoosing sound in ears. She reports that it typically presents upon awakening however not every day. She reports that it resolves after short period of time and is not persistent. She states that she noticed that it gets worse with certain things that she eats. She denies worsening of episodes in frequency and/or intensity. Assessment & Plan (12/28/2023 1:05 PM FLOOR CLERK): This is not concerning as self resolves and episodes are not increasing in frequency and/or intensity. Patient instructed to continue to monitor. Prediabetes 04/24/2022 Overview (02/28/2024): 12/28/2023: Hemoglobin A1c 5.8% collected 12/22/2023 Patient reports she has tried metformin in the past. She states she was on 500 mg extended release and she took 1 pill once daily for 2 days and did not tolerate the medication as she felt very tired and fatigued. 01/27/2024: Patient reports she started metforminlast Wednesday and cut tablet in half. She endorses having had some diarrhea the first few days which seem to taper off however yesterday took metformin 15 minutes after eating cabbage and carrots and then began having abdominal pain which radiated to her right back for 2 hours. Reports the pain eventually resolved however today she doesn't have much of an appetite. She reports she also ate fried chicken on Wednesday and [employer] hashbrown Wednesday morning. Patient reports she saw endocrinology recently and they also encouraged her to continue with metformin. 02/28/2024: She reports she stopped taking metformin as she thought it contributed to upper respiratory infection as she read online that it can cause upper respiratory infection. Assessment & Plan (02/28/2024 7:06 PM FLOOR CLERK): Counseled her that metformin likely did not contribute to upper respiratory infection and was more likely related to interaction with virus. Recommended to restart metformin at titration starting with 250 mg once daily and titrating upward as tolerated and previously discussed. CMP ordered to evaluate fasting blood glucose prior to next visit. Assessment & Plan (01/27/2024 10:38 AM FLOOR CLERK): Encouraged patient to continue metformin and titrating as previously described as tolerated. Assessment & Plan (12/28/2023 11:21 AM FLOOR CLERK): Recommended that patient start regular metformin 250 mg once daily with food for 1 week and can titrate if patient tolerates up to 250 mg twice daily with food. She is to cut 500 mg tablets in half. Hypothyroidism 11/07/2021 Overview (01/27/2024): 12/28/2023: Recent labs collected 12/22/2023 TSH: 2.4 Free T4: 1.3 Free T3: 2.8 Thyroid peroxidase antibodies: 17 Patient is following with endocrinology in [place], [place]. She is alternating levothyroxine 88 mcg and 100 mcg daily. 01/27/2024: Patient reports she saw endocrinology recently and they had labs ordered and made no changes to her levothyroxine. Assessment & Plan (12/28/2023 1:13 PM FLOOR CLERK): She is to continue following with endocrinology and continue current medication management. ER+ (estrogen receptor positive status) 04/28/19 19 Resolved Problems Problem Noted Date Diagnosed Date Resolved Date Erythema of breast 01/27/2024 Overview (02/28/2024): 01/27/2024: Patient reports this morning after she got out of the shower and had her towel wrapped around her body her left nipple and breast was hurting. When she took the towel off, she noticed redness and reports her breast felt kind of raw and now feels uncomfortable. Denies stabbing, burning. Denies changing personal care products recently. 02/28/2024: She reports erythema resolved within a few days. She reports that she thinks it was related to her loop recorder implant. She reports she did not receive mammogram and or ultrasound. She reports no concerns regarding her breast today. Assessment & Plan (01/27/2024 10:44 AM FLOOR CLERK): Discussed with patient that she has no risk factors for cellulitis and she is not lactating, has not had breast surgery within the last month, had no trauma or lesions on her skin. Erythema at this point is limited to left areola. Counseled patient to monitor redness and if spreads and worsens, is to return for reevaluation. I would like to get left breast ultrasound in the setting of patient's previous history of ductal carcinoma in situ. She reports she was released from oncology in October 2022. Encounter for screening for cardiovascular disorders 01/29/2023 03/06/2024 Vitamin B12 deficiency (non anemic) 08/14/2022 02/28/2024 Chronic maxillary sinusitis 07/20/2022 01/27/2024 Vitamin D deficiency 12/16/2021 024 Contact with and (suspected) exposure to other viral communicable diseases 11/24/20212023 snf (current) use of a romatase inhibitors 01/01/2021 11/30/2023 Carcinoma in situ of breast 09/28/2017 01/27/2024 Unspecified atrial flutter ([facility]) 5 02/28/2024 Overview (02/28/2024): 02/28/2024: She reports that they have not seen any abnormal heart rhythms since having implantable loop recorder placed. Abdominal pain 10/23/2013 02/28/2024 Immunizations Immunization Administration Dates Next Due Tdap (Generic) 11/16/2006 Family History Medical History Relation Comments Breast Cancer Cousin Heart Disease Father Mitral valve prolapse Father Pacemaker [Other] Father Sudden Father Age of 86 Breast Cancer Maternal Aunt Lymphoma Maternal Grandfather in late 60s CHF Maternal Grandmother Diabetes Maternal Grandmother On insulin Lymphoma Maternal Uncle Heart Disease Mother Hypertension Mother Rheumatoid Arthritis Mother Alcohol Abuse Paternal Grandfather in 60s No Known Problems Paternal Grandmother No Known Problems Son 1 Kidney Stones Son 2 Ulcers Son 2 Perforated gastr ic ulcer at 16 Relation Status Comments Cousin Alive Father Maternal Aunt Maternal Grandfather Maternal Grandmother Maternal Uncle Mother Paternal Grandfather Paternal Grandmother Son 1 Alive Son 2 Alive Social History Tobacco Use Types Packs/Day Years Used Date Smoking Tobacco: Never Passive Smoke Exposure: Past Smokeless Tobacco: Never Tobacco Cessation:Counseling Given: No Alcohol Use Standard Drinks/Week Comments Never 0 (1 standard drink = 0.6 oz pur e alcohol) PHQ-2 Answer Date Recorded Patient Health Questionnaire-2 Score 0 01/27/2024 Comments No Sex and Gender Information Value Date Recorded Sex Assigned at Female 04/18/2024 1:56 PM FLOOR CLERK Legal Sex Female 1:00 PM CDT Gender Identity Female 04/18/2024 1:56 PM FLOOR CLERK Sexual Orientation Not on file Last Filed Vital Signs Vital Sign Reading Time Taken Comments Blood Pressure 126/66 04/18/2024 1:56 PM FLOOR CLERK Pulse 106 04/18/2024 1:56 PM FLOOR CLERK Temperature 37.3 C (99.2 F) 04/18/2024 1:56 PM FLOOR CLERK Respiratory Rate 16 04/18/2024 1:56 PM FLOOR CLERK Oxygen Saturation 97% 02/28/2024 11:48 AM FLOOR CLERK Inhaled Oxygen Concentration - - Weight 85.3 kg (188 lb) 04/18/2024 1:56 PM FLOOR CLERK Height 175.3 cm (5' 9) 04/18/2024 1:56 PM FLOOR CLERK Body Mass Index 27.76 04/18/2024 1:56 PM FLOOR CLERK Plan of Treatment Health Maintenance Due Date Last Done Comments Hepatitis B Vaccines (1 of 3 - 19+ 3-dose series) 1985 Pneumococcal Vaccine: 50+ Years (1 of 2 - PCV) 1985 Cervical Cancer Screening Pap with HPV Testing (Age 30 to 64) Every 5 Years 1996 Zoster Vaccines (1 of 2) 2016 DTaP, Tdap and Td Vaccines (2 - Td or Tdap) 11/16/2016 11/16/2006 COVID-19 Vaccine ( season) 2023 PHQ-2 (Physician [place]) 02/16/2024 01/27/2024 Mammogram Screening 04/23/2024 04/23/2022, 04/14/2021, 04/08/2020, Additional history exists Annual Physical 01/26/2025 01/27/2024 Cervical Cancer Screening Pap Smear (Age 30 to 64) Every 3 Years 11/07/2026 11/08/2023 Cervical Cancer Screening with HPV 11/07/2026 Colorectal Cancer Screening Colonoscopy (10 Years) 07/17/2032 07/17/2022 Hepatitis C Completed 12/07/2023, 04/2021, 02/17/2021 Meningococcal B Vaccine Aged Out No l onger eligible based on patient's age to complete this topic Meningococcal Vaccine Aged Out No mark celine eligible based on patient's age to complete this topic RSV Immunizations Under 20 Months Aged Out No longer eligible based on patient's age to complete this topic Procedures Procedure Name Priority Date/Time Associated Diagnosis Comments HEPATITIS C ANTIBODY Routine 12/07/2023 7:30 AM CDT Encounter for hepatitis C screening test for low risk patient OUTSIDE CYTOPATH CERV/VAG INTERPRET (PAP) (SCAN ORDER) 11/08/2023 COLONOSCOPY GENERIC (SCAN ORDER) 07/17/2022 from Last 3 Months or Most Recently Relevant to Health Maintenance Results * HEPATITIS C ANTIBODY (12/07/2023 7:30 AM CDT) HEPATITIS C AB NON-REACTI VE NON-REACT GEOFF 12/07/2023 9:34 PM CDT [facility] Comment: ANTIBODIES TO HCV NOT DETECTED. DOES NOT EXCLUDE THE POSSIBILITY OF EXPOSURE TO HCV. 12/07/2023 7:30 AM CDT Brandi Houston DO LABORATORY Final Result [facility] [address] [place] [address], [phone] * PAP SMEAR (SCAN ORDER) (11/08/2023) 11/08/2023 [facility] Scanned SCANNING Final Resu lt * COLONOSCOPY GENERIC (SCAN ORDER) (07/17/2022) 07/17/2022 [facility] Scanned SCANNING Final Resu lt from Last 3 Months or Most Recently Relevant to Health Maintenance Insurance [employer] [facility] Care Teams Travel Ticketing Reviewer Relationship Specialty Start Date End Date Brandi Houston DO [address] [facility] [address] [place] [address] PCP - General FAMILY PRACTICE 11/23/23 10/08/24
--- OUTSIDE RECORDS SUMMARY | 2024-09-01 11:41 | XMS_ITS | Clinical Summary ---
Author Organization [facility] Address [address] [place] [address] Care Team Providers Care Glove Cutter Name Role Phone Unavailable Primary Care Provider Unavailabl e Source Comments [facility]non-owned Affiliates and Associated Physician Practices is amultiple site organization consisting of ambulatory clinics and hospital sitesin [place], [place], [place] and [place]. This disclosure is being madepursuant to the Care Everywhere program and may not contain all information available regarding this patient. Last updated 17.[facility] 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
--- OUTSIDE RECORDS SUMMARY | 2024-09-01 11:41 | XMS_ITS | Data Portability ---
Author Organization [facility], Main Office Address [address] [place] [address] Assessment No assessment recorded. Plan of Treatment Reminders Order Date Submit Date Provider Last Modified By Organization Details Last Modified Time Details Appointments None recorded. Lab vitamin B12 + folate, serum or blood 2022 023 [facility], [address], [address], 3 22:36:40 HbA1c (hemoglobin A1c), blood 2022 023 [facility], [address], [address], 3 22:36:42 insulin, serum 2022 023 [employer] [facility], [address], [address], 3 22:36:38 TSH, serum or plasma 2022 023 [employer] [facility], [address], [address], 3 22:36:40 T4, free, serum 2022 023 [employer] [facility], [address], [address], 3 22:36:39 T3, free, serum or plasma 2022 023 [facility], [address], [place], [address], 3 22:36:41 CMP, serum or plasma 2022 023 [facility], [address], [place], [address], 3 22:36:36 HbA1c (hemoglobin A1c), blood [address], [address] [place], [address], 3 13:06:41 CMP, serum or plasma 2022 023 [facility], [address] [place], [address], 3 12:01:25 insulin, serum [address], [address] [place], [address], 3 13:06:41 TSH, serum or plasma 2022 023 [facility], [address] [place], [address], 3 03:05:42 T4, free, serum 2022 023 [facility], [address] [place], [address], 3 03:05:41 T3, free, serum or plasma 2022 023 [facility], [address] [place], [address], 3 03:05:42 thyroid peroxidase (tpo) Ab, serum 2022 023 [facility], [address] [place], [address], 3 12:01:26 vitamin B12 + folate, serum or blood 2022 023 [facility], [address] [place], [address], 3 12:01:27 Referral None recorded. Procedures None recorded. Surgeries None recorded. Imaging None recorded. Medication Orders cyanocobala min (vit B-12) 1,000 mcg/mL injection solution 2022 023 [id number], [address] [place], [place], [id number], 3 10:57:04 metformin ER 500 mg tablet,exte nded release 24 hr [address] [place] [address] [id number], [address], [place], [id number], 3 10:33:35 Patient TargetsNo targets recorded. Patient InstructionsNo instructions recorded. Reason for Referral None Reported. Results Created Date Observation Date Name Description Value Unit Range Abnormal Flag Note LastModifiedBy Organization Detail LastModifiedTime 02/24/19 22 03/08/2021 HEMOG LOBIN A1C hemoglobin A1C 5.6 %_of_ total _HGB <5.7 normal Not Available [facility] [place] [address] [place], [address], 03/08/2021 17:43:18 02/24/19 22 03/08/2021 VITAM IN D,25- OH,TO RENETTA,I A vitamin D,25-oh,tota l,ia 47 NG/mL 30-100 normal Vitam in D Statu s 25-OH Vitam in D: Defic iency : <20 ng/mL Insuf ficie ncy: 20 - 29 ng/mL Optim al: > or = 30 ng/mL For 25-OH Vitam in D testi ng on patie nts on D2-thompson pplem entat ion and patie nts for whom quant itati on of D2 and D3 fract ions is requi red, the Quest Assur eD(TM ) 25-OH VIT D, (D2,D 3), LC/MS /MS is recom phil d: order code 72939 (gisselle ents >2yrs ). See Note 1 Note 1 For addit ional infor suma craft e refer to http: //[facility] kelsey Taboria gnost ics.c om/fa q/FAQ 199 (This link is being provi ded for infor raymon morales/ educa stephani william purpo ses only. ) Not Available [facility] [address], [address], 03/08/2021 17:43:17 02/24/19 22 03/08/2021 T3, FREE T3, free 2.8 pg/mL 2.3-4. 2 normal Not Available [facility] [address], [address], 03/08/2021 17:43:16 02/24/1903/08/2021 TSH TSH 2.62 mIU/L normal Refer ence Range > or = 20 Years 0.40- 4.50 Pregn priscilla Range s First trime ster 0.26- 2.66 Secon d trime ster 0.55- 2.73 Third trime ster 0.43- 2.91 Not Available [facility] [address], [address], 03/08/2021 17:43:15 02/24/1903/08/2021 T4, FREE T4, free 1.2 NG/dL 0.8-1. 8 normal Not Available [facility] [address], [address], 03/08/2021 17:43:15 02/24/19 22 03/08/2021 INSUL IN, FREE (BIOA CTIVE ) insulin, free (bioactive) 9.0 uIU/m L 1.5-14 .9 Insul in level s vary widel y in speci mens taken from non-f astin g indiv idual s. Insul in analo gues may demon strat e non-l inear cross -reac tivit y in this assay . Inter pret resul ts accor dingl y. Not Available [facility] [place] [address] [place], [address], 03/08/2021 17:43:14 02/24/19 22 03/08/2021 COMPR EHENS GEOFF METAB OLIC PANEL glucose 96 mg/dL 65-99 normal Fasti ng refer ence inter ray Not Available [facility] [place] [address] [place], [address], 03/08/2021 17:43:14 02/24/19 22 03/08/2021 COMPR EHENS GEOFF METAB OLIC PANEL urea nitrogen (BUN) 21 mg/dL 7-25 normal Not Available [place] [address] [place], [address], 03/08/2021 17:43:14 02/24/19 22 03/08/2021 COMPR EHENS GEOFF METAB OLIC PANEL creatinine 0.76 mg/dL 0.50-1 .05 normal For patie nts >49 years of age, the refer ence limit for Creat inine is appro ximat valeriy 13% highe r for peopl e ident ified as Afric an-Am luanne n. Not Available [facility] [address] [place], [address], 03/08/2021 17:43:14 02/24/19 22 03/08/2021 COMPR EHENS GEOFF METAB OLIC PANEL eGFR non-afr. japanese 89 mL/mi n/1.7 3m2 > or = 60 normal Not Available [facility] [place] [address] [place], [address], 03/08/2021 17:43:14 02/24/19 22 03/08/2021 COMPR EHENS GEOFF METAB OLIC PANEL eGFR 103 mL/mi n/1.7 3m2 > or = 60 normal Not Available [address] [place], [address], 03/08/2021 17:43:14 02/24/19 22 03/08/2021 COMPR EHENS GEOFF METAB OLIC PANEL BUN/creatini ne ratio not applic able (calc ) 6-22 Not Available [address], [address], 03/08/2021 17:43:14 02/24/19 22 03/08/2021 COMPR EHENS GEOFF METAB OLIC PANEL sodium 139 mmol/ L 135-14 6 normal Not Available [address], [address], 03/08/2021 17:43:14 02/24/19 22 03/08/2021 COMPR EHENS GEOFF METAB OLIC PANEL potassium 4.4 mmol/ L 3.5-5. 3 normal Not Available [place] [address] [place], [address], 03/08/2021 17:43:14 02/24/19 22 03/08/2021 COMPR EHENS GEOFF METAB OLIC PANEL chloride 103 mmol/ L 98-110 normal Not Available [place] [address] [place], [address], 03/08/2021 17:43:14 02/24/19 22 03/08/2021 COMPR EHENS GEOFF METAB OLIC PANEL carbon dioxide 28 mmol/ L 20-32 normal Not Available [place] [address] [place], [address], 03/08/2021 17:43:14 02/24/19 22 03/08/2021 COMPR EHENS GEOFF METAB OLIC PANEL calcium 9.4 mg/dL 8.6-10 .4 normal Not Available [place] [address] [place], [address], 03/08/2021 17:43:14 02/24/19 22 03/08/2021 COMPR EHENS GEOFF METAB OLIC PANEL protein, total 7.3 g/dL 6.1-8. 1 normal Not Available [address], [address], 03/08/2021 17:43:14 02/24/19 22 03/08/2021 COMPR EHENS GEOFF METAB OLIC PANEL albumin 4.6 g/dL 3.6-5. 1 normal Not Available [place] [address] [place], [address], 03/08/2021 17:43:14 02/24/1903/08/2021 COMPR EHENS GEOFF METAB OLIC PANEL globulin 2.7 g/dL_ (calc ) 1.9-3. 7 normal Not Available [address], [address], 03/08/2021 17:43:14 02/24/19 22 03/08/2021 COMPR EHENS GEOFF METAB OLIC PANEL albumin/glob ulin ratio 1.7 (calc ) 1.0-2. 5 normal Not Available [address], [address], 03/08/2021 17:43:14 02/24/19 22 03/08/2021 COMPR EHENS GEOFF METAB OLIC PANEL bilirubin, total 0.5 mg/dL 0.2-1. 2 normal Not Available [address] [place], [address], 03/08/2021 17:43:14 02/24/19 22 03/08/2021 COMPR EHENS GEOFF METAB OLIC PANEL alkaline phosphatase 54 U/L 37-153 normal Not Available [place] [address] [place], [address], 03/08/2021 17:43:14 02/24/19 22 03/08/2021 COMPR EHENS GEOFF METAB OLIC PANEL AST 20 U/L 10-35 normal Not Available [address], [address], 03/08/2021 17:43:14 02/24/19 22 03/08/2021 COMPR EHENS GEOFF METAB OLIC PANEL ALT 24 U/L 6-29 normal Not Available [address], [address], 03/08/2021 17:43:14 02/24/19 22 03/08/2021 LIPID PANEL , STAND ORTEGA cholesterol, total 208 mg/dL <200 high Not Available [address], [address], 03/08/2021 17:43:13 02/24/19 22 03/08/2021 LIPID PANEL , STAND ORTEGA HDL cholesterol 72 mg/dL > or = 50 normal Not Available [address], [address], 03/08/2021 17:43:13 02/24/19 22 03/08/2021 LIPID PANEL , STAND ORTEGA triglyceride s 96 mg/dL <150 normal Not Available [address], [address], 03/08/2021 17:43:13 02/24/1903/08/2021 LIPID PANEL , STAND [place]TE[place] LDL-choleste rol 116 mg/dL _(gracie c) high Refer ence range : <100 Bryan able range <100 mg/dL for prima ry preve ntion ; <70 mg/dL for patie nts with CHD or diabe tic patie nts with > or = 2 CHD risk facto rs. LDL-C is now calcu lated using the Estefani n-Hop kins calcu lathollie n, which is a valid ated novel metho d provi ding tanya r accur acy than the Fried earl equat ion in the estim ation of LDL-C . Estefani velez SS et al. JESSE. 2013; 310(1 9): 2061- 2067 (http ://ed ucati on.Qu Travis 5to1. com/f aq/FA Q164) Not Available [facility] [address] [address] , [place], [address], 03/08/2021 17:43:13 02/24/19 22 03/08/2021 LIPID PANEL , STAND ORTEGA chol/HDLC ratio 2.9 (calc ) <5.0 normal Not Available [facility] [address] [address], [place], [address], 03/08/2021 17:43:13 02/24/19 22 03/08/2021 LIPID PANEL , STAND ORTEGA non HDL cholesterol 136 mg/dL _(gracie c) <130 high For patie nts with diabe kelsey plus 1 major ASCVD risk facto r, treat ing to a non-H DL-C goal of <100 mg/dL (LDL- C of <70 mg/dL ) is consi nafisa a thera pecaroline c optio n. Not Available [facility] [address] [address] , [place], [address], 03/08/2021 17:43:13 04/16/1904/16/2021 VITAM IN D,25- OH,TO RENETTA,I A vitamin D,25-oh,tota l,ia 55 NG/mL 30-100 normal Vitam in D Statu s 25-OH Vitam in D: Defic iency : <20 ng/mL Insuf ficie ncy: 20 - 29 ng/mL Optim al: > or = 30 ng/mL For 25-OH Vitam in D testi ng on patie nts on D2-thompson pplem entat ion and patie nts for whom quant itati on of D2 and D3 fract ions is requi red, the Quest Assur eD(TM ) 25-OH VIT D, (D2,D 3), LC/MS /MS is recom phil d: order code 96970 (gisselle ents >2yrs ). See Note 1 Note 1 For addit ional infor suma craft refer to http: //edu kelsey dc ics.c om/fa q/FAQ 199 (This link is being provi ded for infor raymon morales/ gunner reyeso ses only. ) Not Available [address] [place], [address], 04/16/2021 04:11:28 04/16/19 22 04/16/2021 T3, FREE T3, free 3.1 pg/mL 2.3-4. 2 normal Not Available [address], [address], 04/16/2021 04:11:27 04/16/1904/16/2021 VITAM IN B12/F OLATE , SERUM PANEL vitamin B12 735 pg/mL 200-11 00 normal Not Available [address], [address], 04/16/2021 04:11:27 04/16/19 22 04/16/2021 VITAM IN B12/F OLATE , SERUM PANEL folate, serum 13.9 NG/mL normal Refer ence Range Low: <3.4 Borde rline : 3.4-5 .4 Kalie l: >5.4 Not Available [address], [address], 04/16/2021 04:11:27 04/16/1904/16/2021 TSH TSH 0.20 mIU/L low Refer ence Range > or = 20 Years 0.40- 4.50 Pregn priscilla Range s First trime ster 0.26- 2.66 Secon d trime ster 0.55- 2.73 Third trime ster 0.43- 2.91 Not Available [address], [address], 04/16/2021 04:11:26 04/16/19 22 04/16/2021 T4, FREE T4, free 1.4 NG/dL 0.8-1. 8 normal Not Available [facility] [place] [address] [place], [address], 04/16/2021 04:11:25 05/30/19 22 06/04/2021 HEMOG LOBIN A1C hemoglobin A1C 5.5 %_of_ total _HGB <5.7 normal For the purpo se of alyssa ag for the prese nce of diabe kelsey: <5.7% Consi stent with the absen ce of diabe kelsey 5.7-6 .4% Consi stent with incre ased risk for diabe kelsey (pred iabet es) > or =6.5% Consi stent with diabe kelsey This assay resul t is consi stent with a decre ased risk of diabe kelsey. Curre ntly, no conse nsus exist s regar ding use of hemog lobin A1c for diagn osis of diabe kelsey in child audrey. Accor ding to Ameri can Diabe kelsey Assoc iatio n (ADA) guide lines , hemog lobin A1c <7.0% repre sents optim al contr ol in non-p regna nt diabe tic patie nts. Diffe rent metri cs may apply to speci fic patie nt popul ation s. Stand ards of Medic al Care in Diabe kelsey(A DA). Not Available [facility] [address] [place], [address], 06/04/2021 21:08:36 05/30/19 22 06/04/2021 VITAM IN D,25- OH,TO RENETTA,I A vitamin D,25-oh,tota l,ia 52 NG/mL 30-100 normal Vitam in D Statu s 25-OH Vitam in D: Defic iency : <20 ng/mL Insuf ficie ncy: 20 - 29 ng/mL Optim al: > or = 30 ng/mL For 25-OH Vitam in D testi ng on patie nts on D2-thompson pplem entat ion and patie nts for whom quant itati on of D2 and D3 fract ions is requi red, the Quest Assur eD(TM ) 25-OH VIT D, (D2,D 3), LC/MS /MS is recom phil d: order code [id number] (gisselle ents >2yrs ). See Note 1 Note 1 For addit ional infor suma craft e refer to http: //agustín Loco stDia gnost ics.c om/fa q/FAQ 199 (This link is being provi ded for infor raymon morales/ educcontreras william purpo ses only. ) Not Available [address], [address], 06/04/2021 21:08:35 05/30/19 22 06/04/2021 T3, FREE T3, free 3.2 pg/mL 2.3-4. 2 normal Not Available [address], [address], 06/04/2021 21:08:34 05/30/19 22 06/04/2021 TSH TSH 0.19 mIU/L low Refer ence Range > or = 20 Years 0.40- 4.50 Pregn priscilla Range s First trime ster 0.26- 2.66 Secon d trime ster 0.55- 2.73 Third trime ster 0.43- 2.91 Not Available [facility] [address] [place], [address], 06/04/2021 21:08:34 05/30/19 22 06/04/2021 T4, FREE T4, free 1.3 NG/dL 0.8-1. 8 normal Not Available [address], [address], 06/04/2021 21:08:33 05/30/19 22 06/04/2021 INSUL IN, FREE (BIOA CTIVE ) insulin, free (bioactive) 7.8 uIU/m L 1.5-14 .9 Insul in level s vary widel y in speci mens taken from non-f astin g indiv idual s. Insul in analo gues may demon strat e non-l inear cross -reac tivit y in this assay . Inter pret resul ts accor dingl y. Not Available [address], [address], 06/04/2021 21:08:33 05/30/19 22 06/04/2021 COMPR EHENS GEOFF METAB OLIC PANEL glucose 96 mg/dL 65-99 normal Fasti ng refer ence inter ray Not Available [address], [address], 06/04/2021 21:08:33 05/30/19 22 06/04/2021 COMPR EHENS GEOFF METAB OLIC PANEL urea nitrogen (BUN) 20 mg/dL 7-25 normal Not Available [address], [address], 06/04/2021 21:08:33 05/30/19 22 06/04/2021 COMPR EHENS GEOFF METAB OLIC PANEL creatinine 0.75 mg/dL 0.50-1 .05 normal For patie nts >49 years of age, the refer ence limit for Creat inine is appro ximat valeriy 13% highe r for peopl e ident ified as Afric an-Am luanne n. Not Available [facility] [place] [address] [place], [address], 06/04/2021 21:08:33 05/30/19 22 06/04/2021 COMPR EHENS GEOFF METAB OLIC PANEL eGFR non-afr. japanese 90 mL/mi n/1.7 3m2 > or = 60 normal Not Available [facility] [place] [address] [place], [address], 06/04/2021 21:08:33 05/30/19 22 06/04/2021 COMPR EHENS GEOFF METAB OLIC PANEL eGFR 104 mL/mi n/1.7 3m2 > or = 60 normal Not Available [facility] [place] [address] [place], [address], 06/04/2021 21:08:33 05/30/19 22 06/04/2021 COMPR EHENS GEOFF METAB OLIC PANEL BUN/creatini ne ratio not applic able (calc ) 6-22 Not Available [address], [address], 06/04/2021 21:08:33 05/30/19 22 06/04/2021 COMPR EHENS GEOFF METAB OLIC PANEL sodium 138 mmol/ L 135-14 6 normal Not Available [address], [address], 06/04/2021 21:08:33 05/30/19 22 06/04/2021 COMPR EHENS GEOFF METAB OLIC PANEL potassium 4.2 mmol/ L 3.5-5. 3 normal Not Available [address], [address], 06/04/2021 21:08:33 05/30/19 22 06/04/2021 COMPR EHENS GEOFF METAB OLIC PANEL chloride 104 mmol/ L 98-110 normal Not Available [address], [address], 06/04/2021 21:08:33 05/30/19 22 06/04/2021 COMPR EHENS GEOFF METAB OLIC PANEL carbon dioxide 27 mmol/ L 20-32 normal Not Available [address], [address], 06/04/2021 21:08:33 05/30/19 22 06/04/2021 COMPR EHENS GEOFF METAB OLIC PANEL calcium 9.5 mg/dL 8.6-10 .4 normal Not Available [address], [address], 06/04/2021 21:08:33 05/30/19 22 06/04/2021 COMPR EHENS GEOFF METAB OLIC PANEL protein, total 7.1 g/dL 6.1-8. 1 normal Not Available [facility] [address] [place], [address], 06/04/2021 21:08:33 05/30/19 22 06/04/2021 COMPR EHENS GEOFF METAB OLIC PANEL albumin 4.3 g/dL 3.6-5. 1 normal Not Available [address], [address], 06/04/2021 21:08:33 05/30/19 22 06/04/2021 COMPR EHENS GEOFF METAB OLIC PANEL globulin 2.8 g/dL_ (calc ) 1.9-3. 7 normal Not Available [address], [address], 06/04/2021 21:08:33 05/30/19 22 06/04/2021 COMPR EHENS GEOFF METAB OLIC PANEL albumin/glob ulin ratio 1.5 (calc ) 1.0-2. 5 normal Not Available [facility] [address] [place], [address], 06/04/2021 21:08:33 05/30/19 22 06/04/2021 COMPR EHENS GEOFF METAB OLIC PANEL bilirubin, total 0.4 mg/dL 0.2-1. 2 normal Not Available [address], [address], 06/04/2021 21:08:33 05/30/19 22 06/04/2021 COMPR EHENS GEOFF METAB OLIC PANEL alkaline phosphatase 55 U/L 37-153 normal Not Available [place] [address] [place], [address], 06/04/2021 21:08:33 05/30/19 22 06/04/2021 COMPR EHENS GEOFF METAB OLIC PANEL AST 20 U/L 10-35 normal Not Available [facility] [address] [place], [address], 06/04/2021 21:08:33 05/30/19 22 06/04/2021 COMPR EHENS GEOFF METAB OLIC PANEL ALT 22 U/L 6-29 normal Not Available [facility] [address] [place], [address], 06/04/2021 21:08:33 05/30/19 22 06/04/2021 LIPID PANEL , STAND ORTEGA cholesterol, total 193 mg/dL <200 normal Not Available [facility] [address] [facility], [address], 06/04/2021 21:08:32 05/30/19 22 06/04/2021 LIPID PANEL , STAND ORTEGA HDL cholesterol 65 mg/dL > or = 50 normal Not Available [address], [address], 06/04/2021 21:08:32 05/30/19 22 06/04/2021 LIPID PANEL , STAND ORTEGA triglyceride s 75 mg/dL <150 normal Not Available [address], [address], 06/04/2021 21:08:32 05/30/19 22 06/04/2021 LIPID PANEL , STAND [place]TE[place] LDL-choleste rol 112 mg/dL _(gracie c) high Refer ence range : <100 Bryan able range <100 mg/dL for prima ry preve ntion ; <70 mg/dL for patie nts with CHD or diabe tic patie nts with > or = 2 CHD risk facto rs. LDL-C is now calcu lated using the Estefani n-Hop kins calcu gretta n, which is a valid ated novel akila conway than the Fried earl equat ion in the estim ation of LDL-C . Estefani velez SS et al. JESSE. 2013; 310(1 9): 2061- 2068 (http ://ed ucati on.Qu estDi zoranos tics. com/f aq/FA Q164) Not Available [address], [place], [address], 06/04/2021 21:08:32 05/30/19 22 06/04/2021 LIPID PANEL , STAND ORTEGA chol/HDLC ratio 3.0 (calc ) <5.0 normal Not Available [address] [place], [address], 06/04/2021 21:08:32 05/30/19 22 06/04/2021 LIPID PANEL , STAND ORTE[place] non HDL cholesterol 128 mg/dL _(gracie c) <130 normal For patie nts with diabe kelsey plus 1 major ASCVD risk facto r, treat ing to a non-H DL-C goal of <100 mg/dL (LDL- C of <70 mg/dL ) is kareni nafisa amador c optio n. Not Available [address], [address], 06/04/2021 21:08:32 09/02/19 22 09/02/2021 T3, FREE T3, free 3.2 pg/mL 2.3-4. 2 normal Not Available [address], [address], 09/02/2021 16:58:49 09/02/19 22 09/02/2021 VITAM IN B12/F OLATE , SERUM PANEL vitamin B12 417 pg/mL 200-11 00 normal Not Available [address], [address], 09/02/2021 16:58:48 09/02/19 22 09/02/2021 VITAM IN B12/F OLATE , SERUM PANEL folate, serum 12.3 NG/mL normal Refer ence Range Low: <3.4 Borde rline : 3.4-5 .4 Kalie l: >5.4 Not Available [address] [place], [address], 09/02/2021 16:58:48 09/02/19 22 09/02/2021 TSH TSH 0.13 mIU/L low Refer ence Range > or = 20 Years 0.40- 4.50 Pregn priscilla Range s First trime ster 0.26- 2.66 Secon d trime ster 0.55- 2.73 Third trime ster 0.43- 2.91 Not Available [address], [address], 09/02/2021 16:58:47 09/02/19 22 09/02/2021 T4, FREE T4, free 1.4 NG/dL 0.8-1. 8 normal Not Available [address], [address], 09/02/2021 16:58:46 09/02/19 22 09/02/2021 THYRO ID PEROX IDASE ANTIB ODIES thyroid peroxidase antibodies 18 IU/mL <9 high Not Available [address], [address], 09/02/2021 16:58:45 09/02/19 22 09/02/2021 COMPR EHENS GEOFF METAB OLIC PANEL glucose 89 mg/dL 65-99 normal Fasti ng refer ence inter ray Not Available [address], [address], 09/02/2021 16:58:44 09/02/19 22 09/02/2021 COMPR EHENS GEOFF METAB OLIC PANEL urea nitrogen (BUN) 22 mg/dL 7-25 normal Not Available [address], [address], 09/02/2021 16:58:44 09/02/19 22 09/02/2021 COMPR EHENS GEOFF METAB OLIC PANEL creatinine 0.77 mg/dL 0.50-1 .03 normal Not Available [address], [address], 09/02/2021 16:58:44 09/02/19 22 09/02/2021 COMPR EHENS GEOFF METAB OLIC PANEL eGFR 91 mL/mi n/1.7 3m2 > or = 60 normal The eGFR is based on the CKD-E PI 2020 equat ion. To calcu late the new eGFR from a previ ous Creat inine or Cysta tin C resul t, go to https ://félix roach.cas drummond.o meliton/rhea bradyess goal s/ kdoqi /gfr% 5Fcal culat or Not Available [place] [address] [place], [address], 09/02/2021 16:58:44 09/02/19 22 09/02/2021 COMPR EHENS GEOFF METAB OLIC PANEL BUN/creatini ne ratio not applic able (calc ) 6-22 Not Available [address] [place], [address], 09/02/2021 16:58:44 09/02/19 22 09/02/2021 COMPR EHENS GEOFF METAB OLIC PANEL sodium 140 mmol/ L 135-14 6 normal Not Available [address], [address], 09/02/2021 16:58:44 09/02/19 22 09/02/2021 COMPR EHENS GEOFF METAB OLIC PANEL potassium 4.3 mmol/ L 3.5-5. 3 normal Not Available [address], [address], 09/02/2021 16:58:44 09/02/19 22 09/02/2021 COMPR EHENS GEOFF METAB OLIC PANEL chloride 104 mmol/ L 98-110 normal Not Available [address], [address], 09/02/2021 16:58:44 09/02/19 22 09/02/2021 COMPR EHENS GEOFF METAB OLIC PANEL carbon dioxide 25 mmol/ L 20-32 normal Not Available [address] [place], [address], 09/02/2021 16:58:44 09/02/19 22 09/02/2021 COMPR EHENS GEOFF METAB OLIC PANEL calcium 9.1 mg/dL 8.6-10 .4 normal Not Available [address], [address], 09/02/2021 16:58:44 09/02/19 22 09/02/2021 COMPR EHENS GEOFF METAB OLIC PANEL protein, total 7.1 g/dL 6.1-8. 1 normal Not Available [address], [address], 09/02/2021 16:58:44 09/02/19 22 09/02/2021 COMPR EHENS GEOFF METAB OLIC PANEL albumin 4.3 g/dL 3.6-5. 1 normal Not Available [address], [address], 09/02/2021 16:58:44 09/02/19 22 09/02/2021 COMPR EHENS GEOFF METAB OLIC PANEL globulin 2.8 g/dL_ (calc ) 1.9-3. 7 normal Not Available [address], [address], 09/02/2021 16:58:44 09/02/19 22 09/02/2021 COMPR EHENS GEOFF METAB OLIC PANEL albumin/glob ulin ratio 1.5 (calc ) 1.0-2. 5 normal Not Available [address], [address], 09/02/2021 16:58:44 09/02/19 22 09/02/2021 COMPR EHENS GEOFF METAB OLIC PANEL bilirubin, total 0.4 mg/dL 0.2-1. 2 normal Not Available [address], [address], 09/02/2021 16:58:44 09/02/19 22 09/02/2021 COMPR EHENS GEOFF METAB OLIC PANEL alkaline phosphatase 52 U/L 37-153 normal Not Available [facility] [place] [address] [place], [address], 09/02/2021 16:58:44 09/02/19 22 09/02/2021 COMPR EHENS GEOFF METAB OLIC PANEL AST 21 U/L 10-35 normal Not Available [facility] [address] [place] [address] [place], [address], 09/02/2021 16:58:44 09/02/19 22 09/02/2021 COMPR EHENS GEOFF METAB OLIC PANEL ALT 19 U/L 6-29 normal Not Available [facility] [place] [address] [place], [address], 09/02/2021 16:58:44 11/12/19 22 11/20/2021 HEMOG LOBIN A1C hemoglobin A1C 5.6 %_of_ total _HGB <5.7 normal For the purpo se of scree ancelmo for the prese nce of diabe kelsey: <5.7% Consi stent with the absen ce of diabe kelsey 5.7-6 .4% Consi stent with incre ased risk for diabe kelsey (pred iabet es) > or =6.5% Consi stent with diabe kelsey This assay resul t is consi stent with a decre ased risk of diabe kelsey. Curre ntly, no conse nsus exist s regar jean pierre use of hemog lobin A1c for diagn osis of diabe kelsey in child audrey. Accor ding to [employer] can [employer] kel[facility] [employer] n (ADA) guide lines , hemog lobin A1c <7.0% repre sents optim al contr ol in non-p regna nt diabe tic patie nts. Diffe rent metri cs may apply to speci fic patie nt popul ation s. [facility] [place] kel[place](A DA). Not Available [facility] [address] [address] [place], [address], 11/20/2021 13:08:53 11/12/19 22 11/20/2021 INSUL IN, FREE (BIOA CTIVE ) insulin, free (bioactive) 7.1 uIU/m L 1.5-14 .9 Insul in level s vary widel y in speci mens taken from non-f astin g indiv idual s. Insul in analo gues may demon strat e non-l inear cross -reac tivit y in this assay . Inter pret resul ts accor dingl y. Not Available [address], [address], 11/20/2021 13:08:53 11/12/19 22 11/20/2021 COMPR EHENS GEOFF METAB OLIC PANEL glucose 91 mg/dL 65-99 normal Fasti ng refer ence inter ray Not Available [address], [address], 11/20/2021 13:08:52 11/12/19 22 11/20/2021 COMPR EHENS GEOFF METAB OLIC PANEL urea nitrogen (BUN) 15 mg/dL 7-25 normal Not Available [address], [address], 11/20/2021 13:08:52 11/12/19 22 11/20/2021 COMPR EHENS GEOFF METAB OLIC PANEL creatinine 0.83 mg/dL 0.50-1 .03 normal Not Available [address], [address], 11/20/2021 13:08:52 11/12/19 22 11/20/2021 COMPR EHENS GEOFF METAB OLIC PANEL eGFR 83 mL/mi n/1.7 3m2 > or = 60 normal The eGFR is based on the CKD-E PI 2020 equat ion. To calcu late the new eGFR from a previ ous Creat inine or Cysta salo C lavelle t, go to https ://félix drummond.o meliton/pr jose antonioess ional s/ kdoqi /gfr% 5Fcal culat or Not Available [address], [address], 11/20/2021 13:08:52 11/12/19 22 11/20/2021 COMPR EHENS GEOFF METAB OLIC PANEL BUN/creatini ne ratio not applic able (calc ) 6-22 Not Available [address], [address], 11/20/2021 13:08:52 11/12/19 22 11/20/2021 COMPR EHENS GEOFF METAB OLIC PANEL sodium 140 mmol/ L 135-14 6 normal Not Available [address], [address], 11/20/2021 13:08:52 11/12/19 22 11/20/2021 COMPR EHENS GEOFF METAB OLIC PANEL potassium 4.4 mmol/ L 3.5-5. 3 normal Not Available [address], [address], 11/20/2021 13:08:52 11/12/19 22 11/20/2021 COMPR EHENS GEOFF METAB OLIC PANEL chloride 103 mmol/ L 98-110 normal Not Available [address], [address], 11/20/2021 13:08:52 11/12/19 22 11/20/2021 COMPR EHENS GEOFF METAB OLIC PANEL carbon dioxide 27 mmol/ L 20-32 normal Not Available [address], [address], 11/20/2021 13:08:52 11/12/19 22 11/20/2021 COMPR EHENS GEOFF METAB OLIC PANEL calcium 9.3 mg/dL 8.6-10 .4 normal Not Available [address], [address], 11/20/2021 13:08:52 11/12/19 22 11/20/2021 COMPR EHENS GEOFF METAB OLIC PANEL protein, total 7.3 g/dL 6.1-8. 1 normal Not Available [address], [address], 11/20/2021 13:08:52 11/12/19 22 11/20/2021 COMPR EHENS GEOFF METAB OLIC PANEL albumin 4.4 g/dL 3.6-5. 1 normal Not Available [address], [address], 11/20/2021 13:08:52 11/12/19 22 11/20/2021 COMPR EHENS GEOFF METAB OLIC PANEL globulin 2.9 g/dL_ (calc ) 1.9-3. 7 normal Not Available [address], [address], 11/20/2021 13:08:52 11/12/19 22 11/20/2021 COMPR EHENS GEOFF METAB OLIC PANEL albumin/glob ulin ratio 1.5 (calc ) 1.0-2. 5 normal Not Available [address], [address], 11/20/2021 13:08:52 11/12/19 22 11/20/2021 COMPR EHENS GEOFF METAB OLIC PANEL bilirubin, total 0.5 mg/dL 0.2-1. 2 normal Not Available [address], [address], 11/20/2021 13:08:52 11/12/19 22 11/20/2021 COMPR EHENS GEOFF METAB OLIC PANEL alkaline phosphatase 63 U/L 37-153 normal Not Available [address] [address] [place], [address], 11/20/2021 13:08:52 11/12/19 22 11/20/2021 COMPR EHENS GEOFF METAB OLIC PANEL AST 21 U/L 10-35 normal Not Available [address], [address], 11/20/2021 13:08:52 11/12/19 22 11/20/2021 COMPR EHENS GEOFF METAB OLIC PANEL ALT 23 U/L 6-29 normal Not Available [address], [address], 11/20/2021 13:08:52 11/12/19 22 11/20/2021 LIPID PANEL , STAND ORTEGA cholesterol, total 202 mg/dL <200 high Not Available [address], [address], 11/20/2021 13:08:51 11/12/19 22 11/20/2021 LIPID PANEL , STAND [place]TEGA HDL cholesterol 69 mg/dL > or = 50 normal Not Available [address], [address], 11/20/2021 13:08:51 11/12/19 22 11/20/2021 LIPID PANEL , STAND ORTEGA triglyceride s 112 mg/dL <150 normal Not Available [address], [address], 11/20/2021 13:08:51 11/12/19 22 11/20/2021 LIPID PANEL , STAND [place]TE[place] LDL-choleste rol 111 mg/dL _(gracie c) high Refer ence range : <100 Bryan able range <100 mg/dL for prima ry preve ntion ; <70 mg/dL for patie nts with CHD or diabe tic patie nts with > or = 2 CHD risk facto rs. LDL-C is now calcu lated using the Estefani n-Hop kins calcu gretta n, which is a valid ated novel metho d aure martínez r accur acy than the Fried earl equat ion in the estim ation of LDL-C . Estefani DE DIOS et al. JESSE. 2013; 310(1 9): 2061- 2068 (http ://ed ucati on.[employer] meehanTeaman [employer]. com/f aq/FA Q164) Not Available [address] [address] [place], [address], 11/20/2021 13:08:51 11/12/19 22 11/20/2021 LIPID PANEL , STAND ORTEAG chol/HDLC ratio 2.9 (calc ) <5.0 normal Not Available [address] [address] [place], [address], 11/20/2021 13:08:51 11/12/1911/20/2021 LIPID PANEL , STAND [place]TE[place] non HDL cholesterol 133 mg/dL _(gracie c) <130 high For patie nts with diabe kelsey plus 1 major ASCVD risk facto r, treat ing to a non-H DL-C goal of <100 mg/dL (LDL- C of <70 mg/dL ) is consi nafisa amato n. Not Available [address] [address] [place], [address], 11/20/2021 13:08:51 11/22/1911/22/2021 T3, FREE T3, free 2.7 pg/mL 2.3-4. 2 normal Not Available [address] [address] [place], [address], 11/22/2021 01:23:30 11/22/1911/22/2021 TSH TSH 1.76 mIU/L normal Refer ence Range > or = 20 Years 0.40- 4.50 Pregn priscilla Range s First trime ster 0.26- 2.66 Secon d trime ster 0.55- 2.73 Third trime ster 0.43- 2.91 Not Available [facility] [address] [address] [place], [address], 11/22/2021 01:23:30 11/22/19 22 11/22/2021 T4, FREE T4, free 1.2 NG/dL 0.8-1. 8 normal Not Available [address], [address], 11/22/2021 01:23:29 05/14/19 23 05/14/2022 T4, FREE T4, free 1.3 NG/dL 0.8-1. 8 normal Not Available [address], [address], 05/14/2022 03:05:41 05/14/19 23 05/14/2022 TSH TSH 0.69 mIU/L 0.40-4 .50 normal Not Available [address], [address], 05/14/2022 03:05:41 05/14/1905/14/2022 T3, FREE T3, free 2.7 pg/mL 2.3-4. 2 normal Not Available [address], [address], 05/14/2022 03:05:42 06/20/19 23 06/22/2022 COMPR EHENS GEOFF METAB OLIC PANEL glucose 100 mg/dL 65-99 high Fasti ng refer ence inter ray For someo ne witho ut known diabe kelsey, a gluco se value betwe en 100 and 125 mg/dL is consi stent with predi abete s and shoul d be confi rmed with a follo w-up test. Not Available [address], [address], 06/22/2022 12:01:25 06/20/1906/22/2022 COMPR EHENS GEOFF METAB OLIC PANEL urea nitrogen (BUN) 20 mg/dL 7-25 normal Not Available [address], [address], 06/22/2022 12:01:25 06/20/19 06/22/2022 COMPR EHENS GEOFF METAB OLIC PANEL creatinine 0.76 mg/dL 0.50-1 .03 normal Not Available [address], [address], 06/22/2022 12:01:25 06/20/19 23 06/22/2022 COMPR EHENS GEOFF METAB OLIC PANEL eGFR 92 mL/mi n/1.7 3m2 > or = 60 normal The eGFR is based on the CKD-E PI 2020 equat ion. To calcu late the new eGFR from a previ ous Creat inine or Cysta tin C resul t, go to https ://félix drummond.tiny coelho/rhea hodgson s/ kdoqi /gfr% 5Fcal culat or Not Available [address], [address], 06/22/2022 12:01:25 06/20/19 23 06/22/2022 COMPR EHENS GEOFF METAB OLIC PANEL BUN/creatini ne ratio NOT APPLIC ABLE (calc ) 6-22 Not Available [address], [address], 06/22/2022 12:01:25 06/20/19 23 06/22/2022 COMPR EHENS GEOFF METAB OLIC PANEL sodium 140 mmol/ L 135-14 6 normal Not Available [address], [address], 06/22/2022 12:01:25 06/20/19 23 06/22/2022 COMPR EHENS GEOFF METAB OLIC PANEL potassium 4.1 mmol/ L 3.5-5. 3 normal Not Available [address], [address], 06/22/2022 12:01:25 06/20/19 23 06/22/2022 COMPR EHENS GEOFF METAB OLIC PANEL chloride 106 mmol/ L 98-110 normal Not Available [address], [place], [address], 06/22/2022 12:01:25 06/20/19 23 06/22/2022 COMPR EHENS GEOFF METAB OLIC PANEL carbon dioxide 27 mmol/ L 20-32 normal Not Available [facility] [address], [address], 06/22/2022 12:01:25 06/20/19 23 06/22/2022 COMPR EHENS GEOFF METAB OLIC PANEL calcium 9.3 mg/dL 8.6-10 .4 normal Not Available [facility] [address], [address], 06/22/2022 12:01:25 06/20/19 23 06/22/2022 COMPR EHENS GEOFF METAB OLIC PANEL protein, total 7.3 g/dL 6.1-8. 1 normal Not Available [address], [address], 06/22/2022 12:01:25 06/20/19 23 06/22/2022 COMPR EHENS GEOFF METAB OLIC PANEL albumin 4.5 g/dL 3.6-5. 1 normal Not Available [facility] [address], [address], 06/22/2022 12:01:25 06/20/19 23 06/22/2022 COMPR EHENS GEOFF METAB OLIC PANEL globulin 2.8 g/dL_ (calc ) 1.9-3. 7 normal Not Available [facility] [address], [address], 06/22/2022 12:01:25 06/20/1906/22/2022 COMPR EHENS GEOFF METAB OLIC PANEL albumin/glob ulin ratio 1.6 (calc ) 1.0-2. 5 normal Not Available [facility] [address], [address], 06/22/2022 12:01:25 06/20/1906/22/2022 COMPR EHENS GEOFF METAB OLIC PANEL bilirubin, total 0.5 mg/dL 0.2-1. 2 normal Not Available [address], [address], 06/22/2022 12:01:25 06/20/1906/22/2022 COMPR EHENS GEOFF METAB OLIC PANEL alkaline phosphatase 50 U/L 37-153 normal Not Available [address], [address], 06/22/2022 12:01:25 06/20/1906/22/2022 COMPR EHENS GEOFF METAB OLIC PANEL AST 19 U/L 10-35 normal Not Available [address], [address], 06/22/2022 12:01:25 06/20/1906/22/2022 COMPR EHENS GEOFF METAB OLIC PANEL ALT 18 U/L 6-29 normal Not Available [address], [address], 06/22/2022 12:01:25 06/20/1906/22/2022 THYRO ID PEROX IDASE ANTIB ODIES thyroid peroxidase antibodies 18 IU/mL <9 high Not Available [address], [address], 06/22/2022 12:01:06/20/1906/22/2022 VITAM IN B12/F OLATE , SERUM PANEL vitamin B12 593 pg/mL 200-11 00 normal Not Available [address], [address], 06/22/2022 12:01:26 06/20/1906/22/2022 VITAM IN B12/F OLATE , SERUM PANEL folate, serum 16.0 NG/mL normal Refer ence Range Low: <3.4 Borde rline : 3.4-5 .4 Kalie l: >5.4 Not Available [address], [address], 06/22/2022 12:01:26 06/20/1906/22/2022 T3, FREE T3, free 3.4 pg/mL 2.3-4. 2 normal Not Available [address], [address], 06/22/2022 12:01:27 06/20/1906/22/2022 TSH+F REE T4 TSH 0.19 mIU/L 0.40-4 .50 low Not Available [address], [address], 06/22/2022 12:01:28 06/20/1906/22/2022 TSH+F REE T4 T4, free 1.6 NG/dL 0.8-1. 8 normal Not Available [address], [address], 06/22/2022 12:01:28 08/08/1908/10/2022 COMPR EHENS GEOFF METAB OLIC PANEL glucose 103 mg/dL 65-99 high Fasti ng refer ence inter ray For someo ne witho ut known diabe kelsey, a gluco se value betwe en 100 and 125 mg/dL is consi stent with predi abete s and shoul d be confi rmed with a follo w-up test. Not Available [address], [address], 08/10/2022 16:38:49 08/08/1908/10/2022 COMPR EHENS GEOFF METAB OLIC PANEL urea nitrogen (BUN) 19 mg/dL 7-25 normal Not Available [facility] [address], [address], 08/10/2022 16:38:49 08/08/1908/10/2022 COMPR EHENS GEOFF METAB OLIC PANEL creatinine 0.87 mg/dL 0.50-1 .03 normal Not Available [address], [address], 08/10/2022 16:38:49 08/08/19 23 08/10/2022 COMPR EHENS GEOFF METAB OLIC PANEL eGFR 78 mL/mi n/1.7 3m2 > or = 60 normal The eGFR is based on the CKD-E PI 2020 equat ion. To calcu late the new eGFR from a previ ous Creat inine or Cysta tin C resul t, go to https ://félix drummond.tiny coelho/rhea hodgson s/ kdoqi /gfr% 5Fcal culat or Not Available [address], [address], 08/10/2022 16:38:49 08/08/19 23 08/10/2022 COMPR EHENS GEOFF METAB OLIC PANEL BUN/creatini ne ratio NOT APPLIC ABLE (calc ) 6-22 Not Available [address], [address], 08/10/2022 16:38:49 08/08/19 23 08/10/2022 COMPR EHENS GEOFF METAB OLIC PANEL sodium 139 mmol/ L 135-14 6 normal Not Available [address], [address], 08/10/2022 16:38:49 08/08/19 23 08/10/2022 COMPR EHENS GEOFF METAB OLIC PANEL potassium 4.4 mmol/ L 3.5-5. 3 normal Not Available [address], [address], 08/10/2022 16:38:49 08/08/19 23 08/10/2022 COMPR EHENS GEOFF METAB OLIC PANEL chloride 103 mmol/ L 98-110 normal Not Available [address], [address], 08/10/2022 16:38:49 08/08/19 23 08/10/2022 COMPR EHENS GEOFF METAB OLIC PANEL carbon dioxide 27 mmol/ L 20-32 normal Not Available [address], [address], 08/10/2022 16:38:49 08/08/19 23 08/10/2022 COMPR EHENS GEOFF METAB OLIC PANEL calcium 9.7 mg/dL 8.6-10 .4 normal Not Available [address], [address], 08/10/2022 16:38:49 08/08/19 23 08/10/2022 COMPR EHENS GEOFF METAB OLIC PANEL protein, total 7.3 g/dL 6.1-8. 1 normal Not Available [address], [address], 08/10/2022 16:38:49 08/08/19 23 08/10/2022 COMPR EHENS GEOFF METAB OLIC PANEL albumin 4.5 g/dL 3.6-5. 1 normal Not Available [address], [address], 08/10/2022 16:38:49 08/08/19 23 08/10/2022 COMPR EHENS GEOFF METAB OLIC PANEL globulin 2.8 g/dL_ (calc ) 1.9-3. 7 normal Not Available [address], [address], 08/10/2022 16:38:49 08/08/19 23 08/10/2022 COMPR EHENS GEOFF METAB OLIC PANEL albumin/glob ulin ratio 1.6 (calc ) 1.0-2. 5 normal Not Available [address], [address], 08/10/2022 16:38:49 08/08/1908/10/2022 COMPR EHENS GEOFF METAB OLIC PANEL bilirubin, total 0.4 mg/dL 0.2-1. 2 normal Not Available [facility] [employer] [address], [address], 08/10/2022 16:38:49 08/08/1908/10/2022 COMPR EHENS GEOFF METAB OLIC PANEL alkaline phosphatase 47 U/L 37-153 normal Not Available [facility] [employer] [address] [address] [place], [address], 08/10/2022 16:38:49 08/08/1908/10/2022 COMPR EHENS GEOFF METAB OLIC PANEL AST 19 U/L 10-35 normal Not Available [facility] [employer] [address], [address], 08/10/2022 16:38:49 08/08/1908/10/2022 COMPR EHENS GEOFF METAB OLIC PANEL ALT 17 U/L 6-29 normal Not Available [facility] [address], [address], 08/10/2022 16:38:49 08/08/1908/10/2022 THYRO ID PEROX IDASE ANTIB ODIES thyroid peroxidase antibodies 19 IU/mL <9 high Not Available [facility] [employer] [address], [address], 08/10/2022 16:38:50 08/08/1908/10/2022 INSUL IN insulin 11.1 uIU/m L normal Refer ence Range < or = 18.4 Risk: Optim al < or = 18.4 Moder ate NA High >18.4 Adult cardi ovasc ular event risk categ ory cut point s (opti mal, moder ate, high) are based on Insul in Refer ence Inter ray studi es perfo rmed at [facility] in 2021. Not Available [facility] [address], [address], 08/10/2022 16:38:51 08/08/1908/10/2022 T4, FREE T4, free 1.2 NG/dL 0.8-1. 8 normal Not Available [address], [address], 08/10/2022 16:38:52 08/08/1908/10/2022 TSH TSH 0.99 mIU/L 0.40-4 .50 normal Not Available [address], [address], 08/10/2022 16:38:53 08/08/1908/10/2022 VITAM IN B12/F OLATE , SERUM PANEL vitamin B12 498 pg/mL 200-11 00 normal Not Available [address], [address], 08/10/2022 16:38:53 08/08/1908/10/2022 VITAM IN B12/F OLATE , SERUM PANEL folate, serum >24.0 NG/mL normal Refer ence Range Low: <3.4 Borde rline : 3.4-5 .4 Kalie l: >5.4 Not Available [address], [address], 08/10/2022 16:38:53 08/08/1908/10/2022 T3, FREE T3, free 3.0 pg/mL 2.3-4. 2 normal Not Available [address], [address], 08/10/2022 16:38:54 08/08/1908/10/2022 HEMOG LOBIN A1C hemoglobin A1C 5.4 %_of_ total _HGB <5.7 normal For the purpo se of scree ancelmo for the prese nce of diabe kelsey: <5.7% Consi stent with the absen ce of diabe kelsey 5.7-6 .4% Consi stent with incre ased risk for diabe kelsey (pred iabet es) > or =6.5% Consi stent with diabe kelsey This assay resul t is consi stent with a decre ased risk of diabe kelsey. Curre ntly, no conse nsus exist s sarita greenfield use of hemog lobin A1c for diagn osis of diabe kelsey in child audrey. Accor ding to Ameri can Diabe kelsey Assoc iatio n (ADA) guide lines , hemog lobin A1c <7.0% repre sents optim al contr ol in non-p regna nt diabe tic patie nts. Diffe rent metri cs may apply to speci fic patie nt popul ation s. [facility] in [place](A DA). Not Available [address] [address] [place], [address], 08/10/2022 16:38:55 10/31/19 23 10/31/2022 COMPR EHENS GEOFF METAB OLIC PANEL glucose 96 mg/dL 65-99 normal Fasti ng refer ence inter ray Not Available [facility] [address] [address] [place], [address], 10/31/2022 22:36:36 10/31/19 23 10/31/2022 COMPR EHENS GEOFF METAB OLIC PANEL urea nitrogen (BUN) 18 mg/dL 7-25 normal Not Available [address] [address] [place], [address], 10/31/2022 22:36:36 10/31/19 23 10/31/2022 COMPR EHENS GEOFF METAB OLIC PANEL creatinine 0.81 mg/dL 0.50-1 .03 normal Not Available [address] [address] [place], [address], 10/31/2022 22:36:36 10/31/19 23 10/31/2022 COMPR EHENS GEOFF METAB OLIC PANEL eGFR 85 mL/mi n/1.7 3m2 > or = 60 normal Not Available [address] [address] [place], [address], 10/31/2022 22:36:36 10/31/19 23 10/31/2022 COMPR EHENS GEOFF METAB OLIC PANEL BUN/creatini ne ratio SEE NOTE: (calc ) 6-22 Not Repor pino: BUN and Creat inine are withi n refer ence range . Not Available [address], [address], 10/31/2022 22:36:36 10/31/19 23 10/31/2022 COMPR EHENS GEOFF METAB OLIC PANEL sodium 140 mmol/ L 135-14 6 normal Not Available [address], [address], 10/31/2022 22:36:36 10/31/19 23 10/31/2022 COMPR EHENS GEOFF METAB OLIC PANEL potassium 4.3 mmol/ L 3.5-5. 3 normal Not Available [address] [address] [facility] [place], [address], 10/31/2022 22:36:36 10/31/19 23 10/31/2022 COMPR EHENS GEOFF METAB OLIC PANEL chloride 104 mmol/ L 98-110 normal Not Available [address] [address] [place], [address], 10/31/2022 22:36:36 10/31/19 23 10/31/2022 COMPR EHENS GEOFF METAB OLIC PANEL carbon dioxide 29 mmol/ L 20-32 normal Not Available [facility] [address] [address] [place], [address], 10/31/2022 22:36:36 10/31/19 23 10/31/2022 COMPR EHENS GEOFF METAB OLIC PANEL calcium 9.3 mg/dL 8.6-10 .4 normal Not Available [address], [address], 10/31/2022 22:36:36 10/31/19 23 10/31/2022 COMPR EHENS GEOFF METAB OLIC PANEL protein, total 7.2 g/dL 6.1-8. 1 normal Not Available [address], [address], 10/31/2022 22:36:36 10/31/19 23 10/31/2022 COMPR EHENS GEOFF METAB OLIC PANEL albumin 4.5 g/dL 3.6-5. 1 normal Not Available [address], [address], 10/31/2022 22:36:36 10/31/19 23 10/31/2022 COMPR EHENS GEOFF METAB OLIC PANEL globulin 2.7 g/dL_ (calc ) 1.9-3. 7 normal Not Available [address], [address], 10/31/2022 22:36:36 10/31/19 23 10/31/2022 COMPR EHENS GEOFF METAB OLIC PANEL albumin/glob ulin ratio 1.7 (calc ) 1.0-2. 5 normal Not Available [address], [address], 10/31/2022 22:36:36 10/31/19 23 10/31/2022 COMPR EHENS GEOFF METAB OLIC PANEL bilirubin, total 0.4 mg/dL 0.2-1. 2 normal Not Available [address], [address], 10/31/2022 22:36:36 10/31/19 23 10/31/2022 COMPR EHENS GEOFF METAB OLIC PANEL alkaline phosphatase 56 U/L 37-153 normal Not Available [address], [address], 10/31/2022 22:36:36 10/31/19 23 10/31/2022 COMPR EHENS GEOFF METAB OLIC PANEL AST 17 U/L 10-35 normal Not Available [address], [address], 10/31/2022 22:36:36 10/31/19 23 10/31/2022 COMPR EHENS GEOFF METAB OLIC PANEL ALT 17 U/L 6-29 normal Not Available [address], [address], 10/31/2022 22:36:36 10/31/19 23 10/31/2022 INSUL IN insulin 11.6 uIU/m L normal Refer ence Range < or = 18.4 Risk: Optim al < or = 18.4 Moder ate NA High >18.4 Adult cardi ovasc ular event risk categ ory cut point s (opti mal, moder ate, high) are based on Insul in Refer ence Inter ray studi es [facility]fo [facility]med at [facility] in [facility]. Not Available [facility] [address], [address], 10/31/2022 22:36:38 10/31/19 23 10/31/2022 T4, FREE T4, free 1.4 NG/dL 0.8-1. 8 normal Not Available [address], [address], 10/31/2022 22:36:39 10/31/19 23 10/31/2022 TSH TSH 0.89 mIU/L 0.40-4 .50 normal Not Available [facility] [address], [address], 10/31/2022 22:36:40 10/31/19 23 10/31/2022 VITAM IN B12/F OLATE , SERUM PANEL vitamin B12 578 pg/mL 200-11 00 normal Not Available [facility] [address], [address], 10/31/2022 22:36:40 09/10/31/2022 VITAM IN B12/F OLATE , SERUM PANEL folate, serum 21.9 NG/mL normal Refer ence Range Low: <3.4 Borde rline : 3.4-5 .4 Kalie l: >5.4 Not Available [facility] [address] [place], [address], 10/31/2022 22:36:40 10/31/19 23 10/31/2022 T3, FREE T3, free 3.1 pg/mL 2.3-4. 2 normal Not Available [facility] [address] [address], [place], [address], 10/31/2022 22:36:41 10/31/1910/31/2022 HEMOG LOBIN A1C hemoglobin A1C 5.5 %_of_ total _HGB <5.7 normal For the purpo se of nacholilibeth ag for the prese nce of diabe kelsey: <5.7% Consi stent with the absen ce of diabe kelsey 5.7-6 .4% Consi stent with incre ased risk for diabe kelsey (pred iabet es) > or =6.5% Consi stent with diabe kelsey This assay resul t is consi stent with a decre ased risk of diabe kelsey. Curre ntly, no conse nsus exist s sarita greenfield use of hemog lobin A1c for diagn osis of diabe kelsey in child audrey. Accor ding to Ameri can Diabe kelsey Assoc iatio n (ADA) guide lines , hemog lobin A1c <7.0% repre sents optim al contr ol in non-p regna nt diabe tic patie nts. Diffe rent metri cs may apply to speci fic patie nt popul ation s. [facility] in [place] kel[place](A DA). Not Available [facility] [address] [address] , [place], [address], 10/31/2022 22:36:42 06/18/19 22 06/16/2021 US, head + neck No observ ation record ed. [id number] [facility] [address], [place], [address], 04/15/2022 04:40:12 06/20/19 25 06/19/2024 anniei ng/kell [place] tic resul t No observ ation record ed. [facility] [address], [place], [address], 06/19/2024 16:44:22 Result Notes None recorded. Problems Name Problem SNOMED Code Status Onset Date Resolution Date Notes Provider Name and Address Organization Details Recorded Time Hypothyroidis m 75290590 Active 2021 Not Available [facility] 07:27:53 Vitamin D deficiency 33837394 Active 2021 Not Available [facility] 07:27:53 Goiter 6583372 Active 2021 Not Available [facility] 07:27:53 Impaired fasting glycemia 398660569 Active 2021 Not Available [facility] 07:27:53 Prediabetes 158391168 Active 2022 Not Available [facility] 07:27:53 Focal motor weakness 107915524 Active 2022 Not Available [facility] 07:27:53 Vitamin B12 deficiency (non anemic) 57726158 Active 2022 Not Available [facility] 07:27:53 Problem Notes None recorded. Procedures Surgical History Date Name Laterality Status Provider Name and Address Organization Details Recorded Time 10/11/19 21 Date of Last Pap Smear completed Not Available [facility] 04/15/2022 04:31:03 03/15/19 21 Most Recent Mammogram completed Not Available [facility] 04/15/2022 04:31:03 lumpectomy of left breast completed Not Available [facility] 04/15/2022 04:31:04 laparoscopy completed Not Available [facility] 04/15/2022 04:31:04 hysteroscopy completed Not Available [facility] 04/15/2022 04:31:04 endoscopic balloon dilation of ostium of paranasal sinus completed Not Available [facility] 04/15/2022 04:31:04 Imaging Results None recorded. Procedure Notes None recorded. Medical Equipment None Reported. Allergies Allergen ID Allergen Name Allergen Category Reaction Reaction Severity Criticality Documentation Date Start Date Code Code System Note Provider Name and Address Organization Details Recorded Time 6599 Substance with sulfonami de structure and antibacte rial mechanism of action (substanc e) medicatio n Not available Not available Not available 04/15/2022 67810 [id number] SNOMED Not Available [facility] 3 04:39:58 Medications Name Sig Start Date Stop Date Status Note LastModified by Organization Details LastModified Time anastrozole 1 mg tablet Take 1 tablet every day by oral route. 2019 active Not Available Not Available Not Avai lable doxycycline hyclate 100 mg capsule 04/24 completed Not Available Not Available Not Available clindamycin HCl 300 mg capsule TAKE 1 CAPSULE BY MOUTH FOUR TIMES DAILY FOR 14 DAYS 12/16 completed Not Available Not Available Not Available oxybutynin chloride ER 10 mg tablet,exte nded release 24 hr TAKE 1 TABLET BY MOUTH EVERY DAY 04/24 completed Not Available Not Available Not Available azithromyci n 250 mg tablet TAKE 2 TABLETS BY MOUTH FOR 1 DAY THEN TAKE 1 TABLET BY MOUTH DAILY FOR 4 DAYS 09/17 completed Not Available Not Available Not Available ibuprofen 800 mg tablet TAKE 1 TABLET BY MOUTH TWICE DAILY WITH FOOD OR MILK FOR 20 DAYS NEEDED 12/10 completed Not Available Not Available Not Available valacyclovi r 1 gram tablet TAKE 1 TABLET BY MOUTH THREE TIMES DAILY 04/24 completed Not Available Not Available Not Available clarithromy rayo 500 mg tablet TAKE 1 TABLET BY MOUTH EVERY 12 HOURS FOR 10 DAYS 09/17 completed Not Available Not Available Not Available hydrocodone 5 mg-acetamin ophen 325 mg tablet TAKE 1 TABLET BY MOUTH EVERY 6 HOURS NEEDED FOR ACUTE PAIN 08/14 completed Not Available Not Available Not Available ondansetron HCl 4 mg tablet TAKE 1 TABLET BY MOUTH ONE HOUR BEFORE SURGERY 09/17 completed Not Available Not Available Not Available prednisone 20 mg tablet TAKE 2 TABLETS BY MOUTH EVERY DAY FOR 5 DAYS 06/17 completed Not Available Not Available Not Available Synthroid 100 mcg tablet Take 1 tablet every other day by oral route for 90 days. 08/14 completed Not Available Not Available Not Available clonazepam 0.5 mg tablet TAKE 1 TABLET BY MOUTH EVERY DAY AT BEDTIME 06/17 completed Not Available Not Available Not Available phentermine 15 mg capsule Take 1 capsule every day by oral route in the morning for 90 days. 06/17 completed Not Available Not Available Not Available liothyronin e 5 mcg tablet active Not Available Not Available Not Available levothyroxi ne 75 mcg tablet Take 1 tablet every day by oral route. 2019 active Not Available Not Available Not Avai lable alprazolam 0.25 mg tablet TAKE 1 TABLET BY MOUTH EVERY DAY AT BEDTIME NEEDED FOR ANXIETY active Not Available Not Available No t Available dexamethaso ne 1 mg tablet Take 1 tablet as needed by oral route at bedtime for 1 day. active Not Available Not Available No t Available cyanocobala min (vit B-12) 1,000 mcg/mL injection solution ADMINISTE R 1 ML UNDER THE SKIN EVERY WEEK IN THE MORNING active Not Available Not Available No t Available Synthroid 88 mcg tablet TAKE 1 TABLET EVERY DAY IN THE MORNING FOR HYPOTHYRO IDISM 2022 active Not Available Not Available Not Avai lable Synthroid 50 mcg tablet TAKE 1 TABLET EVERY MORNING FOR HYPOTHYRO IDISM 2022 active Not Available Not Available Not Avai lable omeprazole 20 mg capsule,del ayed release TAKE 1 CAPSULE BY MOUTH DAILY 04/24 completed Not Available Not Available Not Available insulin syringe U-100 with needle 1 mL 31 gauge x 5/16 INJECT B12 SUBCUATEN EOUSLY ONCE WEEKLY FOR 90 DAYS active Not Available Not Available No t Available montelukast 10 mg tablet TAKE 1 TABLET BY MOUTH EVERY DAY 06/17 completed Not Available Not Available Not Available mupirocin 2 % topical ointment APPLY 1/2 OF OINTMENT MIXED INTO SALINE IRRIGATIO N EXTERNALL Y TWICE DAILY X 5 DAYS 04/24 completed Not Available Not Available Not Available metoprolol succinate ER 25 mg tablet,exte nded release 24 hr TAKE 1 TABLET BY MOUTH EVERY DAY DIRECTED active Not Available Not Available No t Available ergocalcife rol (vitamin D2) 1,250 mcg (50,000 unit) capsule Take 1 capsule every week by oral route in the morning for 90 days. 06/17 completed Not Available Not Available Not Available cefuroxime axetil 500 mg tablet TAKE 1 TABLET BY MOUTH EVERY 12 HOURS FOR 10 DAYS 08/14 completed Not Available Not Available Not Available methylpredn isolone 4 mg tablets in a dose pack TAKE BY MOUTH DIRECTED 09/17 completed Not Available Not Available Not Available neomycin 500 mg tablet TAKE 1 TABLET BY MOUTH EVERY 12 HOURS FOR 14 DAYS 08/14 completed Not Available Not Available Not Available metformin ER 500 mg tablet,exte nded release 24 hr TAKE 1 TABLET BY MOUTH EVERY DAY AT DINNER 08/14 completed Not Available Not Available Not Available ipratropium bromide 21 mcg (0.03 %) nasal spray USE 2 SPRAYS IN EACH NOSTRIL FOUR TIMES DAILY 12/10 completed Not Available Not Available Not Available diazepam 5 mg tablet 09/17 completed Not Available Not Available Not Available cyclobenzap rine 5 mg tablet TAKE 1 TABLET BY MOUTH EVERY DAY AT BEDTIME NEEDED active Not Available Not Available No t Available moxifloxaci n 0.5 % eye drops 09/17 completed Not Available Not Available Not Available metoprolol tartrate 25 mg tablet Take 1 tablet every day by oral route. 2019 active Not Available Not Available Not Avai lable cholecalcif devaughn (vitamin D3) 1,250 mcg (50,000 unit) capsule TK 1 C PO WEEKLY 06/17 completed Not Available Not Available Not Available Tirosint 75 mcg capsule Take 1 capsule every day by oral route in the morning for 30 days. active Not Available Not Available No t Available Tirosint 100 mcg capsule TAKE 1 CAPSULE BY MOUTH EVERY DAY IN THE MORNING 04/24 completed Not Available Not Available Not Available Tirosint 88 mcg capsule TAKE 1 CAPSULE BY MOUTH EVERY DAY IN THE MORNING 04/24 completed Not Available Not Available Not Available Xiidra 5 % eye drops in a dropperette INSTILL 1 DROP IN BOTH EYES TWICE DAILY 09/17 completed Not Available Not Available Not Available Paxlovid 300 mg (150 mg x 2)-100 mg tablets in a dose pack FOLLOW PACKAGE DIRECTION S 04/24 completed Not Available Not Available Not Available Vitals Date Recorded Body height Body mass index (BMI) Body weight Body temperature Heart rate Systolic And Diastolic Provider Name and Address Organization Details Last Updated DateTime 3 175.26 cm 27 kg/m2 62989.4 g 97.9 [degF] 92 /min 112/70 mm[Hg] Lillie ROSHAN Mireles [facility] [employer] [facility] 3 12:46:13 Date Recorded Body mass index (BMI) Body height Oxygen saturation Oxygen saturation in Arterial blood by Pulse oximetry Heart rate Body temperature Body weight Systolic And Diastolic Provider Name and Address Organization Details Last Updated DateTime 2 26.6 kg/m2 175.26 cm 96 % 96 % 70 /min 97.7 [degF] 17460.6 3 g 105/85 mm[Hg] Not Available [facility] 3 04:34:21 Date Recorded Body height Body mass index (BMI) Body weight Heart rate Body temperature Systolic And Diastolic Provider Name and Address Organization Details Last Updated DateTime 3 175.26 cm 25.1 kg/m2 75269.4 2 g 72 /min 97.9 [degF] 124/70 mm[Hg] Teena Sintia Contreras [facility] [employer] [facility] 3 10:32:37 Date Recorded Body mass index (BMI) Body height Oxygen saturation Oxygen saturation in Arterial blood by Pulse oximetry Heart rate Body temperature Body weight Systolic And Diastolic Provider Name and Address Organization Details Last Updated DateTime 2 27.2 kg/m2 175.26 cm 97 % 97 % 74 /min 97.9 [degF] 67351 g 110/80 mm[Hg] Not Available [facility] 3 04:34:21 Social History Question Answer Notes LastModified by Organizat ion Details LastModified Time Tobacco Smoking Status Never Smoker Gisela gomez, [facility] [employer] [facility] 08/14/2022 10:23:41 What Is Your Level Of Caffeine Consumption? Moderate [id number] Information not available 04/15/2022 How Much Tobacco Do You Chew? None [id number] Information not available 04/15/2022 In The 14 Days Before Symptom Onset, Have You Had Close Contact With A Laboratory-confirm ed COVID-19 While That Case Was Ill? No Information n ot available 08/14/2022 In The 14 Days Before Symptom Onset, Have You Had Close Contact With A Person Who Is Under Investigation For COVID-19 While That Person Was Ill? No Information not available 08/14/2022 Which Illicit Or Recreational Drugs Have You Used? None [email or web address] Information not available 08/14/2022 Sex: Female Functional Status Question Answer Note LastModified by Organizat ion Details LastModified Time What is your level of alcohol consumption? Occasional [id number] Information not available 04/15/2022 Do you or have you ever used smokeless tobacco? Never used smokeless tobacco [id number] Information not available 04/15/2022 Do you or have you ever used e-cigarettes or vape? Never used electronic cigarettes [email or web address] Information not available 08/14/2022 Mental Status None recorded. Family History Relationship Description Onset Age of this Age Resolved Age Notes LastModified by Organization Details LastModified Time Mother Hypertensive disorder [id number] Not available 04/15/2022 04:31:10 Mother Diabetes mellitus [id number] Not available 04/15/2022 04:31:10 Maternal Grandmother Diabetes mellitus [id number] Not available 04/15/2022 04:31:10 Maternal Grandfather Malignant lymphoma [email or web address] Not available 2022 10:23:40 Maternal Uncle Malignant lymphoma [email or web address] Not available 2022 10:23:40 Medical History Condition Response CANCER: SPECIFY Y GI PROBLEMS Y HYPOTHYROIDISM Y HIGH CHOLESTEROL / HYPERLIPIDEMIA Y Gynecological History Statement/Question Response Abnormal Pap N If Post Menopausal, Age at Menopause 49 Date of Last Mammogram 03/15/2020 Date of LMP 07/26/2014 Sexually Active? Y STIs/STDs N Date of Last Pap Smear 10/10/2020 Current Control Method None Age at Menarche 14 Most Recent Mammogram 03/15/2020 Obstetrics History GPAL:G 0 P 0 0 0 0 Past Encounters Encounter ID Performer Location Encounter Start Date Encounter Closed Date Diagnosis/Indication Diagnosis SNOMED-CT Code Diagnosis ICD10 Code Diagnosis Note [id number] Mel Bass MD [facility] [address] [place] [address] 06/17/2020 00:00:00 06/17/2020 11:17:12 [id number] Mel Bass MD [facility] [place] [address] [place] [address] 09/17/2020 00:00:00 09/17/2020 12:01:53 [id number] Mel Bass MD [facility] [place] [address] [place], [place] [address] 12/10/2020 00:00:00 12/10/2020 12:25:39 [id number] Mel Bass MD [facility] [place] [address] [place], [place] [address] 06/10/2021 00:00:00 06/10/2021 13:35:28 [id number] [facility] [place] [address] [place] [address] 12/16/2021 00:00:00 12/16/2021 13:48:31 [id number] Mel Bass MD [facility] [place] [address] [place], [place] [address] 04/24/2022 12:20:53 04/24/2022 13:11:43 Prediabetes 956881015 R73.03 A1C of 5.7%- patient having more symptoms suggestive of glucose dysregulat ion- would recommend we trial on low dose metformin ER 500 mg daily with dinner. Discussed carb counting and how to read food labels. Recommende d patient to utilize the diabetesfo [employer] from the ADA website to help with food preparatio n as this presents ideal carb content per meal so this will make carb counting much easier for patient. Recommende d she incorporat e natural insulin garment presser s such as pears, apples, cinnamon, anthony and sweet potatoes to help mobilize her endogenous insulin. Recommende d up to 150 minutes of moderate level activity/e xercise weekly. Hypothyroidism 68575860 E03.9 FT4 high normal range from April labwork- would recommend she drop her dosage down to 88 mcg of synthroid every day with exception of Wed/ ay and take 100 mcg dose just twice in a weeks time. repeat labs in 4-6 weeks to assess further. She was reminded to take her synthroid on empty stomach with glass of water and wait one hour to eat or have her coffee in morning and up to 4 hours if ever taking any heartburn or reflux medication s to help optimize absorption . Discussed paleo like diet with restrictio n of GMOs to help with energy and to optimize absorption of vitamins and minerals and reduce inflammati on. Spent up to 25 minutes preparing to see the patient (eg, review of tests), obtaining and/or reviewing separately obtained history, performing a medically appropriat e examinatio n and evaluation , counseling and educating the patient, ordering medication s, tests, along with documentin g clinical informatio n in the electronic health record, independen tly interpreti ng results and communicat ing results to the patient. RTC in 4 months. Patient was provided a handwritte n lab order which contains our fax number. If she chooses to go outside of the [facility] system to obtain labwork she was advised to provide our fax number and my informatio n to the lab she will be obtaining labwork from in order to have her labs properly forwarded over for me to review so there is no loss of follow up due to use of outside network. She was also advised to contact our clinic informing us that she has completed her labwork so we are aware we will need to reach out to the appropriat e laboratory to request her results be forwarded to us so I might have the ability to review and make further medical decision making in her case. She voiced understand ing. [id number] Mel Bass MD [facility] [place] [address] [place] [address] 08/14/2022 10:22:41 08/14/2022 11:08:15 Hypothyroidism 89816717 E03.9 Thyroid levels in range since dose reduction- continue synthroid 88 mcg daily. She was reminded to take her synthroid on empty stomach with glass of water and wait one hour to eat or have her coffee in morning and up to 4 hours if ever taking any heartburn or reflux medication s to help optimize absorption . Discussed paleo like diet with restrictio n of GMOs to help with energy and to optimize absorption of vitamins and minerals and reduce inflammati on. Impaired f asting glycemia [id number] R73.01 Continue on natural insulin garment presser s as metformin was not well tolerated. Recommende d she incorporat e natural insulin garment presser s such as pears, apples, cinnamon, anthony and sweet potatoes to help mobilize her endogenous insulin. Recommende d up to 150 minutes of moderate level activity/e xercise weekly. Vitamin B1 2 deficiency (non anemic) 55758267 E53.8 Continue on B12 injections weekly as she is tolerating well. Spent up to 28 minutes preparing to see the patient (eg, review of tests), obtaining and/or reviewing separately obtained history, performing a medically appropriat e examinatio n and evaluation , counseling and educating the patient, ordering medication s, tests, along with documentin g clinical informatio n in the electronic health record, independen tly interpreti ng results and communicat ing results to the patient. RTC in 4 months. Patient was provided a handwritte n lab order which contains our fax number. If she chooses to go outside of the [facility] system to obtain labwork she was advised to provide our fax number and my informatio n to the lab she will be obtaining labwork from in order to have her labs properly forwarded over for me to review so there is no loss of follow up due to use of outside network. She was also advised to contact our clinic informing us that she has completed her labwork so we are aware we will need to reach out to the appropriat e laboratory to request her results be forwarded to us so I might have the ability to review and make further medical decision making in her case. She voiced understand ing. Health Concerns Section Related Observation LastModified by Organization Detai ls LastModified Time None Recorded Concern Status LastModified by Organization Details LastModified Time None Recorded Advance Directives Directive None Recorded Payers Insurance Date Sequence Insurance Name Policy Number Policy Warner Covered Member ID Warner Member ID Guarantor Name 08/11/2022 1 JOSE FRANCISCO-BAYLEE (PPO) [id number] Bernardo Virk [id number] Ira Virk Notes Date Note Type Note Provider Name and Address Organization Details Recorded Time 04/24/2022 text/html 57 yo female com es in for follow up in management of hypothyroidism, vit D def and impaired fasting glucose/prediabetes (A1C of 5.7%). last seen in Dec at that time we had patient continue synthroid 88 mcg on Wed/Wed/Wednesday and start synthroid 100 mcg on // Wed/ Wednesday. we continued vit D supplementation and natural insulin sensitizers. She went to ER in late Jan/early February- she had sleep study and this turned out normal. Her TSH was checked at that time and she was 2.98 uIU/mlShe ended up taking 100 mcg daily and felt jittery and went back down and alternating the 88 mcg every other day with 100 mcg every other day. She did try the T3 hormone at her last visit-it made her feel really off and she tried every other day at half dosage. She noticed she felt off so stopped the T3. She did have a vertigo episode a week ago where she got really dizzy. She had head pressure and felt disoriented. She was rushing around in the morning and she was on her way to the chiropractor- did get worked up and found to have mild nystagmus-she had vitreous detachment in her right eye. She does test her sugars at home- usually around 110 to 120 mg/dL. At night if she has low blood sugar -she does wake up and has a snack in middle of the night. labs from 05/07:195/93/69/107glu cose 102 mg/dLcr normallft [id number] 5.7%TSH of 0.31 uIU/mlFT4 of 1.5 ng/dLFt3 of 3.1 pg/mlinsulin 16 uU/mlb12/folate normal Mel Bass MD [address] [facility], [facility] [address], [place], [address], [facility] [email or web address] 04/24/2022 13:47:04 08/14/2022 text/html 57 yo female com es in for follow up in management of impaired fasting glucose and hypothyroidism along with B12 def. last seen in April at that time we had patient drop her thyroid dosage down to 88 mcg of synthroid every day with exception of Wed/ and take 100 mcg dose just twice in a weeks time. we recommended metformin once daily with dinner. She is just now taking the 88 mcg daily instead of alternating her dosing- she was having insomnia, feeling jittery and not feeling well up to when we found her over replaced. She tried the liothryonine and felt it wasn't really helping her. She is taking oral B12 supplement on a daily basis. She feels if she takes too much of the B1 or B6 vitamins. she has lost 13 pounds since her last visit. She is trying to eat more meat, cheese, yogurt. She had covid again in May- went to neurologist for tingling-no need for brain MRI-had back spasms and had back MRI- found to have bulging discs. She is going to chiropractor and pain management and better now.Found to have degenerative changes and stenosis- goes back in August. labs from 08/07/22:a1c of 5.4%TSH of 0.99 uIU/mlFT4 of 1.2 ng/dLFT3 of 3.0 pg/MLB12/folate normalTPO 19 IU/mlglucose 103 mg/dLCr normalLFT normal Mel Bass MD [address] [facility], [facility] [address], [place], [address], [place] [facility] [place] [employer] [facility] 08/14/2022 14:12:01 OBGyn Episode No OBEpisode recorded.
--- OUTSIDE RECORDS SUMMARY | 2024-09-01 11:41 | XMS_ITS ---
Author Organization [facility] Address [address] [address] Care Team Providers Care Core Paster Name Role Phone Mel Bass Primary Care Provider Migration, Provider Unavailable Unavailable Allergies Allergen (clinical drug ingredient) Drug/Non Drug Allergy documented on EMR Reaction Allergy Type Onset Date Status sulfamethoxazole / trimethoprim Sulfamethoxazole-Tr imethoprim Unknown Drug Allergy Active amoxicillin / clavulanate Augmentin Unknown Drug Allergy [facility] Encounter Medications Medication SIG (Take, Route, Frequency, Duration) Notes Start Date End Date Status Synthroid 88 MCG 1 tab(s) orally once a day for 45 days 10/12/2023 Active Synthroid 100 MCG 1 tab(s) orally once a day for 45 days 10/12/2023 Active Vitamin D (Ergocalciferol) 1.25 MG (63742 UT) 1 cap(s) orally once a week for 90 days 10/22/2023 Active Cholecalciferol 1250 MCG 1 CAP(S) ORALLY ONCE A WEEK for 90 DAYS *Please review and pick correct [...] Active Encounters Encounter Location Date Provider Diagnosis [address] [address] 01/01/2024 Provider Migration Plan Of Treatment Medication Medication Name Sig Start Date Stop Date Notes Synthroid 88 MCG 1 tab(s) orally once a day for 45 days 10/12/2023 Synthroid 100 MCG 1 tab(s) orally once a day for 45 days 10/12/2023 Vitamin D (Ergocalciferol) 1.25 MG (17846 UT) 1 cap(s) orally once a week for 90 days 10/22/2023 Cholecalciferol 1250 MCG 1 CAP(S) ORALLY ONCE A WEEK for 90 DAYS 10/22/2023 *Please review and pick correct strength-formulation from Medispan options. If intended option is not shown, discontinue and re-order from Quick Search* Progress Notes * Laxmi JOHNSONLuisaOB:1965 (59 yo F)Acc No.[id number]:01/01/2024 Patient: Ira SMITH Provider: Omar sanchez Migration :1965 A ge:58 Y S ex:Female Date:01/01/2024 Address:[facility] [address], [facility] Pcp:Mel Bass Subjective: * Chief Complaints: * [...] Electronic signature of Aida chavis Migration on 09/01/2024 at 11:40 AM CDT Sign off status: Pending * Provider: Omar sanchez Migration Date: 03/02/2023 Generated for Santos meneses/Kike/Montserrat on: 09/01/2024 11:40 AM CDT
--- OUTSIDE RECORDS SUMMARY | 2024-09-01 11:41 | XMS_ITS | Encounter Summary ---
Author Organization [facility] Address [address] [facility] [place] [address] Care Team Providers Care Glove Pairer Name Role Phone Unavailable Primary Care Provider Unavailabl e Encounter Details Date Type Department Care Team (Late st Contact Info) Description 07/07/2022 Lab Requisition [facility] - DermPath Lab [address] [facility] [place] [id number] Kaitlynn Varner DO [address] [facility] [address] [place] [address] Social History Tobacco Use Types Packs/Day Years Used Date Smoking Tobacco: Never Assessed Comments Unknown Sex and Gender Information Value Date Recorded Sex Assigned at Not on file Legal Sex Female 6:26 AM CNS Gender Identity Not on file Sexual Orientation Not on file documented as of this encounter Plan of Treatment Not on file documented as of this encounter Procedures Procedure Name Priority Date/Time Associated Diagnosis Comments DERMATOPATHOLOGY Routine 07/07/2022 1:23 PM CDT documented in this encounter Results * DERMATOPATHOLOGY (07/07/2022 1:23 PM CDT) Case Report Dermatopathology Report Case: [id number] Authorizing Provider: Kaitlynn Varner DO Collected: 07/07/2022 01:23 PM Ordering Location: [facility] DermPath Lab Received: 07/09/2022 05:59 AM Pathologist: [...] characteristic determined by the Dermatopathology Laboratory at [facility], directed by Dr. Robert Mendez. These tests need not be, and therefore are not, approved by the [place] Food and Drug Administration. The tests are used for clinical purposes. Billing Codes Specimen Charges Stain Charges 75776 1 3 1:05 PM CDT DERMATOPATHOLOGY LABORATORY Embedded Images 3 1:05 PM CDT DERMATOPATHOLOGY LABORATORY Pathology/Cytolo gy TISSUE SPECIMEN FROM SKIN / Unknown 07/07/2022 1:23 PM CDT 07/09/2022 5:59 AM CDT us Kaitlynn Varner DO LAB - PATHOLOGY/CYTOLOGY ORDERABLES Final Result DERMATOPATHOLOGY LABORATORY [facility] - Department of Dermatology [address], [address] [phone] documented in this encounter Visit Diagnoses Not on filedocumented in this encounter
--- OUTSIDE RECORDS SUMMARY | 2024-09-01 11:41 | XMS_ITS | Encounter Summary ---
Author Organization [facility] Address [address] [place] [address] Phone Care Team Providers Care Camera Operator Name Role Phone Ean Yuen MD Primary Care Provider [phone] Yasmeen Todd MD Unavailable Encounter Details Date [...] on filedocumented in this encounter Care Teams Camera Operator Relationship Specialty Start Date End Date Ean Yuen MD [address] [place] [address] [place] [address] PCP - General 06/30/17 Yasmeen Todd MD [address] [facility] [address] [place] [address] Radiation Oncologist Radiation Oncology 09/21/17 documented as of this encounter
--- OUTSIDE RECORDS SUMMARY | 2024-09-01 11:41 | XMS_ITS | Referral Summary ---
Author Organization [facility] Address [address] [place] [address] Care Team Providers Care Pattern Storage Clerk Name Role Phone Ean Yuen MD Primary Care Provider [phone] Yasmeen Todd MD Unavailable Allergies Active Allergy [...] 1 tablet (88 mcg total) by mouth raw material handler before breakfast Active famotidine (PEPCID) 20 mg tablet Take 1 tablet (20 mg total) by mouth as needed for heartburn Active omega 9-xmc-uuu-fish oil (Fish OiL) 1,000 mg (120 mg-180 [...] follow-up surveillance of breast c ancer 01/01/2021 marine oil terminal superintendent (current) use of aromatase inhibitors 01/01/2021 ER+ (estrogen receptor positive status) 04/28/19 19 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 Cancer Staging:Pathologic stage from 08/20/2017:Stage 0(pTis (DCIS), pN0, cM0, ER: Positive, CO: Negative, HER2: Not Assessed) - Signed by [...] 9:23 AM CDT Height 175.3 cm (5' 9) 11/29/2023 9:23 AM CDT Body Mass Index 25.55 11/29/2023 9:23 AM CDT Plan of Treatment Not on file Procedures Procedure Name Priority Date/Time Associated Diagnosis Comments DIAGNOSTIC MAMMOGRAM BILATERAL W BILL Schedule Routine, Read Routine (OP Routine) 04/23/2022 1:10 PM STEEL WHEEL ENGRAVER Ductal carcinoma in situ (DCIS) of left breast from Last 3 Months or Most Recently Relevant to Health Maintenance Results * Diagnostic Mammogram Bilateral W Bill (04/23/2022 1:10 PM STEEL WHEEL ENGRAVER) Anatomical Region Laterality Modality Breast Bilateral Mammography 04/23/2022 1:14 PM STEEL WHEEL ENGRAVER Impressions 04/23/2022 1:14 PM STEEL WHEEL ENGRAVER No mammographic or sonographic evidence of malignancy. OVERALL FINAL ASSESSMENT: BI-RADS Category 2: Benign. RECOMMENDATION: Annual screening mammography is recommended. Electronically signed by: Missy Murdock M.D. Narrative 04/23/2022 1:14 PM STEEL WHEEL ENGRAVER EXAMINATION: BILATERAL DIGITAL DIAGNOSTIC MAMMOGRAM INCLUDING CAD [...] Most Recently Relevant to Health Maintenance [place] [employer] [place] [employer] [place] [facility] [id number] [employer]riving [employer] [place] HMO/PPO Address: [address] [place] [address] Care Teams Pattern Storage Clerk Relationship Specialty Start Date End Date Ean Yuen MD [address] [place] [address] [place] [address] PCP - General 06/30/17 Yasmeen Todd MD [address] [facility] [address] [place] [address] Radiation Oncologist Radiation Oncology 09/21/17
--- OUTSIDE RECORDS SUMMARY | 2024-09-01 11:41 | XMS_ITS | Encounter Summary ---
Author Organization [facility] Address [address] [place] [address] Care Team Providers Care El Teacher Name Role Phone Brandi Houston DO Primary Care Provider [phone] Encounter Details Date Type Department Care Team (Late st Contact Info) Description 12/07/2023 CareTreet Message Enc [facility] Medical Group Multispecialty Care - [place] [address] [place] [address] Brandi Houston DO [address] [place] [address] h. pylori Social History Tobacco Use Types Packs/Day Years Used Date Smoking Tobacco: Never Passive Smoke Exposure: Past Smokeless Tobacco: Never Alcohol Use Standard Drinks/Week Comments Never 0 (1 standard drink = 0.6 oz pur e alcohol) PHQ-2 Answer Date Recorded Patient Health Questionnaire-2 Score 1 11/30/2023 Comments No Sex and Gender Information Value Date Recorded Sex Assigned at Female 04/18/2024 1:56 PM ADMINISTRATIVE PERSONAL ASSISTANT Legal Sex Female 1:00 PM CDT Gender Identity Female 04/18/2024 1:56 PM ADMINISTRATIVE PERSONAL ASSISTANT Sexual Orientation Not on file documented as of this encounter Plan of Treatment Not on file documented as of this encounter Visit Diagnoses Not on filedocumented in this encounter Additional Health Concerns Infection Onset Date Last Indicated Resolved Time Respiratory Rule Out 04/18/2024 04/18/2024 025 2:09 PM ADMINISTRATIVE PERSONAL ASSISTANT Influenza - Seasonal 04/18/2024 04/18/2024 025 12:32 AM CDT documented as of this encounter Care Teams El Teacher Relationship Specialty Start Date End Date Brandi Houston DO [address] [facility] [address] [place] [address] PCP - General FAMILY PRACTICE 11/23/23 10/08/24 documented as of this encounter
--- OUTSIDE RECORDS SUMMARY | 2024-09-01 11:41 | XMS_ITS | Clinical Summary ---
Author Organization [facility] Healthcare Address [address] [place] [address] Care Team Providers Care Cable Driller Name Role Phone Ean Yuen MD Primary Care Provider [phone] Yasmeen Todd MD Unavailable Allergies Active Allergy [...] 1 tablet (88 mcg total) by mouth customer support assistant before breakfast Active famotidine (PEPCID) 20 mg tablet Take 1 tablet (20 mg total) by mouth as needed for heartburn Active omega 7-uav-cut-fish oil (Fish OiL) 1,000 mg (120 mg-180 [...] follow-up surveillance of breast c ancer 01/01/2021 keno terminal operator (current) use of aromatase inhibitors 01/01/2021 ER+ (estrogen receptor positive status) 04/28/19 19 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 Cancer Staging:Pathologic stage from 08/20/2017:Stage 0(pTis (DCIS), pN0, cM0, ER: Positive, CT: Negative, HER2: Not Assessed) - Signed by [...] 04/14/2021, 04/08/2020, Additional history exists Influenza Vaccine (#1) 2024 Pneumococcal vaccine <65 Aged Out No longer eligible based on patient's age to complete this topic Procedures Procedure Name Priority Date/Time Associated Diagnosis Comments DIAGNOSTIC MAMMOGRAM BILATERAL W BILL Schedule Routine, Read Routine (OP Routine) 04/23/2022 1:10 PM PARTICLEBOARD FACTORY WORKER Ductal carcinoma in situ (DCIS) of left breast from Last 3 Months or Most Recently Relevant to Health Maintenance Results * Diagnostic Mammogram Bilateral W Bill (04/23/2022 1:10 PM PARTICLEBOARD FACTORY WORKER) Anatomical Region Laterality Modality Breast Bilateral Mammography 04/23/2022 1:14 PM PARTICLEBOARD FACTORY WORKER Impressions 04/23/2022 1:14 PM PARTICLEBOARD FACTORY WORKER No mammographic or sonographic evidence of malignancy. OVERALL FINAL ASSESSMENT: BI-RADS Category 2: Benign. RECOMMENDATION: Annual screening mammography is recommended. Electronically signed by: Missy Murdock M.D. Narrative 04/23/2022 1:14 PM PARTICLEBOARD FACTORY WORKER EXAMINATION: BILATERAL DIGITAL DIAGNOSTIC MAMMOGRAM INCLUDING CAD [...] Most Recently Relevant to Health Maintenance Insurance [employer] [place] [employer] [place] [facility] [id number] Care Teams Cable Driller Relationship Specialty Start Date End Date Ean Yuen MD [address] [place] [address] [place] [address] PCP - General 06/30/17 Yasmeen Todd MD [address] [facility] [address] [place] [address] Radiation Oncologist Radiation Oncology 09/21/17
--- OUTSIDE RECORDS SUMMARY | 2024-09-01 11:41 | XMS_ITS | Encounter Summary ---
Author Organization [facility] Address [address] [place] [address] Phone Care Team Providers Care Custom Dressmaker Name Role Phone Ean Yuen MD Primary Care Provider [phone] Yasmeen Todd MD Unavailable Encounter Details Date [...] on filedocumented in this encounter Care Teams Custom Dressmaker Relationship Specialty Start Date End Date Ean Yuen MD [address] [place] [address] [place] [address] PCP - General 06/30/17 Yasmeen Todd MD [address] [facility] [address] [place] [address] Radiation Oncologist Radiation Oncology 09/21/17 documented as of this encounter
--- OUTSIDE RECORDS SUMMARY | 2024-09-01 11:41 | XMS_ITS | Encounter Summary ---
Author Organization [facility] Address [address] [place] [address] Care Team Providers Care Student Support Advisor Name Role Phone Brandi Houston DO Primary Care Provider [phone] Encounter Details Date Type Department Care Team (Late st Contact Info) Description 03/28/2024 Meviohart Message Enc [facility] Medical Group Multispecialty Care - [place] [address] [place] [address] Brandi Houston DO [address] [place] [address] blood Sugar Social History Tobacco Use Types Packs/Day Years Used Date Smoking Tobacco: Never Passive Smoke Exposure: Past Smokeless Tobacco: Never Alcohol Use Standard Drinks/Week Comments Never 0 (1 standard drink = 0.6 oz pur e alcohol) PHQ-2 Answer Date Recorded Patient Health Questionnaire-2 Score 0 01/27/2024 Comments No Sex and Gender Information Value Date Recorded Sex Assigned at Female 04/18/2024 1:56 PM ANALYTICS LEADER Legal Sex Female 1:00 PM CDT Gender Identity Female 04/18/2024 1:56 PM ANALYTICS LEADER Sexual Orientation Not on file documented as of this encounter Plan of Treatment Not on file documented as of this encounter Visit Diagnoses Not on filedocumented in this encounter Additional Health Concerns Infection Onset Date Last Indicated Resolved Time Respiratory Rule Out 04/18/2024 04/18/2024 025 2:09 PM ANALYTICS LEADER Influenza - Seasonal 04/18/2024 04/18/2024 025 12:32 AM CDT Assessment Noted Time PHQ-9 Depression Total Score: 6 01/27/20 24 10:34 AM ANALYTICS LEADER documented as of this encounter Care Teams Student Support Advisor Relationship Specialty Start Date End Date Brandi Houston DO [address] [facility] [address] [place] [address] PCP - General FAMILY PRACTICE 11/23/23 10/08/24 documented as of this encounter
--- OUTSIDE RECORDS SUMMARY | 2024-09-01 11:41 | XMS_ITS | Encounter Summary ---
Author Organization [facility] Address [address] [place] [address] Phone Care Team Providers Care Funeral Director/Embalmer Name Role Phone Ean Yuen MD Primary Care Provider [phone] Yasmeen Todd MD Unavailable Encounter Details Date [...] on filedocumented in this encounter Care Teams Funeral Director/Embalmer Relationship Specialty Start Date End Date Ean Yuen MD [address] [place] [address] [place] [address] PCP - General 06/30/17 Yasmeen Todd MD [address] [facility] [address] [place] [address] Radiation Oncologist Radiation Oncology 09/21/17 documented as of this encounter
[2024-09-01 11:44] VITALS: BP 124/85; PULSE 81; RESP 14; TEMP 36.6; O2SAT 100
--- NOTE | 2024-09-01 11:51 | ED.URI ---
HPI - URI/Sore Throat General Chief Complaint: Upper Respiratory Infection Stated Complaint: sore throat Time Seen by Provider: 09/01/24 11:51 Source: patient, RN notes reviewed and old records reviewed Mode of arrival: ambulatory Limitations: no limitations History of Present Illness HPI Narrative: 59-year-old female presents to the [facility] with 2 day history of a sore throat. States that it feels like it is in the base of her throat. Has been on cefprozil for acute bronchitis. Did see primary care provider on 22 August, still currently on the antibiotic. Did follow-up with primary care yesterday and was diagnosed with an upper respiratory infection. Patient denies any other symptoms, reports that her cough has improved. Treatments prior to arrival: antibiotics Related Data Home Medications ?Medication ?Instructions ?Recorded ?Confirmed ?Last Taken ?Type cholecalciferol (vitamin D3) 125 125 mcg PO DAILY 10/28/20 08/31/24 12/03/20 History mcg (5,000 unit) capsule cetirizine 10 mg capsule (Zyrtec) 10 mg PO DAILY 11/20/20 08/31/24 07/16/22 History famotidine 10 mg tablet (Pepcid AC) 10 mg PO DAILY PRN Indigestion 11/20/20 08/31/24 07/16/22 History magnesium carb,citrate,oxide 300 mg PO DAILY 04/03/22 08/31/24 Unknown History (Magnesium Complex) Allergies Allergy/AdvReac Type Severity Reaction Status Date / Time Sulfa (Sulfonamide Allergy Intermediate Muscle Verified 09/01/24 11:53 Antibiotics) Spasms moxifloxacin Allergy Mild Rash Verified 09/01/24 11:53 peanut Allergy Mild Itchy Mouth Verified 09/01/24 11:53 amoxicillin (From Augmentin) AdvReac Severe ear Verified 09/01/24 11:53 pressure clavulanic acid (From AdvReac Severe ear Verified 09/01/24 11:53 Augmentin) pressure Review of Systems Review of Systems: All systems reviewed & are unremarkable except as noted in HPI and below Constitutional: Constitutional: Reports no additional constitutional complaints ENT: Reports as per HPI Cardiovascular: Cardiovascular: Reports no additional cardiovascular complaints, Denies chest pain and Denies dyspnea Respiratory: Respiratory: Reports no additional respiratory complaints, Denies chest congestion, Denies cough and Denies dyspnea Musculoskeletal: Musculoskeletal: Reports no additional musculoskeletal complaints Integumentary/Breasts: Skin/Breast: Reports system reviewed and no additional complaints, except as docu PMFSH Past Medical History Medical History Cramp of both lower extremities Immunization declined Iron deficiency Vitamin B deficiency Hypothyroidism Obstructive sleep apnea 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 Generalized anxiety disorder Allergic rhinitis GERD (gastroesophageal reflux disease) Osteopenia after menopause MVP (mitral valve prolapse) occasional palpitation Interstitial cystitis Fibromyalgia Vitamin D deficiency Surgical History Surgical History History of partial mastectomy of left breast 08/2017 S/P D&C (status post dilation and curettage) 1998 for SAb S/P laparoscopic procedure H/O breast biopsy H/O lumpectomy Family History Family History Other Diabetes mellitus Family history of Alzheimer's disease Family history of arthritis Family history of atrial fibrillation Family history of cardiovascular disease Family history of congestive heart failure Family history of kidney disease Family history of osteoporosis Family history of thyroid disease Hypertension Social History Social History Smoking status: Never smoker Alcohol intake: current Alcohol use details: sips Substance use: never Substance use type: does not use Do You Feel Safe in your Home?: Yes Lack of Transportation: No Lack of Food: Never True Current Housing: I Have Housing Concerned About Future Housing: No Difficulty Paying Gas/Electric Bills: No Difficulty Paying for Meds: No Currently Unemployed: No Education: Bachelor's Degree Difficulty w/ Childcare or Family Care: No Living arrangements: with family Occupation/Education: unemployed Gender identity (if verbalized by the patient): Female Sexual Orientation (if Verbalized by the Patient): Straight or Heterosexual Spiritual care concerns: No Comments At the time of my signature, I reviewed and agree with the nursing past medical, surgical, social, and family history. There is no relevant family history pertinent to the patient complaint. Exam Const: General: cooperative, healthy appearing, comfortable, no acute distress, well developed, alert and well nourished Nutritional Appearance: well nourished Orientation/consciousness: patient oriented x3 Limitations: no limitations HENMT: Head: normal to inspection Ears: hearing grossly normal bilaterally, external ears normal, TM's normal bilaterally, EAC's normal, mastoids normal and no periauricular adenopathy Mouth: Yes Normal oral and palatal mucosa present, Yes lip normal, Yes tongue normal and Yes moist mucous membranes Throat: posterior oropharynx normal, uvula midline and no uvular edema Eyes: General: appearance normal, both eyes and all related structures Alignment and Position: alignment normal Neck: Neck: normal visual inspection, full ROM, no lymphadenopathy and no meningeal signs Chest: Chest palpation & inspection: normal inspection of the chest Resp: Effort & Inspection: normal respiratory effort and able to speak in complete sentences Auscultation: clear to auscultation bilaterally, no crackles, no rales, no rhonchi and no wheezes Cardio: Rate: regular rate Skin: General skin exam: normal color and no rashes or lesions noted Neuro: General: patient oriented x3, gait normal, moves all extremities and no meningeal signs Cognition (Neuro): normal cognition Speech: normal speech Gait exam (Neuro): Normal gait present Extrem: General: normal to inspection, full ROM, capillary refill normal and normal gait Psych: Appearance: grossly normal and well kempt Mental Status: mental status grossly normal Speech and movement: Normal speech and movement present and Clear speech present Affect: normal affect Attitude: cooperative Course Course Level of Care: Express Care Visit Vital Signs Vital signs: Vital Signs Temperature 97.9 F 09/01/24 11:44 Pulse Rate 81 09/01/24 11:44 Respiratory Rate 14 09/01/24 11:44 Blood Pressure 124/85 09/01/24 11:44 Pulse Oximetry 100 09/01/24 11:44 Oxygen Delivery Room Air 09/01/24 11:44 Temperature 97.9 F 09/01/24 11:44 Pulse Rate 81 09/01/24 11:44 Respiratory Rate 14 09/01/24 11:44 Blood Pressure 124/85 09/01/24 11:44 Pulse Oximetry 100 09/01/24 11:44 Oxygen Delivery Room Air 09/01/24 11:44 Reviewed MDM - URI/Sore Throat MDM Narrative Medical decision making narrative: Patient sitting in exam room. Patient is nontoxic, vitals are stable. Patient presents with 2 day history of a sore throat. Patient currently on antibiotic. No acute findings noted on exam. Strep test negative, will culture Patient appropriate for outpatient treatment with close follow-up Discharge instructions reviewed with patient, as well as provided in writing per nursing staff. The instructions also include specific and strict return/GO TO THE ER as well as f/u information. All questions have been answered, and the patient deny any further questions with discharge and discharge plan. Some parts of this dictation were generated by voice recognition software and may contain typographical and/or grammatical inaccuracies. Differential Diagnosis Differential diagnosis: Likely upper respiratory infection, otitis media, sinusitis, viral infection, bronchitis, influenza and pharyngitis Lab Data Labs: Lab Results 09/01/24 Range/Units 12:00 POC Grp A Strep Screen Negative (Negative) Reviewed Critical Care Time Critical Care Time Critical Care Time: No Discharge Plan Discharge Clinical Impression: Acute viral pharyngitis Patient Disposition: Home Condition: Stable Instructions: Antibiotic Form, Pharyngitis (ED), Postnasal Drip (DC) Additional Instructions: Your rapid strep swab was negative today at [facility]. A throat culture will be sent to the laboratory for further testing. If the test is positive, you will receive a phone call within 48 hours and an appropriate antibiotic will be initiated at that time. Your symptoms are likely due to a viral illness, which is not treated with antibiotics. It is very important to treat your symptoms. Drink plenty of water, Gatorade, Pedialyte, ice pops or Jell-O. -Alternate Tylenol and Motrin per package directions for fever or pain. You can alternate every 4 hours -Antihistamine medication such as Zyrtec/Claritin/Elke during the day can help improve symptoms. -doing daily nasal irrigations can help relieve pressure your sinuses. Things like a Neti pot -Use Flonase twice a day for 5 days then daily to help reduce the inflammation and dry up your sinuses. -You can also use Mucinex. Be sure to drink plenty of water with this medication at least 8 ounces with every dose and it is important to drink 8 to 10 glasses of water per day. Water is a natural decongestant -Eat and drink things that are easy to swallow, like tea or soup, or popsicles. -Oral rinses such as: Salt water gargles and/or may use topical anesthetic (eg. Chloraseptic spray) or lozenges to relieve dryness or throat pain). -Frequent hand washing or hand civil engineering project manager is one of the best ways to prevent spread of infection. -Using a vaporizer or humidifier at night will also help thin secretions and help with coughing up phlegm. -Follow up with primary care provider in 7-10 days if condition is not improving - For new or worsening symptoms go directly to the nearest ER Patient Language: Slovak Prescriptions: No Action metoprolol succinate 25 mg tablet extended release 24 hr 25 mg PO DAILY Qty: 30 5RF Magnesium Complex 300 mg magnesium tablet 300 mg PO DAILY omeprazole 40 mg capsule,delayed release(DR/EC) 40 mg PO DAILY Qty: 30 3RF cholecalciferol (vitamin D3) 125 mcg (5,000 unit) capsule 125 mcg PO DAILY cefprozil 500 mg tablet 500 mg PO BID Qty: 20 0RF famotidine [Pepcid AC] 10 mg Tablet 10 mg PO DAILY PRN (Reason: Indigestion) Zyrtec 10 mg Capsule 10 mg PO DAILY levothyroxine [Synthroid] 100 mcg tablet 100 mcg PO DAILY Qty: 90 1RF levothyroxine [Synthroid] 88 mcg tablet 88 mcg PO DAILY Qty: 90 1RF azelastine 137 mcg (0.1 %) spray,non-aerosol 137 mcg intranasal Q12H Qty: 30 0RF Rx Instructions: administer into each nostril Follow-up/Referrals: Ean Yuen MD [Primary Care Provider] - 2 Weeks ([facility] follow-up) Time of Disposition: 12:09
[2024-09-01 12:09] LABS: EDSTREPNEGPOS1 Negative (Negative)
== END 2024-09-01 12:11 | disposition home or self-care (01) ==
PROVIDERS: Emergency Provider Nurse Practitioner; PCP Family Medicine
DX: J02.8 Acute pharyngitis due to other specified organisms (principal); E03.9 Hypothyroidism, unspecified; K21.9 Gastro-esophageal reflux disease without esophagitis; M85.80 Other specified disorders of bone density and structure, unspecified site; I34.1 Nonrheumatic mitral (valve) prolapse; M79.7 Fibromyalgia; E55.9 Vitamin D deficiency, unspecified; Z85.3 Personal history of malignant neoplasm of breast; Z90.12 Acquired absence of left breast and nipple
CPT/HCPCS: 87081; 87880; 99213; G0463

== ENCOUNTER 2024-09-19 09:30 | Outpatient (RCR) | payer OTHER, SELFPAY ==
[2024-09-19 09:37] VITALS: BMI 28.5
[2024-09-19 12:40] VITALS: BMI 28.5
--- NOTE | 2024-09-19 14:24 | PCDIET ---
Nutrition consult is complete. JOSEPH
== END 2024-12-04 11:45 | disposition home or self-care (01) ==
LOC: ANHDMC 09:30
PROVIDERS: PCP Family Medicine; Visit Provider Nurse Practitioner
DX: K76.0 Fatty (change of) liver, not elsewhere classified (principal); R73.03 Prediabetes; Z68.28 Body mass index [BMI] 28.0-28.9, adult; Z71.3 Dietary counseling and surveillance
CPT/HCPCS: 97802

== ENCOUNTER 2024-11-28 01:22 | Day surgery (SDC) | payer OTHER, SELFPAY ==
--- OUTSIDE RECORDS SUMMARY | 2023-07-31 16:30 | XMS_ITS ---
Author Organization [facility] [employer] [place] ([address]) Address [address] [place] [address] Care Team Providers Care Twister Tender Name Role Phone Alpa RED, Ean Primary Care Provider Unavailab le Leticia Abad Unavailable [phone] ZZ-Migration, Provider Unavailable Unavailab le Allergies Allergen (clinical drug ingredient) Drug/Non Drug Allergy documented on EMR Reaction Allergy Type Onset Date Status AVELOX (uncoded) rash Allergy Act kavitha Substance with sulfonamide structure and antibacterial mechanism of action (substance) Sulfa Antibiotics muscle cramping/weakne ss Drug Allergy Active REASON FOR VISIT [facility] To [facility] Conversion Encounter Medications Medication SIG (Take, Route, Frequency, Duration) Notes Start Date End Date Status Synthroid 100 MCG 1 tab(s) orally once a day Active ZyrTEC Allergy 10 MG 1 tablet PO QD Active Metoprolol Succinate ER 50 MG 1 tab(s) orally once a day Active Flonase Allergy Relief 50 MCG/ACT 1 spray(s) intranasally once a day Active Azelastine HCl 137 MCG/SPRAY 2 spray(s) intranasally 2 times a day; Duration: 30 day(s) Active NASAL WASHES N/A DIRECTED INTRANASALLY NEEDED; Duration: 30 *Please review for potential replacement for e-prescription and drug interaction check* Active Auvi-Q 0.3 MG/0.3ML 0.3 mg intramuscularly once; Duration: 1 dose(s) 04/06/2017 Active Singulair 10 MG 1 tab(s) orally once a day; Duration: 30 day(s) Active Social History Sex Assigned At : Social History Observation Description Sex Assigned At Female Encounters Encounter Location Date Provider Diagnosis [address] [place] [address] 07/31/2023 Provider Boogie Allergic rhinitis due to pollen J30.1 and Allergy to other foods Z91.018 Assessments Encounter Date Diagnosis (ICD Code) Assessment Notes Treatment Notes Treatment Clinical Notes Section Notes 07/31/2023 Allergic rhinitis due to pollen (ICD-10 - J30.1) 07/31/2023 Allergy to other foods (ICD-10 - Z91.018) Plan Of Treatment Medication Medication Name Sig Start Date Stop Date Notes Azelastine HCl 137 MCG/SPRAY 2 spray(s) intranasally 2 times a day; Duration: 30 day(s) NASAL WASHES N/A DIRECTED INTRANAS ALLY NEEDED; Duration: 30 *Please review f or potential replacement for e-prescription and drug interaction check* Auvi-Q 0.3 MG/0.3ML 0.3 mg intramuscular ly once; Duration: 1 dose(s) 04/06/2017 Singulair 10 MG 1 tab(s) orally once a day; Duration: 30 day(s) Next Appt Details Provider Name:Leticia guerra, 11/29/2024 09:30:00 AM, 2022 [facility], [address] [place] [address], [id number], Progress Notes * Laxmi VIRKLuisaOB:1965 (59 yo F)Acc No.[id number]:07/31/2023 Patient: Ira SMITH Provider: Omar Canales :1965 A ge:58 Y S ex:Female Date:07/31/2023 [id number] Pcp:Ean Yuen MD Subjective: * Chief Complaints: * 1 . Multum To Medispan Conversion Encounter. * Medical History: * Medications: T aking Synthroid 100 MCG Tablet 1 tab(s) orally once a day , Taking Metoprolol Succinate ER 50 MG Tablet Extended Release 24 Hour 1 tab(s) orally once a day , Taking ZyrTEC Allergy 10 MG Tablet 1 tablet PO QD , Taking Flonase Allergy Relief 50 MCG/ACT Suspension 1 spray(s) intranasally once a day * Allergies: A VELOX: rash, Sulfa Antibiotics: muscle cramping/weakness. Objective: * Vitals: Assessment: * Assessment: 1. A llergic rhinitis due to pollen - J30.1 (Primary) 2 . A llergy to other foods - Z91.018 Plan: * Treatment: 2. A llergy to other foods Start Auvi-Q Solution Auto-injector, 0.3 MG/0.3ML, 0.3 mg, intramuscularly, once, 1 dose(s), 1, Refills 0. * Billing Information: * Visit Code: * Procedure Codes: * Electronic signature of Aida GARCIA-Migration on 11/28/2024 at 01:24 AM CDT Sign off status: Pending * Provider: Omar sanchez Migration Date: 0 07/31/2023 Generated for Santos meneses/Kike/Montserrat on: 1 01:24 AM CDT
--- OUTSIDE RECORDS SUMMARY | 2023-12-30 05:00 | XMS_ITS ---
Author Organization [facility] Address [address] [place] [address] Care Team Providers Care Wood Drill Operator Name Role Phone Mel Bass Primary Care Provider Lance Moon [phone] REASON FOR VISIT Lab, thyroid f/u Encounters Encounter Location Date Provider Diagnosis [facility] [address] [place] [address] 12/30/2023 Lance Moon Plan Of Treatment No Information Progress Notes * Yobany VIRKOB:1965 (59 yo F)Acc No.[id number]:12/30/2023 Progress Notes Patient: Ira SMITH Provider: JESUS GANDHI EA :1965 A ge:58 Y S ex:Female Date:12/30/2023 Address:[facility] [address] [id number] Pcp:Mel Bass Subjective: * Chief Complaints: * 1 . Lab, thyroid f/u. * Medical History: Objective: * Vitals: Assessment: Plan: * Treatment: * Billing Information: * Visit Code: * Procedure Codes: * Electronic signature of JESUS Kimble on 11/28/2024 at 01:25 AM CDT Sign off status: Pending * Provider: JESUS GANDHI EA Date: 02/28/2023 Generated for Printi ng/Faxing/eTransmitting on: 01:25 AM CDT
--- OUTSIDE RECORDS SUMMARY | 2024-01-01 16:00 | XMS_ITS ---
Author Organization [facility] Address [address] [place] [address] Care Team Providers Care Mold Carpenter Name Role Phone Kali Mel Primary Care Provider [phone] Migration, Provider Unavailable Unavailable Allergies Allergen (clinical drug ingredient) Drug/Non Drug Allergy documented on EMR Reaction Allergy Type Onset Date Status amoxicillin / clavulanate Augmentin Unknown Drug Allergy Active sulfamethoxazole / trimethoprim Sulfamethoxazole-Tr imethoprim Unknown Drug Allergy Active REAS[facility] FOR VISIT [facility] Encounter Medications Medication SIG (Take, Route, [...] re-order from Quick Search* *Pick strength-form from [facility] for eRX* Active Pepcid *Please review a [...] review and pick correct strength-formulati on from [employer] options. If intended option is not shown, discontinue and re-order from Quick Search* *Pick strength-form from [employer] for eRX* 10/22/2023 Active Vitamin D (Ergocalciferol) 1.25 MG (88027 UT) Capsule 1 cap(s) orally once a week; Duration: 90 days 10/22/2023 Active Synthroid 100 MCG Tablet 1 tab(s) orally once a day alternating 100 mcg and 88mcg Active Metoprolol Succinate ER 25 MG CAPSULE, EXTENDED RELEASE 1 TAB(S) ORALLY ONCE A DAY *Please review and pick correct strength-formulati on from [employer] options. If intended option is not shown, discontinue and re-order from Quick Search* *Pick strength-form from [employer] for eRX* Active ZyrTEC *Please review a nd pick correct strength-formulati on from [employer]eda options. If intended option is not shown, discontinue and re-order from Quick Search* *Pick strength-form from [employer] for eRX* Active magnesium amino acids chelate *Please review for potential replacement for e-prescription and drug interaction check* *Reorder from [employer] for eRx and Interaction Alerts* Active Encounters Encounter Location Date Provider Diagnosis [facility] [place] [address] [facility] [place] [id number] 01/01/2024 Provider Migration Plan Of Treatment Medication [...] *Please review and pick correct strength-formulation from [employer]eda options. If intended option is not shown, discontinue and re-order from Quick Search* *Pick strength-form from Medispan for eRX* Vitamin D (Ergocalciferol) 1.25 MG (67834 UT) Capsule 1 cap(s) orally once a week; Duration: 90 days 10/22/2023 Next Appt Details Provider Name:Mel Bass, 09:20:00 AM, [address] [place] [address], [place], [address], Progress Notes * Yobany JOHNSONOB:1965 (59 yo F)Acc No.[id number]:01/01/2024 Patient: Ira Connolly Provider: Omar sanchez Migration :1965 A ge:58 Y S ex:Female Date:01/01/2024 Address:[facility] [address] [id number] Pcp:Mel Bass Subjective: * Chief Complaints: * [...] re-order from Quick Search* *Pick strength-form from [facility] for eRX*Taking Pepcid , Notes to Pharmacist: *Please review and pick correct strength-formulation from Medispan options. If intended option is not shown, discontinue and re-order from Quick Search* *Pick strength-form from [facility] for eRX*Taking Potassium Citrate , Notes to Pharmacist: *Please review and pick correct strength-formulation from Medispan options. If intended option is not shown, discontinue and re-order from Quick Search* *Pick strength-form from [facility] for eRX*Taking ZINC [facility] , Notes [...] from Quick Search* *Pick strength- form from Medispan for eRX* * Allergies: S ulfamethoxazole-TrimethoprimAugmentin Plan: * Treatment: * Electronic signature of Aida chavis Migration on 11/28/2024 at 01:24 AM CDT Sign off status: Pending * Provider: Omar sanchez Migration Date: 03/02/2023 Generated for Santos meneses/Kike/[place] on: 01:24 AM CDT
--- OUTSIDE RECORDS SUMMARY | 2024-01-01 16:00 | XMS_ITS ---
Author Organization [email or web address] [facility] Address [address] [address] Care Team Providers Care Desktop Publisher Name Role Phone Mel Bass Primary Care Provider Migration, Provider Unavailable Unavailable Allergies Allergen (clinical drug ingredient) Drug/Non Drug Allergy documented on EMR Reaction Allergy Type Onset Date Status sulfamethoxazole / trimethoprim Sulfamethoxazole-Tr imethoprim Unknown Drug Allergy Active amoxicillin / clavulanate Augmentin Unknown Drug Allergy Active REASON FOR VISIT [facility] Encounter Medications Medication SIG (Take, Route, Frequency, Duration) Notes Start Date End Date Status Synthroid 88 MCG 1 tab(s) orally once a day; Duration: 45 days 10/12/2023 Active Synthroid 100 MCG 1 tab(s) orally once a day; Duration: 45 days 10/12/2023 Active Vitamin D (Ergocalciferol) 1.25 MG (14301 UT) 1 cap(s) orally once a week; Duration: 90 days 10/22/2023 Active Cholecalciferol 1250 MCG 1 CAP(S) ORALLY ONCE A WEEK; Duration: 90 DAYS *Please review and pick correct strength-formulati on from Medispan options. If intended option is not shown, discontinue and re-order from Quick Search* 10/22/2023 Active Metoprolol Succinate ER 25 MG 1 TAB(S) ORALLY ONCE A DAY *Please review and pick correct strength-formulati on from Medispan options. If intended option is not shown, discontinue and re-order from Quick Search* Active Potassium Citrate *Please review and pick correct strength-formulati on from Medispan options. If intended option is not shown, discontinue and re-order from Quick Search* Active ZINC [facility] *Please revie w for potential replacement for e-prescription and drug interaction check* Active Vitamin D3 *Please review a nd pick correct strength-formulati on from Medispan options. If intended option is not shown, discontinue and re-order from Quick Search* Active MAGNESIUM AMINO ACIDS CHELATE *Please review for potential replacement for e-prescription and drug interaction check* Active ZyrTEC *Please review a nd pick correct strength-formulati on from Medispan options. If intended option is not shown, discontinue and re-order from Quick Search* Active Synthroid 100 MCG 1 tab(s) orally once a day alternating 100 mcg and 88mcg Active Hydroxocobalamin *Please review and pick correct strength-formulati on from Medispan options. If intended option is not shown, discontinue and re-order from Quick Search* Active Pepcid *Please review a nd pick correct strength-formulati on from Medispan options. If intended option is not shown, discontinue and re-order from Quick Search* Active Encounters Encounter Location Date Provider Diagnosis [address] [place] [address] 01/01/2024 Provider Migration Plan Of Treatment Medication Medication Name Sig Start Date Stop Date Notes Synthroid 88 MCG 1 tab(s) orally once a day; Duration: 45 days 10/12/2023 Synthroid 100 MCG 1 tab(s) orally once a day; Duration: 45 days 10/12/2023 Vitamin D (Ergocalciferol) 1.25 MG (44404 UT) 1 cap(s) orally once a week; Duration: 90 days 10/22/2023 Cholecalciferol 1250 MCG 1 CAP(S) ORALLY ONCE A WEEK; Duration: 90 DAYS 10/22/2023 *Please review and pick correct strength-formulation from Medispan options. If intended option is not shown, discontinue and re-order from Quick Search* Progress Notes * Yobany JOHNSONOB:1965 (59 yo F)Acc No.[id number]:01/01/2024 Patient: Ira SMITH Provider: Omar sanchez Migration :1965 A ge:58 Y S ex:Female Date:01/01/2024 Address:[facility] [address], [place] , [place] Pcp:Mel Bass Subjective: * Chief Complaints: * 1 . Multum To Medispan Conversion Encounter. * Medical History: * Medications: T aking Synthroid(Levothyroxine Sodium) 100 MCG Tablet 1 tab(s) orally once a day , Notes to Pharmacist: alternating 100 mcg and 88mcg, Taking Hydroxocobalamin , Notes to Pharmacist: *Please review and pick correct strength-formulation from Medispan options. If intended option is not shown, discontinue and re-order from Quick Search*, Taking Pepcid , Notes to Pharmacist: *Please review and pick correct strength-formulation from Medispan options. If intended option is not shown, discontinue and re-order from Quick Search*, Taking Potassium Citrate , Notes to Pharmacist: *Please review and pick correct strength-formulation from Medispan options. If intended option is not shown, discontinue and re-order from Quick Search*, Taking ZINC [facility] , Notes to Pharmacist: *Please review for potential replacement for e-prescription and drug interaction check*, Taking Vitamin D3 , Notes to Pharmacist: *Please review and pick correct strength-formulation from Medispan options. If intended option is not shown, discontinue and re-order from Quick Search*, Taking MAGNESIUM AMINO ACIDS CHELATE , Notes to Pharmacist: *Please review for potential replacement for e-prescription and drug interaction check*, Taking ZyrTEC , Notes to Pharmacist: *Please review and pick correct strength-formulation from Medispan options. If intended option is not shown, discontinue and re-order from Quick Search*, Taking Metoprolol Succinate ER 25 MG CAPSULE, EXTENDED RELEASE 1 TAB(S) ORALLY ONCE A DAY , Notes to Pharmacist: *Please review and pick correct strength-formulation from Medispan options. If intended option is not shown, discontinue and re-order from Quick Search* * Allergies: S ulfamethoxazole-Trimethoprim, Augmentin. Objective: * Vitals: Assessment: Plan: * Treatment: * Billing Information: * Visit Code: * Procedure Codes: * Electronic signature of Aida chavis Migration on 11/28/2024 at 01:25 AM CDT Sign off status: Pending * Provider: Omar sanchez Migration Date: 03/02/2023 Generated for Santos meneses/Kike/eTransmitting on: 1 01:25 AM CDT
--- OUTSIDE RECORDS SUMMARY | 2024-04-04 05:00 | XMS_ITS ---
Author Organization [employer] [facility] Address [address] [place] [address] Care Team Providers Care Manager Lean Name Role Phone Mel Bass Primary Care Provider Lance Moon [phone] REASON FOR VISIT follow up Encounters Encounter Location Date Provider Diagnosis [facility] - Mel Bass [address] [place] [address] 04/04/2024 Lance Moon Plan Of Treatment No Information Progress Notes * Yobany VIRKOB:1965 (59 yo F)Acc No.[id number]:04/04/2024 Patient: Ira SMITH Provider: JESUS GANDHI EA :1965 A ge:59 Y S ex:Female Date:04/04/2024 Address:[facility] [address], [place] Pcp:Mel Bass Subjective: * Chief Complaints: * 1 . Follow up. * Medical History: Objective: * Vitals: Assessment: Plan: * Treatment: * Billing Information: * Visit Code: * Procedure Codes: * Electronic signature of JESUS Kimble on 11/28/2024 at 01:26 AM CDT Sign off status: Pending * Provider: JESUS GADNHI EA Date: 0 04/04/2024 Generated for Printi ng/Faxing/eTransmitting on: 1 01:26 AM CDT
[2024-09-14 15:18] VITALS: BMI 28.8
--- OUTSIDE RECORDS SUMMARY | 2024-11-28 01:25 | XMS_ITS | Encounter Summary ---
Author Organization [facility] Address [address] [place] [address] Care Team Providers Care Associate Professor Of Art Name Role Phone Brandi Houston DO Primary Care Provider Andie Santoyo MD Primary Care Provider + Encounter Details Date Type Department Care Team (Late st Contact Info) Description 02/06/2024 CloudPartnert Message Enc [facility] Medical Group Multispecialty Care - [address] [place] [address] Brandi Houston, DO [place] Social History Tobacco Use Types Packs/Day Years Used Date Smoking Tobacco: Never Passive Smoke Exposure: Past Smokeless Tobacco: Never Alcohol Use Standard Drinks/Week Comments Never 0 (1 standard drink = 0.6 oz pur e alcohol) PHQ-2 Answer Date Recorded Patient Health Questionnaire-2 Score 0 01/27/2024 Comments No Sex and Gender Information Value Date Recorded Sex Assigned at Female 04/18/2024 1:56 PM EXHAUST AND MUFFLER REPAIRER Legal Sex Female 1:00 PM CDT Gender Identity Female 04/18/2024 1:56 PM EXHAUST AND MUFFLER REPAIRER Sexual Orientation Not on file documented as of this encounter Plan of Treatment Not on file documented as of this encounter Visit Diagnoses Not on filedocumented in this encounter Additional Health Concerns Infection Onset Date Last Indicated Resolved Time Respiratory Rule Out 04/18/2024 04/18/2024 025 2:09 PM EXHAUST AND MUFFLER REPAIRER Influenza - Seasonal 04/18/2024 04/18/2024 025 12:32 AM CDT Assessment Noted Time PHQ-9 Depression Total Score: 6 01/27/20 24 10:34 AM EXHAUST AND MUFFLER REPAIRER documented as of this encounter Care Teams Associate Professor Of Art Relationship Specialty Start Date End Date Brandi Houston DO PCP - General FAMILY PRACTICE 11/23/23 10/08/24 Andie Navarro MD [address] [address] PCP - General FAMILY PRACTICE 10/09/24 documented as of this encounter
--- OUTSIDE RECORDS SUMMARY | 2024-11-28 01:25 | XMS_ITS | Encounter Summary ---
Author Organization [facility] Address [address] [place] [address] Care Team Providers Care Alarm Signal Operator Name Role Phone Brandi Houston DO Primary Care Provider Andie Santoyo MD Primary Care Provider + Encounter Details Date Type Department Care Team (Late st Contact Info) Description 03/28/2024 Vocollecthart Message Enc [facility] Multispecialty Care - [address] [place] [address] Brandi Houston, DO blood Sugar Social History Tobacco Use Types Packs/Day Years Used Date Smoking Tobacco: Never Passive Smoke Exposure: Past Smokeless Tobacco: Never Alcohol Use Standard Drinks/Week Comments Never 0 (1 standard drink = 0.6 oz pur e alcohol) PHQ-2 Answer Date Recorded Patient Health Questionnaire-2 Score 0 01/27/2024 Comments No Sex and Gender Information Value Date Recorded Sex Assigned at Female 04/18/2024 1:56 PM DESIGN EDITOR Legal Sex Female 1:00 PM CDT Gender Identity Female 04/18/2024 1:56 PM DESIGN EDITOR Sexual Orientation Not on file documented as of this encounter Plan of Treatment Not on file documented as of this encounter Visit Diagnoses Not on filedocumented in this encounter Additional Health Concerns Infection Onset Date Last Indicated Resolved Time Respiratory Rule Out 04/18/2024 04/18/2024 025 2:09 PM DESIGN EDITOR Influenza - Seasonal 04/18/2024 04/18/2024 025 12:32 AM CDT Assessment Noted Time PHQ-9 Depression Total Score: 6 01/27/20 24 10:34 AM DESIGN EDITOR documented as of this encounter Care Teams Alarm Signal Operator Relationship Specialty Start Date End Date Brandi Houston DO PCP - General FAMILY PRACTICE 11/23/23 10/08/24 Andie Navarro MD [address] [address] PCP - General FAMILY PRACTICE 10/09/24 documented as of this encounter
--- OUTSIDE RECORDS SUMMARY | 2024-11-28 01:25 | XMS_ITS | Patient Health Record ---
Author Organization [employer] [facility] Address [address] [address] Care Team Providers Care Verification Lead Name Role Phone Mel Bass Primary Care Provider Lance Moon Unavailable [phone] Migration, Provider Unavailable Unavailable Allergies Allergen (clinical drug ingredient) Drug/Non Drug Allergy documented on EMR Reaction Allergy Type Onset Date Status sulfamethoxazole / trimethoprim Sulfamethoxazole-Tr imethoprim Unknown Drug Allergy Active amoxicillin / clavulanate Augmentin Unknown Drug Allergy Active Results Component Value Reference Range Notes VITAMIN D, 25-HYDROXY, LC/MS /MS Reviewed date:12/23/2023 08:38:11 PM Interpretation: Performing Lab:[facility], [address] [place], [address] Emmy Loomis MD Notes/Report: FASTING:YES FASTING: YES T3, FREE Reviewed date:12/23/2023 08:38:26 PM Interpretation: Performing Lab:[facility] [address], [place], [address] Emmy Loomis MD Notes/Report: FASTING:YES FASTING: YES CORTISOL, A.M. Reviewed date:12/23/2023 08:38:48 PM Interpretation: Performing Lab:[facility], [place], [address] Emmy Loomis MD Notes/Report: FASTING:YES FASTING: YES CORTISOL, A.M. 8.7 Reference Range 8 a.m. (7-9 a.m.) Specimen: 4.0-22.0 HEMOGLOBIN A1c Reviewed date:12/23/2023 08:38:04 PM Interpretation: Performing Lab:ANNA, [facility], [address] [place], [address] MaameLeslie Loomis Notes/Report: FASTING:YES FASTING: YES T4, FREE Reviewed date:12/23/2023 08:38:41 PM Interpretation: Performing [facility], [address] [place], [address] [facility] Notes/Report: FASTING:YES FASTING: YES TSH Reviewed date:12/23/2023 08:38:18 PM Interpretation: Performing Lab[facility], [address] [place], [address] [facility] L[facility] Notes/Report: FASTING:YES FASTING: YES THYROID PEROXIDASE ANTIBODIE S Reviewed date:12/30/2023 08:12:22 PM Interpretation: Performing Lab[facility], [address] [facility], [place], [address] Giuseppe Sepulveda Notes/Report: FASTING:YES FASTING: YES THYROID PEROXIDASE ANTIBODIES 17 <9 IU/mL VITAMIN D, 25-HYDROXY, LC/MS /MS Reviewed date:06/07/2024 08:06:51 AM Interpretation: Performing Lab:[facility], [address] [place], [address] Emmy Loomis MD Notes/Report: FASTING:YES FASTING: YES T3, FREE Reviewed date:06/07/2024 08:06:51 AM Interpretation: Performing Lab:[facility], [address] [place], [address] Emmy Loomis MD Notes/Report: FASTING:YES FASTING: YES HEMOGLOBIN A1c Reviewed date:06/07/2024 08:06:51 AM Interpretation: Performing Lab:ANNA [facility], [address] [place], [address] Emmy Loomis Notes/Report: FASTING:YES FASTING: YES T4, FREE Reviewed date:06/07/2024 08:06:51 AM Interpretation: Performing Lab:[facility], [address] [place], [address] Emmy Loomis MD Notes/Report: FASTING:YES FASTING: YES TSH Reviewed date:06/07/2024 08:06:51 AM Interpretation: Performing Lab:[facility], [address] [place], [address] Emmy Loomis MD Notes/Report: FASTING:YES FASTING: YES Reason For Referral No Information Medications Medication SIG (Take, Route, Frequency, Duration) Notes Start Date End Date Status Cholecalciferol 1250 MCG 1 CAP(S) ORALLY ONCE A WEEK; Duration: 90 days *Please review and pick correct [...] 88mcg Active Vitamin D (Ergocalciferol) 1.25 MG (58144 UT) 1 cap(s) orally once a week; Duration: 90 days 10/22/2023 Active Synthroid 100 MCG 1 tab(s) orally once a day; Duration: 45 days 10/12/2023 Active Synthroid 88 MCG 1 tab(s) orally once a day; Duration: 45 days 10/12/2023 Active Problems Problem Type SNOMED Code ICD Code Onset Dates Problem Status W/U Status Risk Notes Problem Vitamin D deficiency (41800469) Vitamin D deficiency, unspecified (E55.9) Active confirmed Problem Insomnia (798668769) Insomnia, unspecified (G47.00) Active confirmed Problem Autoimmune thyroiditis (38058743) Autoimmune thyroiditis (E06.3) Active confirmed Problem Corticoadrenal insufficiency (257144111) Unspecified adrenocortical insufficiency (E27.40) Active confirmed Problem Ventricular premature depolarization (051186036) Ventricular premature depolarization (I49.3) Active confirmed Vital Signs Heart Rate 81 /min 01/05/2024 Blood pressure diastolic 65 mm Hg 01/05/2024 Height 69 in 01/05/2024 Blood pressure systolic 97 mm Hg 01/05/2024 Weight 188.0 lbs 01/05/2024 BMI 27.76 kg/m2 01/05/2024 Encounters Encounter Location Date Provider Diagnosis [employer] [facility] - [address] [place] [address] 01/05/2024 Lance Moon Insomnia, unspecifie d G47.00 ; Autoimmune thyroiditis E06.3 ; Unspecified adrenocortical insufficiency E27.40 ; Ventricular premature depolarization I49.3 ; Other fatigue R53.83 ; Vitamin D deficiency, unspecified E55.9 and Prediabetes R73.[address] [employer] [facility] [address] [place] [address] 04/04/2024 Lance Moon [address] [place] [address] 01/01/2024 Provider Migration [employer] [facility] - [address] [place] [address] 12/29/2023 [facility] Mel Bass [address] [place] [address] 12/30/2023 Mel Bass [facility], [facility] - Mel Bass [address] [place] [address] 04/25/2024 Mel [facility] Assessments Encounter Date Diagnosis (ICD Code) Assessment Notes Treatment Notes Treatment Clinical Notes Section Notes 01/05/2024 Insomnia, unspecified (ICD-10 - G47.00) 01/05/2024 Autoimmune thyroiditis (ICD-10 - E06.3) 01/05/2024 Unspecified adrenocortical insufficiency (ICD-10 - E27.40) 01/05/2024 Ventricular premature depolarization (ICD-10 - I49.3) 01/05/2024 Other fatigue (ICD-10 - R53.83) 01/05/2024 Vitamin D deficiency, unspecified (ICD-10 - E55.9) 01/05/2024 Prediabetes (ICD-10 - R73.03) 01/05/2024 Other Assessment and Plan: 1. MTHFR [...] the medication.- Plan: Discuss with the patient's hide measuring machine operator the possibility of adjusting the metoprolol dose or switching to a xil-[id number] se formulation to help with fatigue. 8. [...] metoprolol 25 mg daily; discuss with your hide measuring machine operator the possibility of adjusting the dose to manage fatigue.- Recheck your labs in three months, including vitamin D and A1c levels.- Continue using your CPAP machine and monitor its effectiveness on your sleep quality and anxiety.- Discuss with your primary care doctor or hide measuring machine operator about any changes in your medication or symptoms, especially related to fatigue and palpitations. I have provided you with educational materials on vitamin supplementation and managing thyroid health. Please review these at your convenience to better understand your treatment plan. If you have any questions or need further clarification on your treatment plan, feel free to contact our office. Best regards, [facility] Patient assessment and plan of care discussed with patient Plan Of Treatment Pending Test Test Name Order Date Ultrasound thyroid 08/26/2023 VITAMIN D, 25-HYDROXY, LC/MS/MS 01/05/20 24 T3, FREE 01/05/2024 HEMOGLOBIN A1c 01/05/2024 T4, FREE 01/05/2024 TSH 01/05/2024 Insurance Providers Payer Name Payer Address Payer Phone Subscriber Number Group Number Insured Name Patient Relationship to Insured Coverage Start Date Coverage End Date [employer] [address] [place] [address] [id number] Su Self - patient is the insured Medical (General) History Medical History History ICD Code Hypothyroidism Hashimotos Fibromyaligia Sleep Apnea Chronic Fatigue Prediabetes MVP atrial flutter = Palpitations Surgical History Surgery Date(Month/Year) Implant Loop Recorder Septo plasty - Right side of nose Laparoscopy Breast Biopsy - left Hospitalization History Reason Date(Month/Year) pneumonia
--- OUTSIDE RECORDS SUMMARY | 2024-11-28 01:25 | XMS_ITS | Patient Health Record ---
Author Organization [facility] Address [address] [place] [address] Care Team Providers Care Business Asst Name Role Phone KaliMel Primary Care Provider Migration, Provider Unavailable Unavailable Jessi Moon-Angelina Unavailable [phone] Allergies Allergen (clinical drug ingredient) Drug/Non Drug Allergy documented on EMR Reaction Allergy Type Onset Date Status amoxicillin / clavulanate Augmentin Unknown Drug Allergy Active sulfamethoxazole / trimethoprim Sulfamethoxazole-Tr imethoprim Unknown Drug Allergy Active Results Component Value Reference Range Flag Notes VITAMIN D, 25-HYDROXY, LC/MS /MS Reviewed date:12/23/2023 08:38:11 PM Interpretation: Performing Lab:[facility]-[place], [address] [place], [address] Emmy Loomis MD Notes/Report: Vitamin D Status 25-OH Vitamin D: FASTING:YES Deficiency: <20 ng/mL FASTING: YES Insufficiency: 20 - 29 ng/mL Optimal: > or = 30 ng/mL For 25-OH Vitamin D testing on patients on D2-supplementation and patients for whom quantitation of D2 and D3 fractions is required, the QuestAssureD(TM) 25-OH VIT D, (D2,D3), LC/MS/MS is recommended: order code 19124 (patients >2yrs). See Note 1 Note 1 For additional information, please refer to http://education.[employer].Selligy/faq/ZVM983 (This link is being provided for informational/ educational purposes only.) VITAMIN D,25-OH,TOTAL,IA 43 30-100 ng/mL N T3, FREE Reviewed date:12/23/2023 08:38:26 PM Interpretation: Performing Lab:[facility], [address] [place], [address] Emmy Loomis MD Notes/Report: FASTING:YES FASTING: YES T3, FREE 2.8 2.3-4.2 pg/mL N CORTISOL, A.M. Reviewed date:12/23/2023 08:38:48 PM Interpretation: Performing Lab:[facility], [address] [place], [address] Emmy Loomis MD Notes/Report: Reference Range FASTING:YES 8 a.m. (7-9 a.m.) Specimen: 4.0-22.0 FASTING: YES CORTISOL, A.M. 8.7 N HEMOGLOBIN A1c Reviewed date:12/23/2023 08:38:04 PM Interpretation: Performing Lab:[facility], [address] [place], [address] Emmy Loomis Notes/Report: For someone without known diabetes, a hemoglobin FASTING:YES A1c value between 5.7% and 6.4% is consistent with prediabetes and should be confirmed with a FASTING: YES follow-up test. For someone with known diabetes, a value <7% indicates that their diabetes is well controlled. A1c targets should be individualized based on duration of diabetes, age, comorbid conditions, and other considerations. This assay result is consistent with an increased risk of diabetes. Currently, no consensus exists regarding use of hemoglobin A1c for diagnosis of diabetes for children. HEMOGLOBIN A1c 5.8 <5.7 % of total Hgb H T4, FREE Reviewed date:12/23/2023 08:38:41 PM Interpretation: Performing Lab:[facility], [address] [place], [address] Emmy Loomis Notes/Report: FASTING:YES FASTING: YES T4, FREE 1.3 0.8-1.8 ng/dL N TSH Reviewed date:12/23/2023 08:38:18 PM Interpretation: Performing Lab:[facility] [place], [address] [place], [address] Emmy Loomis Notes/Report: FASTING:YES FASTING: YES TSH 2.14 0.40-4.50 mIU/L N THYROID PEROXIDASE ANTIBODIE S Reviewed date:12/30/2023 08:12:22 PM Interpretation: Performing Lab:[facility], [address] [facility], [place], [address] Giuseppe Sepulveda Notes/Report: FASTING:YES FASTING: YES THYROID PEROXIDASE ANTIBODIES 17 <9 IU/mL H INSULIN (561) (Not yet revie wed by provider) Interpretation: Performing Lab:[facility]-Xfwkwi50749[place], UgtlwgPE[address] Emmy Loomis MD Notes/Report: FASTING:YES FASTING: YES T4, FREE (866) (Not yet revi ewed by provider) Interpretation: Performing Lab:[facility] [place] [address] [address] Barb Medeiros [address] Notes/Report: FASTING:YES FASTING: YES T4, FREE 1.1 0.8-1.8 ng/dL N TSH (899) (Not yet reviewed by provider) Interpretation: Performing Lab:[facility] [address] [address] Barb Medeiros [address] Notes/Report: FASTING:YES FASTING: YES TSH 1.59 0.40-4.50 mIU/L N T3, FREE (17691) (Not yet re viewed by provider) Interpretation: Performing Lab:[facility]-Efdbfw[address] [place], EdnuisZM[address] Emmy Loomis MD Notes/Report: FASTING:YES FASTING: YES .VITAMIN D,25-OH,TOTAL,IA (1 5853) (Not yet reviewed by provider) Interpretation: Performing Lab:[facility]-Jggpfd837[address] [place], QbrdxxBQ[address] Emmy Loomis MD Notes/Report: FASTING:YES FASTING: YES VITAMIN B6, PLASMA (926) (No t yet reviewed by provider) Interpretation: Performing Lab:[facility], [facility]-[address]li[address] [place] [address], [address], MvsdahtibuUC[address] Blayne White MD,PhD Notes/Report: FASTING:YES FASTING: YES PHOSPHOETHANOLAMINE (PEA), U RINE WITH CREATININE (Not yet reviewed by provider) Interpretation: Performing Lab:[facility], [facility]/Tc [facility]-[place],[address] [address], DansvilleIfmzfmdrjiCG[address] Evon Dodge MD,PhD,BRENDA Notes/Report: FASTING:YES FASTING: YES .COMPREHENSIVE METABOLIC CARNEY (87802) [facility] Reviewed date:11/27/2024 07:08:02 PM Interpretation: Performing Lab:[facility] [place] [address] [address] Barb Medeiros JjrrhzmTZ[address] [facility] Notes/Report: FASTING:YES FASTING: YES GLUCOSE 94 65-99 mg/dL N Fasting reference interval UREA NITROGEN (BUN) 19 7-25 mg/dL N CREATININE 0.78 0.50-1.03 mg/dL N EGFR 88 > OR = 60 mL/min/1.73m2 N BUN/CREATININE RATIO SEE NOTE: 6-22 (calc) Not Reported: BUN and Creatinine are within reference range. SODIUM 140 135-146 mmol/L N POTASSIUM 4.4 3.5-5.3 mmol/L N CHLORIDE 103 98-110 mmol/L N CARBON DIOXIDE 27 20-32 mmol/L N CALCIUM 9.2 8.6-10.4 mg/dL N PROTEIN, TOTAL 7.3 6.1-8.1 g/dL N ALBUMIN 4.5 3.6-5.1 g/dL N GLOBULIN 2.8 1.9-3.7 g/dL (calc) N ALBUMIN/GLOBULIN RATIO 1.6 1.0-2.5 (calc) N BILIRUBIN, TOTAL 0.4 0.2-1.2 mg/dL N ALKALINE PHOSPHATASE 52 37-153 U/L N AST 21 10-35 U/L N ALT 26 6-29 U/L N .LIPID PANEL, STANDARD (7600 ) Reviewed date:11/27/2024 07:08:02 PM Interpretation: Performing Lab:[facility] SystemsHoura7[address] [address] Barb Medeiros CnzroquWK[address] [facility] Notes/Report: FASTING:YES FASTING: YES CHOLESTEROL, TOTAL 200 <200 mg/dL H HDL CHOLESTEROL 74 > OR = 50 mg/dL N TRIGLYCERIDES 89 <150 mg/dL N LDL-CHOLESTEROL 108 H Reference range: <100 Desirable range <100 mg/dL for primary prevention; <70 mg/dL for patients with CHD or diabetic patients with > or = 2 CHD risk factors. LDL-C is now calculated using the Andrew calculation, which is a validated novel method providing better accuracy than the Friedewald equation in the estimation of LDL-C. Derick DE DIOS et al. JESSE. 2013;310(19): 1847-9710 (http://education.[employer].Selligy/faq/FAQ 164) CHOL/HDLC RATIO 2.7 <5.0 (calc) N NON HDL CHOLESTEROL 126 <130 mg/dL (calc) N For patients with diabetes plus 1 major ASCVD risk factor, treating to a non-HDL-C goal of <100 mg/dL (LDL-C of <70 mg/dL) is considered a therapeutic option. .CBC (INCLUDES DIFF/PLT) (63 99) Reviewed date:11/27/2024 07:08:02 PM Interpretation: Performing Lab:[facility] [place] [address] [place] [address] Notes/Report: FASTING:YES FASTING: YES WHITE BLOOD CELL COUNT 6.0 3.8-10.8 Thousand/uL N RED BLOOD CELL COUNT 4.09 3.80-5.10 Million/uL N HEMOGLOBIN 12.8 11.7-15.5 g/dL N HEMATOCRIT 40.7 35.0-45.0 % N MCV 99.5 80.0-100.0 fL N MCH 31.3 27.0-33.0 pg N MCHC 31.4 32.0-36.0 g/dL L For adults, a slight decrease in the calculated MCHC value (in the range of 30 to 32 g/dL) is most likely not clinically significant; however, it should be interpreted with caution in correlation with other red cell parameters and the patient's clinical condition. RDW 12.9 11.0-15.0 % N PLATELET COUNT 303 140-400 Thousand/uL N MPV 10.6 7.5-12.5 fL N ABSOLUTE NEUTROPHILS 2532 6382-6807 cells/uL N ABSOLUTE LYMPHOCYTES 2652 850-3900 cells/uL N ABSOLUTE MONOCYTES 474 200-950 cells/uL N ABSOLUTE EOSINOPHILS 240 15-500 cells/uL N ABSOLUTE BASOPHILS 102 0-200 cells/uL N NEUTROPHILS 42.2 N LYMPHOCYTES 44.2 N MONOCYTES 7.9 N EOSINOPHILS 4.0 N BASOPHILS 1.7 N .HEMOGLOBIN A1c (496) Reviewed date:11/27/2024 07:08:02 PM Interpretation: Performing Lab:[facility]SRddun[address] Barb Medeiros KaaxrzeLE[address] Emmy Loomis Notes/Report: FASTING:YES FASTING: YES HEMOGLOBIN A1c 5.8 <5.7 % of total Hgb H For someone without known diabetes, a hemoglobin A1c value between 5.7% and 6.4% is consistent with prediabetes and should be confirmed with a follow-up test. For someone with known diabetes, a value <7% indicates that their diabetes is well controlled. A1c targets should be individualized based on duration of diabetes, age, comorbid conditions, and other considerations. This assay result is consistent with an increased risk of diabetes. Currently, no consensus exists regarding use of hemoglobin A1c for diagnosis of diabetes for children. CORTISOL, FREE, 24 HOUR URIN E (07181) Reviewed date:05/06/2024 09:26:41 PM Interpretation: Performing Lab:[facility]os LACY/[facility],[address] [facility] Evon Dodge MD,PhD,BRENDA Notes/Report: SPLIT 04/25/2024 FROM [id number] COLLECTION KIT GIVEN TO PATIENT. PATIENT ADVISED TO RETURN. URINE VOLUME: 2000 TOTAL VOLUME 2000 CORTISOL, FREE, URINE 32.8 4.0-50.0 mcg/24 h CORTISOL, FREE, URINE 34.1 Reference Range: ADULTS: 3.1-42.3 CREATININE, URINE 0.96 0.50-2.15 g/24 h This test was developed and its analytical performance characteristics have been determined by [facility]. It has not been cleared or approved by the FDA. This assay has been validated pursuant to the CLIA regulations and is used for clinical purposes. T3, FREE (34010) Reviewed date:06/26/2024 07:48:54 AM Interpretation: Performing Lab:[facility] THAYER-Ctnlsg[address] [place], NkamgaXP[address] Emmy Loomis MD Notes/Report: T3, FREE 3.1 2.3-4.2 pg/mL N TSH (899) Reviewed date:07/02/2024 05:17:58 PM Interpretation: Performing Lab:[facility] [place] [address] [address] Barb Medeiros [address] Notes/Report: TSH 0.53 0.40-4.50 mIU/L N T4, FREE (866) Reviewed date:06/26/2024 07:49:05 AM Interpretation: Performing Lab:[facility] [place] [address] [address] Barb Medeiros [address] Notes/Report: T4, FREE 1.5 0.8-1.8 ng/dL N INSULIN (561) Reviewed date:06/26/2024 07:48:42 AM Interpretation: Performing Lab:Amos THAYER-Vsltmz[address] H[place]go SwfctaFI[address] [facility] Vladislav RED Notes/Report: INSULIN 10.7 N Reference Range < or = 18.4 Risk: Optimal < or = 18.4 Moderate NA High >18.4 Adult cardiovascular event risk category cut points (optimal, moderate, high) are based on Insulin Reference Interval studies performed at [facility] in 2021. .HEMOGLOBIN A1c (496) Reviewed date:06/26/2024 07:47:12 AM Interpretation: Performing Lab:[facility] [place] [address] [address] Barb Medeiros [address] Notes/Report: HEMOGLOBIN A1c 5.9 <5.7 % of total Hgb H For someone without known diabetes, a hemoglobin A1c value between 5.7% and 6.4% is consistent with prediabetes and should be confirmed with a follow-up test. For someone with known diabetes, a value <7% indicates that their diabetes is well controlled. A1c targets should be individualized based on duration of diabetes, age, comorbid conditions, and other considerations. This assay result is consistent with an increased risk of diabetes. Currently, no consensus exists regarding use of hemoglobin A1c for diagnosis of diabetes for children. .CBC (INCLUDES DIFF/PLT) (63 99) Reviewed date:06/26/2024 07:48:36 AM Interpretation: Performing Lab:[facility] [place] [address] [address] Barb Medeiros [address] Cooper StreetLieu Thi Vo Notes/Report: WHITE BLOOD CELL COUNT 5.3 3.8-10.8 Thousand/uL N RED BLOOD CELL COUNT 4.05 3.80-5.10 Million/uL N HEMOGLOBIN 12.8 11.7-15.5 g/dL N HEMATOCRIT 39.2 35.0-45.0 % N MCV 96.8 80.0-100.0 fL N MCH 31.6 27.0-33.0 pg N MCHC 32.7 32.0-36.0 g/dL N For adults, a slight decrease in the calculated MCHC value (in the range of 30 to 32 g/dL) is most likely not clinically significant; however, it should be interpreted with caution in correlation with other red cell parameters and the patient's clinical condition. RDW 12.7 11.0-15.0 % N PLATELET COUNT 302 140-400 Thousand/uL N MPV 10.6 7.5-12.5 fL N ABSOLUTE NEUTROPHILS 2247 1533-6979 cells/uL N ABSOLUTE LYMPHOCYTES 2311 850-3900 cells/uL N ABSOLUTE MONOCYTES 482 200-950 cells/uL N ABSOLUTE EOSINOPHILS 191 15-500 cells/uL N ABSOLUTE BASOPHILS 69 0-200 cells/uL N NEUTROPHILS 42.4 N LYMPHOCYTES 43.6 N MONOCYTES 9.1 N EOSINOPHILS 3.6 N BASOPHILS 1.3 N .LIPID PANEL, STANDARD (7600 ) Reviewed date:06/26/2024 07:48:11 AM Interpretation: Performing Lab:[facility] [address] [address] Barb Medeiros CdmkfwbXH[address] [facility] Notes/Report: CHOLESTEROL, TOTAL 201 <200 mg/dL H HDL CHOLESTEROL 66 > OR = 50 mg/dL N TRIGLYCERIDES 80 <150 mg/dL N LDL-CHOLESTEROL 118 H Reference range: <100 Desirable range <100 mg/dL for primary prevention; <70 mg/dL for patients with CHD or diabetic patients with > or = 2 CHD risk factors. LDL-C is now calculated using the Andrew calculation, which is a validated novel method providing better accuracy than the Friedewald equation in the estimation of LDL-C. Derick DE DIOS et al. JESSE. 2013;310(19): 7382-3504 (http://education.eyeOS/faq/FAQ 164) CHOL/HDLC RATIO 3.0 <5.0 (calc) N NON HDL CHOLESTEROL 135 <130 mg/dL (calc) H For patients with diabetes plus 1 major ASCVD risk factor, treating to a non-HDL-C goal of <100 mg/dL (LDL-C of <70 mg/dL) is considered a therapeutic option. .COMPREHENSIVE METABOLIC CARNEY (09425) [facility] Reviewed date:06/26/2024 07:48:18 AM Interpretation: Performing Lab:[facility]ILLOP[facility] SystemsQyvta[address] [place] [id number] [facility] Notes/Report: GLUCOSE 95 65-99 mg/dL N Fasting reference interval UREA NITROGEN (BUN) 20 7-25 mg/dL N CREATININE 0.82 0.50-1.03 mg/dL N EGFR 83 > OR = 60 mL/min/1.73m2 N BUN/CREATININE RATIO SEE NOTE: 6-22 (calc) Not Reported: BUN and Creatinine are within reference range. SODIUM 135 135-146 mmol/L N POTASSIUM 4.2 3.5-5.3 mmol/L N CHLORIDE 101 98-110 mmol/L N CARBON DIOXIDE 26 20-32 mmol/L N CALCIUM 9.3 8.6-10.4 mg/dL N PROTEIN, TOTAL 7.3 6.1-8.1 g/dL N ALBUMIN 4.6 3.6-5.1 g/dL N GLOBULIN 2.7 1.9-3.7 g/dL (calc) N ALBUMIN/GLOBULIN RATIO 1.7 1.0-2.5 (calc) N BILIRUBIN, TOTAL 0.5 0.2-1.2 mg/dL N ALKALINE PHOSPHATASE 45 37-153 U/L N AST 24 10-35 U/L N ALT 37 6-29 U/L H DEXAMETHASONE (76816) Reviewed date:06/10/2024 09:51:18 PM Interpretation: Performing Lab:[facility]/Tc [facility]-[place],[address] [address] AvinashDamian PulidoLnutauignpMF[address] Evon Dodge MD,PhD,BRENDA Notes/Report: FASTING:YES FASTING: YES DEXAMETHASONE 341 Reference Ranges for Dexamethasone: Baseline: Less than 20 ng/dL 1 mg dexamethasone overnight: 180-550 ng/dL (8:00-10:00 AM) This test was developed and its analytical performance characteristics have been determined by [employer]. It has not been cleared or approved by the FDA. This assay has been validated pursuant to the CLIA regulations and is used for clinical purposes. CORTISOL, TOTAL (367) Reviewed date:05/30/2024 03:40:32 PM Interpretation: Performing Lab:Amos THAYER-Jhhwnb357[address] Starr [facility], IrsdqeMJ[address] Emmy Loomis MD Notes/Report: FASTING:YES FASTING: YES CORTISOL, TOTAL 1.0 L Reference Range: For 8 a.m.(7-9 a.m.) Specimen: 4.0-22.0 Reference Range: For 4 p.m.(3-5 p.m.) Specimen: 3.0-17.0 * Please interpret above results accordingly * CORTISOL, LC/MS, SALIVA, 2 S AMPLES (55798) Reviewed date:05/13/2024 09:07:55 PM Interpretation: Performing Lab:Amos LACY/[facility],[address] [facility] Evon Dodge MD,PhD,BRENDA Notes/Report: SPLIT 04/28/2024 FROM [id number] DRAW DATE 1 05/01/2024 DRAW TIME 1 12:00 AM CORTISOL, SALIVA SAMPLE 1 <0.03 8-10 AM: 0.04-0.56 mcg/dL noon-2 PM: < OR = 0.21 mcg/dL 4-6 PM: < OR = 0.15 mcg/dL 10 PM-1 AM: < OR = 0.09 mcg/dL This test was developed and its analytical performance characteristics have been determined by [facility]. It has not been cleared or approved by the FDA. This assay has been validated pursuant to the CLIA regulations and is used for clinical purposes. DRAW DATE 2 05/02/2024 DRAW TIME 2 12:00 AM CORTISOL, SALIVA SAMPLE 2 <0.03 8-10 AM: 0.04-0.56 mcg/dL noon-2 PM: < OR = 0.21 mcg/dL 4-6 PM: < OR = 0.15 mcg/dL 10 PM-1 AM: < OR = 0.09 mcg/dL This test was developed and its analytical performance characteristics have been determined by [employer]. It has not been cleared or approved by the FDA. This assay has been validated pursuant to the CLIA regulations and is used for clinical purposes. ACTH, PLASMA (211) Reviewed date:04/30/2024 12:20:48 PM Interpretation: Performing Lab:Amos WHITING/Tc [place] [id number] Shamar Medeiros, YyxnuekptAT[address] Mike Atkinson M.D.,PhD Notes/Report: COLLECTION KIT GIVEN TO PATIENT. PATIENT ADVISED TO RETURN. URINE VOLUME: 2000 ACTH, PLASMA 10 6-50 pg/mL Reference range applies only to specimens collected between 7am-10am. DHEA SULFATE (402) Reviewed date:04/26/2024 11:39:20 AM Interpretation: Performing Lab:Amos THAYER-Qbtdef68552 [address] Del RealaKS[address] Emmy Loomis MD Notes/Report: COLLECTION KIT GIVEN TO PATIENT. PATIENT ADVISED TO RETURN. URINE VOLUME: 2000 DHEA SULFATE 53 5-167 mcg/dL N .COMPREHENSIVE METABOLIC CARNEY EL (16217) CMP Reviewed date:04/26/2024 11:39:11 AM Interpretation: Performing Lab:Amos THAYER-[place]Carlos SorianoaKS[address] Emmy Loomis MD Notes/Report: COLLECTION KIT GIVEN TO PATIENT. PATIENT ADVISED TO RETURN. URINE VOLUME: 2000 GLUCOSE 102 65-99 mg/dL H Fasting reference interval For someone without known diabetes, a glucose value between 100 and 125 mg/dL is consistent with prediabetes and should be confirmed with a follow-up test. UREA NITROGEN (BUN) 15 7-25 mg/dL N CREATININE 0.76 0.50-1.03 mg/dL N EGFR 91 > OR = 60 mL/min/1.73m2 N BUN/CREATININE RATIO SEE NOTE: 6-22 (calc) Not Reported: BUN and Creatinine are within reference range. SODIUM 138 135-146 mmol/L N POTASSIUM 4.5 3.5-5.3 mmol/L N CHLORIDE 102 98-110 mmol/L N CARBON DIOXIDE 27 20-32 mmol/L N CALCIUM 9.4 8.6-10.4 mg/dL N PROTEIN, TOTAL 7.4 6.1-8.1 g/dL N ALBUMIN 4.6 3.6-5.1 g/dL N GLOBULIN 2.8 1.9-3.7 g/dL (calc) N ALBUMIN/GLOBULIN RATIO 1.6 1.0-2.5 (calc) N BILIRUBIN, TOTAL 0.4 0.2-1.2 mg/dL N ALKALINE PHOSPHATASE 50 37-153 U/L N AST 24 10-35 U/L N ALT 47 6-29 U/L H Reason For Referral No Information Medications Medication SIG (Take, Route, Frequency, Duration) Notes Start Date End Date Status magnesium amino acids chelate *Please review for potential replacement for e-prescription and drug interaction check* *Reorder from [employer] for eRx and Interaction Alerts* Active Vitamin D (Ergocalciferol) 1.25 MG (09902 UT) Capsule 1 cap(s) orally once a week; Duration: 90 days 10/22/2023 Active Synthroid 100 MCG Tablet 1 tab(s) orally once a day; Duration: 45 days 10/12/2023 Active Metoprolol Succinate ER 25 MG CAPSULE, EXTENDED RELEASE 1 TAB(S) ORALLY ONCE A DAY *Please review and pick correct strength-formulati on from [employer] options. If intended option is not shown, discontinue and re-order from Quick Search* *Pick strength-form from [employer] for eRX* Active ZyrTEC *Please review a nd pick correct strength-formulati on from [employer] options. If intended option is not shown, discontinue and re-order from Quick Search* *Pick strength-form from [employer] for eRX* Active Potassium Citrate *Please review and pick correct strength-formulati on from [employer] options. If intended option is not shown, discontinue and re-order from Quick Search* *Pick strength-form from [employer] for eRX* Active Pepcid *Please review a nd pick correct strength-formulati on from [employer] options. If intended option is not shown, discontinue and re-order from Quick Search* *Pick strength-form from [employer] for eRX* Active Hydroxocobalamin *Please review and pick correct strength-formulati on from [employer] options. If intended option is not shown, discontinue and re-order from Quick Search* *Pick strength-form from [employer] for eRX* Active Synthroid 100 MCG Tablet 1 tab(s) orally once a day; Duration: 30 days alternating 100 mcg and 88mcg Active Cholecalciferol 1250 MCG CAPSULE 1 CAP(S) ORALLY ONCE A WEEK; Duration: 90 days *Please review and pick correct strength-formulati on from [employer] options. If intended option is not shown, discontinue and re-order from Quick Search* *Pick strength-form from [employer] for eRX* 10/22/2023 Active Vitamin D3 *Please review a nd pick correct strength-formulati on from [employer] options. If intended option is not shown, discontinue and re-order from Quick Search* *Pick strength-form from [employer] for eRX* Active ZINC [facility] *Please revie w for potential replacement for e-prescription and drug interaction check* *Reorder from [employer] for eRx and Interaction Alerts* Active Social History Social History Additional Details Category Social Info Options Details Migrated Social History Migrated Social History (Alcohol:):no (Recreational drug use:):no (Smoking:):no Section Notes: Non-Contributory Problems Problem Type SNOMED Code ICD Code Onset Dates Problem Status W/U Status Risk Notes Problem Autoimmune thyroiditis (10367791) Autoimmune thyroiditis (E06.3) Active confirmed Problem Corticoadrenal insufficiency (450043610) Unspecified adrenocortical insufficiency (E27.40) Active confirmed Problem Disorder of adrenal gland (94412906) Disorder of adrenal gland, 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) Active confirmed Problem Vitamin D deficiency (74797632) Vitamin D deficiency, unspecified (E55.9) Active confirmed Problem Insomnia (613916796) Insomnia, unspecified (G47.00) Active confirmed Problem Ventricular premature depolarization (255957569) Ventricular premature depolarization (I49.3) Active confirmed Problem Body mass index 30+ - obesity (842512120) Body mass index [BMI] 30.0-30.9, adult (Z68.30) Active confirmed Problem Pulmonary nodule (426956072) Pulmonary nodule (R91.1) Active confirmed Problem 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 [address] [place] [address] 01/05/2024 Sole Moon Insomnia, unspecifie d G47.00 ; Autoimmune thyroiditis E06.3 ; Unspecified adrenocortical insufficiency E27.40 ; Ventricular premature depolarization I49.3 ; Other fatigue R53.83 ; Vitamin D deficiency, unspecified E55.9 and Prediabetes R73.[address] Bass [address] [place] [address] 04/14/2024 Mel Bass Autoimmune thyroidit is E06.3 ; Insomnia, unspecified G47.00 ; Vitamin D deficiency, unspecified E55.9 ; Prediabetes R73.03 ; Dietary counseling and surveillance Z71.3 ; Body mass index [BMI] 30.0-30.9, adult Z68.30 and Obesity, class [address] Bass [address] [place] [address] 06/09/2024 Mel Bass Autoimmune thyroidit is E06.3 ; Vitamin D deficiency, unspecified E55.9 ; Disorder of adrenal gland, unspecified E27.9 ; Impaired fasting glucose R73.01 and Abnormal weight gain R63.[address] Bass [address] [place] [address] 11/21/2024 Mel Bass Vitamin D deficiency , unspecified E55.9 ; Hypothyroidism due to Ibrahima thyroiditis E06.3 ; Pulmonary nodule R91.1 ; Impaired fasting glucose R73.01 ; Low serum alkaline phosphatase R74.8 and Dietary counseling and surveillance Z71.[address] Bass [address] [place] [address] 12/29/2023 Mel Bass [address] [place] [phone] 12/30/2023 Mel ACHARYA [facility] [address] [place] [phone] 04/13/2024 Mel Bass [address] [place] [phone] 04/26/2024 Mel Bass [address] [place] [phone] 05/18/2024 Mel Bass [address] [place] [phone] 11/16/2024 Mel Bass Assessments Encounter Date Diagnosis (ICD Code) Assessment Notes Treatment Notes Treatment Clinical Notes Section Notes 01/05/2024 Insomnia, unspecified (ICD-10 - G47.00) 04/14/2024 Autoimmune thyroiditis (ICD-10 - E06.3) 04/14/2024 Insomnia, unspecified (ICD-10 - G47.00) 06/09/2024 Autoimmune thyroiditis (ICD-10 - E06.3) 06/09/2024 Vitamin D deficiency, unspecified (ICD-10 - E55.9) 11/21/2024 Vitamin D deficiency, unspecified (ICD-10 - E55.9) 11/21/2024 Hypothyroidism due to Ibrahima thyroiditis (ICD-10 - E06.3) 11/21/2024 Pulmonary nodule (ICD-10 - R91.1) 06/09/2024 Disorder of adrenal gland, 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.9) 04/14/2024 Vitamin D deficiency, unspecified (ICD-10 - E55.9) 01/05/2024 Autoimmune thyroiditis (ICD-10 - E06.3) 01/05/2024 Unspecified adrenocortical insufficiency (ICD-10 - E27.40) 01/05/2024 Ventricular premature depolarization (ICD-10 - I49.3) 04/14/2024 Prediabetes (ICD-10 - R73.03) 06/09/2024 Impaired fasting glucose (ICD-10 - R73.01) 11/21/2024 Impaired fasting glucose (ICD-10 - R73.01) 06/09/2024 Abnormal weight gain (ICD-10 - R63.5) 11/21/2024 Low serum alkaline phosphatase (ICD-10 - R74.8) 01/05/2024 Other fatigue (ICD-10 - R53.83) 01/05/2024 Vitamin D deficiency, unspecified (ICD-10 - E55.9) 04/14/2024 Body mass index [BMI] 30.0-30.9, adult (ICD-10 - Z68.30) 04/14/2024 Dietary counseling and surveillance (ICD-10 - Z71.3) Spent 15 minutes preventative counseling patient on dietary recommendations and changes in setting of hyperglycemia- need to restrict refined sugars and processed foods and incorporate up to 150 minutes of moderate level activity weekly. 04/14/2024 Obesity, class 1 (ICD-10 - E66.811) 11/21/2024 Dietary counseling and surveillance (ICD-10 - Z71.3) Spent 15 minutes preventative counseling patient on dietary recommendations and changes in setting of hyperglycemia- need to restrict refined sugars and processed foods and incorporate up to 150 minutes of moderate level activity weekly. 01/05/2024 Prediabetes (ICD-10 - R73.03) 01/05/2024 Other [...] the medication.- Plan: Discuss with the patient's dry wall finisher the possibility of adjusting the metoprolol dose or switching to a cdr-ihwonyrd-uorvyll formulation to help with fatigue. 8. Medication [...] metoprolol 25 mg daily; discuss with your dry wall finisher the possibility of adjusting the dose to manage fatigue.- Recheck your labs in three months, including vitamin D and A1c levels.- Continue using your CPAP machine and monitor its effectiveness on your sleep quality and anxiety.- Discuss with your primary care doctor or dry wall finisher about any changes in your medication or symptoms, especially related to fatigue and palpitations. I have provided you with educational materials on vitamin supplementation and managing thyroid health. Please review these at your convenience to better understand your treatment plan. If you have any questions or need further clarification on your treatment plan, feel free to contact our office. Best regards, Sole Moon [facility] Patient assessment and plan of care discussed with patient 04/14/2024 Other Assessment and Plan: Suspected HypercortisolismPatient exhibits symptoms indicative of elevated cortisol levels, such as high morning blood sugars, sleep disturbances, and feeling on edge.Previous cortisol tests showed abnormal levels throughout the day.Recent blood glucose level at 104 mg/dL suggests prediabetes.Plan: Conduct fasting cortisol blood test. Perform salivary cortisol test, including a midnight sample. Administer dexamethasone suppression test (1 mg dexamethasone at 10 PM, followed by cortisol check at 8 AM). Evaluate ACTH and DHEA-S levels. Prescribe dexamethasone tablet to patient's pharmacy. If hypercortisolism is confirmed, consider cortisol abby or other medications for 9-12 months to reset HPA axis. HypothyroidismPatient alternating between 88 mcg and 100 mcg of levothyroxine.Recent tests show TSH of 1.23 and slightly low free T4 of 1.1.Patient prefers the 100 mcg dose.Plan: Increase levothyroxine to 100 mcg daily. Continue monitoring thyroid function tests. Vitamin D DeficiencyRecent vitamin D level at 48.Patient transitioned from 50,000 IU to a regimen of 10,000 IU daily, with occasional use of 2,000 IU spray and 5,000 IU supplements.Plan: Maintain current vitamin D supplementation regimen. Monitor vitamin D levels. PrediabetesBlood glucose level at 104 mg/dL.Previous metformin use caused gastrointestinal upset.Patient adhering to a strict hypoglycemic diet.Plan: Continue dietary management. Reassess glucose control after addressing potential hypercortisolism. AnxietyPatient reports anxiety, potentially stress-related, with symptoms including waking up with a panicky feeling.Vagus nerve exercises have been beneficial.Plan: Continue vagus nerve exercises. Reassess anxiety symptoms after addressing potential hypercortisolism. Decreased eGFRRecent eGFR of 72, below the patient's usual value of 85.No kidney stones or flank pain reported, but muscle back pain present.Plan: Repeat eGFR test in May as planned with primary care physician. Monitor for changes in kidney function. Follow-up:Schedule follow-up appointments as necessary to review test results and assess the response to interventions.Encourage patient to report any new or worsening symptoms. Spent 25 minutes preparing to see the patient (ex review of tests/chart), obtaining and / or reviewing separately obtained history, performing a medically appropriate examination and/or evaluation, counseling and educating the patient/family/caregiver, ordering medications, tests, or procedures, referring and communicating with other health managed care analyst, documenting clinical information in the electronic or other health record, independently interpreting results and communicating results to the patient/family/caregiver and care coordinating patient plan. Patient alert and oriented x 4 and aware of discussion noted above and in agreeance to plan in management of autoimmune thyroiditis, insomnia, prediabetes, obesity/weight management and workup for hypercortisolism. 06/09/2024 Other Assessment and Plan: 1. 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 Hypothyroidism- Continue current Synthroid regimen (alternating doses, including 100 mcg) 3. Hypokalemia- Continue potassium supplementation: one capsule daily- Encourage consumption of potassium-rich foods 4. Gastrointestinal Symptoms- Await evaluation and recommendations from gastroenterology appointment next week Spent 25 minutes preparing to see the patient (ex review of tests/chart), obtaining and / or reviewing separately obtained history, performing a medically appropriate examination and/or evaluation, counseling and educating the patient/family/caregiver, ordering medications, tests, or procedures, referring and communicating with other health managed care analyst, documenting clinical information in the electronic or other health record, independently interpreting results and communicating results to the patient/family/caregiver and care coordinating patient plan. Patient alert and oriented x 4 and aware of discussion noted above and in agreeance to plan in management of impaired fasting glucose, hypothyroidism, abnormal weight gain and concern for adrenal hyperplasia/nodule. Due to the nature of telemedicine, the ability to do physical assessment was limited to what can be accomplished by patient directed telehealth visit based on instruction. Those limits are understood by the patient and myself. Impression is based on history, available information, and physical findings accomplished with telehealth visit. Chronic disease/problem list/ medication list reviewed and updated where indicated. Discussed diagnosis, plan including risks, benefits, and options of treatment. Advised to call for new, worsening, or persistent symptoms. Level of patient risk was of moderate complexity due to the documented nature of presentation, the information assessment required and the nature of the development of an evaluation and treatment plan as documented. PMH, FHx, SHx, Surgical Hx, Quality management review carried out and addressed as documented today as part of this visit. Medication list was reviewed and adjusted as indicated. Medication requiring a refill was addressed. Risk and benefits of any new medications were discussed and all questions were answered. 11/21/2024 Klaudia Ira presents for endocrinology follow-up with improved sleep and anxiety symptoms after discontinuing protein shakes, along with elevated B6 levels and ongoing fatigue concerns. Elevated B6 levelsAssessment: Patient has elevated B6 levels discovered on recent walk-in lab testing. She reports consuming protein shakes daily for an extended period which contained hidden B6 supplementation not listed on the label. Since discontinuing the shakes one week ago, she has experienced significant improvement in sleep quality and ability to achieve deep sleep. Given her extensive dental history including multiple cavities before age 21 and multiple root canals after childbirth, along with current symptoms of muscle twitching, eyelid twitching, muscle vibrations, and foot pain/tightness, screening for hypophosphatasia is warranted as B6 is a substrate for alkaline phosphatase and this condition commonly causes elevated B6 levels.Plan:- Order urine test for hypophosphatasia screening (results take 4 weeks)- Recheck B6 levels and alkaline phosphatase levels- Patient to continue avoiding protein shakes and B6-containing supplements- Provided patient education materials on hypophosphatasia to review Sleep disturbances and anxietyAssessment: Patient previously experienced significant sleep disruption with frequent awakening every few hours and anxiety with revved up feelings. She participated in an online adrenal fatigue program focusing on nervous system regulation, breathing techniques, and vagus nerve exercises which provided some benefit. She experienced cycles of being revved up for 1-2 weeks followed by crashes with extreme fatigue. Since discontinuing daily protein shakes one week ago, sleep quality has dramatically improved with ability to sleep more than 3 hours at a time and achieve deep sleep.Plan:- Continue current approach of avoiding protein shakes- Consider repeating dexamethasone suppression test given previous elevated cortisol and current symptoms- Patient to continue breathing exercises and vagus nerve techniques as tolerated Chronic fatigueAssessment: Patient reports improvement in baseline fatigue symptoms but still experiences fatigue after mentally or physically exhausting activities outside her normal routine. She no longer has the constant fatigue she previously experienced and describes feeling more revved up rather than fatigued. She has lost 6 pounds since last visit. No associated body pain currently, and back pain has improved unless standing for prolonged periods.Plan:- Monitor symptoms with current management approach- Recheck thyroid function and A1C given weight loss and symptom changes Fatty liver diseaseAssessment: Patient was diagnosed with fatty liver disease by GI with fibroscan showing no fibrosis. She has been following dietary modifications including limiting carbohydrates, avoiding soda, pasta, and bread, and focusing on meat and vegetables. She lost 6 pounds with these dietary changes but experienced gastrointestinal upset when increasing vegetable intake including [place] sprouts and salads, leading to diarrhea and bloating.Plan:- Continue current dietary approach with moderation of vegetable intake to avoid GI symptoms- Monitor weight and liver function Food sensitivities and histamine reactionsAssessment: Patient reports histamine reactions to fermented foods and shellfish like shrimp. She is currently managing symptoms with Pepcid, morning Claritin, and evening Zyrtec as needed. She has been experimenting with diet modifications to identify trigger foods while trying to maintain adequate nutrition within the constraints of her fatty liver dietary recommendations.Plan:- Continue current antihistamine regimen (Pepcid, Claritin, Zyrtec as needed)- Continue dietary experimentation to identify safe foods 5mm lung noduleAssessment: Patient has a 5mm lung nodule identified on CT scan in June/July, likely representing a granuloma. This was discovered during adrenal CT imaging. Patient is a non-smoker.Plan:- Repeat CT scan in 6 months (around January) to monitor for changes MTHFR heterozygous mutationAssessment: Patient has known MTHFR heterozygous mutation diagnosed 5 years ago. Her homocysteine level has increased from 6-7 years ago to current level of 12. She reports sensitivity to methylated B vitamins which make her feel more jittery. Primary care provider indicated current homocysteine level is not high enough to warrant concern about methylation issues.Plan:- Monitor homocysteine levels- Avoid methylated B vitamin supplements given patient's sensitivity Spent 25 minutes preparing to see the patient (ex review of tests/chart), obtaining and / or reviewing separately obtained history, performing a medically appropriate examination and/or evaluation, counseling and educating the patient/family/caregiver, ordering medications, tests, or procedures, referring and communicating with other health managed care analyst, documenting clinical information in the electronic or other health record, independently interpreting results and communicating results to the patient/family/caregiver and care coordinating patient plan. Patient alert and oriented x 4 and aware of discussion noted above and in agreeance to plan in management of hypothyroidism, pulm nodule, impaired glucose, low alk phos/high B6 r/o HPP and fatigue. Plan Of Treatment Pending Test Test Name Order Date *CT ABDOMEN W/O CONTRAST 15520 INSULIN (561) 11/27/2024 T4, FREE (866) 11/27/2024 TSH (899) 11/27/2024 T3, FREE (03436) 11/27/2024 .VITAMIN D,25-OH,TOTAL,IA (40978) 2024 VITAMIN B6, PLASMA (926) 11/27/2024 VITAMIN D, 25-HYDROXY, LC/MS/MS 01/05/20 T3, FREE 01/05/2024 HEMOGLOBIN A1c 01/05/2024 T4, FREE 01/05/2024 TSH 01/05/2024 Ultrasound thyroid 08/26/2023 PHOSPHOETHANOLAMINE (PEA), URINE WITH CR EATININE 11/27/2024 Next Appt Details Provider Name:Mel Bass, 09:20:00 AM, [address] [facility], [place], [address], Insurance Providers Payer Name Payer Address Payer Phone Subscriber Number Group Number Insured Name Patient Relationship to Insured Coverage Start Date Coverage End Date [employer] [address] [place] [address] [id number] Ira Virk Self - patient is the insured Medical (General) History Medical History History ICD Code Hypothyroidism Hashimotos Fibromyaligia Sleep Apnea Chronic Fatigue Prediabetes MVP atrial flutter = Palpitations Surgical History Surgery Date(Month/Year) Breast Biopsy - left Laparoscopy Septo plasty - Right side of nose Implant Loop Recorder Hospitalization History Reason Date(Month/Year) pneumonia
--- OUTSIDE RECORDS SUMMARY | 2024-11-28 01:26 | XMS_ITS | Clinical Summary ---
Author Organization [facility] Healthcare Address [address] [place] [address] Care Team Providers Care Electric Range Preparer Name Role Phone Ean Yuen MD Primary Care Provider [phone] Yasmeen Todd MD Unavailable Allergies Active Allergy [...] 1 tablet (88 mcg total) by mouth arboriculture instructor before breakfast Active famotidine (PEPCID) 20 mg tablet Take 1 tablet (20 mg total) by mouth as needed for heartburn Active omega 9-oeu-wxh-fish oil (Fish OiL) 1,000 mg (120 mg-180 [...] follow-up surveillance of breast c ancer 01/01/2021 senior care (current) use of aromatase inhibitors 01/01/2021 ER+ (estrogen receptor positive status) 04/28/19 19 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 Cancer Staging:Pathologic stage from 08/20/2017:Stage 0(pTis (DCIS), pN0, cM0, ER: Positive, CA: Negative, HER2: Not Assessed) - Signed by [...] Read Routine (OP Routine) 04/23/2022 1:10 PM FITTER / WELDER Ductal carcinoma in situ (DCIS) of left breast from Last 3 Months or Most Recently Relevant to Health Maintenance Results * Diagnostic Mammogram Bilateral W Bill (04/23/2022 1:10 PM FITTER / WELDER) Anatomical Region Laterality Modality Breast Bilateral Mammography 04/23/2022 1:14 PM FITTER / WELDER Impressions 04/23/2022 1:14 PM FITTER / WELDER No mammographic or sonographic evidence of malignancy. OVERALL FINAL ASSESSMENT: BI-RADS Category 2: Benign. RECOMMENDATION: Annual screening mammography is recommended. Electronically signed by: Missy Murdock M.D. Narrative 04/23/2022 1:14 PM FITTER / WELDER EXAMINATION: BILATERAL DIGITAL DIAGNOSTIC MAMMOGRAM INCLUDING CAD [...] Most Recently Relevant to Health Maintenance Insurance [employer] [place] [employer] [facility] [id number] Care Teams Electric Range Preparer Relationship Specialty Start Date End Date Ean Yuen MD [address] [place] [address] [place] [address] PCP - General 06/30/17 Yasmeen Todd MD [address] [facility] [address] [place] [address] Radiation Oncologist Radiation Oncology 09/21/17
--- OUTSIDE RECORDS SUMMARY | 2024-11-28 01:26 | XMS_ITS | Encounter Summary ---
Author Organization [facility] Address [address] [place] [address] Phone Care Team Providers Care Cullet Trucker Name Role Phone Ean Yuen MD Primary Care Provider [phone] Yasmeen Todd MD Unavailable Encounter Details Date [...] on filedocumented in this encounter Care Teams Cullet Trucker Relationship Specialty Start Date End Date Ean Yuen MD [address] [place] [address] [place] [address] PCP - General 06/30/17 Yasmeen Todd MD [address] [facility] [address] [place] [address] Radiation Oncologist Radiation Oncology 09/21/17 documented as of this encounter
--- OUTSIDE RECORDS SUMMARY | 2024-11-28 01:26 | XMS_ITS | Encounter Summary ---
Author Organization [facility] Address [address] [place] [address] Phone Care Team Providers Care Pool Hall Inspector Name Role Phone Ean Yuen MD Primary Care Provider [phone] Yasmeen Todd MD Unavailable Encounter Details Date [...] on filedocumented in this encounter Care Teams Pool Hall Inspector Relationship Specialty Start Date End Date Ean Yuen MD [address] [place] [address] [place] [address] PCP - General 06/30/17 Yasmeen Todd MD [address] [facility] [address] [place] [address] Radiation Oncologist Radiation Oncology 09/21/17 documented as of this encounter
--- OUTSIDE RECORDS SUMMARY | 2024-11-28 01:26 | XMS_ITS | Encounter Summary ---
Author Organization [facility] Address [address] [place] [address] Phone Care Team Providers Care Linux Systems Administrator Name Role Phone Ean Yuen MD Primary Care Provider [phone] Yasmeen Todd MD Unavailable Encounter Details Date [...] on filedocumented in this encounter Care Teams Linux Systems Administrator Relationship Specialty Start Date End Date Ean Yuen MD [address] [place] [address] [place] [address] PCP - General 06/30/17 Yasmeen Todd MD [address] [facility] [address] [place] [address] Radiation Oncologist Radiation Oncology 09/21/17 documented as of this encounter
--- OUTSIDE RECORDS SUMMARY | 2024-11-28 01:26 | XMS_ITS | Patient Health Record ---
Author Organization [facility] [employer] [place] ([address]) Address [address] [place] [address] Care Team Providers Care Meat Products Demonstrator Name Role Phone Alpa RED, Ean Primary Care Provider Leticia Kingsley Unavailable [phone] Allergies Allergen (clinical drug ingredient) Drug/Non Drug Allergy documented on EMR Reaction Allergy Type Onset Date Status amoxicillin / clavulanate Augmentin (uncoded) Ear pain Allergy Active avelox (uncoded) other reaction Allergy Active Substance with sulfonamide structure and antibacterial mechanism of action (substance) Sulfa Antibiotics muscle cramping/weakne ss Drug Allergy Active Results Component Value Reference Range Notes IMMUNOGLOBULIN E Reviewed date:11/22/2024 12:55:26 PM Interpretation:Normal Performing Lab:[facility], [address] [place], [address] Emmy Loomis MD Notes/Report: FASTING: NO FASTING:NO REDRAW TEST CODE 542 IMMUNOGLOBULIN E 49 <TC=875 kU/L STRAWBERRY (F44) IGE Reviewed date:11/06/2024 08:42:02 AM Interpretation:Normal Performing Lab:[facility], [address] [place], [address] Emmy Loomis MD Notes/Report: FASTING: NO FASTING:NO NON-FASTING; NON-FASTING; NON-FASTING STRAWBERRY (F44) IGE <0.10 CLASS 0 TRYPTASE Reviewed date:11/06/2024 08:41:51 AM Interpretation:Normal Performing Lab:[facility], [facility], [address], [place], [address] Mike Atkinson M.D.,PhD Notes/Report: NON-FASTING; NON-FASTING; NON-FASTING FASTING:NO FASTING: NO TRYPTASE 2.3 <11.0 mcg/L IMMUNOGLOBULIN E Reviewed date:11/06/2024 08:42:35 AM Interpretation:Interpretation Performing Lab:[facility], [address] [place], [address] Emmy Loomis MD Notes/Report: NON-FASTING; NON-FASTING; NON-FASTING FASTING:NO FASTING: NO IMMUNOGLOBULIN E TNP TEST NOT PERFORMED. Quantity not sufficient. AVOCADO (F96) IGE Reviewed date:11/06/2024 08:41:42 AM Interpretation:Normal Performing Lab:[facility], [address] [place], [address] Emmy Loomis MD Notes/Report: FASTING: NO FASTING:NO NON-FASTING; NON-FASTING; NON-FASTING AVOCADO (F96) IGE <0.10 CLASS 0 INTERPRETATION Specific Level of Allergen IGE Class kU/L Specific IGE Antibody ----- --------- 0 <0.10 Absent/Undetectable 0/1 0.10-0.34 Very Low Level 1 0.35-0.69 Low Level 2 0.70-3.49 Moderate Level 3 3.50-17.4 High Level 4 17.5-49.9 Very High Level 5 50-100 Very High Level 6 >100 Very High Level The clinical relevance of allergen results of 0.10-0.34 kU/L are undetermined and intended for specialist use. Allergens denoted with a include results using one or more analyte specific reagents. In those cases, the test was developed and its analytical performance characteristics have been determined by [facility]. It has not been cleared or approved by the U.S. Food and Drug Administration. This assay has been validated pursuant to the CLIA regulations and is used for clinical purposes. EGG WHITE (F1) IGE W/REFL EG G COMPONENT PANEL Reviewed date:11/06/2024 08:55:11 AM Interpretation:Normal Performing Lab:[place], [facility], [address], [place], [address] Emmy Loomis MD Notes/Report: NON-FASTING; NON-FASTING; NON-FASTING FASTING:NO FASTING: NO EGG WHITE (F1) IGE <0.10 CLASS 0 Reason For Referral No Information Medications Medication SIG (Take, Route, Frequency, Duration) Notes Start Date End Date Status Pepcid Active Magnesium 300 MG 1 capsule with a barbie l Orally Once a day Active Calcium Active Astepro 205.5 MCG/SPRAY 2 sprays (1 spra y in each nostril) Nasally Twice a day Active ZyrTEC Allergy 10 MG 1 tablet Orally Once a day Active SYNTHROID 100 mcg (0.1 mg) 1 tab(s) orally once a day Active METOPROLOL 50 mg 1 tab(s) orally once a day Active Immunizations Vaccine Route Administration Date Status Comme nts NOC Tdap Unknown 03/18/2006 Administered Portal Infor mation NOC Tdap Unknown 11/16/2006 Administered Portal Infor mation FluZone Quadrivalent Unknown 11/17/2011 Administered Po rtal Information Social History Tobacco Use: Social History Observation Description Date Details (start date - stop date) Never Smoker NA - NA Sex Assigned At : Social History Observation Description Sex Assigned At Female Smoking Smart Form: Question Answer Notes Are you a: never smoker AUDIT-C (Standard) Question Answer Notes Did you have a drink containing alcohol in the p ast year? No Points 0 Interpretation Negative Problems Problem Type SNOMED Code ICD Code Onset Dates Problem Status W/U Status Risk Notes Problem Allergy status t o other antibiotic agents status (Z88.1) Active confirmed Problem Chronic allergic conjunctivitis (76670372) Other chronic allergic conjunctivitis (H10.45) Active confirmed Problem Allergic rhinitis (95384190) Other allergic rhinitis (J30.89) Active confirmed Problem Food allergy (669050762) Allergy to other foods (Z91.018) Active confirmed Problem Allergic rhinitis caused by pollen (disorder) (49635853) Allergic rhinitis due to pollen (J30.1) Active confirmed Problem Allergic rhinitis caused by animal hair and dander (355420494340573) Allergic rhinitis due to animal (cat) (dog) hair and dander (J30.81) Active confirmed Problem Allergy to peanuts (88446117) Allergy to peanuts (Z91.010) Active confirmed Problem Chronic sinusitis (74427174) Chronic sinusitis, unspecified (J32.9) Active confirmed Problem Allergy to sulfonamides (06093907) Allergy status to sulfonamides status (Z88.2) Active confirmed Vital Signs Blood pressure diastolic 70 mm Hg 10/11/2024 Oximetry 98 % 10/11/2024 Height 68.5 in 10/11/2024 Blood pressure systolic 102 mm Hg 10/11/2024 Weight 187.2 lbs 10/11/2024 BMI 28.05 kg/m2 10/11/2024 Encounters Encounter Location Date Provider Diagnosis [address] [address] 10/11/2024 Leticia Abad Allergic rhinitis du e to pollen J30.1 ; Anaphylactic reaction due to eggs, initial encounter T78.08XA ; Allergy to other foods Z91.018 ; Allergic rhinitis due to animal (cat) (dog) hair and dander J30.81 ; Other allergic rhinitis J30.89 and Other chronic allergic conjunctivitis H10.[address] [address] 09/08/2024 Leticia Abad [address] [address] 11/13/2024 Leticia Abad [address] [address] 11/02/2024 Leticia Abad Assessments Encounter Date Diagnosis (ICD Code) Assessment Notes Treatment Notes Treatment Clinical Notes Section Notes 10/11/2024 Allergic rhinitis due to pollen (ICD-10 - J30.1) Given the history and symptoms, skin testing was performed to common aeroallergens to determine atopic status. Ira clearly suffers from atopic disease based upon our skin testing and clinical history. Accordingly, we have introduced a new, aggressive medication regimen, discussed nasal washes and allergy-specific avoidance measures. We also discussed adjunctive therapies including subcutaneous, specific allergen immunotherapy as relates to the treatment and prevention of atopic disease. She is not interseted in starting SCIT. Recommend starting Astepro on a consistent basis and consider starting Atrovent 10/11/2024 Anaphylactic reaction due to eggs, initial encounter (ICD-10 - T78.08XA) skin testing showed sensitivity to egg white and egg yolk. Negative to chocolate, soy and strawberry. ImmunoCAPs ordered for further evaluation. For now strict avoidance of problematic food. 10/11/2024 Allergy to other foods (ICD-10 - Z91.018) Labs ordered for further evaluation. Symptoms are not consistent with mast cell activation syndrome. Tryptase ordered for further evaluation. May be secondary to stress 10/11/2024 Allergic rhinitis due to animal (cat) (dog) hair and dander (ICD-10 - J30.81) 10/11/2024 Other allergic rhinitis (ICD-10 - J30.89) Follow allergen avoidance, meds and consider SCIT as an adjunctive treatment to current regimen 10/11/2024 Other chronic allergic conjunctivitis (ICD-10 - H10.45) Given ocular signs and symptoms I encouraged allergy avoidance measures and meds as above. If symptoms persist, consider adding additional medications including intraocular antihistamine/mas t cell stabilizer, PRN Plan Of Treatment Next Appt Details Provider Name:Leticia guerra, 11/29/2024 09:30:00 AM, [address] [facility], [address] [place] [address], [phone], Insurance Providers Payer Name Payer Address Payer Phone Subscriber Number Group Number Insured Name Patient Relationship to Insured Coverage Start Date Coverage End Date [employer] [address] [place] [address] [id number] Bernardo Virk Spouse - patient is the spouse of the insured 4 Medical (General) History Medical History History ICD Code Hypothyroidism, unspecified E03.9 Nonrheumatic mitral (valve) prolapse I34 .1 Allergy to peanuts Z91.010 Allergic rhinitis due to animal (cat) (d og) hair and dander J30.81 breast cancer Fatty liver Surgical History Surgery Date(Month/Year) Laparoscopy 08/15/1996 Lumpectomy 04/16/1996 Rhinoplasty sinus 08/01/2020 Lumpectomy 08/19/2017 Hospitalization History Reason Date(Month/Year) Pneumonia 10/20/1988
--- OUTSIDE RECORDS SUMMARY | 2024-11-28 01:26 | XMS_ITS | Clinical Summary ---
Author Organization [facility] Address [facility] [place] [address] Care Team Providers Care High School Guidance Counselor Name Role Phone Andie Navarro MD Primary Care Provider + Allergies Active Allergy Reactions Criticality Noted Date [...] function. Assessment & Plan (04/18/2024 2:35 PM BUILDING SURVEYOR): Discussed with patient that this is likely pharmaceutical specialty representative of chronic decrease in GFR however [...] She reports following with Dr. Trevino in [place], [place]. Need for ncjadlydip-bosnrlh-mfcpnxdqe (Tdap) vac cine 12/28/2023 Overview (12/28/2023): Patient is due for Tdap vaccine. Assessment & Plan (12/28/2023 11:16 AM BUILDING SURVEYOR): She was offered this vaccine at this visit however reports that she would like to think about it. Influenza vaccine refused 12/28/2023 Assessment & Plan (12/28/2023 11:17 AM BUILDING SURVEYOR): Patient was offered influenza vaccine at this visit however she declined. H/O: whooping cough 12/28/2023 Overview (12/28/2023): Patient reports she was diagnosed with whooping cough when her son was 3 years old in 2001. Assessment & Plan (12/28/2023 11:18 AM BUILDING SURVEYOR): Patient was counseled to obtain Tdap booster [...] only mildly increased based on labs and bindery helper wants to continue her on high-dose weekly supplementation at this time. Assessment & Plan (12/28/2023 12:58 PM BUILDING SURVEYOR): She is counseled that her vitamin D levels are within normal limits and it is not necessary for her to take high-dose vitamin D at this time. She can however take vitamin D3/cholecalciferol 5000 IUs daily and we can continue to monitor her levels. Colon cancer screening 12/28/2023 Overview (12/28/2023): Colonoscopy 07/17/2022 at [facility] with Dr. Mccurdy: The colon was examined and was normal. No colitis, no polyps. A few small sized internal hemorrhoids were seen in the rectum. The hemorrhoids were not actively bleeding. Instructed to return in 10 years Internal hemorrhoids without complication 2023 Overview (12/28/2023): Colonoscopy 07/17/2022 at [facility] with Dr. Mccurdy: The colon was examined [...] calf. 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 This is primarily a [...] [address] She reports she saw her ceramics artist recently and they recommended medication therapy to lower LDL cholesterol. She reports she wants to try to do with diet and exercise. Cardiology also recommended patient have coronary artery calcium score performed and patient reports that is scheduled within the next few months. Assessment & Plan (01/27/2024 10:46 AM BUILDING SURVEYOR): The 10-year ASCVD risk score (Ana Lilia [...] fiber. Assessment & Plan (12/28/2023 1:10 PM BUILDING SURVEYOR): Patient was previously counseled on dietary modification [...] 2020. Assessment & Plan (12/28/2023 12:18 PM BUILDING SURVEYOR): She is counseled to not eat for [...] intensity. Assessment & Plan (12/28/2023 1:05 PM BUILDING SURVEYOR): This is not concerning as self resolves [...] infection. Assessment & Plan (02/28/2024 7:06 PM BUILDING SURVEYOR): Counseled her that metformin likely did not contribute to upper respiratory infection and was more likely related to interaction with virus. Recommended to restart metformin at titration starting with 250 mg once daily and titrating upward as tolerated and previously discussed. CMP ordered to evaluate fasting blood glucose prior to next visit. Assessment & Plan (01/27/2024 10:38 AM BUILDING SURVEYOR): Encouraged patient to continue metformin and titrating as previously described as tolerated. Assessment & Plan (12/28/2023 11:21 AM BUILDING SURVEYOR): Recommended that patient start regular metformin 250 [...] 17 Patient is following with endocrinology in [place], [place]. She is alternating levothyroxine 88 mcg and 100 mcg daily. 01/27/2024: Patient reports she saw endocrinology recently and they had labs ordered and made no changes to her levothyroxine. Assessment & Plan (12/28/2023 1:13 PM BUILDING SURVEYOR): She is to continue following with endocrinology [...] today. 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 01/01/2021 11/30/2023 Carcinoma in situ of breast 09/28/2017 01/27/2024 Unspecified atrial flutter 09/20/2014 0 02/28/2024 Overview (02/28/2024): 02/28/2024: She reports that [...] Sex Assigned at Female 04/18/2024 1:56 PM BUILDING SURVEYOR Legal Sex Female 1:00 PM CDT Gender Identity Female 04/18/2024 1:56 PM BUILDING SURVEYOR Sexual Orientation Not on file Last Filed Vital Signs Vital Sign Reading Time Taken Comments Blood Pressure 126/66 04/18/2024 1:56 PM BUILDING SURVEYOR Pulse 106 04/18/2024 1:56 PM BUILDING SURVEYOR Temperature 37.3 C (99.2 F) 04/18/2024 1:56 PM BUILDING SURVEYOR Respiratory Rate 16 04/18/2024 1:56 PM BUILDING SURVEYOR Oxygen Saturation 97% 02/28/2024 11:48 AM BUILDING SURVEYOR Inhaled Oxygen Concentration - - Weight 85.3 kg (188 lb) 04/18/2024 1:56 PM BUILDING SURVEYOR Height 175.3 cm (5' 9) 04/18/2024 1:56 PM BUILDING SURVEYOR Body Mass Index 27.76 04/18/2024 1:56 PM BUILDING SURVEYOR Plan of Treatment Health Maintenance Due Date [...] (2 - Td or Tdap) 11/16/2016 11/16/2006 PHQ-2 (Physician [place]) 02/16/2024 01/27/2024 Mammogram Screening 04/23/2024 04/23/2022, 04/14/2021, 04/08/2020, Additional history exists COVID-19 Vaccine ( season) 2024 Influenza Adult (#1) 2024 Annual Physical 01/26/2025 01/27/2024 Cervical Cancer Screening [...] VE NON-REACT GEOFF 12/07/2023 9:34 PM CDT [facility] Comment: ANTIBODIES TO HCV NOT DETECTED. DOES NOT EXCLUDE THE POSSIBILITY OF EXPOSURE TO HCV. 12/07/2023 7:30 AM CDT Brandi Houston DO LABORATORY Final Result [facility] [address] [place] [address], [id number] * PAP SMEAR (SCAN ORDER) (11/08/2023) 11/08/2023 [facility] Scanned SCANNING Final Resu lt * COLONOSCOPY GENERIC (SCAN ORDER) (07/17/2022) 07/17/2022 [employer] [facility] Scanned SCANNING Final Resu lt from Last 3 Months or Most Recently Relevant to Health Maintenance Insurance [employer] OPEN ACCESS [facility] Care Teams High School Guidance Counselor Relationship Specialty Start Date End Date Andie Navarro MD [address] [facility] [address] [place] [address] PCP - General FAMILY PRACTICE 10/09/24
--- OUTSIDE RECORDS SUMMARY | 2024-11-28 01:26 | XMS_ITS | Encounter Summary ---
Author Organization [facility] Address [address] [place] [address] Care Team Providers Care Core Microarchitect Name Role Phone Brandi Houston DO Primary Care Provider Andie Santoyo MD Primary Care Provider + Encounter Details Date Type Department Care Team (Late st Contact Info) Description 12/07/2023 [facility] Message Enc [facility] Multispecialty Care - [address] [place] [address] Brandi Houston DO h. pylori Social History Tobacco Use Types Packs/Day Years Used Date Smoking Tobacco: Never Passive Smoke Exposure: Past Smokeless Tobacco: Never Alcohol Use Standard Drinks/Week Comments Never 0 (1 standard drink = 0.6 oz pur e alcohol) PHQ-2 Answer Date Recorded Patient Health Questionnaire-2 Score 1 11/30/2023 Comments No Sex and Gender Information Value Date Recorded Sex Assigned at Female 04/18/2024 1:56 PM CHIPPER FEEDER Legal Sex Female 1:00 PM CDT Gender Identity Female 04/18/2024 1:56 PM CHIPPER FEEDER Sexual Orientation Not on file documented as of this encounter Plan of Treatment Not on file documented as of this encounter Visit Diagnoses Not on filedocumented in this encounter Additional Health Concerns Infection Onset Date Last Indicated Resolved Time Respiratory Rule Out 04/18/2024 04/18/2024 025 2:09 PM CHIPPER FEEDER Influenza - Seasonal 04/18/2024 04/18/2024 025 12:32 AM CDT documented as of this encounter Care Teams Core Microarchitect Relationship Specialty Start Date End Date Brandi Houston DO PCP - General FAMILY PRACTICE 11/23/23 10/08/24 Andie Navarro MD [address] [address] PCP - General FAMILY PRACTICE 10/09/24 documented as of this encounter
--- OUTSIDE RECORDS SUMMARY | 2024-11-28 01:26 | XMS_ITS | Encounter Summary ---
Author Organization [facility] Address [address] [place] [address] Care Team Providers Care Cake Puller Name Role Phone Unavailable Primary Care Provider Unavailabl e Encounter Details Date Type Department Care Team (Late st Contact Info) Description 07/07/2022 Lab Requisition [facility] - Derm[facility] Lab [address] [facility], [place] [id number] Kaitlynn Varner DO [address] [facility] [address] [place] [address] Social History Tobacco Use Types Packs/Day Years Used Date Smoking Tobacco: Never Assessed Comments Unknown Sex and Gender Information Value Date Recorded Sex Assigned at Not on file Legal Sex Female 6:26 AM MANAGER INSIDE Gender Identity Not on file Sexual Orientation Not on file documented as of this encounter Plan of Treatment Not on file documented as of this encounter Procedures Procedure Name Priority Date/Time Associated Diagnosis Comments DERMATOPATHOLOGY Routine 07/07/2022 1:23 PM CDT documented in this encounter Results * DERMATOPATHOLOGY (07/07/2022 1:23 PM CDT) Case Report Dermatopathology Report Case: [id number] Authorizing Provider: Kaitlynn Varner DO Collected: 07/07/2022 01:23 PM Ordering Location: [facility] DermPath Lab Received: 07/09/2022 05:59 AM Pathologist: [...] characteristic determined by the Dermatopathology Laboratory at [facility], directed by Dr. Robert Mendez. These tests need not be, and therefore are not, approved by the [place] Food and Drug Administration. The tests are used for clinical purposes. Billing Codes Specimen Charges Stain Charges 84666 1 3 1:05 PM CDT DERMATOPATHOLOGY LABORATORY Embedded Images 3 1:05 PM CDT DERMATOPATHOLOGY LABORATORY Pathology/Cytolo gy TISSUE SPECIMEN FROM SKIN / Unknown 07/07/2022 1:23 PM CDT 07/09/2022 5:59 AM CDT us Kaitlynn Varner DO LAB - PATHOLOGY/CYTOLOGY ORDERABLES Final Result DERMATOPATHOLOGY LABORATORY [facility] - Department of Dermatology [address], [address] [phone] documented in this encounter Visit Diagnoses Not on filedocumented in this encounter
--- OUTSIDE RECORDS SUMMARY | 2024-11-28 01:26 | XMS_ITS | Clinical Summary ---
Author Organization [facility] [employer] Address [address] [facility] [place] [address] Care Team Providers Care Seed Potato Arranger Name Role Phone Unavailable Primary Care Provider Unavailabl e Source Comments [facility] [employer],non-owned Affiliates and Associated Physician Practices is amultiple site organization consisting of ambulatory clinics and hospital sitesin [place], [place], [place] and [place]. This disclosure is being madepursuant to the Care Everywhere program and may not contain all information available regarding this patient. 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
--- OUTSIDE RECORDS SUMMARY | 2024-11-28 01:26 | XMS_ITS | Data Portability ---
Author Organization [place] [facility] [employer], Main Office Address [address] [place] [address] Assessment No assessment recorded. Plan of Treatment Reminders Order Date Submit Date Provider Last Modified By Organization Details Last Modified Time Details Appointments None recorded. Lab vitamin B12 + folate, serum or blood 2022 023 [facility], [address], [address], 3 22:36:40 HbA1c (hemoglobin A1c), blood 2022 023 [facility], [address], [address], 3 22:36:42 insulin, serum 2022 023 Bacula [facility], [address], [address], 3 22:36:38 TSH, serum or plasma 2022 023 Bacula [facility], [address], [address], 3 22:36:40 T4, free, serum 2022 023 Bacula [facility], [address], [address], 3 22:36:39 T3, free, serum or plasma 2022 023 [employer], [address], [place], [address], 3 22:36:41 CMP, serum or plasma 2022 023 JESSI [facility], [address], [place], [address], 3 22:36:36 HbA1c (hemoglobin A1c), blood [address], [address] [place], [address], 3 13:06:41 CMP, serum or plasma 2022 023 [facility], [address] [place], [address], 3 12:01:25 insulin, serum [address], [address] [place], [address], 3 13:06:41 TSH, serum or plasma 2022 023 [facility], [address] [place], [address], 3 03:05:42 T4, free, serum 2022 023 [facility], [address] [place], [address], 3 03:05:41 T3, free, serum or plasma 2022 023 [facility], [address] [place], [address], 3 03:05:42 thyroid peroxidase (tpo) Ab, serum 2022 023 [facility], [address] [place], [address], 3 12:01:26 vitamin B12 + folate, serum or blood 2022 023 [facility], [address] [place], [address], 3 12:01:27 Referral None recorded. Procedures None recorded. Surgeries None recorded. Imaging None recorded. Medication Orders cyanocobala min (vit B-12) 1,000 mcg/mL injection solution 2022 023 [id number], [address], [place], [id number], 3 10:57:04 metformin ER 500 mg tablet,exte nded release 24 hr [address] [address] [id number], [address], [place], [id number], 3 10:33:35 Patient TargetsNo targets recorded. Patient InstructionsNo instructions recorded. Reason for Referral None Reported. Results Created Date Observation Date Name Description Value Unit Range Abnormal Flag Note LastModifiedBy Organization Detail LastModifiedTime 02/24/19 22 03/08/2021 HEMOG LOBIN A1C hemoglobin A1C 5.6 %_of_ total _HGB <5.7 normal Not Available [facility] [address] [address] [place], [address], 03/08/2021 17:43:18 02/24/19 22 03/08/2021 VITAM IN [...] /MS is recom phil d: order code 88368 (gisselle ents >2yrs ). See Note 1 Note 1 For addit ional infor suma craft e refer to http: //[facility] kelsey Taboria gnost ics.c om/fa q/FAQ 199 (This link is being provi ded for infor raymon morales/ educa stephani william purpo ses only. ) Not Available [facility]: [place] [address], [address], 03/08/2021 17:43:17 02/24/19 22 03/08/2021 T3, FREE T3, free 2.8 pg/mL 2.3-4. 2 normal Not Available [facility]: [place] [address], [address], 03/08/2021 17:43:16 02/24/1903/08/2021 TSH TSH 2.62 mIU/L normal Refer ence Range > or = 20 Years 0.40- 4.50 Pregn priscilla Range s First trime ster 0.26- 2.66 Secon d trime ster 0.55- 2.73 Third trime ster 0.43- 2.91 Not Available [facility]: [place] [address], [address], 03/08/2021 17:43:15 02/24/1903/08/2021 T4, FREE T4, free 1.2 NG/dL 0.8-1. 8 normal Not Available [facility]: [place] [address], [address], 03/08/2021 17:43:15 02/24/19 22 03/08/2021 INSUL IN, [...] resul ts accor dingl y. Not Available [address] [address] [place], [address], 03/08/2021 17:43:14 02/24/19 22 03/08/2021 COMPR EHENS GEOFF METAB OLIC PANEL glucose 96 mg/dL 65-99 normal Fasti ng refer ence inter ray Not Available [address] [address] [place], [address], 03/08/2021 17:43:14 02/24/19 22 03/08/2021 COMPR EHENS GEOFF METAB OLIC PANEL urea nitrogen (BUN) 21 mg/dL 7-25 normal Not Available [address] [address] [place], [address], 03/08/2021 17:43:14 02/24/19 22 03/08/2021 COMPR EHENS GEOFF METAB OLIC PANEL creatinine 0.76 mg/dL 0.50-1 .05 normal For patie nts >49 years of age, the refer ence limit for Creat inine is appro ximat valeriy 13% highe r for peopl e ident ified as Afric an-Am luanne n. Not Available [address] [address] [place], [address], 03/08/2021 17:43:14 02/24/19 22 03/08/2021 COMPR EHENS GEOFF METAB OLIC PANEL eGFR non-afr. tristanian 89 mL/mi n/1.7 3m2 > or = 60 normal Not Available [address] [address] [place], [address], 03/08/2021 17:43:14 02/24/19 22 03/08/2021 COMPR EHENS GEOFF METAB OLIC PANEL eGFR 103 mL/mi n/1.7 3m2 > or = 60 normal Not Available [address] [place], [address], 03/08/2021 17:43:14 02/24/19 22 03/08/2021 COMPR EHENS GEOFF METAB OLIC PANEL BUN/creatini ne ratio not applic able (calc ) 6-22 Not Available [address], [address], 03/08/2021 17:43:14 02/24/19 22 03/08/2021 COMPR EHENS GEOFF METAB OLIC PANEL sodium 139 mmol/ L 135-14 6 normal Not Available [address], [address], 03/08/2021 17:43:14 02/24/19 22 03/08/2021 COMPR EHENS GEOFF METAB OLIC PANEL potassium 4.4 mmol/ L 3.5-5. 3 normal Not Available [address] [address] [place], [address], 03/08/2021 17:43:14 02/24/19 22 03/08/2021 COMPR EHENS GEOFF METAB OLIC PANEL chloride 103 mmol/ L 98-110 normal Not Available [address] [address] [place], [address], 03/08/2021 17:43:14 02/24/19 22 03/08/2021 COMPR EHENS GEOFF METAB OLIC PANEL carbon dioxide 28 mmol/ L 20-32 normal Not Available [address] [address] [place], [address], 03/08/2021 17:43:14 02/24/19 22 03/08/2021 COMPR EHENS GEOFF METAB OLIC PANEL calcium 9.4 mg/dL 8.6-10 .4 normal Not Available [address] [address] [place], [address], 03/08/2021 17:43:14 02/24/19 22 03/08/2021 COMPR EHENS GEOFF METAB OLIC PANEL protein, total 7.3 g/dL 6.1-8. 1 normal Not Available [address], [address], 03/08/2021 17:43:14 02/24/19 22 03/08/2021 COMPR EHENS GEOFF METAB OLIC PANEL albumin 4.6 g/dL 3.6-5. 1 normal Not Available [address] [address] [place], [address], 03/08/2021 17:43:14 02/24/1903/08/2021 COMPR EHENS GEOFF METAB OLIC PANEL globulin 2.7 g/dL_ (calc ) 1.9-3. 7 normal Not Available [address], [address], 03/08/2021 17:43:14 02/24/19 22 03/08/2021 COMPR EHENS GEFOF METAB OLIC PANEL albumin/glob ulin ratio 1.7 (calc ) 1.0-2. 5 normal Not Available [address], [address], 03/08/2021 17:43:14 02/24/19 22 03/08/2021 COMPR EHENS GEOFF METAB OLIC PANEL bilirubin, total 0.5 mg/dL 0.2-1. 2 normal Not Available [address] [place], [address], 03/08/2021 17:43:14 02/24/19 22 03/08/2021 COMPR EHENS GEOFF METAB OLIC PANEL alkaline phosphatase 54 U/L 37-153 normal Not Available [address] [address] [place], [address], 03/08/2021 17:43:14 02/24/19 22 03/08/2021 COMPR EHENS GEOFF METAB OLIC PANEL AST 20 U/L 10-35 normal Not Available [address], [address], 03/08/2021 17:43:14 02/24/19 22 03/08/2021 COMPR EHENS GEOFF METAB OLIC PANEL ALT 24 U/L 6-29 normal Not Available [address], [address], 03/08/2021 17:43:14 02/24/19 22 03/08/2021 LIPID PANEL , STAND ORTEGA cholesterol, total 208 mg/dL <200 high Not Available [address], [address], 03/08/2021 17:43:13 02/24/19 22 03/08/2021 LIPID PANEL , STAND ORTEGA HDL cholesterol 72 mg/dL > or = 50 normal Not Available [address], [address], 03/08/2021 17:43:13 02/24/19 22 03/08/2021 LIPID PANEL , STAND ORTEGA triglyceride s 96 mg/dL <150 normal Not Available [address], [address], 03/08/2021 17:43:13 02/24/1903/08/2021 LIPID PANEL , STAND [...] 2061- 2067 (http ://ed ucati on.Qu Travis Tout[employer]. com/f aq/FA Q164) Not Available [facility] [address] , [place], [address], 03/08/2021 17:43:13 02/24/19 22 03/08/2021 LIPID PANEL , STAND ORTEGA chol/HDLC ratio 2.9 (calc ) <5.0 normal Not Available [facility] [address], [place], [address], 03/08/2021 17:43:13 02/24/19 22 03/08/2021 LIPID PANEL , STAND ORTEGA non HDL cholesterol 136 mg/dL _(gracie c) <130 high For patie nts with diabe kelsey plus 1 major ASCVD risk facto r, treat ing to a non-H DL-C goal of <100 mg/dL (LDL- C of <70 mg/dL ) is consi nafisa a thera pecaroline c optio n. Not Available [facility] [address] [address] , [place], [address], 03/08/2021 17:43:13 04/16/1904/16/2021 VITAM IN D,25- [place],TO [...] /MS is recom phil d: order code 76405 (gisselle ents >2yrs ). See Note 1 Note 1 For addit ional infor suma craft refer to http: //[facility] kelsey dc ics.c om/fa q/FAQ 199 (This link is being provi ded for infor raymon morales/ gunner reyeso ses only. ) Not Available [address] [place], [address], 04/16/2021 04:11:28 04/16/19 22 04/16/2021 T3, FREE T3, free 3.1 pg/mL 2.3-4. 2 normal Not Available [address], [address], 04/16/2021 04:11:27 04/16/1904/16/2021 VITAM IN B12/F OLATE , SERUM PANEL vitamin B12 735 pg/mL 200-11 00 normal Not Available [address], [address], 04/16/2021 04:11:27 04/16/19 22 04/16/2021 VITAM IN B12/F OLATE , SERUM PANEL folate, serum 13.9 NG/mL normal Refer ence Range Low: <3.4 Borde rline : 3.4-5 .4 Kalie l: >5.4 Not Available [address], [address], 04/16/2021 04:11:27 04/16/1904/16/2021 TSH TSH 0.20 mIU/L low Refer ence Range > or = 20 Years 0.40- 4.50 Pregn priscilla Range s First trime ster 0.26- 2.66 Secon d trime ster 0.55- 2.73 Third trime ster 0.43- 2.91 Not Available [address], [address], 04/16/2021 04:11:26 04/16/19 22 04/16/2021 T4, FREE T4, free 1.4 NG/dL 0.8-1. 8 normal Not Available [facility] [place] [address] [place], [address], 04/16/2021 04:11:25 05/30/19 22 06/04/2021 HEMOG LOBIN [...] Care in Diabe kelsey(A DA). Not Available [facility] [address] [place], [address], 06/04/2021 21:08:36 05/30/19 22 06/04/2021 VITAM IN [...] /MS is recom phil d: order code 29533 (gisselle ents >2yrs ). See Note 1 Note 1 For addit ional infor suma craft e refer to http: //agustín Loco stDia gnost ics.c om/fa q/FAQ 199 (This link is being provi ded for infor raymon morales/ educcontreras william purpo ses only. ) Not Available [address], [address], 06/04/2021 21:08:35 05/30/19 22 06/04/2021 T3, FREE T3, free 3.2 pg/mL 2.3-4. 2 normal Not Available [address], [address], 06/04/2021 21:08:34 05/30/19 22 06/04/2021 TSH TSH 0.19 mIU/L low Refer ence Range > or = 20 Years 0.40- 4.50 Pregn priscilla Range s First trime ster 0.26- 2.66 Secon d trime ster 0.55- 2.73 Third trime ster 0.43- 2.91 Not Available [address] [address] [place], [address], 06/04/2021 21:08:34 05/30/19 22 06/04/2021 T4, FREE T4, free 1.3 NG/dL 0.8-1. 8 normal Not Available [address], [address], 06/04/2021 21:08:33 05/30/19 22 06/04/2021 INSUL IN, [...] resul ts accor dingl y. Not Available [address], [address], 06/04/2021 21:08:33 05/30/19 22 06/04/2021 COMPR EHENS GEOFF METAB OLIC PANEL glucose 96 mg/dL 65-99 normal Fasti ng refer ence inter ray Not Available [address], [address], 06/04/2021 21:08:33 05/30/19 22 06/04/2021 COMPR EHENS GEOFF METAB OLIC PANEL urea nitrogen (BUN) 20 mg/dL 7-25 normal Not Available [address], [address], 06/04/2021 21:08:33 05/30/19 22 06/04/2021 COMPR EHENS GEOFF METAB OLIC PANEL creatinine 0.75 mg/dL 0.50-1 .05 normal For patie nts >49 years of age, the refer ence limit for Creat inine is appro ximat valeriy 13% highe r for peopl e ident ified as Afric an-Am luanne n. Not Available [address] [address] [place], [address], 06/04/2021 21:08:33 05/30/19 22 06/04/2021 COMPR EHENS GEOFF METAB OLIC PANEL eGFR non-afr. tristanian 90 mL/mi n/1.7 3m2 > or = 60 normal Not Available [address] [address] [place], [address], 06/04/2021 21:08:33 05/30/19 22 06/04/2021 COMPR EHENS GEOFF METAB OLIC PANEL eGFR 104 mL/mi n/1.7 3m2 > or = 60 normal Not Available [address] [address] [place], [address], 06/04/2021 21:08:33 05/30/19 22 06/04/2021 COMPR EHENS GEOFF METAB OLIC PANEL BUN/creatini ne ratio not applic able (calc ) 6-22 Not Available [address], [address], 06/04/2021 21:08:33 05/30/19 22 06/04/2021 COMPR EHENS GEOFF METAB OLIC PANEL sodium 138 mmol/ L 135-14 6 normal Not Available [address], [address], 06/04/2021 21:08:33 05/30/19 22 06/04/2021 COMPR EHENS GEOFF METAB OLIC PANEL potassium 4.2 mmol/ L 3.5-5. 3 normal Not Available [address], [address], 06/04/2021 21:08:33 05/30/19 22 06/04/2021 COMPR EHENS GEOFF METAB OLIC PANEL chloride 104 mmol/ L 98-110 normal Not Available [address], [address], 06/04/2021 21:08:33 05/30/19 22 06/04/2021 COMPR EHENS GEOFF METAB OLIC PANEL carbon dioxide 27 mmol/ L 20-32 normal Not Available [address], [address], 06/04/2021 21:08:33 05/30/19 22 06/04/2021 COMPR EHENS GEOFF METAB OLIC PANEL calcium 9.5 mg/dL 8.6-10 .4 normal Not Available [address], [address], 06/04/2021 21:08:33 05/30/19 22 06/04/2021 COMPR EHENS GEOFF METAB OLIC PANEL protein, total 7.1 g/dL 6.1-8. 1 normal Not Available [facility] [address] [place], [address], 06/04/2021 21:08:33 05/30/19 22 06/04/2021 COMPR EHENS GEOFF METAB OLIC PANEL albumin 4.3 g/dL 3.6-5. 1 normal Not Available [address], [address], 06/04/2021 21:08:33 05/30/19 22 06/04/2021 COMPR EHENS GEOFF METAB OLIC PANEL globulin 2.8 g/dL_ (calc ) 1.9-3. 7 normal Not Available [address], [address], 06/04/2021 21:08:33 05/30/19 22 06/04/2021 COMPR EHENS GEOFF METAB OLIC PANEL albumin/glob ulin ratio 1.5 (calc ) 1.0-2. 5 normal Not Available [address] [address] [place], [address], 06/04/2021 21:08:33 05/30/19 22 06/04/2021 COMPR EHENS GEOFF METAB OLIC PANEL bilirubin, total 0.4 mg/dL 0.2-1. 2 normal Not Available [address], [address], 06/04/2021 21:08:33 05/30/19 22 06/04/2021 COMPR EHENS GEOFF METAB OLIC PANEL alkaline phosphatase 55 U/L 37-153 normal Not Available [address] [address] [place], [address], 06/04/2021 21:08:33 05/30/19 22 06/04/2021 COMPR EHENS GEOFF METAB OLIC PANEL AST 20 U/L 10-35 normal Not Available [address] [address] [place], [address], 06/04/2021 21:08:33 05/30/19 22 06/04/2021 COMPR EHENS GEOFF METAB OLIC PANEL ALT 22 U/L 6-29 normal Not Available [address] [address] [place], [address], 06/04/2021 21:08:33 05/30/19 22 06/04/2021 LIPID PANEL , STAND ORTEGA cholesterol, total 193 mg/dL <200 normal Not Available [address] [address] [facility] [place], [address], 06/04/2021 21:08:32 05/30/19 22 06/04/2021 LIPID PANEL , STAND ORTEGA HDL cholesterol 65 mg/dL > or = 50 normal Not Available [address], [address], 06/04/2021 21:08:32 05/30/19 22 06/04/2021 LIPID PANEL , STAND ORTEGA triglyceride s 75 mg/dL <150 normal Not Available [address], [address], 06/04/2021 21:08:32 05/30/19 22 06/04/2021 LIPID PANEL [...] zoranos tics. com/f aq/FA Q164) Not Available [address], [place], [address], 06/04/2021 21:08:32 05/30/19 22 06/04/2021 LIPID PANEL , STAND ORTEGA chol/HDLC ratio 3.0 (calc ) <5.0 normal Not Available [address] [place], [address], 06/04/2021 21:08:32 05/30/19 22 06/04/2021 LIPID PANEL , STAND ORTEGA non HDL cholesterol 128 mg/dL _(gracie c) <130 normal For patie nts with diabe kelsey plus 1 major ASCVD risk facto r, treat ing to a non-H DL-C goal of <100 mg/dL (LDL- C of <70 mg/dL ) is kareni nafisa amador c optio n. Not Available [address], [address], 06/04/2021 21:08:32 09/02/19 22 09/02/2021 T3, FREE T3, free 3.2 pg/mL 2.3-4. 2 normal Not Available [address], [address], 09/02/2021 16:58:49 09/02/19 22 09/02/2021 VITAM IN B12/F OLATE , SERUM PANEL vitamin B12 417 pg/mL 200-11 00 normal Not Available [address], [address], 09/02/2021 16:58:48 09/02/19 22 09/02/2021 VITAM IN B12/F OLATE , SERUM PANEL folate, serum 12.3 NG/mL normal Refer ence Range Low: <3.4 Borde rline : 3.4-5 .4 Kalie l: >5.4 Not Available [address] [place], [address], 09/02/2021 16:58:48 09/02/19 22 09/02/2021 TSH TSH 0.13 mIU/L low Refer ence Range > or = 20 Years 0.40- 4.50 Pregn priscilla Range s First trime ster 0.26- 2.66 Secon d trime ster 0.55- 2.73 Third trime ster 0.43- 2.91 Not Available [address], [address], 09/02/2021 16:58:47 09/02/19 22 09/02/2021 T4, FREE T4, free 1.4 NG/dL 0.8-1. 8 normal Not Available [address], [address], 09/02/2021 16:58:46 09/02/19 22 09/02/2021 THYRO ID PEROX IDASE ANTIB ODIES thyroid peroxidase antibodies 18 IU/mL <9 high Not Available [address], [address], 09/02/2021 16:58:45 09/02/19 22 09/02/2021 COMPR EHENS GEOFF METAB OLIC PANEL glucose 89 mg/dL 65-99 normal Fasti ng refer ence inter ray Not Available [address], [address], 09/02/2021 16:58:44 09/02/19 22 09/02/2021 COMPR EHENS GEOFF METAB OLIC PANEL urea nitrogen (BUN) 22 mg/dL 7-25 normal Not Available [address], [address], 09/02/2021 16:58:44 09/02/19 22 09/02/2021 COMPR EHENS GEOFF METAB OLIC PANEL creatinine 0.77 mg/dL 0.50-1 .03 normal Not Available [address], [address], 09/02/2021 16:58:44 09/02/19 22 09/02/2021 COMPR EHENS [...] kdoqi /gfr% 5Fcal culat or Not Available [address] [address] [place], [address], 09/02/2021 16:58:44 09/02/19 22 09/02/2021 COMPR EHENS GEOFF METAB OLIC PANEL BUN/creatini ne ratio not applic able (calc ) 6-22 Not Available [address] [place], [address], 09/02/2021 16:58:44 09/02/19 22 09/02/2021 COMPR EHENS GEOFF METAB OLIC PANEL sodium 140 mmol/ L 135-14 6 normal Not Available [address], [address], 09/02/2021 16:58:44 09/02/19 22 09/02/2021 COMPR EHENS GEOFF METAB OLIC PANEL potassium 4.3 mmol/ L 3.5-5. 3 normal Not Available [address], [address], 09/02/2021 16:58:44 09/02/19 22 09/02/2021 COMPR EHENS GEOFF METAB OLIC PANEL chloride 104 mmol/ L 98-110 normal Not Available [address], [address], 09/02/2021 16:58:44 09/02/19 22 09/02/2021 COMPR EHENS GEOFF METAB OLIC PANEL carbon dioxide 25 mmol/ L 20-32 normal Not Available [address] [place], [address], 09/02/2021 16:58:44 09/02/19 22 09/02/2021 COMPR EHENS GEOFF METAB OLIC PANEL calcium 9.1 mg/dL 8.6-10 .4 normal Not Available [address], [address], 09/02/2021 16:58:44 09/02/19 22 09/02/2021 COMPR EHENS GEOFF METAB OLIC PANEL protein, total 7.1 g/dL 6.1-8. 1 normal Not Available [address], [address], 09/02/2021 16:58:44 09/02/19 22 09/02/2021 COMPR EHENS GEOFF METAB OLIC PANEL albumin 4.3 g/dL 3.6-5. 1 normal Not Available [address], [address], 09/02/2021 16:58:44 09/02/19 22 09/02/2021 COMPR EHENS GEOFF METAB OLIC PANEL globulin 2.8 g/dL_ (calc ) 1.9-3. 7 normal Not Available [address], [address], 09/02/2021 16:58:44 09/02/19 22 09/02/2021 COMPR EHENS GEOFF METAB OLIC PANEL albumin/glob ulin ratio 1.5 (calc ) 1.0-2. 5 normal Not Available [address], [address], 09/02/2021 16:58:44 09/02/19 22 09/02/2021 COMPR EHENS GEOFF METAB OLIC PANEL bilirubin, total 0.4 mg/dL 0.2-1. 2 normal Not Available [address], [address], 09/02/2021 16:58:44 09/02/19 22 09/02/2021 COMPR EHENS GEOFF METAB OLIC PANEL alkaline phosphatase 52 U/L 37-153 normal Not Available [facility] [address] [address] [place], [address], 09/02/2021 16:58:44 09/02/19 22 09/02/2021 COMPR EHENS GEOFF METAB OLIC PANEL AST 21 U/L 10-35 normal Not Available [facility] [address] [address] [place], [address], 09/02/2021 16:58:44 09/02/19 22 09/02/2021 COMPR EHENS GEOFF METAB OLIC PANEL ALT 19 U/L 6-29 normal Not Available [facility] [address] [address] [place], [address], 09/02/2021 16:58:44 11/12/19 22 11/20/2021 HEMOG LOBIN [...] Diabe kelsey(A DA). Not Available [facility] [address] [address] [place], [address], 11/20/2021 13:08:53 11/12/19 22 11/20/2021 INSUL IN, [...] resul ts accor dingl y. Not Available [address], [address], 11/20/2021 13:08:53 11/12/19 22 11/20/2021 COMPR EHENS GEOFF METAB OLIC PANEL glucose 91 mg/dL 65-99 normal Fasti ng refer ence inter ray Not Available [address], [address], 11/20/2021 13:08:52 11/12/19 22 11/20/2021 COMPR EHENS GEOFF METAB OLIC PANEL urea nitrogen (BUN) 15 mg/dL 7-25 normal Not Available [address], [address], 11/20/2021 13:08:52 11/12/19 22 11/20/2021 COMPR EHENS GEOFF METAB OLIC PANEL creatinine 0.83 mg/dL 0.50-1 .03 normal Not Available [address], [address], 11/20/2021 13:08:52 11/12/19 22 11/20/2021 COMPR EHENS [...] kdoqi /gfr% 5Fcal culat or Not Available [address], [address], 11/20/2021 13:08:52 11/12/19 22 11/20/2021 COMPR EHENS GEOFF METAB OLIC PANEL BUN/creatini ne ratio not applic able (calc ) 6-22 Not Available [address], [address], 11/20/2021 13:08:52 11/12/19 22 11/20/2021 COMPR EHENS GEOFF METAB OLIC PANEL sodium 140 mmol/ L 135-14 6 normal Not Available [address], [address], 11/20/2021 13:08:52 11/12/19 22 11/20/2021 COMPR EHENS GEOFF METAB OLIC PANEL potassium 4.4 mmol/ L 3.5-5. 3 normal Not Available [address], [address], 11/20/2021 13:08:52 11/12/19 22 11/20/2021 COMPR EHENS GEOFF METAB OLIC PANEL chloride 103 mmol/ L 98-110 normal Not Available [address], [address], 11/20/2021 13:08:52 11/12/19 22 11/20/2021 COMPR EHENS GEOFF METAB OLIC PANEL carbon dioxide 27 mmol/ L 20-32 normal Not Available [address], [address], 11/20/2021 13:08:52 11/12/19 22 11/20/2021 COMPR EHENS GEOFF METAB OLIC PANEL calcium 9.3 mg/dL 8.6-10 .4 normal Not Available [address], [address], 11/20/2021 13:08:52 11/12/19 22 11/20/2021 COMPR EHENS GEOFF METAB OLIC PANEL protein, total 7.3 g/dL 6.1-8. 1 normal Not Available [address], [address], 11/20/2021 13:08:52 11/12/19 22 11/20/2021 COMPR EHENS GEOFF METAB OLIC PANEL albumin 4.4 g/dL 3.6-5. 1 normal Not Available [address], [address], 11/20/2021 13:08:52 11/12/19 22 11/20/2021 COMPR EHENS GEOFF METAB OLIC PANEL globulin 2.9 g/dL_ (calc ) 1.9-3. 7 normal Not Available [address], [address], 11/20/2021 13:08:52 11/12/19 22 11/20/2021 COMPR EHENS GEOFF METAB OLIC PANEL albumin/glob ulin ratio 1.5 (calc ) 1.0-2. 5 normal Not Available [address], [address], 11/20/2021 13:08:52 11/12/19 22 11/20/2021 COMPR EHENS GEOFF METAB OLIC PANEL bilirubin, total 0.5 mg/dL 0.2-1. 2 normal Not Available [address], [address], 11/20/2021 13:08:52 11/12/19 22 11/20/2021 COMPR EHENS GEOFF METAB OLIC PANEL alkaline phosphatase 63 U/L 37-153 normal Not Available [address] [address] [place], [address], 11/20/2021 13:08:52 11/12/19 22 11/20/2021 COMPR EHENS GEOFF METAB OLIC PANEL AST 21 U/L 10-35 normal Not Available [address], [address], 11/20/2021 13:08:52 11/12/19 22 11/20/2021 COMPR EHENS GEOFF METAB OLIC PANEL ALT 23 U/L 6-29 normal Not Available [address], [address], 11/20/2021 13:08:52 11/12/19 22 11/20/2021 LIPID PANEL , [place] cholesterol, total 202 mg/dL <200 high Not Available [address], [address], 11/20/2021 13:08:51 11/12/19 22 11/20/2021 LIPID PANEL , [place] HDL cholesterol 69 mg/dL > or = 50 normal Not Available [address], [address], 11/20/2021 13:08:51 11/12/19 22 11/20/2021 LIPID PANEL , [place] triglyceride s 112 mg/dL <150 normal Not Available [address], [address], 11/20/2021 13:08:51 11/12/19 22 11/20/2021 LIPID PANEL [...] 9): 2061- 2068 (http ://ed ucati on.[place] [email or web address]. com/f aq/FA Q164) Not Available [address] [address] [place], [address], 11/20/2021 13:08:51 11/12/19 22 11/20/2021 LIPID PANEL , [place] chol/HDLC ratio 2.9 (calc ) <5.0 normal Not Available [address] [address] [place], [address], 11/20/2021 13:08:51 11/12/1911/20/2021 LIPID PANEL , [place] non HDL cholesterol 133 mg/dL _(gracie c) <130 high For patie nts with diabe kelsey plus 1 major ASCVD risk facto r, treat ing to a non-H DL-C goal of <100 mg/dL (LDL- C of <70 mg/dL ) is consi nafisa amato n. Not Available [address] [address] [place], [address], 11/20/2021 13:08:51 11/22/1911/22/2021 T3, FREE T3, free 2.7 pg/mL 2.3-4. 2 normal Not Available [address] [address] [place], [address], 11/22/2021 01:23:30 11/22/1911/22/2021 TSH TSH 1.76 mIU/L normal Refer ence Range > or = 20 Years 0.40- 4.50 Pregn priscilla Range s First trime ster 0.26- 2.66 Secon d trime ster 0.55- 2.73 Third trime ster 0.43- 2.91 Not Available [facility] [address] [address] [place], [address], 11/22/2021 01:23:30 11/22/19 22 11/22/2021 T4, FREE T4, free 1.2 NG/dL 0.8-1. 8 normal Not Available [address], [address], 11/22/2021 01:23:29 05/14/19 23 05/14/2022 T4, FREE T4, free 1.3 NG/dL 0.8-1. 8 normal Not Available [address], [address], 05/14/2022 03:05:41 05/14/19 23 05/14/2022 TSH TSH 0.69 mIU/L 0.40-4 .50 normal Not Available [address], [address], 05/14/2022 03:05:41 05/14/1905/14/2022 T3, FREE T3, free 2.7 pg/mL 2.3-4. 2 normal Not Available [address], [address], 05/14/2022 03:05:42 06/20/19 23 06/22/2022 COMPR EHENS GEOFF METAB OLIC PANEL glucose 100 mg/dL 65-99 high Fasti ng refer ence inter ray For someo ne witho ut known diabe kelsey, a gluco se value betwe en 100 and 125 mg/dL is consi stent with predi abete s and shoul d be confi rmed with a follo w-up test. Not Available [address], [address], 06/22/2022 12:01:25 06/20/1906/22/2022 COMPR EHENS GEOFF METAB OLIC PANEL urea nitrogen (BUN) 20 mg/dL 7-25 normal Not Available [address], [address], 06/22/2022 12:01:25 06/20/19 06/22/2022 COMPR EHENS GEOFF METAB OLIC PANEL creatinine 0.76 mg/dL 0.50-1 .03 normal Not Available [address], [address], 06/22/2022 12:01:25 06/20/19 23 06/22/2022 COMPR EHENS GEOFF METAB OLIC PANEL eGFR 92 mL/mi n/1.7 3m2 > or = 60 normal The eGFR is based on the CKD-E PI 2020 equat ion. To calcu late the new eGFR from a previ ous Creat inine or Cysta tin C resul t, go to https ://félix drummond.tiny coelho/hrea hodgson s/ kdoqi /gfr% 5Fcal culat or Not Available [address], [address], 06/22/2022 12:01:25 06/20/19 23 06/22/2022 COMPR EHENS GEOFF METAB OLIC PANEL BUN/creatini ne ratio NOT APPLIC ABLE (calc ) 6-22 Not Available [address], [address], 06/22/2022 12:01:25 06/20/19 23 06/22/2022 COMPR EHENS GEOFF METAB OLIC PANEL sodium 140 mmol/ L 135-14 6 normal Not Available [address], [address], 06/22/2022 12:01:25 06/20/19 23 06/22/2022 COMPR EHENS GEOFF METAB OLIC PANEL potassium 4.1 mmol/ L 3.5-5. 3 normal Not Available [address], [address], 06/22/2022 12:01:25 06/20/19 23 06/22/2022 COMPR EHENS GEOFF METAB OLIC PANEL chloride 106 mmol/ L 98-110 normal Not Available [address], [place], [address], 06/22/2022 12:01:25 06/20/19 23 06/22/2022 COMPR EHENS GEOFF METAB OLIC PANEL carbon dioxide 27 mmol/ L 20-32 normal Not Available [facility] [address], [address], 06/22/2022 12:01:25 06/20/19 23 06/22/2022 COMPR EHENS GEOFF METAB OLIC PANEL calcium 9.3 mg/dL 8.6-10 .4 normal Not Available [facility] [address], [address], 06/22/2022 12:01:25 06/20/19 23 06/22/2022 COMPR EHENS GEOFF METAB OLIC PANEL protein, total 7.3 g/dL 6.1-8. 1 normal Not Available [address], [address], 06/22/2022 12:01:25 06/20/19 23 06/22/2022 COMPR EHENS GEOFF METAB OLIC PANEL albumin 4.5 g/dL 3.6-5. 1 normal Not Available [facility] [address], [address], 06/22/2022 12:01:25 06/20/19 23 06/22/2022 COMPR EHENS GEOFF METAB OLIC PANEL globulin 2.8 g/dL_ (calc ) 1.9-3. 7 normal Not Available [facility] [address], [address], 06/22/2022 12:01:25 06/20/1906/22/2022 COMPR EHENS GEOFF METAB OLIC PANEL albumin/glob ulin ratio 1.6 (calc ) 1.0-2. 5 normal Not Available [facility] [address], [address], 06/22/2022 12:01:25 06/20/1906/22/2022 COMPR EHENS GEOFF METAB OLIC PANEL bilirubin, total 0.5 mg/dL 0.2-1. 2 normal Not Available [address], [address], 06/22/2022 12:01:25 06/20/1906/22/2022 COMPR EHENS GEOFF METAB OLIC PANEL alkaline phosphatase 50 U/L 37-153 normal Not Available [address], [address], 06/22/2022 12:01:25 06/20/1906/22/2022 COMPR EHENS GEOFF METAB OLIC PANEL AST 19 U/L 10-35 normal Not Available [address], [address], 06/22/2022 12:01:25 06/20/1906/22/2022 COMPR EHENS GEOFF METAB OLIC PANEL ALT 18 U/L 6-29 normal Not Available [address], [address], 06/22/2022 12:01:25 06/20/1906/22/2022 THYRO ID PEROX IDASE ANTIB ODIES thyroid peroxidase antibodies 18 IU/mL <9 high Not Available [address], [address], 06/22/2022 12:01:06/20/1906/22/2022 VITAM IN B12/F OLATE , SERUM PANEL vitamin B12 593 pg/mL 200-11 00 normal Not Available [address], [address], 06/22/2022 12:01:26 06/20/1906/22/2022 VITAM IN B12/F OLATE , SERUM PANEL folate, serum 16.0 NG/mL normal Refer ence Range Low: <3.4 Borde rline : 3.4-5 .4 Kalie l: >5.4 Not Available [address], [address], 06/22/2022 12:01:26 06/20/1906/22/2022 T3, FREE T3, free 3.4 pg/mL 2.3-4. 2 normal Not Available [address], [address], 06/22/2022 12:01:27 06/20/1906/22/2022 TSH+F REE T4 TSH 0.19 mIU/L 0.40-4 .50 low Not Available [address], [address], 06/22/2022 12:01:28 06/20/1906/22/2022 TSH+F REE T4 T4, free 1.6 NG/dL 0.8-1. 8 normal Not Available [address], [address], 06/22/2022 12:01:28 08/08/1908/10/2022 COMPR EHENS GEOFF METAB OLIC PANEL glucose 103 mg/dL 65-99 high Fasti ng refer ence inter ray For someo ne witho ut known diabe kelsey, a gluco se value betwe en 100 and 125 mg/dL is consi stent with predi abete s and shoul d be confi rmed with a follo w-up test. Not Available [address], [address], 08/10/2022 16:38:49 08/08/1908/10/2022 COMPR EHENS GEOFF METAB OLIC PANEL urea nitrogen (BUN) 19 mg/dL 7-25 normal Not Available [facility] [address], [address], 08/10/2022 16:38:49 08/08/1908/10/2022 COMPR EHENS GEOFF METAB OLIC PANEL creatinine 0.87 mg/dL 0.50-1 .03 normal Not Available [address], [address], 08/10/2022 16:38:49 08/08/19 23 08/10/2022 COMPR EHENS [...] kdoqi /gfr% 5Fcal culat or Not Available [address], [address], 08/10/2022 16:38:49 08/08/19 23 08/10/2022 COMPR EHENS GEOFF METAB OLIC PANEL BUN/creatini ne ratio NOT APPLIC ABLE (calc ) 6-22 Not Available [address], [address], 08/10/2022 16:38:49 08/08/19 23 08/10/2022 COMPR EHENS GEOFF METAB OLIC PANEL sodium 139 mmol/ L 135-14 6 normal Not Available [address], [address], 08/10/2022 16:38:49 08/08/19 23 08/10/2022 COMPR EHENS GEOFF METAB OLIC PANEL potassium 4.4 mmol/ L 3.5-5. 3 normal Not Available [address], [address], 08/10/2022 16:38:49 08/08/19 23 08/10/2022 COMPR EHENS GEOFF METAB OLIC PANEL chloride 103 mmol/ L 98-110 normal Not Available [address], [address], 08/10/2022 16:38:49 08/08/19 23 08/10/2022 COMPR EHENS GEOFF METAB OLIC PANEL carbon dioxide 27 mmol/ L 20-32 normal Not Available [address], [address], 08/10/2022 16:38:49 08/08/19 23 08/10/2022 COMPR EHENS GEOFF METAB OLIC PANEL calcium 9.7 mg/dL 8.6-10 .4 normal Not Available [address], [address], 08/10/2022 16:38:49 08/08/19 23 08/10/2022 COMPR EHENS GEOFF METAB OLIC PANEL protein, total 7.3 g/dL 6.1-8. 1 normal Not Available [address], [address], 08/10/2022 16:38:49 08/08/19 23 08/10/2022 COMPR EHENS GEOFF METAB OLIC PANEL albumin 4.5 g/dL 3.6-5. 1 normal Not Available [address], [address], 08/10/2022 16:38:49 08/08/19 23 08/10/2022 COMPR EHENS GEOFF METAB OLIC PANEL globulin 2.8 g/dL_ (calc ) 1.9-3. 7 normal Not Available [address], [address], 08/10/2022 16:38:49 08/08/19 23 08/10/2022 COMPR EHENS GEOFF METAB OLIC PANEL albumin/glob ulin ratio 1.6 (calc ) 1.0-2. 5 normal Not Available [address], [address], 08/10/2022 16:38:49 08/08/1908/10/2022 COMPR EHENS GEOFF METAB OLIC PANEL bilirubin, total 0.4 mg/dL 0.2-1. 2 normal Not Available [facility] [employer] [address], [address], 08/10/2022 16:38:49 08/08/1908/10/2022 COMPR EHENS GEOFF METAB OLIC PANEL alkaline phosphatase 47 U/L 37-153 normal Not Available [facility] [employer] [place] [address] [address] [place], [address], 08/10/2022 16:38:49 08/08/1908/10/2022 COMPR EHENS GEOFF METAB OLIC PANEL AST 19 U/L 10-35 normal Not Available [facility] [employer] [address], [address], 08/10/2022 16:38:49 08/08/1908/10/2022 COMPR EHENS GEOFF METAB OLIC PANEL ALT 17 U/L 6-29 normal Not Available [facility] [place] [address], [address], 08/10/2022 16:38:49 08/08/1908/10/2022 THYRO ID PEROX IDASE ANTIB ODIES thyroid peroxidase antibodies 19 IU/mL <9 high Not Available [facility] [employer] [address], [address], 08/10/2022 16:38:50 08/08/1908/10/2022 INSUL IN insulin 11.1 uIU/m L normal Refer ence Range < or = 18.4 Risk: Optim al < or = 18.4 Moder ate NA High >18.4 Adult cardi ovasc ular event risk categ ory cut point s (opti mal, moder ate, high) are based on Insul in Refer ence Inter ray studi es perfo rmed at [facility] Diagn ostic s in 2021. Not Available [facility]: [place] [address], [address], 08/10/2022 16:38:51 08/08/1908/10/2022 T4, FREE T4, free 1.2 NG/dL 0.8-1. 8 normal Not Available [address], [address], 08/10/2022 16:38:52 08/08/1908/10/2022 TSH TSH 0.99 mIU/L 0.40-4 .50 normal Not Available [address], [address], 08/10/2022 16:38:53 08/08/1908/10/2022 VITAM IN B12/F OLATE , SERUM PANEL vitamin B12 498 pg/mL 200-11 00 normal Not Available [address], [address], 08/10/2022 16:38:53 08/08/1908/10/2022 VITAM IN B12/F OLATE , SERUM PANEL folate, serum >24.0 NG/mL normal Refer ence Range Low: <3.4 Borde rline : 3.4-5 .4 Kalie l: >5.4 Not Available [address], [address], 08/10/2022 16:38:53 08/08/1908/10/2022 T3, FREE T3, free 3.0 pg/mL 2.3-4. 2 normal Not Available [address], [address], 08/10/2022 16:38:54 08/08/1908/10/2022 HEMOG LOBIN A1C hemoglobin [...] Care in Diabe kelsey(A DA). Not Available [address] [address] [place], [address], 08/10/2022 16:38:55 10/31/19 23 10/31/2022 COMPR EHENS GEOFF METAB OLIC PANEL glucose 96 mg/dL 65-99 normal Fasti ng refer ence inter ray Not Available [facility] [address] [address] [place], [address], 10/31/2022 22:36:36 10/31/19 23 10/31/2022 COMPR EHENS GEOFF METAB OLIC PANEL urea nitrogen (BUN) 18 mg/dL 7-25 normal Not Available [address] [address] [place], [address], 10/31/2022 22:36:36 10/31/19 23 10/31/2022 COMPR EHENS GEOFF METAB OLIC PANEL creatinine 0.81 mg/dL 0.50-1 .03 normal Not Available [address] [address] [place], [address], 10/31/2022 22:36:36 10/31/19 23 10/31/2022 COMPR EHENS GEOFF METAB OLIC PANEL eGFR 85 mL/mi n/1.7 3m2 > or = 60 normal Not Available [address] [address] [place], [address], 10/31/2022 22:36:36 10/31/19 23 10/31/2022 COMPR EHENS GEOFF METAB OLIC PANEL BUN/creatini ne ratio SEE NOTE: (calc ) 6-22 Not Repor pino: BUN and Creat inine are withi n refer ence range . Not Available [address], [address], 10/31/2022 22:36:36 10/31/19 23 10/31/2022 COMPR EHENS GEOFF METAB OLIC PANEL sodium 140 mmol/ L 135-14 6 normal Not Available [address], [address], 10/31/2022 22:36:36 10/31/19 23 10/31/2022 COMPR EHENS GEOFF METAB OLIC PANEL potassium 4.3 mmol/ L 3.5-5. 3 normal Not Available [address] [address] [facility] [place] [place], [address], 10/31/2022 22:36:36 10/31/19 23 10/31/2022 COMPR EHENS GEOFF METAB OLIC PANEL chloride 104 mmol/ L 98-110 normal Not Available [address] [address] [place], [address], 10/31/2022 22:36:36 10/31/19 23 10/31/2022 COMPR EHENS GEOFF METAB OLIC PANEL carbon dioxide 29 mmol/ L 20-32 normal Not Available [facility] [address] [address] [place], [address], 10/31/2022 22:36:36 10/31/19 23 10/31/2022 COMPR EHENS GEOFF METAB OLIC PANEL calcium 9.3 mg/dL 8.6-10 .4 normal Not Available [address], [address], 10/31/2022 22:36:36 10/31/19 23 10/31/2022 COMPR EHENS GEOFF METAB OLIC PANEL protein, total 7.2 g/dL 6.1-8. 1 normal Not Available [address], [address], 10/31/2022 22:36:36 10/31/19 23 10/31/2022 COMPR EHENS GEOFF METAB OLIC PANEL albumin 4.5 g/dL 3.6-5. 1 normal Not Available [address], [address], 10/31/2022 22:36:36 10/31/19 23 10/31/2022 COMPR EHENS GEOFF METAB OLIC PANEL globulin 2.7 g/dL_ (calc ) 1.9-3. 7 normal Not Available [address], [address], 10/31/2022 22:36:36 10/31/19 23 10/31/2022 COMPR EHENS GEOFF METAB OLIC PANEL albumin/glob ulin ratio 1.7 (calc ) 1.0-2. 5 normal Not Available [address], [address], 10/31/2022 22:36:36 10/31/19 23 10/31/2022 COMPR EHENS GEOFF METAB OLIC PANEL bilirubin, total 0.4 mg/dL 0.2-1. 2 normal Not Available [address], [address], 10/31/2022 22:36:36 10/31/19 23 10/31/2022 COMPR EHENS GEOFF METAB OLIC PANEL alkaline phosphatase 56 U/L 37-153 normal Not Available [address], [address], 10/31/2022 22:36:36 10/31/19 23 10/31/2022 COMPR EHENS GEOFF METAB OLIC PANEL AST 17 U/L 10-35 normal Not Available [address], [address], 10/31/2022 22:36:36 10/31/19 23 10/31/2022 COMPR EHENS GEOFF METAB OLIC PANEL ALT 17 U/L 6-29 normal Not Available [address], [address], 10/31/2022 22:36:36 10/31/19 23 10/31/2022 INSUL IN [...] Diagn ostic s in 2021. Not Available [facility] [address], [address], 10/31/2022 22:36:38 10/31/19 23 10/31/2022 T4, FREE T4, free 1.4 NG/dL 0.8-1. 8 normal Not Available [address], [address], 10/31/2022 22:36:39 10/31/19 23 10/31/2022 TSH TSH 0.89 mIU/L 0.40-4 .50 normal Not Available [facility] [address], [address], 10/31/2022 22:36:40 10/31/19 23 10/31/2022 VITAM IN B12/F OLATE , SERUM PANEL vitamin B12 578 pg/mL 200-11 00 normal Not Available [facility] [address], [address], 10/31/2022 22:36:40 09/10/31/2022 VITAM IN B12/F OLATE , SERUM PANEL folate, serum 21.9 NG/mL normal Refer ence Range Low: <3.4 Borde rline : 3.4-5 .4 Kalie l: >5.4 Not Available [facility] [address] [place], [address], 10/31/2022 22:36:40 10/31/19 23 10/31/2022 T3, FREE T3, free 3.1 pg/mL 2.3-4. 2 normal Not Available [facility] [address] [address], [place], [address], 10/31/2022 22:36:41 10/31/1910/31/2022 HEMOG LOBIN A1C hemoglobin [...] Diabe kelsey(A DA). Not Available [facility] [address] [address] , [place], [address], 10/31/2022 22:36:42 06/18/19 22 06/16/2021 US, head + neck No observ ation record ed. [id number] [facility] [address], [place], [address], 04/15/2022 04:40:12 06/20/19 25 06/19/2024 anniei ng/kell carolina tic resul t No observ ation record ed. [facility] [address], [place], [address], 06/19/2024 16:44:22 Result Notes None recorded. Problems Name Problem SNOMED Code Status Onset Date Resolution Date Notes Provider Name and Address Organization Details Recorded Time Hypothyroidis m 04312775 Active 2021 Not Available [facility] 3 07:27:53 Vitamin D deficiency 26794056 Active 2021 Not Available [facility] 3 07:27:53 Goiter 6092203 Active 2021 Not Available [facility] 3 07:27:53 Impaired fasting glycemia 552360377 Active 2021 Not Available [facility] 3 07:27:53 Prediabetes 541891189 Active 2022 Not Available [facility] 3 07:27:53 Focal motor weakness 998464712 Active 2022 Not Available [facility] 3 07:27:53 Vitamin B12 deficiency (non anemic) 77220604 Active 2022 Not Available [facility] 3 07:27:53 Problem Notes None recorded. Procedures Surgical History Date Name Laterality Status Provider Name and Address Organization Details Recorded Time 10/11/19 21 Date of Last Pap Smear completed Not Available [facility] 04/15/2022 04:31:03 03/15/19 21 Most Recent Mammogram completed Not Available [facility] 04/15/2022 04:31:03 lumpectomy of left breast completed Not Available [facility] 04/15/2022 04:31:04 laparoscopy completed Not Available [facility] 04/15/2022 04:31:04 hysteroscopy completed Not Available [facility] 04/15/2022 04:31:04 endoscopic balloon dilation of ostium of paranasal sinus completed Not Available [facility] 04/15/2022 04:31:04 Imaging Results None recorded. Procedure [...] Not available Not available Not available 04/15/2022 [id number] SNOMED Not Available [facility] 3 04:39:58 Medications Name Sig Start Date [...] Updated DateTime 3 175.26 cm 27 kg/m2 27623.4 g 97.9 [degF] 92 /min 112/70 mm[Hg] Lillie ROSHAN Mireles [facility] [employer] [facility] 3 12:46:13 Date Recorded Body mass index (BMI) Body height Oxygen saturation Oxygen saturation in Arterial blood by Pulse oximetry Heart rate Body temperature Body weight Systolic And Diastolic Provider Name and Address Organization Details Last Updated DateTime 2 26.6 kg/m2 175.26 cm 96 % 96 % 70 /min 97.7 [degF] 29451.6 3 g 105/85 mm[Hg] Not Available [facility] 3 04:34:21 Date Recorded Body height Body mass index (BMI) Body weight Heart rate Body temperature Systolic And Diastolic Provider Name and Address Organization Details Last Updated DateTime 3 175.26 cm 25.1 kg/m2 32142.4 2 g 72 /min 97.9 [degF] 124/70 mm[Hg] Teena Sintia Contreras [facility] [employer] [facility] 3 10:32:37 Date Recorded Body mass index (BMI) Body height Oxygen saturation Oxygen saturation in Arterial blood by Pulse oximetry Heart rate Body temperature Body weight Systolic And Diastolic Provider Name and Address Organization Details Last Updated DateTime 2 27.2 kg/m2 175.26 cm 97 % 97 % 74 /min 97.9 [degF] 73649 g 110/80 mm[Hg] Not Available [facility] 3 04:34:21 Social History Question Answer Notes LastModified by Organizat ion Details LastModified Time Tobacco Smoking Status Never Smoker Gisela gomez, [facility] [employer] [facility] 08/14/2022 10:23:41 What Is Your Level Of Caffeine Consumption? Moderate [id number] Information not available 04/15/2022 How Much Tobacco Do You Chew? None [id number] Information not available 04/15/2022 In The 14 Days Before Symptom Onset, Have You Had Close Contact With A Laboratory-confirm ed COVID-19 While That Case Was Ill? No [email or web address] Information n ot available 08/14/2022 In The 14 Days Before Symptom Onset, Have You Had Close Contact With A Person Who Is Under Investigation For COVID-19 While That Person Was Ill? No Information not available 08/14/2022 Which Illicit Or Recreational Drugs Have You Used? None [email or web address] Information not available 08/14/2022 Sex: Female Functional Status Question Answer Note LastModified by Organizat ion Details LastModified Time What is your level of alcohol consumption? Occasional [id number] Information not available 04/15/2022 Do you or have you ever used smokeless tobacco? Never used smokeless tobacco [id number] Information not available 04/15/2022 Do you or have you ever used e-cigarettes or vape? Never used electronic cigarettes [email or web address] Information not available 08/14/2022 Mental Status None recorded. Family History Relationship Description Onset Age of this Age Resolved Age Notes LastModified by Organization Details LastModified Time Mother Hypertensive disorder [id number] Not available 04/15/2022 04:31:10 Mother Diabetes mellitus [id number] Not available 04/15/2022 04:31:10 Maternal Grandmother Diabetes mellitus [id number] Not available 04/15/2022 04:31:10 Maternal Grandfather Malignant lymphoma [email or web address] Not available 2022 10:23:40 Maternal Uncle Malignant lymphoma [email or web address] Not available 2022 10:23:40 Medical History Condition Response HIGH CHOLESTEROL / HYPERLIPIDEMIA Y HYPOTHYROIDISM Y GI PROBLEMS Y CANCER: SPECIFY Y Gynecological History Statement/Question Response Abnormal Pap [...] Diagnosis SNOMED-CT Code Diagnosis ICD10 Code Diagnosis IMO Codes Diagnosis Note [id number] Mel Bass MD [facility] [place] [address] [place] [address] 06/17/2020 00:00:00 06/17/2020 11:17:12 [id number] Mel Bass MD [facility] [place] [address] [place] [address] 09/17/2020 00:00:00 09/17/2020 12:01:53 [id number] Mel Bass MD [facility] [place] [address] [place] [address] 12/10/2020 00:00:00 12/10/2020 12:25:39 [id number] Mel Bass MD [facility] [place] [address] [place], [place] [address] 06/10/2021 00:00:00 06/10/2021 13:35:28 [id number] [facility] [place] [address] [place], [place] [address] 12/16/2021 00:00:00 12/16/2021 13:48:31 [id number] Mel Bass MD [facility] [place] [address] [place], [place] [address] 04/24/2022 12:20:53 04/24/2022 13:11:43 Prediabetes 645350745 R73.03 A1C of 5.7%- patient having more symptoms suggestive of glucose dysregulat ion- would recommend we trial on low dose metformin ER 500 mg daily with dinner. Discussed carb counting and how to read food labels. Recommende d patient to utilize the diabetesfo Oodrive.iPierian from the ADA website to help with food preparatio n as this presents ideal carb content per meal so this will make carb counting much easier for patient. Recommende d she incorporat e natural insulin summer child caregiver s such as pears, apples, cinnamon, anthony and sweet potatoes to help mobilize her endogenous insulin. Recommende d up to 150 minutes of moderate level activity/e xercise weekly. Hypothyroidism 05971717 E03.9 FT4 high normal range from April [...] she chooses to go outside of the [facility] system to obtain labwork she was [...] in her case. She voiced understand ing. [id number] Mel aBss MD [facility] [place] [address] [place] [address] 08/14/2022 10:22:41 08/14/2022 11:08:15 Hypothyroidism 24158453 E03.9 Thyroid levels in range since dose [...] reduce inflammati on. Impaired f asting glycemia 920138939 R73.01 Continue on natural insulin summer child caregiver s as metformin was not well tolerated. Recommende d she incorporat e natural insulin summer child caregiver s such as pears, apples, cinnamon, anthony and sweet potatoes to help mobilize her endogenous insulin. Recommende d up to 150 minutes of moderate level activity/e xercise weekly. Vitamin B1 2 deficiency (non anemic) 13364118 E53.8 Continue on B12 injections weekly as [...] she chooses to go outside of the [facility] system to obtain labwork she was [...] Guarantor Name 08/11/2022 1 JOSE FRANCISCO-BAYLEE (PPO) [id number] Bernardo Virk [id number] Ira Virk Notes Date Note Type Note Provider Name and Address Organization Details Recorded Time 04/24/2022 text/html ROS as noted in the HPI 57 yo female comes in for follow up in management of [...] labs from 05/07:195/93/69/107glu cose 102 mg/dLcr normallft zopecgw3l 5.7%TSH of 0.31 uIU/mlFT4 of 1.5 ng/dLFt3 of 3.1 pg/mlinsulin 16 uU/mlb12/folate normal Mel Bass MD [address] [facility], [facility] [address], [place], [address], [facility] [employer] 04/24/2022 13:47:04 08/14/2022 text/html ROS as noted in the HPI 57 yo female comes in for follow up in management of [...] mg/dLCr normalLFT normal Mel Bass MD [address] [facility], [facility] [address], [place], [address], [facility] 08/14/2022 14:12:01 OBGyn Episode No OBEpisode recorded.
[2024-11-28 06:44] VITALS: BP 119/88; PULSE 66; RESP 18; TEMP 36.4; O2SAT 100
[2024-11-28] MEDS: LACTATED RINGERS 1,000 ML 150 ML IV CONT (06:56)
--- NOTE | 2024-11-28 07:12 | WPDANESEPPF ---
Anes - Initial Pre Proc Eval Procedure: Operation Date: 11/28/24 07:45 Proposed Procedures p Esophagogastroduodenoscopy - Scott Mccurdy MD Date/Time: 11/28/24 07:12 Surgeon: Scott Mccurdy MD Pre Op Diagnosis: Abdominal distension (gaseous), Dysphagia, GERD Patient Data Age: 59 Gender: F Height: 1.73 m Weight: 85.2 kg Allergies Allergy/AdvReac Type Severity Reaction Status Date / Time Sulfa (Sulfonamide Allergy Intermediate Muscle Verified 11/28/24 06:43 Antibiotics) Spasms moxifloxacin Allergy Mild Rash Verified 11/28/24 06:43 peanut Allergy Mild Itchy Mouth Verified 11/28/24 06:43 amoxicillin (From Augmentin) AdvReac Severe ear Verified 11/28/24 06:43 pressure clavulanic acid (From AdvReac Severe ear Verified 11/28/24 06:43 Augmentin) pressure eggs Allergy itching Uncoded 11/16/24 16:07 Home Medications ?Medication ?Instructions ?Recorded ?Confirmed ?Type cholecalciferol (vitamin D3) 125 125 mcg PO DAILY 10/28/20 09/14/24 History mcg (5,000 unit) capsule cetirizine 10 mg capsule (Zyrtec) 10 mg PO DAILY 11/20/20 09/14/24 History famotidine 10 mg tablet (Pepcid AC) 10 mg PO DAILY PRN Indigestion 11/20/20 09/14/24 History metoprolol succinate 25 mg 25 mg PO DAILY #30 tabs 03/25/22 09/14/24 Rx tablet,extended release 24 hr magnesium carb,citrate,oxide 300 mg PO DAILY 04/03/22 09/14/24 History (Magnesium Complex) Synthroid 100 mcg tablet 100 mcg PO DAILY #90 tabs 07/29/23 11/28/24 Rx (levothyroxine) Synthroid 88 mcg tablet 88 mcg PO DAILY #90 tabs 04/20/24 09/14/24 Rx (levothyroxine) omeprazole 40 mg capsule,delayed 40 mg PO DAILY #30 caps 06/13/24 09/06/24 Rx release azelastine 137 mcg (0.1 %) nasal 137 mcg (0.137 mL) intranasal Q12H 09/01/24 11/16/24 Rx spray #30 mL Patient hx anesthesia problems: none Family hx anesthesia problems: none Results Review: All pre-operative results and documents have been reviewed as part of the pre-operative evaluation. 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 Generalized anxiety disorder Allergic rhinitis GERD (gastroesophageal reflux disease) Osteopenia after menopause MVP (mitral valve prolapse) occasional palpitation Interstitial cystitis Fibromyalgia Vitamin D deficiency Surgical History Surgical History History of partial mastectomy of left breast 08/2017 S/P D&C (status post dilation and curettage) 1998 for SAb S/P laparoscopic procedure H/O breast biopsy H/O lumpectomy Family History Family History Other Diabetes mellitus Family history of Alzheimer's disease Family history of arthritis Family history of atrial fibrillation Family history of cardiovascular disease Family history of congestive heart failure Family history of kidney disease Family history of osteoporosis Family history of thyroid disease Hypertension Social History Social History Smoking status: Never smoker Alcohol intake: never Alcohol use details: sips Substance use: never Substance use type: does not use Do You Feel Safe in your Home?: Yes Lack of Transportation: No Lack of Food: Never True Current Housing: I Have Housing Concerned About Future Housing: No Difficulty Paying Gas/Electric Bills: No Difficulty Paying for Meds: No Currently Unemployed: No Education: Bachelor's Degree Difficulty w/ Childcare or Family Care: No Living arrangements: with family Occupation/Education: unemployed Gender identity (if verbalized by the patient): Female Sexual Orientation (if Verbalized by the Patient): Straight or Heterosexual Spiritual care concerns: No Anes - Eval Final PreProcedure Day of Procedure 11/28/24 07:12 Patient weight: overweight Heart: regular rate and rhythm Lungs: clear to auscultation Airway: Mallampati scale class II Neurological: alert and oriented Last oral intake: >/= 8 hours ASA classification: III Emergent: no Anesthetic plan: proceed Anesthesia type and monitoring: general GIVS and standard monitoring Results Review: All pre-operative results and documents have been reviewed as part of the pre-operative evaluation. Informed Consent: The patient's anesthetic plan and its attendant risks and benefits were discussed with the patient/family/POA. Questions were solicited and answers provided to the satisfaction of the patient/family/POA.
--- NOTE | 2024-11-28 07:45 | PM.HPGS ---
History of Present Illness History of Present Illness Consent: Risks, benefits, and alternatives have been discussed and questions answered. Patient agrees to proceed with procedure. 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 Generalized anxiety disorder Allergic rhinitis GERD (gastroesophageal reflux disease) Osteopenia after menopause MVP (mitral valve prolapse) occasional palpitation Interstitial cystitis Fibromyalgia Vitamin D deficiency Surgical History Surgical History History of partial mastectomy of left breast 08/2017 S/P D&C (status post dilation and curettage) 1998 for SAb S/P laparoscopic procedure H/O breast biopsy H/O lumpectomy Family History Family History Other Diabetes mellitus Family history of Alzheimer's disease Family history of arthritis Family history of atrial fibrillation Family history of cardiovascular disease Family history of congestive heart failure Family history of kidney disease Family history of osteoporosis Family history of thyroid disease Hypertension Social History Social History Smoking status: Never smoker Alcohol intake: never Alcohol use details: sips Substance use: never Substance use type: does not use Do You Feel Safe in your Home?: Yes Lack of Transportation: No Lack of Food: Never True Current Housing: I Have Housing Concerned About Future Housing: No Difficulty Paying Gas/Electric Bills: No Difficulty Paying for Meds: No Currently Unemployed: No Education: Bachelor's Degree Difficulty w/ Childcare or Family Care: No Living arrangements: with family Occupation/Education: unemployed Gender identity (if verbalized by the patient): Female Sexual Orientation (if Verbalized by the Patient): Straight or Heterosexual Spiritual care concerns: No Meds Home Medications and Allergies Home Medications ?Medication ?Instructions ?Recorded ?Confirmed ?Type cholecalciferol (vitamin D3) 125 125 mcg PO DAILY 10/28/20 09/14/24 History mcg (5,000 unit) capsule cetirizine 10 mg capsule (Zyrtec) 10 mg PO DAILY 11/20/20 09/14/24 History famotidine 10 mg tablet (Pepcid AC) 10 mg PO DAILY PRN Indigestion 11/20/20 09/14/24 History metoprolol succinate 25 mg 25 mg PO DAILY #30 tabs 03/25/22 09/14/24 Rx tablet,extended release 24 hr magnesium carb,citrate,oxide 300 mg PO DAILY 04/03/22 09/14/24 History (Magnesium Complex) Synthroid 100 mcg tablet 100 mcg PO DAILY #90 tabs 07/29/23 11/28/24 Rx (levothyroxine) Synthroid 88 mcg tablet 88 mcg PO DAILY #90 tabs 04/20/24 09/14/24 Rx (levothyroxine) omeprazole 40 mg capsule,delayed 40 mg PO DAILY #30 caps 06/13/24 09/06/24 Rx release azelastine 137 mcg (0.1 %) nasal 137 mcg (0.137 mL) intranasal Q12H 09/01/24 11/16/24 Rx spray #30 mL Allergies Allergy/AdvReac Type Severity Reaction Status Date / Time Sulfa (Sulfonamide Allergy Intermediate Muscle Verified 11/28/24 06:43 Antibiotics) Spasms moxifloxacin Allergy Mild Rash Verified 11/28/24 06:43 peanut Allergy Mild Itchy Mouth Verified 11/28/24 06:43 amoxicillin (From Augmentin) AdvReac Severe ear Verified 11/28/24 06:43 pressure clavulanic acid (From AdvReac Severe ear Verified 11/28/24 06:43 Augmentin) pressure eggs Allergy itching Uncoded 11/16/24 16:07 Exam Const: General: comfortable and no acute distress HENMT: Face/Nose/Sinus: Normal nares present Eyes: General: appearance normal, both eyes and all related structures Resp: Auscultation: clear to auscultation bilaterally Cardio: Rate: regular rate Rhythm: regular rhythm GI: Inspection: non-distended GI Palp: Yes Soft to palpation Skin: General skin exam: normal color Extrem: General: normal to inspection Psych: Mental Status: mental status grossly normal Assessment and Plan Assessment and plan (1) GERD (gastroesophageal reflux disease): Qualifiers: Esophagitis presence: esophagitis presence not specified Qualified Code(s): K21.9 - Gastro-esophageal reflux disease without esophagitis Code(s): K21.9 - Gastro-esophageal reflux disease without esophagitis Status: Acute Assessment and Plan: egd
--- NOTE | 2024-11-28 07:51 | S_PTH ---
PATIENT: Ira Virk LOC: [facility] Lux#:[id number] AGE/SX: 59/F ROOM: RE11/28/[address]: Scott Mccurdy MD : 1965 BED: DIS: 11/28/2024 SPEC #: [id number] RECD: 11/28/24 08:03 STATUS: CORTNEY REOlamide #: [id number] MYKEL: 11/28/24 07:[address]: Scott Mccurdy DEPT: [facility] Surgical RECD BY: Isabel Rodriguez ENTERED: 11/28/24 08:03 SP TYPE: Surgical OTHR DR: Ean Yuen MD Tissues: A - Gastric Biopsy Procedures: Hematoxylin and Eosin Stain Gross and Microscopic Level 4
[2024-11-28 07:53] VITALS: BP 91/56; PULSE 52; RESP 12; O2SAT 99
[2024-11-28 08:03] VITALS: BP 95/62; PULSE 52; RESP 16; O2SAT 100
[2024-11-28 08:13] VITALS: BP 103/71; PULSE 62; RESP 20; O2SAT 100
== END 2024-11-28 08:23 | disposition home or self-care (01) ==
PROVIDERS: PCP Family Medicine; Referring Provider Nurse Practitioner; Visit Provider Internal Medicine Gastroenterology
PROC: 0DJ08ZZ Inspection of Upper Intestinal Tract, Via Natural or Artificial Opening Endoscopic (ICD-10-PCS; CPT 43239; principal; 2024-11-28 07:45)
DX: K21.9 Gastro-esophageal reflux disease without esophagitis (principal); K29.70 Gastritis, unspecified, without bleeding
CPT/HCPCS: 43239; 88305; J2003; J2704; J7120

== ENCOUNTER 2025-01-07 08:38 | Emergency (ER) | payer OTHER, SELFPAY ==
--- OUTSIDE RECORDS SUMMARY | 2023-12-30 04:00 | XMS_ITS ---
Author Organization [facility] Address [address] [place] [address] Care Team Providers Care Advertising Display Rotator Name Role Phone Mel Bass Primary Care Provider Sole Moon [phone] REASON FOR VISIT Lab, thyroid f/u Encounters Encounter Location Date Provider Diagnosis [address] [address] 12/30/2023 Sole Moon Plan Of Treatment No Information Progress Notes * Yobany VIRKOB:1965 (59 yo F)Acc No.[id number]:12/30/2023 Progress Notes Patient: Ira Connolly Provider: Phil Moon NP :1965 A ge:58 Y S ex:Female Date:12/30/2023 Address:[facility] [address] [place]-[id number] Pcp:Mel Bass Subjective: * Chief Complaints: * L ab, thyroid f/u * Electronic signature of Valentin Moon on 01/07/2025 at 09:16 AM SEGMENTAL WALL INSTALLER Sign off status: Pending * Provider: Phil Moon NP Date: 02/28/2023 Generated for Santos meneses/Kike/eTransmitting on: 03/09/2024 09:16 AM SEGMENTAL WALL INSTALLER
--- OUTSIDE RECORDS SUMMARY | 2024-01-01 15:00 | XMS_ITS ---
Author Organization [facility] Address [address] [place] [address] Care Team Providers Care Ski Patrol Name Role Phone Kali Mel Primary Care Provider Migration, Provider Unavailable Unavailable Allergies Allergen (clinical drug ingredient) Drug/Non Drug Allergy documented on EMR Reaction Allergy Type Onset Date Status amoxicillin / clavulanate Augmentin Unknown Drug Allergy Active sulfamethoxazole / trimethoprim Sulfamethoxazole-Tr imethoprim Unknown Drug Allergy Active [facility] VISIT [facility] Encounter Medications Medication SIG (Take, Route, Frequency, Duration) Notes Start Date End Date Status Vitamin D3 *Please review a nd pick correct strength-formulati on from Medispan options. If intended option is not shown, discontinue and re-order from Quick Search* *Pick strength-form from Medispan for eRX* Active ZINC [facility] *Please revie w for potential replacement for e-prescription and drug interaction check* *Reorder from Medispan for eRx and Interaction Alerts* Active Hydroxocobalamin *Please review and pick correct strength-formulati on from Medispan options. If intended option is not shown, discontinue and re-order from Quick Search* *Pick strength-form from Medispan for eRX* Active Potassium Citrate *Please review and pick correct strength-formulati on from Medispan options. If intended option is not shown, discontinue and re-order from Quick Search* *[facility]* Active Pepcid *Please review a nd pick correct strength-formulati on from Medispan options. If intended option is not shown, discontinue and re-order from Quick Search* *Pick strength-form from Medispan for eRX* Active Synthroid 100 MCG Tablet 1 tab(s) orally once a day; Duration: 45 days 10/12/2023 Active Synthroid 88 MCG Tablet 1 tab(s) orally once a day; Duration: 45 days 10/12/2023 Active Cholecalciferol 1250 MCG CAPSULE 1 CAP(S) ORALLY ONCE A WEEK; Duration: 90 DAYS *Please review and pick correct strength-formulati on from [employer] options. If intended option is not shown, discontinue and re-order from Quick Search* *Pick strength-form from fos4Xan for eRX* 10/22/2023 Active Vitamin D (Ergocalciferol) 1.25 MG (47970 UT) Capsule 1 cap(s) orally once a week; Duration: 90 days 10/22/2023 Active Synthroid 100 MCG Tablet 1 tab(s) orally once a day alternating 100 mcg and 88mcg Active Metoprolol Succinate ER 25 MG CAPSULE, EXTENDED RELEASE 1 TAB(S) ORALLY ONCE A DAY *Please review and pick correct strength-formulati on from [employer] options. If intended option is not shown, discontinue and re-order from Quick Search* *Pick strength-form from [employer] for eRX* Active ZyrTEC *Please review a nd pick correct strength-formulati on from [employer] options. If intended option is not shown, discontinue and re-order from Quick Search* *Pick strength-form from [employer] for eRX* Active magnesium amino acids chelate *Please review for potential replacement for e-prescription and drug interaction check* *Reorder from [employer] for eRx and Interaction Alerts* Active Encounters Encounter Location Date Provider Diagnosis [facility] [place] [address] [facility] [place] [id number] 01/01/2024 Provider Migration Plan Of Treatment Medication Medication Name Sig Start Date Stop Date Notes Synthroid 100 MCG Tablet 1 tab(s) orally once a day; Duration: 45 days 10/12/2023 Synthroid 88 MCG Tablet 1 tab(s) orally once a day; Duration: 45 days 10/12/2023 Cholecalciferol 1250 MCG CAPSULE 1 CAP(S) ORALLY ONCE A WEEK; Duration: 90 DAYS 10/22/2023 *Please review and pick correct strength-formulation from [employer] options. If intended option is not shown, discontinue and re-order from Quick Search* *Pick strength-form from Medispan for eRX* Vitamin D (Ergocalciferol) 1.25 MG (67798 UT) Capsule 1 cap(s) orally once a week; Duration: 90 days 10/22/2023 Progress Notes * Yobany JOHNSONOB:1965 (59 yo F)Acc No.[id number]:01/01/2024 Patient: Ira Connolly Provider: Omar sanchez Migration :1965 A ge:58 Y S ex:Female Date:01/01/2024 [facility] [id number] Pcp:Mel Bass Subjective: * Chief Complaints: * M ultum To Medispan Conversion Encounter * Medications: T akingSynthroid 100 MCG Tablet 1 tab(s) orally once a day , Notes to Pharmacist: alternating 100 mcg and 88mcgHydroxocobalamin , Notes to Pharmacist: *Please review and pick correct strength-formulation from Medispan options. If intended option is not shown, discontinue and re-order from Quick Search* *Pick strength-form from Medispan for eRX*Pepcid , Notes to Pharmacist: *Please review and pick correct strength-formulation from Medispan options. If intended option is not shown, discontinue and re-order from Quick Search* *Pick strength-form from Medispan for eRX*Potassium Citrate , Notes to Pharmacist: *Please review and pick correct strength-formulation from Medispan options. If intended option is not shown, discontinue and re-order from Quick Search* *Pick strength-form from Medispan for eRX*ZINC [facility] , Notes to Pharmacist: *Please review for potential replacement for e-prescription and drug interaction check* *Reorder from Medispan for eRx and Interaction Alerts*Vitamin D3 , Notes to Pharmacist: *Please review and pick correct strength-formulation from Medispan options. If intended option is not shown, discontinue and re-order from Quick Search* *Pick strength-form from Medispan for eRX*magnesium amino acids chelate , Notes to Pharmacist: *Please review for potential replacement for e-prescription and drug interaction check* *Reorder from Medispan for eRx and Interaction Alerts*ZyrTEC , Notes to Pharmacist: *Please review and pick correct strength-formulation from Medispan options. If intended option is not shown, discontinue and re-order from Quick Search* *Pick strength-form from Medispan for eRX*Metoprolol Succinate ER 25 MG CAPSULE, EXTENDED RELEASE 1 TAB(S) ORALLY ONCE A DAY , Notes to Pharmacist: *Please review and pick correct strength-formulation from Medispan options. If intended option is not shown, discontinue and re-order from Quick Search* *Pick strength-form from Medispan for eRX*Taking Synthroid 100 MCG Tablet 1 tab(s) orally once a day , Notes to Pharmacist: alternating 100 mcg and 88mcgTaking Hydroxocobalamin , Notes to Pharmacist: *Please review and pick correct strength-formulation from Medispan options. If intended option is not shown, discontinue and re-order from Quick Search* *Pick strength-form from Medispan for eRX*Taking Pepcid , Notes to Pharmacist: *Please review and pick correct strength-formulation from Medispan options. If intended option is not shown, discontinue and re-order from Quick Search* *Pick strength-form from Medispan for eRX*Taking Potassium Citrate , Notes to Pharmacist: *Please review and pick correct strength-formulation from Medispan options. If intended option is not shown, discontinue and re-order from Quick Search* *Pick strength-form from Medispan for eRX*Taking ZINC [facility] , Notes to Pharmacist: *Please review for potential replacement for e-prescription and drug interaction check* *Reorder from Medispan for eRx and Interaction Alerts*Taking Vitamin D3 , Notes to Pharmacist: *Please review and pick correct strength-formulation from Medispan options. If intended option is not shown, discontinue and re-order from Quick Search* *Pick strength-form from Medispan for eRX*Taking magnesium amino acids chelate , Notes to Pharmacist: *Please review for potential replacement for e-prescription and drug interaction check* *Reorder from Medispan for eRx and Interaction Alerts*Taking ZyrTEC , Notes to Pharmacist: *Please review and pick correct strength-formulation from Medispan options. If intended option is not shown, discontinue and re-order from Quick Search* *Pick strength-form from Medispan for eRX*Taking Metoprolol Succinate ER 25 MG CAPSULE, EXTENDED RELEASE 1 TAB(S) ORALLY ONCE A DAY , Notes to Pharmacist: *Please review and pick correct strength-formulation from fos4Xan options. If intended option is not shown, discontinue and re-order from Quick Search* *Pick strength- form from fos4Xan for eRX* * Allergies: S ulfamethoxazole-TrimethoprimAugmentin Plan: * Treatment: * Electronic signature of Aida chavis Migration on 01/07/2025 at 09:16 AM CITY DESIGNER Sign off status: Pending * Provider: Omar sanchez Migration Date: 03/02/2023 Generated for Santos meneses/Kike/Ubaldoitting on: 03/09/2024 09:16 AM CITY DESIGNER
--- OUTSIDE RECORDS SUMMARY | 2024-12-27 07:19 | XMS_ITS | Continuity of Care Document ---
Author Organization [facility] Address [address] [place] [phone] Phone Care Team Providers Care Record Center Specialist Name Role Phone Maximino RED, FAC, [place] Unavailable Unavailab le Allergies, Adverse Reactions, Alerts Substance Reaction Status Criticality MOXIFLOXACIN HCL Active No Informat ion POTASSIUM CLAVULANATE Active No Inf ormation AMOXICILLIN TRIHYDRATE Active No In formation Sulfa (Sulfonamide Antibiotics) Active No Information Medications Medication Instructions Dosage Effective Dates (start - stop) Status Comments Synthroid 88 mcg tablet take 1 tablet by oral route every day 88 MCG - Active Synthroid 100 mcg tablet take 1 tablet by oral route every day 100 MCG - Active Pepcid 40 mg tablet take 1 tablet by ora l route every day at bedtime 40 MG - Active rosuvastatin 5 mg tablet take 1 tablet by oral route every evening - Active omeprazole 40 mg capsule,delayed release - Active metoprolol succinate ER 25 mg tablet,extended release 24 hr TAKE 1 TABLET BY MOUTH DAILY - Active Procedures Procedure Date Complex e/m visit add on OFFICE/OUTPATIENT VISIT, EST Advance Directives Directive Yes / No Effective Date File Name No Information Encounters Encounter Description Practice Location Reason(s) For Visit Diagnoses Date Provider Providers Copied on Encounter [facility], [address] [place], [place], [id number] , tel: [phone] [facility] [place] No Information Maximino Burris. [address] [place], [place], [id number] , . tel: [phone] OFFICE/OUTPA TIENT VISIT, EST [facility] , [address] [place] [address], [id number] , tel: [phone] [facility] Follow Up of cardiology exam (chief complaint)F requent SOB (chief complaint) Atrial flutterChest painIntraductal carcinoma in situ of breastHypothyroidism , unspecifiedHyperlipi demiaSleep apneaPalpitationsPVC sSVTDyspnea 5 Maximino Burris. [facility] [address] [place], [place], [id number] , . tel: [phone] Referring Provider: [place] Stanton, [address] , [place], [address] . tel:[phone] [facility] , [address] [place] [address], [id number] , tel: [phone] [facility] No Information Maximino Burris. [address] [place] [address], [id number] , . tel: [phone] Family History Family Member Type Diagnosis Age At Onset No Information Payers Payer name Insurance type Covered green party ID [employer] ind[employer](s) [employer] CI [id number] Social History Type Description Quantity Date Captured Comments Sex Female Smoking Status No Information Chief Complaint And Reason For Visit No Information Reason For Referral Reason For Referral No Information Plan Of Treatment Date Type Action Status Appointment Ira Virk MOM To Rs Appt To 01/10 Instead BOOKED Appointment Ira Virk BOOKED Future Order: Radiology Order SP ECT/Treadmill ([id number]), Ordered on: Ordered Future Order: Radiology Order Ec ho. ([id number]), Ordered on: Ordered Future Order: Radiology Order Ro utine Treadmill ([id number]), Ordered on: Ordered History Of Present Illness Encounter Date Complaint History Of Prese nt Illness Follow Up of cardiology exam Frequent SOB Functional Status Date Functional Assessmen t No Information Instructions Date Instruction Additional Infor mation No Information Assessments Type Assessment Date No Information Patient Care Teams Name Effective Dates (start - stop) Status Members No Information
--- NOTE | ~2025-01-07 | XR_ITS ---
Examination: XR chest 1V portable Clinical History: SOB Comparison: 03/10/2022 Technique: Portable AP Findings: Heart size normal. Lungs clear. No acute bony abnormality. IMPRESSION: 1. No acute cardiopulmonary findings given portable technique. Reviewed, dictated and finalized at location R. ATIENT FACILITY PHYSICAL THERAPIST
[2025-01-07 08:42] VITALS: BP 124/81; PULSE 87; RESP 18; TEMP 36.6; O2SAT 98
--- NOTE | 2025-01-07 08:55 | ECG_ITS ---
Test Date: 2025-01-07 08:57:33 Measurements Intervals Union Rate: 80 P: 25 NC: 120 QRS: -1 QRSD: 86 T: 190 QT: 365 QTc: 423 Interpretive Statements SINUS RHYTHM INFERIOR MYOCARDIAL INFARCTION , OF INDETERMINATE AGE [40+ ms Q WAVE AND/OR ST/T ABNORMALITY IN II/aVF] No previous ECG available for comparison Electronically Signed On 01-07-2025 11:09:54 RECONDITIONER by Abdiel Ulrich M.D.
[2025-01-07 09:12] LABS: INR 0.9; Prothrombin Time 12.1 Seconds (11.1-14.7)
[2025-01-07 09:13] LABS: Alanine Aminotransferase 49 U/L (6-35); Albumin Level 4.7 g/dL (3.5-5.1); Alkaline Phosphatase 54 U/L (38-126); Anion Gap 11 mmol/L (4-12); Aspartate Amino Transferase 41 U/L (14-36); Bilirubin,Total 0.4 mg/dL (0.2-1.3); Blood Urea Nitrogen 18 mg/dL (7-17); Calcium 9.3 mg/dL (8.4-10.2); Carbon Dioxide 23 mmol/L (22-30); Chloride 105 mmol/L (98-107); Estimated CRCL calculation 65 ml/min; Estimated Glomerular Filt Rate 60; Glucose 176 mg/dL (65-110); Partial Thromboplastin Time 26.6 Seconds (22.3-36.8); Potassium 4.2 mmol/L (3.4-5.0); Sodium 139 mmol/L (137-145); Total Protein 8.1 g/dL (6.3-8.2)
[2025-01-07 09:14] LABS: Hematocrit 40.1 % (37.0-47.0); Hemoglobin 13.2 g/dL (12.0-15.0); Immature Granulocyte Percent A 0.3 % (0-0.5); Lymphocytes Absolute Auto 2.26 K/mm3 (0.9-3.2); Mean Corpuscular HGB Conc 32.9 g/dl (32-36); Mean Corpuscular Hemoglobin 31.4 pg (26-34); Mean Corpuscular Volume 95.5 fl (80-100); Nucleated Red Blood Cells Absolute Auto 0.000 K/mm3 (0.0-0.012); Nucleated Red Blood Cells Perc 0.0 % (0.0-0.2); Platelet Count Result 317 k/mm3 (150-375); Red Blood Count 4.20 M/mm3 (4.2-5.4); White Blood Count 6.1 K/mm3 (4.5-10.0)
--- OUTSIDE RECORDS SUMMARY | 2025-01-07 09:16 | XMS_ITS | Clinical Summary ---
Author Organization [facility] Address [address] [place] [address] Care Team Providers Care Motorcycle Sales Associate Name Role Phone Unavailable Primary Care Provider Unavailabl e Source Comments [facility],non-owned Affiliates and Associated Physician Practices is amultiple site organization consisting of ambulatory clinics and hospital sitesin [place], [place], [place] and [place]. This disclosure is being madepursuant to the Care Everywhere program and may not contain all information available regarding this patient. 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 Gender Identity Not on file Sexual Orientation [...] of 3 - 19+ 3-dose series) 1985 Cervical Cancer Screening 1987 PAP SMEAR 1987 PAP with HPV 1996 PNEUMOCOCCAL VACCINE 50+ (1 of 1 - PCV) 2016 ZOSTER VACCINE (1 of 2) 2016 DEPRESSION SCREENING 02/16/2024 COVID-19 VACCINE (2024-2 6 season) 2024 INFLUENZA VACCINE (#1) 2024 HIB [...] patient's age to complete this topic Insurance [facility] [employer] SELF PAY NO INSURANCE Member Subscriber Plan / Payer (Ef fective for All Dates) Name:Ira Johnson Member ID:Not on file Relation to Subscriber:Not on file Name:IRA JOHNSON Subscriber ID:Not on file (Home) Address: [place] [address] Payer ID:Not on file Group ID:Not on file Type:Self Pay Address: [place], [place]
--- OUTSIDE RECORDS SUMMARY | 2025-01-07 09:16 | XMS_ITS | Patient Health Record ---
Author Organization [facility] Address [address] [place] [address] Care Team Providers Care Director Of Medical Review Name Role Phone Kali Mel Primary Care Provider [phone] Jessi Moon-Angelina Unavailable [phone] Allergies Allergen (clinical drug ingredient) Drug/Non Drug Allergy documented on EMR Reaction Allergy Type Onset Date Status amoxicillin / clavulanate Augmentin Unknown Drug Allergy Active sulfamethoxazole / trimethoprim Sulfamethoxazole-Tr imethoprim Unknown Drug Allergy Active Results Component Value Reference Range Flag Notes CORTISOL, FREE, 24 HOUR URIN E (27518) Reviewed date:05/06/2024 09:26:41 PM Interpretation: Performing Lab:Amos LACY/Tc [facility],[address] [address] [facility] HospitalCA[address] Evon Dodge MD,PhD,BRENDA Notes/Report: SPLIT 04/25/2024 FROM [id number] COLLECTION KIT GIVEN TO PATIENT. PATIENT ADVISED TO RETURN. URINE VOLUME: 2000 TOTAL VOLUME 2000 CORTISOL, FREE, URINE 32.8 4.0-50.0 mcg/24 h CORTISOL, FREE, URINE 34.1 Reference Range: ADULTS: 3.1-42.3 CREATININE, URINE 0.96 0.50-2.15 g/24 h used for clinical purposes. It has not been cleared or approved by the FDA. This assay This test was developed and its analytical performance has been validated pursuant to the CLIA regulations and is characteristics have been determined by [facility]. .COMPREHENSIVE METABOLIC CARNEY EL (76323) [facility] Reviewed date:04/26/2024 11:39:11 AM Interpretation: Performing Lab:Amos THAYER-Edjfey13095 Carlos Del RealaKS[address] Emmy Loomis MD Notes/Report: COLLECTION KIT GIVEN TO PATIENT. PATIENT ADVISED TO RETURN. URINE VOLUME: 2000 GLUCOSE 102 65-99 mg/dL H between 100 and 125 mg/dL is consistent with Fasting reference interval prediabetes and should be confirmed with a For someone without known diabetes, a glucose value follow-up test. UREA NITROGEN (BUN) 15 7-25 mg/dL N CREATININE 0.76 0.50-1.03 mg/dL N EGFR 91 > OR = 60 mL/min/1.73m2 N BUN/CREATININE RATIO SEE NOTE: 6-22 (calc) reference range. Not Reported: BUN and Creatinine are within SODIUM 138 135-146 mmol/L N POTASSIUM 4.5 [...] U/L N ALT 47 6-29 U/L H DHEA SULFATE (402) Reviewed date:04/26/2024 11:39:20 AM Interpretation: Performing Lab:Amos THAYER-Empfru29544 Starr [facility], MnmtbsZK[address] Emmy Loomis MD Notes/Report: COLLECTION KIT GIVEN TO PATIENT. PATIENT ADVISED TO RETURN. URINE VOLUME: 1999 DHEA SULFATE 53 5-167 mcg/dL N ACTH, PLASMA (211) Reviewed date:04/30/2024 12:20:48 PM Interpretation: Performing Lab:Amos WHITING/Tc [place] [id number] [facility] , DvistybhvJR[address] Mike Atkinson M.D.,PhD Notes/Report: COLLECTION KIT GIVEN TO PATIENT. PATIENT ADVISED TO RETURN. URINE VOLUME: 2000 ACTH, PLASMA 10 6-50 pg/mL Reference range applies only to specimens collected between 7am-10am. INSULIN (561) Reviewed date:06/26/2024 07:48:42 AM Interpretation: Performing Lab:Amos THAYERa10101 Carlos Del RealaKS[address] Emmy Loomis MD Notes/Report: INSULIN 10.7 N in 2021. studies performed at [facility] Reference Range < or = 18.4 Risk: Optimal < or = 18.4 are based on Insulin Reference Interval cut points (optimal, moderate, high) Moderate NA High >18.4 Adult cardiovascular event risk category T4, FREE (866) Reviewed date:06/26/2024 07:49:05 AM Interpretation: Performing Lab:[email or web address] [id number] Administration Barb Medeiros [place] [address] [facility] [place] Notes/Report: T4, FREE 1.5 0.8-1.8 ng/dL N TSH (899) Reviewed date:07/02/2024 05:17:58 PM Interpretation: Performing Lab:[email or web address] [id number] Administration Barb Medeiros [address] [place] Notes/Report: TSH 0.53 0.40-4.50 mIU/L N T3, FREE ([id number]) Reviewed date:06/26/2024 07:48:54 AM Interpretation: Performing Lab:Amos THAYER-Kqvcwc52227 Sukhdeep Del RealQzgyjlOM[address] Emmy Loomis MD Notes/Report: T3, FREE 3.1 2.3-4.2 pg/mL N CORTISOL, LC/MS, SALIVA, 2 S AMPLES (31334) Reviewed date:05/13/2024 09:07:55 PM Interpretation: Performing Lab:[facility]os LACY[facility] Fort[address] Ponce Avinashrita PulidoDpltksuezfFG[address] Evon Dodge MD,PhD,BRENDA Notes/Report: SPLIT 04/28/2024 FROM [id number] DRAW DATE 1 05/01/2024 DRAW TIME 1 12:00 AM CORTISOL, SALIVA SAMPLE 1 <0.03 10 PM-1 AM: < OR = 0.09 mcg/dL noon-2 PM: < OR = 0.21 mcg/dL 8-10 AM: 0.04-0.56 mcg/dL used for clinical purposes. 4-6 PM: < OR = 0.15 mcg/dL has been validated pursuant to the CLIA regulations and is This test was developed and its analytical performance It has not been cleared or approved by the FDA. This assay characteristics have been determined by [facility]. DRAW DATE 2 05/02/2024 DRAW TIME 2 12:00 AM CORTISOL, SALIVA SAMPLE 2 <0.03 10 PM-1 AM: < OR = 0.09 mcg/dL 8-10 AM: 0.04-0.56 mcg/dL has been validated pursuant to the CLIA regulations and is noon-2 PM: < OR = 0.21 mcg/dL used for clinical purposes. characteristics have been determined by [facility]. This test was developed and its analytical performance 4-6 PM: < OR = 0.15 mcg/dL It has not been cleared or approved by the FDA. This assay CORTISOL, TOTAL (367) Reviewed date:05/30/2024 03:40:32 PM Interpretation: Performing Lab:Amos THAYER-Ydakmr35488 Starr Hidalgo, BjjlamRT[address] Emmy Loomis MD Notes/Report: FASTING: YES FASTING:YES CORTISOL, TOTAL 1.0 L Reference Range: For 8 a.m.(7-9 a.m.) Specimen: 4.0-22.0 * Please interpret above results accordingly * Reference Range: For 4 p.m.(3-5 p.m.) Specimen: 3.0-17.0 DEXAMETHASONE (88822) Reviewed date:06/10/2024 09:51:18 PM Interpretation: Performing Lab:Amos LACY[facility],[address] Fort[address] [facility] [place] WrvsthkpndTK[address] Evon Dodge MD,PhD,BRENDA Notes/Report: FASTING: YES FASTING:YES DEXAMETHASONE 341 used for clinical purposes. Baseline: Less than 20 ng/dL characteristics have been determined by [facility]. Reference Ranges for Dexamethasone: 1 mg dexamethasone overnight: 180-550 ng/dL (8:00-10:00 AM) This test was developed and its analytical performance has been validated pursuant to the CLIA regulations and is It has not been cleared or approved by the FDA. This assay .COMPREHENSIVE METABOLIC CARNEY EL (71674) [facility] Reviewed date:06/26/2024 07:48:18 AM Interpretation: Performing Lab:ANNA [facility] [id number] Administration Barb Medeiros EwknyyvKF[address] MaameLaura Erickson Notes/Report: GLUCOSE 95 65-99 mg/dL N Fasting reference interval UREA NITROGEN (BUN) 20 7-25 mg/dL N CREATININE 0.82 0.50-1.03 mg/dL N EGFR 83 > OR = 60 mL/min/1.73m2 N BUN/CREATININE RATIO SEE NOTE: 6-22 (calc) reference range. Not Reported: BUN and Creatinine are within SODIUM 135 135-146 mmol/L N POTASSIUM 4.2 [...] U/L N ALT 37 6-29 U/L H .LIPID PANEL, STANDARD (7600 ) Reviewed date:06/26/2024 07:48:11 AM Interpretation: Performing Lab:ANNA [place] [address] Administration Barb Medeiros HykpgvqLX[address] [facility] Notes/Report: CHOLESTEROL, TOTAL 201 <200 mg/dL H HDL CHOLESTEROL 66 > OR = 50 mg/dL N TRIGLYCERIDES 80 <150 mg/dL N LDL-CHOLESTEROL 118 H Desirable range <100 mg/dL for primary prevention; calculation, which is a validated novel method providing estimation of LDL-C. <70 mg/dL for patients with CHD or diabetic patients with > or = 2 CHD risk factors. Derick SS et al. JESSE. 2013;310(87): 1910-6100 LDL-C is now calculated using the [facility] (http://education.[facility].com/faq/FAQ 164) better accuracy than the Friedewald equation in the Reference range: <100 CHOL/HDLC RATIO 3.0 <5.0 (calc) N NON HDL CHOLESTEROL 135 <130 mg/dL (calc) H option. (LDL-C of <70 mg/dL) is considered a therapeutic factor, treating to a non-HDL-C goal of <100 mg/dL For patients with diabetes plus 1 major ASCVD risk .HEMOGLOBIN A1c (496) Reviewed date:06/26/2024 07:47:12 AM Interpretation: Performing Lab:ANNA [place] [address] [address] Barb Medeiros [place] [address] Emmy Loomis Notes/Report: HEMOGLOBIN A1c 5.9 <5.7 % of total Hgb H targets should be individualized based on duration of hemoglobin A1c for diagnosis of diabetes for children. A1c value between 5.7% and 6.4% is consistent with indicates that their diabetes is well controlled. A1c of diabetes. follow-up test. considerations. Currently, no consensus exists regarding use of This assay result is consistent with an increased risk diabetes, age, comorbid conditions, and other For someone without known diabetes, a hemoglobin For someone with known diabetes, a value <7% prediabetes and should be confirmed with a .HEMOGLOBIN A1c (496) Reviewed date:11/27/2024 07:08:02 PM Interpretation: Performing Lab:ANNA [place] [address] Administration Barb Medeiros AmhnnwaIX[address] Emmy Loomis Notes/Report: FASTING: YES FASTING:YES HEMOGLOBIN A1c 5.8 <5.7 % of total Hgb H considerations. follow-up test. of diabetes. For someone without known diabetes, a hemoglobin This assay result is consistent with an increased risk A1c value between 5.7% and 6.4% is consistent with hemoglobin A1c for diagnosis of diabetes for children. indicates that their diabetes is well controlled. A1c targets should be individualized based on duration of For someone with known diabetes, a value <7% diabetes, age, comorbid conditions, and other prediabetes and should be confirmed with a Currently, no consensus exists regarding use of INSULIN (561) Reviewed date:11/28/2024 08:10:38 AM Interpretation: Performing Lab:FLACA [facility]-Qgsqez59734 Starr Hidalgo, FxjqybAJ[address] Emmy Loomis MD Notes/Report: FASTING:YES FASTING: YES INSULIN 11.0 N Risk: studies performed at [facility] Reference Range < or = 18.4 Adult cardiovascular event risk category High >18.4 Optimal < or = 18.4 in 2021. cut points (optimal, moderate, high) Moderate NA are based on Insulin Reference Interval T4, FREE (866) Reviewed date:11/28/2024 08:10:38 AM Interpretation: Performing Lab:ANNA [place] [address] Administration Barb Medeiros [address] Notes/Report: FASTING:YES FASTING: YES T4, FREE 1.1 0.8-1.8 ng/dL N TSH (899) Reviewed date:11/28/2024 08:10:38 AM Interpretation: Performing Lab:ANNA [place] [address] Administration Barb Medeiros [address] [place] Notes/Report: FASTING: YES FASTING:YES TSH 1.59 0.40-4.50 mIU/L N T3, FREE (88832) Reviewed date:11/28/2024 08:10:38 AM Interpretation: Performing Lab:Amos THAYER-Bryant Hidalgo, QnkobzNR[address] Emmy Loomis MD Notes/Report: FASTING:YES FASTING: YES T3, FREE 2.4 2.3-4.2 pg/mL N .VITAMIN D,25-OH,TOTAL,IA (1 7314) Reviewed date:11/28/2024 08:10:38 AM Interpretation: Performing Lab:Amos THAYER-Znnuyq62980 Starr Hidalgo, ZsurpoJZ[address] Emmy Loomis MD Notes/Report: FASTING:YES FASTING: YES VITAMIN D,25-OH,TOTAL,IA 52 30-100 ng/mL N Insufficiency: 20 - 29 ng/mL 25-OH VIT D, (D2,D3), LC/MS/MS is recommended: order (This link is being provided for informational/ For 25-OH Vitamin D testing on patients on See Note 1 Optimal: > or = 30 ng/mL Vitamin D Status 25-OH Vitamin D: D2-supplementation and patients for whom quantitation For additional information, please refer to code 71315 (patients >2yrs). of D2 and D3 fractions is required, the [facility]) educational purposes only.) Note 1 Deficiency: <20 ng/mL http://education.Auspherix/faq/FAQ1 99 VITAMIN B6, PLASMA (926) Reviewed date:12/02/2024 02:15:30 PM Interpretation: Performing Lab:Z3E, [facility]-MmnScictg[address] [place] [address], [address], WbzkvlrikkEG[address] Blayne White MD,PhD Notes/Report: FASTING:YES FASTING: YES VITAMIN B6, PLASMA 37.6 2.1-21.7 ng/mL H [phone] [facility]. This assay has been validated pursuant to the [facility] [address] regulations and is used for clinical purposes. Diagnostics. It has not been cleared or approved by the (Note) This test was developed and its analytical performance [facility] Vitamin supplementation within 24 hours prior to blood [address] [place] [address],[address] characteristics have been determined by [facility] Blayne White MD, PhD MDF draw may affect the accuracy of results. PHOSPHOETHANOLAMINE (PEA), U RINE WITH CREATININE Reviewed date:12/03/2024 06:38:55 PM Interpretation: Performing Lab:EZ, [facility]/Tc [facility],[address] [facility]CA[address] Evon Dodge MD,PhD,BRENDA Notes/Report: FASTING: YES FASTING:YES PHOSPHOETHANOLAMINE (PEA), URINE 3 0.59-7.25 mmol/mol manager oracle database [facility], PLEASE CALL THE GENE INFO ext [phone] or ext [phone] AND ASK TO SPEAK WITH REGARDING THESE RESULTS, PLEASE CONTACT THE [facility] IF THE ORDERING/TREATING PHYSICIAN HAS ANY QUESTIONS THE EVALUATOR TRANSFER STUDENTS NEWS OPERATIONS MANAGER. FOR GENERAL QUESTIONS ABOUT DIAGNOSTICS BIOCHEMICAL GENETICS LABORATORY AT LINE AT [phone]. CREATININE, RANDOM URINE 7.13 1.77-23.31 mmol/L endocrine disorders and hypertension can also cause elevated inherited in either an autosomal dominant or autosomal Hypophosphatasia (HPP) is characterized by defective diagnosis of HPP, especially in patients with low alkaline used for clinical purposes. and joint pain, and/or premature loss of teeth. tissue-nonspecific isoenzyme alkaline phosphatase (TNSALP) function pathogenic variants in the ALPL gene encoding a manifestations. FDA-approved enzyme replacement therapy may HPP has a wide range of severity, with the most severe forms characterized by dental abnormalities without any skeletal Odontohypophosphatasia is the mildest form and is health and reduced fractures. urine PEA. It has not been cleared or approved by the FDA. This assay Several studies showed that elevated urine PEA is a specific improve overall outcomes such as quality of life, bone phosphatase, and to monitor enzyme replacement treatment. variant has on TNSALP activity. Phosphoethanolamine (PEA) is an amino acid and substrate to This test was developed and its analytical performance has been validated pursuant to the CLIA regulations and is that is essential for bone development. HPP is typically characteristics have been determined by [facility]. presenting in adulthood. Common signs include skeletal biomarker for HPP. However, other bone diseases, some recessive manner depending on the effect that the ALPL mineralization of bones and teeth. It is caused by loss of abnormalities, increased or recurrent bone fractures, bone presenting prenatally or in infancy and the mildest forms TNSALP. Therefore, PEA urinalysis is used to support a .CBC (INCLUDES DIFF/PLT) (63 99) Reviewed date:06/26/2024 07:48:36 AM Interpretation: Performing Lab:ANNA [facility] Center[facility]mc[facility] [place] [id number] [facility] Notes/Report: WHITE BLOOD CELL COUNT 5.3 3.8-10.8 Thousand/uL N RED BLOOD CELL COUNT 4.05 3.80-5.10 Million/uL N HEMOGLOBIN 12.8 11.7-15.5 g/dL N HEMATOCRIT 39.2 35.0-45.0 % N MCV 96.8 80.0-100.0 fL N MCH 31.6 27.0-33.0 pg N MCHC 32.7 32.0-36.0 g/dL N not clinically significant; however, it should be interpreted with caution in correlation with other red cell parameters and the patient's clinical condition. value (in the range of 30 to 32 g/dL) is most likely For adults, a slight decrease in the calculated MCHC RDW 12.7 11.0-15.0 % N PLATELET COUNT 302 140-400 Thousand/uL N MPV 10.6 7.5-12.5 fL N ABSOLUTE NEUTROPHILS 2247 2431-6332 cells/uL N ABSOLUTE LYMPHOCYTES 2311 850-3900 cells/uL N ABSOLUTE MONOCYTES 482 200-950 cells/uL N ABSOLUTE EOSINOPHILS 191 15-500 cells/uL N ABSOLUTE BASOPHILS 69 0-200 cells/uL N NEUTROPHILS 42.4 N LYMPHOCYTES 43.6 N MONOCYTES 9.1 N EOSINOPHILS 3.6 N BASOPHILS 1.3 N .COMPREHENSIVE METABOLIC CARNEY EL (45781) CMP Reviewed date:11/27/2024 07:08:02 PM Interpretation: Performing Lab:ANNA [facility] [place] [address] [address] Barb Medeiros BwovvqjLH[address] [facility] Notes/Report: FASTING:YES FASTING: YES GLUCOSE 94 65-99 mg/dL N Fasting refer ence interval UREA NITROGEN (BUN) 19 7-25 mg/dL N CREATININE 0.78 0.50-1.03 mg/dL N EGFR 88 > OR = 60 mL/min/1.73m2 N BUN/CREATININE RATIO SEE NOTE: 6-22 (calc) reference range. Not Reported: BUN and Creatinine are within SODIUM 140 135-146 mmol/L N POTASSIUM 4.4 [...] Reviewed date:11/27/2024 07:08:02 PM Interpretation: Performing Lab:ANNA [facility] [place] [address], [place] [address] [facility] Notes/Report: FASTING:YES FASTING: YES CHOLESTEROL, TOTAL 200 <200 mg/dL H HDL CHOLESTEROL 74 > OR = 50 mg/dL N TRIGLYCERIDES 89 <150 mg/dL N LDL-CHOLESTEROL 108 H LDL-C is now calculated using the [facility] Reference range: <100 calculation, which is a validated novel method providing Derick SS et al. JESSE. 2013;310(19): 8254-5066 Desirable range <100 mg/dL for primary prevention; with > or = 2 CHD risk factors. better accuracy than the Friedewald equation in the estimation of LDL-C. (http://education.C[employer] Code/faq/FAQ 164) <70 mg/dL for patients with CHD or diabetic patients CHOL/HDLC RATIO 2.7 <5.0 (calc) N NON HDL CHOLESTEROL 126 <130 mg/dL (calc) N (LDL-C of <70 mg/dL) is considered a therapeutic factor, treating to a non-HDL-C goal of <100 mg/dL option. For patients with diabetes plus 1 major ASCVD risk .CBC (INCLUDES DIFF/PLT) (63 99) Reviewed date:11/27/2024 07:08:02 PM Interpretation: Performing Lab: [facility] Center[facility]m[address] [place] [address] [facility] Notes/Report: FASTING:YES FASTING: YES WHITE BLOOD CELL COUNT 6.0 3.8-10.8 Thousand/uL N RED BLOOD CELL COUNT 4.09 3.80-5.10 Million/uL N HEMOGLOBIN 12.8 11.7-15.5 g/dL N HEMATOCRIT 40.7 35.0-45.0 % N MCV 99.5 80.0-100.0 fL N MCH 31.3 27.0-33.0 pg N MCHC 31.4 32.0-36.0 g/dL L interpreted with caution in correlation with other value (in the range of 30 to 32 g/dL) is most likely not clinically significant; however, it should be condition. For adults, a slight decrease in the calculated MCHC red cell parameters and the patient's clinical RDW 12.9 11.0-15.0 % N PLATELET COUNT 303 140-400 Thousand/uL N MPV 10.6 7.5-12.5 fL N ABSOLUTE NEUTROPHILS 2532 9186-8164 cells/uL N ABSOLUTE LYMPHOCYTES 2652 850-3900 cells/uL N ABSOLUTE MONOCYTES 474 200-950 cells/uL N ABSOLUTE EOSINOPHILS 240 15-500 cells/uL N ABSOLUTE BASOPHILS 102 0-200 cells/uL N NEUTROPHILS 42.2 N LYMPHOCYTES 44.2 N MONOCYTES 7.9 N EOSINOPHILS 4.0 N BASOPHILS 1.7 N Reason For Referral No Information Medications Medication SIG (Take, Route, Frequency, Duration) Notes Start Date End Date Status Vitamin D3 *Please review a nd pick correct strength-formulati on from [employer] options. If intended option is not shown, discontinue and re-order from Quick Search* *Pick strength-form from [employer] for eRX* Active ZINC [facility] *Please revie w for potential replacement for e-prescription and drug interaction check* *Reorder from [employer] for eRx and Interaction Alerts* Active ZyrTEC *Please review a nd pick correct strength-formulati on from [employer] options. If intended option is not shown, discontinue and re-order from Quick Search* *Pick strength-form from [employer] for eRX* Active magnesium amino acids chelate *Please review for potential replacement for e-prescription and drug interaction check* *Reorder from [employer] for eRx and Interaction Alerts* Active Hydroxocobalamin *Please review and pick correct strength-formulati on from [employer] options. If intended option is not shown, discontinue and re-order from Quick Search* *Pick strength-form from [employer] for eRX* Active Potassium Citrate *Please review and pick correct strength-formulati on from [employer] options. If intended option is not shown, discontinue and re-order from Quick Search* *Pick strength-form from [employer] for eRX* Active Pepcid *Please review a nd pick correct strength-formulati on from [employer] options. If intended option is not shown, discontinue and re-order from Quick Search* *Pick strength-form from [employer] for eRX* Active Synthroid 100 MCG Tablet 1 tab(s) orally once a day; Duration: 30 days alternating 100 mcg and 88mcg Active Cholecalciferol 1250 MCG CAPSULE 1 CAP(S) ORALLY ONCE A WEEK; Duration: 90 days *Please review and pick correct strength-formulati on from [employer] options. If intended option is not shown, discontinue and re-order from Quick Search* *Pick strength-form from [employer] for eRX* 10/22/2023 Active [place] Thyroid 15 MG Tablet 1 tablet on an empty stomach Orally once daily in afternoon; Duration: 30 days 12/21/2024 Active Metoprolol Succinate ER 25 MG CAPSULE, EXTENDED RELEASE 1 TAB(S) ORALLY ONCE A DAY *Please review and pick correct strength-formulati on from [employer] options. If intended option is not shown, discontinue and re-order from Quick Search* *Pick strength-form from [employer] for eRX* Active Vitamin D (Ergocalciferol) 1.25 MG (89781 UT) Capsule 1 cap(s) orally once a week; Duration: 90 days 10/22/2023 Active Synthroid 100 MCG Tablet 1 tab(s) orally once a day; Duration: 45 days 10/12/2023 Active Social History Social History Additional Details Category Social Info Options Details Migrated Social History Migrated Social History (Alcohol:):no (Recreational drug use:):no (Smoking:):no Section Notes: Non-Contributory Non-Contributory Problems Problem Type SNOMED Code ICD Code Onset Dates Problem Status W/U Status Risk Notes Problem Autoimmune thyroiditis (89635378) Autoimmune thyroiditis (E06.3) Active confirmed Problem Corticoadrenal insufficiency (317213910) Unspecified adrenocortical insufficiency (E27.40) Active confirmed Problem Disorder of adrenal gland (28066754) Disorder of adrenal gland, 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) Active confirmed Problem Vitamin D deficiency (61236009) Vitamin D deficiency, unspecified (E55.9) Active confirmed Problem Insomnia (065959035) Insomnia, unspecified (G47.00) Active confirmed Problem Ventricular premature depolarization (324470324) Ventricular premature depolarization (I49.3) Active confirmed Problem Body mass index 30+ - obesity (486333867) Body mass index [BMI] 30.0-30.9, adult (Z68.30) Active confirmed Problem Pulmonary nodule (711159232) Pulmonary nodule (R91.1) Active confirmed Problem 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 Bass [address] [place] [phone] 04/14/2024 Mel Bass Autoimmune thyroidit is E06.3 ; Insomnia, unspecified G47.00 ; Vitamin D deficiency, unspecified E55.9 ; Prediabetes R73.03 ; Dietary counseling and surveillance Z71.3 ; Body mass index [BMI] 30.0-30.9, adult Z68.30 and Obesity, class [address] Bass [address] [place] [phone] 06/09/2024 Mel Bass Autoimmune thyroidit is E06.3 ; Vitamin D deficiency, unspecified E55.9 ; Disorder of adrenal gland, unspecified E27.9 ; Impaired fasting glucose R73.01 and Abnormal weight gain R63.[address] Bass [address] [place] [phone] 11/21/2024 Mel Bass Vitamin D deficiency , unspecified E55.9 ; Hypothyroidism due to Ibrahima thyroiditis E06.3 ; Pulmonary nodule R91.1 ; Impaired fasting glucose R73.01 ; Low serum alkaline phosphatase R74.8 and Dietary counseling and surveillance Z71.[address] Bass [address] [place] [phone] 12/21/2024 Mel Bass Hypothyroidism due t o Ibrahima thyroiditis E06.3 ; Autoimmune thyroiditis E06.3 ; Other fatigue R53.83 and Dietary counseling and surveillance Z71.[address] [phone] 04/13/20[address] Bass [address] [place] [phone] 04/26/[address] Bass [address] [place] [phone] 05/18/2024 Mel Bass [address] [place] [phone] 11/16/2024 Mel Bass Assessments Encounter Date Diagnosis (ICD Code) Assessment Notes Treatment Notes Treatment Clinical Notes Section Notes 04/14/2024 Autoimmune thyroiditis (ICD-10 - E06.3) 04/14/2024 Insomnia, unspecified (ICD-10 - G47.00) 06/09/2024 Autoimmune thyroiditis (ICD-10 - E06.3) 06/09/2024 Vitamin D deficiency, unspecified (ICD-10 - E55.9) 11/21/2024 Vitamin D deficiency, unspecified (ICD-10 - E55.9) 11/21/2024 Hypothyroidism due to Ibrahima thyroiditis (ICD-10 - E06.3) 12/21/2024 Autoimmune thyroiditis (ICD-10 - E06.3) 12/21/2024 Hypothyroidism due to Ibrahima thyroiditis (ICD-10 - E06.3) 12/21/2024 Other fatigue (ICD-10 - R53.83) 11/21/2024 Pulmonary nodule (ICD-10 - R91.1) 06/09/2024 Disorder of adrenal gland, 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.9) 04/14/2024 Vitamin D deficiency, unspecified (ICD-10 - E55.9) 04/14/2024 Prediabetes (ICD-10 - R73.03) 06/09/2024 Impaired fasting glucose (ICD-10 - R73.01) 11/21/2024 Impaired fasting glucose (ICD-10 - R73.01) 06/09/2024 Abnormal weight gain (ICD-10 - R63.5) 11/21/2024 Low serum alkaline phosphatase (ICD-10 - R74.8) 12/21/2024 Dietary counseling and surveillance (ICD-10 - Z71.3) Spent 15 minutes preventative counseling patient on dietary recommendations and changes in setting of hyperglycemia- need to restrict refined sugars and processed foods and incorporate up to 150 minutes of moderate level activity weekly. 04/14/2024 Body mass index [BMI] 30.0-30.9, adult [...] minutes of moderate level activity weekly. 04/14/2024 Other Assessment and Plan: Suspected HypercortisolismPatient [...] procedures, referring and communicating with other health palliative care nurse practitioner, documenting clinical information in the electronic or [...] procedures, referring and communicating with other health palliative care nurse practitioner, documenting clinical information in the electronic or [...] and all questions were answered. 11/21/2024 Klaudia Roth presents for endocrinology follow-up with improved sleep [...] gastrointestinal upset when increasing vegetable intake including Donald sprouts and salads, leading to diarrhea and [...] procedures, referring and communicating with other health palliative care nurse practitioner, documenting clinical information in the electronic or other health record, independently interpreting results and communicating results to the patient/family/caregiver and care coordinating patient plan. Patient alert and oriented x 4 and aware of discussion noted above and in agreeance to plan in management of hypothyroidism, pulm nodule, impaired glucose, low alk phos/high B6 r/o HPP and fatigue. 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 Elevated vitamin [id number]: Patient has significantly elevated B6 levels despite not taking B6 supplements directly. The elevation is likely related to protein shakes and high-protein diet consumed over the past couple of years. Symptoms include tingling, arms falling asleep quickly, panic attacks, and anxiety, which may be attributable to B6 toxicity. Hypophosphatasia was considered as a potential cause of elevated B6, but urine PEA levels were only 3-4 (higher than positive threshold but not definitively positive), and patient lacks classic childhood presentation of severe bone loss, early tooth loss, or developmental delays that would support this diagnosis.Plan:- Recheck B6 levels in 3-6 months- Continue avoiding B6 supplements and reduce protein shake consumption- Monitor symptoms of B6 toxicity including neurological symptoms Ibrahima's thyroiditisAssessment: Patient has established Ibrahima's thyroiditis with current labs showing low T3 levels while T4 and TSH levels were discussed. Patient previously tried liothyronine which caused jitteriness. Currently on levothyroxine with alternating doses of 88 mcg and 100 mcg. T4 levels are on the lower end with optimal range being 1.2-1.4.Plan:- Consider [place] thyroid as alternative therapy, very low dose T3 in the afternoon at 15 mg in afternoon- Option to increase levothyroxine to 100 mcg daily instead of alternating- Patient expressed preference to continue current alternating 88/100 mcg regimen- Prescription for [place] thyroid to be sent to [facility] for patient consideration- Recheck thyroid function tests in 3-6 months Weight management considerationAssessment: Patient inquired about GLP-1 agonist therapy for potential weight loss and inflammation improvement. Patient has history of fatty liver disease evaluation showing stage 0 fibrosis on ultrasound. Does not currently meet insurance criteria for coverage (requires diabetes, sleep apnea, or fatty liver disease). Patient declined berberine due to plant reactions and expressed interest in researching GLP-1 options.Plan:- Discussed GLP-1 agonist options including tirzepatide and semaglutide- Compounded versions available at quarter to third of retail [place] ($1200/month)- Zepbound discussed for obstructive sleep apnea indication- Wegovy covered for cardiovascular or renal disease- Patient to consider options and insurance coverage Vitamin B12 deficiencyAssessment: Patient's B12 level is 432, reported as the lowest it has ever been. Patient previously tried B12 injections but discontinued due to concerns about blood clots and sensitivity to methylated forms causing insomnia and heart pounding. Patient is sensitive to methylated supplements. Homocysteine level is 12.Plan:- Starting low-dose B12 supplementation- Avoid methylated forms due to patient sensitivity- Recently restarted hydroxy B12 and B2- Monitor B12 levels at follow-up Spent 25 minutes preparing to see the patient (ex review of tests/chart), obtaining and / or reviewing separately obtained history, performing a medically appropriate examination and/or evaluation, counseling and educating the patient/family/caregiver, ordering medications, tests, or procedures, referring and communicating with other health palliative care nurse practitioner, documenting clinical information in the electronic or other health record, independently interpreting results and communicating results to the patient/family/caregiver and care coordinating patient plan. Patient alert and oriented x 4 and aware of discussion noted above and in agreeance to plan in management of hypothyroidism/autoimmune thyroiditis, B6 elevation, fatigue/inflammation and weight management. Plan Of Treatment Pending Test Test Name Order Date *CT ABDOMEN W/O CONTRAST 40021 5 VITAMIN D, 25-HYDROXY, LC/MS/MS 01/05/20 24 T3, FREE 01/05/2024 HEMOGLOBIN A1c 01/05/2024 T4, FREE 01/05/2024 TSH 01/05/2024 Ultrasound thyroid 08/26/2023 Insurance Providers Payer Name Payer Address Payer Phone Subscriber Number Group Number Insured Name Patient Relationship to Insured Coverage Start Date Coverage End Date [employer] [address] [place] [address] [phone] [id number] Ira Virk Self - patient is the insured Medical (General) History Medical History History ICD Code Hypothyroidism Hashimotos Fibromyaligia Sleep Apnea Chronic Fatigue Prediabetes MVP atrial flutter = Palpitations Surgical History Surgery Date(Month/Year) Breast Biopsy - left Laparoscopy Septo plasty - Right side of nose Implant Loop Recorder Hospitalization History Reason Date(Month/Year) pneumonia
--- OUTSIDE RECORDS SUMMARY | 2025-01-07 09:16 | XMS_ITS | Encounter Summary ---
Author Organization [facility] Address [address] [place] [id number] Care Team Providers Care Senior Care Assistant Name Role Phone Brandi Houston DO Primary Care Provider Andie Santoyo MD Primary Care Provider + Encounter Details Date Type Department Care Team (Late st Contact Info) Description 03/28/2024 [employer] Message Enc [facility] Multispecialty Care - [address] [place] [address] Brandi Houston, DO blood Sugar Social History [...] Sex Assigned at Female 04/18/2024 1:56 PM RADIO STATION OPERATOR Legal Sex Female 1:00 PM CDT Gender Identity Female 04/18/2024 1:56 PM RADIO STATION OPERATOR Sexual Orientation Not on file documented as of this encounter Plan of Treatment Not on file documented as of this encounter Visit Diagnoses Not on filedocumented in this encounter Additional Health Concerns Infection Onset Date Last Indicated Resolved Time Respiratory Rule Out 04/18/2024 04/18/2024 025 2:09 PM RADIO STATION OPERATOR Influenza - Seasonal 04/18/2024 04/18/2024 025 12:32 AM CDT Assessment Noted Time PHQ-9 Depression Total Score: 6 01/27/20 24 10:34 AM RADIO STATION OPERATOR documented as of this encounter Care Teams Senior Care Assistant Relationship Specialty Start Date End Date Brandi Houston DO PCP - General FAMILY PRACTICE 11/23/23 10/08/24 Andie Navarro MD [id number] [address] PCP - General FAMILY PRACTICE 10/09/24 documented as of this encounter
--- OUTSIDE RECORDS SUMMARY | 2025-01-07 09:16 | XMS_ITS | Data Portability ---
Author Organization [place] [facility] [employer], Main Office Address [address] [place] [address] Assessment No assessment recorded. Plan of Treatment Reminders Order Date Submit Date Provider Last Modified By Organization Details Last Modified Time Details Appointments None recorded. Lab vitamin B12 + folate, serum or blood 2022 023 Streemio [facility], [address], [address], 3 22:36:40 HbA1c (hemoglobin A1c), blood 2022 023 Streemio [facility], [address], [address], 3 22:36:42 insulin, serum 2022 023 Streemio [facility], [address], [address], 3 22:36:38 TSH, serum or plasma 2022 023 Streemio [facility], [address], [address], 3 22:36:40 T4, free, serum 2022 023 Streemio [facility], [address], [address], 3 22:36:39 T3, free, serum or plasma 2022 023 [facility], [address], [place], [address], 3 22:36:41 CMP, serum or plasma 2022 023 JESSI [facility], [address], [place], [address], 3 22:36:36 HbA1c (hemoglobin A1c), blood [address], [address] [place], [address], 3 13:06:41 CMP, serum or plasma 2022 023 [facility], [address] [place], [address], 3 12:01:25 insulin, serum [address], [address] [place], [address], 3 13:06:41 TSH, serum or plasma 2022 023 [facility], [address] [place], [address], 3 03:05:42 T4, free, serum 2022 023 [facility], [address] [place], [address], 3 03:05:41 T3, free, serum or plasma 2022 023 [facility], [address] [place], [address], 3 03:05:42 thyroid peroxidase (tpo) Ab, serum 2022 023 [facility], [address] [place], [address], 3 12:01:26 vitamin B12 + folate, serum or blood 2022 023 [facility], [address] [place], [address], 3 12:01:27 Referral None recorded. Procedures None recorded. Surgeries None recorded. Imaging None recorded. Medication Orders cyanocobala min (vit B-12) 1,000 mcg/mL injection solution 2022 023 CAYUTA [id number], [address] [place], [id number], 3 10:57:04 metformin ER 500 mg tablet,exte nded release 24 hr [address] [place] [address] [id number], [address] [place], [place], [id number], 3 10:33:35 Patient TargetsNo targets recorded. Patient InstructionsNo instructions recorded. Reason for Referral None Reported. Results Created Date Observation Date Name Description Value Unit Range Abnormal Flag Note LastModifiedBy Organization Detail LastModifiedTime 02/24/19 22 03/08/2021 HEMOG LOBIN A1C hemoglobin A1C 5.6 %_of_ total _HGB <5.7 normal Not Available [employer] [address] [address] [place], [address], 03/08/2021 17:43:18 02/24/19 22 03/08/2021 VITAM IN [...] /MS is recom phil d: order code 50334 (gisselle ents >2yrs ). See Note 1 Note 1 For addit ional infor suma craft e refer to http: //[facility] kelsey Taboria gnost ics.c om/fa q/FAQ 199 (This link is being provi ded for infor raymon morales/ educa stephani william purpo ses only. ) Not Available [facility] [address], [address], 03/08/2021 17:43:17 02/24/19 22 03/08/2021 T3, FREE T3, free 2.8 pg/mL 2.3-4. 2 normal Not Available [facility] [address], [address], 03/08/2021 17:43:16 02/24/1903/08/2021 TSH TSH 2.62 mIU/L normal Refer ence Range > or = 20 Years 0.40- 4.50 Pregn priscilla Range s First trime ster 0.26- 2.66 Secon d trime ster 0.55- 2.73 Third trime ster 0.43- 2.91 Not Available [facility] [address], [address], 03/08/2021 17:43:15 02/24/1903/08/2021 T4, FREE T4, free 1.2 NG/dL 0.8-1. 8 normal Not Available [facility] [address], [address], 03/08/2021 17:43:15 02/24/19 22 03/08/2021 INSUL IN, [...] resul ts accor dingl y. Not Available [address] [address] [place], [address], 03/08/2021 17:43:14 02/24/19 22 03/08/2021 COMPR EHENS GEOFF METAB OLIC PANEL glucose 96 mg/dL 65-99 normal Fasti ng refer ence inter ray Not Available [address] [address] [place], [address], 03/08/2021 17:43:14 02/24/19 22 03/08/2021 COMPR EHENS GEOFF METAB OLIC PANEL urea nitrogen (BUN) 21 mg/dL 7-25 normal Not Available [address] [address] [place], [address], 03/08/2021 17:43:14 02/24/19 22 03/08/2021 COMPR EHENS GEOFF METAB OLIC PANEL creatinine 0.76 mg/dL 0.50-1 .05 normal For patie nts >49 years of age, the refer ence limit for Creat inine is appro ximat valeriy 13% highe r for peopl e ident ified as Afric an-Am luanne n. Not Available [address] [address] [place], [address], 03/08/2021 17:43:14 02/24/19 22 03/08/2021 COMPR EHENS GEOFF METAB OLIC PANEL eGFR non-afr. spanish 89 mL/mi n/1.7 3m2 > or = 60 normal Not Available [address] [address] [place], [address], 03/08/2021 17:43:14 02/24/19 22 03/08/2021 COMPR EHENS GEOFF METAB OLIC PANEL eGFR 103 mL/mi n/1.7 3m2 > or = 60 normal Not Available [address] [place], [address], 03/08/2021 17:43:14 02/24/19 22 03/08/2021 COMPR EHENS GEOFF METAB OLIC PANEL BUN/creatini ne ratio not applic able (calc ) 6-22 Not Available [address], [address], 03/08/2021 17:43:14 02/24/19 22 03/08/2021 COMPR EHENS GEOFF METAB OLIC PANEL sodium 139 mmol/ L 135-14 6 normal Not Available [address], [address], 03/08/2021 17:43:14 02/24/19 22 03/08/2021 COMPR EHENS GEOFF METAB OLIC PANEL potassium 4.4 mmol/ L 3.5-5. 3 normal Not Available [address] [address] [place], [address], 03/08/2021 17:43:14 02/24/19 22 03/08/2021 COMPR EHENS GEOFF METAB OLIC PANEL chloride 103 mmol/ L 98-110 normal Not Available [address] [address] [place], [address], 03/08/2021 17:43:14 02/24/19 22 03/08/2021 COMPR EHENS GEOFF METAB OLIC PANEL carbon dioxide 28 mmol/ L 20-32 normal Not Available [address] [address] [place], [address], 03/08/2021 17:43:14 02/24/19 22 03/08/2021 COMPR EHENS GEOFF METAB OLIC PANEL calcium 9.4 mg/dL 8.6-10 .4 normal Not Available [address] [address] [place], [address], 03/08/2021 17:43:14 02/24/19 22 03/08/2021 COMPR EHENS GEOFF METAB OLIC PANEL protein, total 7.3 g/dL 6.1-8. 1 normal Not Available [address], [address], 03/08/2021 17:43:14 02/24/19 22 03/08/2021 COMPR EHENS GEOFF METAB OLIC PANEL albumin 4.6 g/dL 3.6-5. 1 normal Not Available [address] [address] [place], [address], 03/08/2021 17:43:14 02/24/1903/08/2021 COMPR EHENS GEOFF METAB OLIC PANEL globulin 2.7 g/dL_ (calc ) 1.9-3. 7 normal Not Available [address], [address], 03/08/2021 17:43:14 02/24/19 22 03/08/2021 COMPR EHENS GEOFF METAB OLIC PANEL albumin/glob ulin ratio 1.7 (calc ) 1.0-2. 5 normal Not Available [address], [address], 03/08/2021 17:43:14 02/24/19 22 03/08/2021 COMPR EHENS GEOFF METAB OLIC PANEL bilirubin, total 0.5 mg/dL 0.2-1. 2 normal Not Available [address] [place], [address], 03/08/2021 17:43:14 02/24/19 22 03/08/2021 COMPR EHENS GEOFF METAB OLIC PANEL alkaline phosphatase 54 U/L 37-153 normal Not Available [address] [address] [place], [address], 03/08/2021 17:43:14 02/24/19 22 03/08/2021 COMPR EHENS GEOFF METAB OLIC PANEL AST 20 U/L 10-35 normal Not Available [address], [address], 03/08/2021 17:43:14 02/24/19 22 03/08/2021 COMPR EHENS GEOFF METAB OLIC PANEL ALT 24 U/L 6-29 normal Not Available [address], [address], 03/08/2021 17:43:14 02/24/19 22 03/08/2021 LIPID PANEL , STAND ORTEGA cholesterol, total 208 mg/dL <200 high Not Available [address], [address], 03/08/2021 17:43:13 02/24/19 22 03/08/2021 LIPID PANEL , STAND ORTEGA HDL cholesterol 72 mg/dL > or = 50 normal Not Available [address], [address], 03/08/2021 17:43:13 02/24/19 22 03/08/2021 LIPID PANEL , STAND ORTEGA triglyceride s 96 mg/dL <150 normal Not Available [address], [address], 03/08/2021 17:43:13 02/24/1903/08/2021 LIPID PANEL , STAND [...] 2061- 2067 (http ://ed ucati on[employer]. com/f aq/FA Q164) Not Available [facility] [address] [address] , [place], [address], 03/08/2021 17:43:13 02/24/19 22 03/08/2021 LIPID PANEL , STAND ORTEGA chol/HDLC ratio 2.9 (calc ) <5.0 normal Not Available [facility] [address] [address], [place], [address], 03/08/2021 17:43:13 02/24/19 22 03/08/2021 LIPID PANEL , STAND [place]TE[place] non HDL cholesterol 136 mg/dL _(gracie c) <130 high For patie nts with diabe kelsey plus 1 major ASCVD risk facto r, treat ing to a non-H DL-C goal of <100 mg/dL (LDL- C of <70 mg/dL ) is consi nafisa a thera pecaroline c optio n. Not Available [facility] [address] [address] , [place], [address], 03/08/2021 17:43:13 04/16/1904/16/2021 VITAM IN D,25- [place],TO [...] /MS is recom phil d: order code 39832 (gisselle ents >2yrs ). See Note 1 Note 1 For addit ional infor suma craft refer to http: //[facility] kelsey dc ics.c om/fa q/FAQ 199 (This link is being provi ded for infor raymon morales/ gunner reyeso ses only. ) Not Available [address] [place], [address], 04/16/2021 04:11:28 04/16/19 22 04/16/2021 T3, FREE T3, free 3.1 pg/mL 2.3-4. 2 normal Not Available [address], [address], 04/16/2021 04:11:27 04/16/1904/16/2021 VITAM IN B12/F OLATE , SERUM PANEL vitamin B12 735 pg/mL 200-11 00 normal Not Available [address], [address], 04/16/2021 04:11:27 04/16/19 22 04/16/2021 VITAM IN B12/F OLATE , SERUM PANEL folate, serum 13.9 NG/mL normal Refer ence Range Low: <3.4 Borde rline : 3.4-5 .4 Kalie l: >5.4 Not Available [address], [address], 04/16/2021 04:11:27 04/16/1904/16/2021 TSH TSH 0.20 mIU/L low Refer ence Range > or = 20 Years 0.40- 4.50 Pregn priscilla Range s First trime ster 0.26- 2.66 Secon d trime ster 0.55- 2.73 Third trime ster 0.43- 2.91 Not Available [address], [address], 04/16/2021 04:11:26 04/16/19 22 04/16/2021 T4, FREE T4, free 1.4 NG/dL 0.8-1. 8 normal Not Available [facility] [place] [address] [place], [address], 04/16/2021 04:11:25 05/30/19 22 06/04/2021 HEMOG LOBIN [...] audrey. Accor ding to Ameri can Diabe kelesy Assoc iatio n (ADA) guide lines , hemog lobin A1c <7.0% repre sents optim al contr ol in non-p regna nt diabe tic patie nts. Diffe rent metri cs may apply to speci fic patie nt popul ation s. Stand ards of Medic al Care in Diabe kelsey(A DA). Not Available [employer] [facility] [address] [place], [address], 06/04/2021 21:08:36 05/30/19 22 06/04/2021 VITAM IN [...] /MS is recom phil d: order code 45614 (gisselle ents >2yrs ). See Note 1 Note 1 For addit ional infor suma craft e refer to http: //agustín [employer] st[employer]ia gnost ics.c om/fa q/FAQ 199 (This link is being provi ded for infor raymon morales/ educcontreras william purpo ses only. ) Not Available [address], [address], 06/04/2021 21:08:35 05/30/19 22 06/04/2021 T3, FREE T3, free 3.2 pg/mL 2.3-4. 2 normal Not Available [address], [address], 06/04/2021 21:08:34 05/30/19 22 06/04/2021 TSH TSH 0.19 mIU/L low Refer ence Range > or = 20 Years 0.40- 4.50 Pregn priscilla Range s First trime ster 0.26- 2.66 Secon d trime ster 0.55- 2.73 Third trime ster 0.43- 2.91 Not Available [address] [address] [place], [address], 06/04/2021 21:08:34 05/30/19 22 06/04/2021 T4, FREE T4, free 1.3 NG/dL 0.8-1. 8 normal Not Available [address], [address], 06/04/2021 21:08:33 05/30/19 22 06/04/2021 INSUL IN, [...] resul ts accor dingl y. Not Available [address], [address], 06/04/2021 21:08:33 05/30/19 22 06/04/2021 COMPR EHENS GEOFF METAB OLIC PANEL glucose 96 mg/dL 65-99 normal Fasti ng refer ence inter ray Not Available [address], [address], 06/04/2021 21:08:33 05/30/19 22 06/04/2021 COMPR EHENS GEOFF METAB OLIC PANEL urea nitrogen (BUN) 20 mg/dL 7-25 normal Not Available [address], [address], 06/04/2021 21:08:33 05/30/19 22 06/04/2021 COMPR EHENS GEOFF METAB OLIC PANEL creatinine 0.75 mg/dL 0.50-1 .05 normal For patie nts >49 years of age, the refer ence limit for Creat inine is appro ximat valeriy 13% highe r for peopl e ident ified as Afric an-Am luanne n. Not Available [address] [address] [place], [address], 06/04/2021 21:08:33 05/30/19 22 06/04/2021 COMPR EHENS GEOFF METAB OLIC PANEL eGFR non-afr. spanish 90 mL/mi n/1.7 3m2 > or = 60 normal Not Available [address] [address] [place], [address], 06/04/2021 21:08:33 05/30/19 22 06/04/2021 COMPR EHENS GEOFF METAB OLIC PANEL eGFR 104 mL/mi n/1.7 3m2 > or = 60 normal Not Available [address] [address] [place], [address], 06/04/2021 21:08:33 05/30/19 22 06/04/2021 COMPR EHENS GEOFF METAB OLIC PANEL BUN/creatini ne ratio not applic able (calc ) 6-22 Not Available [address], [address], 06/04/2021 21:08:33 05/30/19 22 06/04/2021 COMPR EHENS GEOFF METAB OLIC PANEL sodium 138 mmol/ L 135-14 6 normal Not Available [address], [address], 06/04/2021 21:08:33 05/30/19 22 06/04/2021 COMPR EHENS GEOFF METAB OLIC PANEL potassium 4.2 mmol/ L 3.5-5. 3 normal Not Available [address], [address], 06/04/2021 21:08:33 05/30/19 22 06/04/2021 COMPR EHENS GEOFF METAB OLIC PANEL chloride 104 mmol/ L 98-110 normal Not Available [address], [address], 06/04/2021 21:08:33 05/30/19 22 06/04/2021 COMPR EHENS GEOFF METAB OLIC PANEL carbon dioxide 27 mmol/ L 20-32 normal Not Available [address], [address], 06/04/2021 21:08:33 05/30/19 22 06/04/2021 COMPR EHENS GEOFF METAB OLIC PANEL calcium 9.5 mg/dL 8.6-10 .4 normal Not Available [address], [address], 06/04/2021 21:08:33 05/30/19 22 06/04/2021 COMPR EHENS GEOFF METAB OLIC PANEL protein, total 7.1 g/dL 6.1-8. 1 normal Not Available [facility] [address] [place], [address], 06/04/2021 21:08:33 05/30/19 22 06/04/2021 COMPR EHENS GEOFF METAB OLIC PANEL albumin 4.3 g/dL 3.6-5. 1 normal Not Available [address], [address], 06/04/2021 21:08:33 05/30/19 22 06/04/2021 COMPR EHENS GEOFF METAB OLIC PANEL globulin 2.8 g/dL_ (calc ) 1.9-3. 7 normal Not Available [address], [address], 06/04/2021 21:08:33 05/30/19 22 06/04/2021 COMPR EHENS GEOFF METAB OLIC PANEL albumin/glob ulin ratio 1.5 (calc ) 1.0-2. 5 normal Not Available [address] [address] [place], [address], 06/04/2021 21:08:33 05/30/19 22 06/04/2021 COMPR EHENS GEOFF METAB OLIC PANEL bilirubin, total 0.4 mg/dL 0.2-1. 2 normal Not Available [address], [address], 06/04/2021 21:08:33 05/30/19 22 06/04/2021 COMPR EHENS GEOFF METAB OLIC PANEL alkaline phosphatase 55 U/L 37-153 normal Not Available [address] [address] [place], [address], 06/04/2021 21:08:33 05/30/19 22 06/04/2021 COMPR EHENS GEOFF METAB OLIC PANEL AST 20 U/L 10-35 normal Not Available [address] [address] [place], [address], 06/04/2021 21:08:33 05/30/19 22 06/04/2021 COMPR EHENS GEOFF METAB OLIC PANEL ALT 22 U/L 6-29 normal Not Available [address] [address] [place], [address], 06/04/2021 21:08:33 05/30/19 22 06/04/2021 LIPID PANEL , STAND ORTEGA cholesterol, total 193 mg/dL <200 normal Not Available [address] [address] [facility] [place], [address], 06/04/2021 21:08:32 05/30/19 22 06/04/2021 LIPID PANEL , STAND ORTEGA HDL cholesterol 65 mg/dL > or = 50 normal Not Available [address], [address], 06/04/2021 21:08:32 05/30/19 22 06/04/2021 LIPID PANEL , STAND ORTEGA triglyceride s 75 mg/dL <150 normal Not Available [address], [address], 06/04/2021 21:08:32 05/30/19 22 06/04/2021 LIPID PANEL [...] zoranos tics. com/f aq/FA Q164) Not Available [address], [place], [address], 06/04/2021 21:08:32 05/30/19 22 06/04/2021 LIPID PANEL , STAND ORTEGA chol/HDLC ratio 3.0 (calc ) <5.0 normal Not Available [address] [place], [address], 06/04/2021 21:08:32 05/30/19 22 06/04/2021 LIPID PANEL , STAND [place]TE[place] non HDL cholesterol 128 mg/dL _(gracie c) <130 normal For patie nts with diabe kelsey plus 1 major ASCVD risk facto r, treat ing to a non-H DL-C goal of <100 mg/dL (LDL- C of <70 mg/dL ) is kareni nafisa amador c optio n. Not Available [address], [address], 06/04/2021 21:08:32 09/02/19 22 09/02/2021 T3, FREE T3, free 3.2 pg/mL 2.3-4. 2 normal Not Available [address], [address], 09/02/2021 16:58:49 09/02/19 22 09/02/2021 VITAM IN B12/F OLATE , SERUM PANEL vitamin B12 417 pg/mL 200-11 00 normal Not Available [address], [address], 09/02/2021 16:58:48 09/02/19 22 09/02/2021 VITAM IN B12/F OLATE , SERUM PANEL folate, serum 12.3 NG/mL normal Refer ence Range Low: <3.4 Borde rline : 3.4-5 .4 Kalie l: >5.4 Not Available [address] [place], [address], 09/02/2021 16:58:48 09/02/19 22 09/02/2021 TSH TSH 0.13 mIU/L low Refer ence Range > or = 20 Years 0.40- 4.50 Pregn priscilla Range s First trime ster 0.26- 2.66 Secon d trime ster 0.55- 2.73 Third trime ster 0.43- 2.91 Not Available [address], [address], 09/02/2021 16:58:47 09/02/19 22 09/02/2021 T4, FREE T4, free 1.4 NG/dL 0.8-1. 8 normal Not Available [address], [address], 09/02/2021 16:58:46 09/02/19 22 09/02/2021 THYRO ID PEROX IDASE ANTIB ODIES thyroid peroxidase antibodies 18 IU/mL <9 high Not Available [address], [address], 09/02/2021 16:58:45 09/02/19 22 09/02/2021 COMPR EHENS GEOFF METAB OLIC PANEL glucose 89 mg/dL 65-99 normal Fasti ng refer ence inter ray Not Available [address], [address], 09/02/2021 16:58:44 09/02/19 22 09/02/2021 COMPR EHENS GEOFF METAB OLIC PANEL urea nitrogen (BUN) 22 mg/dL 7-25 normal Not Available [address], [address], 09/02/2021 16:58:44 09/02/19 22 09/02/2021 COMPR EHENS GEOFF METAB OLIC PANEL creatinine 0.77 mg/dL 0.50-1 .03 normal Not Available [address], [address], 09/02/2021 16:58:44 09/02/19 22 09/02/2021 COMPR EHENS [...] kdoqi /gfr% 5Fcal culat or Not Available [address] [address] [place], [address], 09/02/2021 16:58:44 09/02/19 22 09/02/2021 COMPR EHENS GEOFF METAB OLIC PANEL BUN/creatini ne ratio not applic able (calc ) 6-22 Not Available [address] [place], [address], 09/02/2021 16:58:44 09/02/19 22 09/02/2021 COMPR EHENS GEOFF METAB OLIC PANEL sodium 140 mmol/ L 135-14 6 normal Not Available [address], [address], 09/02/2021 16:58:44 09/02/19 22 09/02/2021 COMPR EHENS GEOFF METAB OLIC PANEL potassium 4.3 mmol/ L 3.5-5. 3 normal Not Available [address], [address], 09/02/2021 16:58:44 09/02/19 22 09/02/2021 COMPR EHENS GEOFF METAB OLIC PANEL chloride 104 mmol/ L 98-110 normal Not Available [address], [address], 09/02/2021 16:58:44 09/02/19 22 09/02/2021 COMPR EHENS GEOFF METAB OLIC PANEL carbon dioxide 25 mmol/ L 20-32 normal Not Available [address] [place], [address], 09/02/2021 16:58:44 09/02/19 22 09/02/2021 COMPR EHENS GEOFF METAB OLIC PANEL calcium 9.1 mg/dL 8.6-10 .4 normal Not Available [address], [address], 09/02/2021 16:58:44 09/02/19 22 09/02/2021 COMPR EHENS GEOFF METAB OLIC PANEL protein, total 7.1 g/dL 6.1-8. 1 normal Not Available [address], [address], 09/02/2021 16:58:44 09/02/19 22 09/02/2021 COMPR EHENS GEOFF METAB OLIC PANEL albumin 4.3 g/dL 3.6-5. 1 normal Not Available [address], [address], 09/02/2021 16:58:44 09/02/19 22 09/02/2021 COMPR EHENS GEOFF METAB OLIC PANEL globulin 2.8 g/dL_ (calc ) 1.9-3. 7 normal Not Available [address], [address], 09/02/2021 16:58:44 09/02/19 22 09/02/2021 COMPR EHENS GEOFF METAB OLIC PANEL albumin/glob ulin ratio 1.5 (calc ) 1.0-2. 5 normal Not Available [address], [address], 09/02/2021 16:58:44 09/02/19 22 09/02/2021 COMPR EHENS GEOFF METAB OLIC PANEL bilirubin, total 0.4 mg/dL 0.2-1. 2 normal Not Available [address], [address], 09/02/2021 16:58:44 09/02/19 22 09/02/2021 COMPR EHENS GEOFF METAB OLIC PANEL alkaline phosphatase 52 U/L 37-153 normal Not Available [facility] [address] [address] [place], [address], 09/02/2021 16:58:44 09/02/19 22 09/02/2021 COMPR EHENS GEOFF METAB OLIC PANEL AST 21 U/L 10-35 normal Not Available [facility] [address] [address] [place], [address], 09/02/2021 16:58:44 09/02/19 22 09/02/2021 COMPR EHENS GEOFF METAB OLIC PANEL ALT 19 U/L 6-29 normal Not Available [facility] [address] [address] [place], [address], 09/02/2021 16:58:44 11/12/19 22 11/20/2021 HEMOG LOBIN [...] Diabe kelsey(A DA). Not Available [facility] [address] [address] [place], [address], 11/20/2021 13:08:53 11/12/19 22 11/20/2021 INSUL IN, [...] resul ts accor dingl y. Not Available [address], [address], 11/20/2021 13:08:53 11/12/19 22 11/20/2021 COMPR EHENS GEOFF METAB OLIC PANEL glucose 91 mg/dL 65-99 normal Fasti ng refer ence inter ray Not Available [address], [address], 11/20/2021 13:08:52 11/12/19 22 11/20/2021 COMPR EHENS GEOFF METAB OLIC PANEL urea nitrogen (BUN) 15 mg/dL 7-25 normal Not Available [address], [address], 11/20/2021 13:08:52 11/12/19 22 11/20/2021 COMPR EHENS GEOFF METAB OLIC PANEL creatinine 0.83 mg/dL 0.50-1 .03 normal Not Available [address], [address], 11/20/2021 13:08:52 11/12/19 22 11/20/2021 COMPR EHENS [...] kdoqi /gfr% 5Fcal culat or Not Available [address], [address], 11/20/2021 13:08:52 11/12/19 22 11/20/2021 COMPR EHENS GEOFF METAB OLIC PANEL BUN/creatini ne ratio not applic able (calc ) 6-22 Not Available [address], [address], 11/20/2021 13:08:52 11/12/19 22 11/20/2021 COMPR EHENS GEOFF METAB OLIC PANEL sodium 140 mmol/ L 135-14 6 normal Not Available [address], [address], 11/20/2021 13:08:52 11/12/19 22 11/20/2021 COMPR EHENS GEOFF METAB OLIC PANEL potassium 4.4 mmol/ L 3.5-5. 3 normal Not Available [address], [address], 11/20/2021 13:08:52 11/12/19 22 11/20/2021 COMPR EHENS GEOFF METAB OLIC PANEL chloride 103 mmol/ L 98-110 normal Not Available [address], [address], 11/20/2021 13:08:52 11/12/19 22 11/20/2021 COMPR EHENS GEOFF METAB OLIC PANEL carbon dioxide 27 mmol/ L 20-32 normal Not Available [address], [address], 11/20/2021 13:08:52 11/12/19 22 11/20/2021 COMPR EHENS GEOFF METAB OLIC PANEL calcium 9.3 mg/dL 8.6-10 .4 normal Not Available [address], [address], 11/20/2021 13:08:52 11/12/19 22 11/20/2021 COMPR EHENS GEOFF METAB OLIC PANEL protein, total 7.3 g/dL 6.1-8. 1 normal Not Available [address], [address], 11/20/2021 13:08:52 11/12/19 22 11/20/2021 COMPR EHENS GEOFF METAB OLIC PANEL albumin 4.4 g/dL 3.6-5. 1 normal Not Available [address], [address], 11/20/2021 13:08:52 11/12/19 22 11/20/2021 COMPR EHENS GEOFF METAB OLIC PANEL globulin 2.9 g/dL_ (calc ) 1.9-3. 7 normal Not Available [address], [address], 11/20/2021 13:08:52 11/12/19 22 11/20/2021 COMPR EHENS GEOFF METAB OLIC PANEL albumin/glob ulin ratio 1.5 (calc ) 1.0-2. 5 normal Not Available [address], [address], 11/20/2021 13:08:52 11/12/19 22 11/20/2021 COMPR EHENS GEOFF METAB OLIC PANEL bilirubin, total 0.5 mg/dL 0.2-1. 2 normal Not Available [address], [address], 11/20/2021 13:08:52 11/12/19 22 11/20/2021 COMPR EHENS GEOFF METAB OLIC PANEL alkaline phosphatase 63 U/L 37-153 normal Not Available [address] [address] [place], [address], 11/20/2021 13:08:52 11/12/19 22 11/20/2021 COMPR EHENS GEOFF METAB OLIC PANEL AST 21 U/L 10-35 normal Not Available [address], [address], 11/20/2021 13:08:52 11/12/19 22 11/20/2021 COMPR EHENS GEOFF METAB OLIC PANEL ALT 23 U/L 6-29 normal Not Available [address], [address], 11/20/2021 13:08:52 11/12/19 22 11/20/2021 LIPID PANEL , [place] cholesterol, total 202 mg/dL <200 high Not Available [address], [address], 11/20/2021 13:08:51 11/12/19 22 11/20/2021 LIPID PANEL , [place] HDL cholesterol 69 mg/dL > or = 50 normal Not Available [address], [address], 11/20/2021 13:08:51 11/12/19 22 11/20/2021 LIPID PANEL , [place] triglyceride s 112 mg/dL <150 normal Not Available [address], [address], 11/20/2021 13:08:51 11/12/19 22 11/20/2021 LIPID PANEL [...] 9): 2061- 2068 (http ://ed ucati [email or web address] com/f aq/FA Q164) Not Available [address] [address] [place], [address], 11/20/2021 13:08:51 11/12/19 22 11/20/2021 LIPID PANEL , STAND ORTEGA chol/HDLC ratio 2.9 (calc ) <5.0 normal Not Available [address] [address] [place], [address], 11/20/2021 13:08:51 11/12/1911/20/2021 LIPID PANEL , STAND ORTEGA non HDL cholesterol 133 mg/dL _(gracie c) <130 high For patie nts with diabe kelsey plus 1 major ASCVD risk facto r, treat ing to a non-H DL-C goal of <100 mg/dL (LDL- C of <70 mg/dL ) is consi nafisa amato n. Not Available [address] [address] [place], [address], 11/20/2021 13:08:51 11/22/1911/22/2021 T3, FREE T3, free 2.7 pg/mL 2.3-4. 2 normal Not Available [address] [address] [place], [address], 11/22/2021 01:23:30 11/22/1911/22/2021 TSH TSH 1.76 mIU/L normal Refer ence Range > or = 20 Years 0.40- 4.50 Pregn priscilla Range s First trime ster 0.26- 2.66 Secon d trime ster 0.55- 2.73 Third trime ster 0.43- 2.91 Not Available [facility] [address] [address] [place], [address], 11/22/2021 01:23:30 11/22/19 22 11/22/2021 T4, FREE T4, free 1.2 NG/dL 0.8-1. 8 normal Not Available [address], [address], 11/22/2021 01:23:29 05/14/19 23 05/14/2022 T4, FREE T4, free 1.3 NG/dL 0.8-1. 8 normal Not Available [address], [address], 05/14/2022 03:05:41 05/14/19 23 05/14/2022 TSH TSH 0.69 mIU/L 0.40-4 .50 normal Not Available [address], [address], 05/14/2022 03:05:41 05/14/1905/14/2022 T3, FREE T3, free 2.7 pg/mL 2.3-4. 2 normal Not Available [address], [address], 05/14/2022 03:05:42 06/20/19 23 06/22/2022 COMPR EHENS GEOFF METAB OLIC PANEL glucose 100 mg/dL 65-99 high Fasti ng refer ence inter ray For someo ne witho ut known diabe kelsey, a gluco se value betwe en 100 and 125 mg/dL is consi stent with predi abete s and shoul d be confi rmed with a follo w-up test. Not Available [address], [address], 06/22/2022 12:01:25 06/20/1906/22/2022 COMPR EHENS GEOFF METAB OLIC PANEL urea nitrogen (BUN) 20 mg/dL 7-25 normal Not Available [address], [address], 06/22/2022 12:01:25 06/20/19 06/22/2022 COMPR EHENS GEOFF METAB OLIC PANEL creatinine 0.76 mg/dL 0.50-1 .03 normal Not Available [address], [address], 06/22/2022 12:01:25 06/20/19 23 06/22/2022 COMPR EHENS [...] kdoqi /gfr% 5Fcal culat or Not Available [address], [address], 06/22/2022 12:01:25 06/20/19 23 06/22/2022 COMPR EHENS GEOFF METAB OLIC PANEL BUN/creatini ne ratio NOT APPLIC ABLE (calc ) 6-22 Not Available [address], [address], 06/22/2022 12:01:25 06/20/19 23 06/22/2022 COMPR EHENS GEOFF METAB OLIC PANEL sodium 140 mmol/ L 135-14 6 normal Not Available [address], [address], 06/22/2022 12:01:25 06/20/19 23 06/22/2022 COMPR EHENS GEOFF METAB OLIC PANEL potassium 4.1 mmol/ L 3.5-5. 3 normal Not Available [address], [address], 06/22/2022 12:01:25 06/20/19 23 06/22/2022 COMPR EHENS GEOFF METAB OLIC PANEL chloride 106 mmol/ L 98-110 normal Not Available [address], [place], [address], 06/22/2022 12:01:25 06/20/19 23 06/22/2022 COMPR EHENS GEOFF METAB OLIC PANEL carbon dioxide 27 mmol/ L 20-32 normal Not Available [facility] [address], [address], 06/22/2022 12:01:25 06/20/19 23 06/22/2022 COMPR EHENS GEOFF METAB OLIC PANEL calcium 9.3 mg/dL 8.6-10 .4 normal Not Available [facility] [address], [address], 06/22/2022 12:01:25 06/20/19 23 06/22/2022 COMPR EHENS GEOFF METAB OLIC PANEL protein, total 7.3 g/dL 6.1-8. 1 normal Not Available [address], [address], 06/22/2022 12:01:25 06/20/19 23 06/22/2022 COMPR EHENS GEOFF METAB OLIC PANEL albumin 4.5 g/dL 3.6-5. 1 normal Not Available [facility] [address], [address], 06/22/2022 12:01:25 06/20/19 23 06/22/2022 COMPR EHENS GEOFF METAB OLIC PANEL globulin 2.8 g/dL_ (calc ) 1.9-3. 7 normal Not Available [facility] [address], [address], 06/22/2022 12:01:25 06/20/1906/22/2022 COMPR EHENS GEOFF METAB OLIC PANEL albumin/glob ulin ratio 1.6 (calc ) 1.0-2. 5 normal Not Available [facility] [address], [address], 06/22/2022 12:01:25 06/20/1906/22/2022 COMPR EHENS GEOFF METAB OLIC PANEL bilirubin, total 0.5 mg/dL 0.2-1. 2 normal Not Available [address], [address], 06/22/2022 12:01:25 06/20/1906/22/2022 COMPR EHENS GEOFF METAB OLIC PANEL alkaline phosphatase 50 U/L 37-153 normal Not Available [address], [address], 06/22/2022 12:01:25 06/20/1906/22/2022 COMPR EHENS GEOFF METAB OLIC PANEL AST 19 U/L 10-35 normal Not Available [address], [address], 06/22/2022 12:01:25 06/20/1906/22/2022 COMPR EHENS GEOFF METAB OLIC PANEL ALT 18 U/L 6-29 normal Not Available [address], [address], 06/22/2022 12:01:25 06/20/1906/22/2022 THYRO ID PEROX IDASE ANTIB ODIES thyroid peroxidase antibodies 18 IU/mL <9 high Not Available [address], [address], 06/22/2022 12:01:06/20/1906/22/2022 VITAM IN B12/F OLATE , SERUM PANEL vitamin B12 593 pg/mL 200-11 00 normal Not Available [address], [address], 06/22/2022 12:01:26 06/20/1906/22/2022 VITAM IN B12/F OLATE , SERUM PANEL folate, serum 16.0 NG/mL normal Refer ence Range Low: <3.4 Borde rline : 3.4-5 .4 Kalie l: >5.4 Not Available [address], [address], 06/22/2022 12:01:26 06/20/1906/22/2022 T3, FREE T3, free 3.4 pg/mL 2.3-4. 2 normal Not Available [address], [address], 06/22/2022 12:01:27 06/20/1906/22/2022 TSH+F REE T4 TSH 0.19 mIU/L 0.40-4 .50 low Not Available [address], [address], 06/22/2022 12:01:28 06/20/1906/22/2022 TSH+F REE T4 T4, free 1.6 NG/dL 0.8-1. 8 normal Not Available [address], [address], 06/22/2022 12:01:28 08/08/1908/10/2022 COMPR EHENS GEOFF METAB OLIC PANEL glucose 103 mg/dL 65-99 high Fasti ng refer ence inter ray For someo ne witho ut known diabe kelsey, a gluco se value betwe en 100 and 125 mg/dL is consi stent with predi abete s and shoul d be confi rmed with a follo w-up test. Not Available [address], [address], 08/10/2022 16:38:49 08/08/1908/10/2022 COMPR EHENS GEOFF METAB OLIC PANEL urea nitrogen (BUN) 19 mg/dL 7-25 normal Not Available [facility] [address], [address], 08/10/2022 16:38:49 08/08/1908/10/2022 COMPR EHENS GEOFF METAB OLIC PANEL creatinine 0.87 mg/dL 0.50-1 .03 normal Not Available [address], [address], 08/10/2022 16:38:49 08/08/19 23 08/10/2022 COMPR EHENS [...] kdoqi /gfr% 5Fcal culat or Not Available [address], [address], 08/10/2022 16:38:49 08/08/19 23 08/10/2022 COMPR EHENS GEOFF METAB OLIC PANEL BUN/creatini ne ratio NOT APPLIC ABLE (calc ) 6-22 Not Available [address], [address], 08/10/2022 16:38:49 08/08/19 23 08/10/2022 COMPR EHENS GEOFF METAB OLIC PANEL sodium 139 mmol/ L 135-14 6 normal Not Available [address], [address], 08/10/2022 16:38:49 08/08/19 23 08/10/2022 COMPR EHENS GEOFF METAB OLIC PANEL potassium 4.4 mmol/ L 3.5-5. 3 normal Not Available [address], [address], 08/10/2022 16:38:49 08/08/19 23 08/10/2022 COMPR EHENS GEOFF METAB OLIC PANEL chloride 103 mmol/ L 98-110 normal Not Available [address], [address], 08/10/2022 16:38:49 08/08/19 23 08/10/2022 COMPR EHENS GEOFF METAB OLIC PANEL carbon dioxide 27 mmol/ L 20-32 normal Not Available [address], [address], 08/10/2022 16:38:49 08/08/19 23 08/10/2022 COMPR EHENS GEOFF METAB OLIC PANEL calcium 9.7 mg/dL 8.6-10 .4 normal Not Available [address], [address], 08/10/2022 16:38:49 08/08/19 23 08/10/2022 COMPR EHENS GEOFF METAB OLIC PANEL protein, total 7.3 g/dL 6.1-8. 1 normal Not Available [address], [address], 08/10/2022 16:38:49 08/08/19 23 08/10/2022 COMPR EHENS GEOFF METAB OLIC PANEL albumin 4.5 g/dL 3.6-5. 1 normal Not Available [address], [address], 08/10/2022 16:38:49 08/08/19 23 08/10/2022 COMPR EHENS GEOFF METAB OLIC PANEL globulin 2.8 g/dL_ (calc ) 1.9-3. 7 normal Not Available [address], [address], 08/10/2022 16:38:49 08/08/19 23 08/10/2022 COMPR EHENS GEOFF METAB OLIC PANEL albumin/glob ulin ratio 1.6 (calc ) 1.0-2. 5 normal Not Available [address], [address], 08/10/2022 16:38:49 08/08/1908/10/2022 COMPR EHENS GEOFF METAB OLIC PANEL bilirubin, total 0.4 mg/dL 0.2-1. 2 normal Not Available [facility] [employer] [address], [address], 08/10/2022 16:38:49 08/08/1908/10/2022 COMPR EHENS GEOFF METAB OLIC PANEL alkaline phosphatase 47 U/L 37-153 normal Not Available [facility] [employer] [address] [address] [place], [address], 08/10/2022 16:38:49 08/08/1908/10/2022 COMPR EHENS GEOFF METAB OLIC PANEL AST 19 U/L 10-35 normal Not Available [facility] [employer] [address], [address], 08/10/2022 16:38:49 08/08/1908/10/2022 COMPR EHENS GEOFF METAB OLIC PANEL ALT 17 U/L 6-29 normal Not Available [employer] [address], [address], 08/10/2022 16:38:49 08/08/1908/10/2022 THYRO ID PEROX IDASE ANTIB ODIES thyroid peroxidase antibodies 19 IU/mL <9 high Not Available [facility] [employer] [address], [address], 08/10/2022 16:38:50 08/08/1908/10/2022 INSUL IN insulin 11.1 uIU/m L normal Refer ence Range < or = 18.4 Risk: Optim al < or = 18.4 Moder ate NA High >18.4 Adult cardi ovasc ular event risk categ ory cut point s (opti mal, moder ate, high) are based on Insul in Refer ence Inter ray studi es perfo rmed at [facility] Diagn ostic s in 2021. Not Available [employer] [address], [address], 08/10/2022 16:38:51 08/08/1908/10/2022 T4, FREE T4, free 1.2 NG/dL 0.8-1. 8 normal Not Available [address], [address], 08/10/2022 16:38:52 08/08/1908/10/2022 TSH TSH 0.99 mIU/L 0.40-4 .50 normal Not Available [address], [address], 08/10/2022 16:38:53 08/08/1908/10/2022 VITAM IN B12/F OLATE , SERUM PANEL vitamin B12 498 pg/mL 200-11 00 normal Not Available [address], [address], 08/10/2022 16:38:53 08/08/1908/10/2022 VITAM IN B12/F OLATE , SERUM PANEL folate, serum >24.0 NG/mL normal Refer ence Range Low: <3.4 Borde rline : 3.4-5 .4 Kalie l: >5.4 Not Available [address], [address], 08/10/2022 16:38:53 08/08/1908/10/2022 T3, FREE T3, free 3.0 pg/mL 2.3-4. 2 normal Not Available [address], [address], 08/10/2022 16:38:54 08/08/1908/10/2022 HEMOG LOBIN A1C hemoglobin [...] Care in Diabe kelsey(A DA). Not Available [address] [address] [place], [address], 08/10/2022 16:38:55 10/31/19 23 10/31/2022 COMPR EHENS GEOFF METAB OLIC PANEL glucose 96 mg/dL 65-99 normal Fasti ng refer ence inter ray Not Available [facility] [address] [address] [place], [address], 10/31/2022 22:36:36 10/31/19 23 10/31/2022 COMPR EHENS GEOFF METAB OLIC PANEL urea nitrogen (BUN) 18 mg/dL 7-25 normal Not Available [address] [address] [place], [address], 10/31/2022 22:36:36 10/31/19 23 10/31/2022 COMPR EHENS GEOFF METAB OLIC PANEL creatinine 0.81 mg/dL 0.50-1 .03 normal Not Available [address] [address] [place], [address], 10/31/2022 22:36:36 10/31/19 23 10/31/2022 COMPR EHENS GEOFF METAB OLIC PANEL eGFR 85 mL/mi n/1.7 3m2 > or = 60 normal Not Available [address] [address] [place], [address], 10/31/2022 22:36:36 10/31/19 23 10/31/2022 COMPR EHENS GEOFF METAB OLIC PANEL BUN/creatini ne ratio SEE NOTE: (calc ) 6-22 Not Repor pino: BUN and Creat inine are withi n refer ence range . Not Available [address], [address], 10/31/2022 22:36:36 10/31/19 23 10/31/2022 COMPR EHENS GEOFF METAB OLIC PANEL sodium 140 mmol/ L 135-14 6 normal Not Available [address], [address], 10/31/2022 22:36:36 10/31/19 23 10/31/2022 COMPR EHENS GEOFF METAB OLIC PANEL potassium 4.3 mmol/ L 3.5-5. 3 normal Not Available [address] [address] [facility] [place], [address], 10/31/2022 22:36:36 10/31/19 23 10/31/2022 COMPR EHENS GEOFF METAB OLIC PANEL chloride 104 mmol/ L 98-110 normal Not Available [address] [address] [place], [address], 10/31/2022 22:36:36 10/31/19 23 10/31/2022 COMPR EHENS GEOFF METAB OLIC PANEL carbon dioxide 29 mmol/ L 20-32 normal Not Available [facility] [address] [address] [place], [address], 10/31/2022 22:36:36 10/31/19 23 10/31/2022 COMPR EHENS GEOFF METAB OLIC PANEL calcium 9.3 mg/dL 8.6-10 .4 normal Not Available [address], [address], 10/31/2022 22:36:36 10/31/19 23 10/31/2022 COMPR EHENS GEOFF METAB OLIC PANEL protein, total 7.2 g/dL 6.1-8. 1 normal Not Available [address], [address], 10/31/2022 22:36:36 10/31/19 23 10/31/2022 COMPR EHENS GEOFF METAB OLIC PANEL albumin 4.5 g/dL 3.6-5. 1 normal Not Available [address], [address], 10/31/2022 22:36:36 10/31/19 23 10/31/2022 COMPR EHENS GEOFF METAB OLIC PANEL globulin 2.7 g/dL_ (calc ) 1.9-3. 7 normal Not Available [address], [address], 10/31/2022 22:36:36 10/31/19 23 10/31/2022 COMPR EHENS GEOFF METAB OLIC PANEL albumin/glob ulin ratio 1.7 (calc ) 1.0-2. 5 normal Not Available [address], [address], 10/31/2022 22:36:36 10/31/19 23 10/31/2022 COMPR EHENS GEFOF METAB OLIC PANEL bilirubin, total 0.4 mg/dL 0.2-1. 2 normal Not Available [address], [address], 10/31/2022 22:36:36 10/31/19 23 10/31/2022 COMPR EHENS GEOFF METAB OLIC PANEL alkaline phosphatase 56 U/L 37-153 normal Not Available [address], [address], 10/31/2022 22:36:36 10/31/19 23 10/31/2022 COMPR EHENS GEOFF METAB OLIC PANEL AST 17 U/L 10-35 normal Not Available [address], [address], 10/31/2022 22:36:36 10/31/19 23 10/31/2022 COMPR EHENS GEOFF METAB OLIC PANEL ALT 17 U/L 6-29 normal Not Available [address], [address], 10/31/2022 22:36:36 10/31/19 23 10/31/2022 INSUL IN [...] Diagn ostic s in 2021. Not Available [facility] [address], [address], 10/31/2022 22:36:38 10/31/19 23 10/31/2022 T4, FREE T4, free 1.4 NG/dL 0.8-1. 8 normal Not Available [address], [address], 10/31/2022 22:36:39 10/31/19 23 10/31/2022 TSH TSH 0.89 mIU/L 0.40-4 .50 normal Not Available [facility] [address], [address], 10/31/2022 22:36:40 10/31/19 23 10/31/2022 VITAM IN B12/F OLATE , SERUM PANEL vitamin B12 578 pg/mL 200-11 00 normal Not Available [facility] [address], [address], 10/31/2022 22:36:40 09/10/31/2022 VITAM IN B12/F OLATE , SERUM PANEL folate, serum 21.9 NG/mL normal Refer ence Range Low: <3.4 Borde rline : 3.4-5 .4 Kalie l: >5.4 Not Available [facility] [address] [place], [address], 10/31/2022 22:36:40 10/31/19 23 10/31/2022 T3, FREE T3, free 3.1 pg/mL 2.3-4. 2 normal Not Available [facility] [address] [address], [place], [address], 10/31/2022 22:36:41 10/31/1910/31/2022 HEMOG LOBIN A1C hemoglobin [...] Diabe kelsey(A DA). Not Available [facility] [address] [address] , [place], [address], 10/31/2022 22:36:42 06/18/19 22 06/16/2021 US, head + neck No observ ation record ed. [id number] [facility] [address], [place], [address], 04/15/2022 04:40:12 06/20/19 25 06/19/2024 imagi ng inter preta tion No observ ation record ed. [facility] [address], [place], [address], 11/30/2024 09:44:06 Result Notes None recorded. Problems Name Problem SNOMED Code Status Onset Date Resolution Date Notes Provider Name and Address Organization Details Recorded Time Hypothyroidis m 73163652 Active 2021 Not Available [facility] 3 07:27:53 Vitamin D deficiency 24282899 Active 2021 Not Available [facility] 3 07:27:53 Goiter 0137040 Active 2021 Not Available [facility] 3 07:27:53 Impaired fasting glycemia 875924669 Active 2021 Not Available [facility] 3 07:27:53 Prediabetes 743803463 Active 2022 Not Available [facility] 3 07:27:53 Focal motor weakness 362642366 Active 2022 Not Available [facility] 3 07:27:53 Vitamin B12 deficiency (non anemic) 39567990 Active 2022 Not Available [facility] 3 07:27:53 Problem Notes None recorded. Procedures Surgical History Date Name Laterality Status Provider Name and Address Organization Details Recorded Time 10/11/19 21 Date of Last Pap Smear completed Not Available [facility] 04/15/2022 04:31:03 03/15/19 21 Most Recent Mammogram completed Not Available [facility] 04/15/2022 04:31:03 lumpectomy of left breast completed Not Available [facility] 04/15/2022 04:31:04 laparoscopy completed Not Available [facility] 04/15/2022 04:31:04 hysteroscopy completed Not Available [facility] 04/15/2022 04:31:04 endoscopic balloon dilation of ostium of paranasal sinus completed Not Available [facility] 04/15/2022 04:31:04 Imaging Results None recorded. [...] Not available Not available Not available 04/15/2022 [id number] SNOMED Not Available [facility] 3 04:39:58 Medications Name Sig Start [...] Updated DateTime 3 175.26 cm 27 kg/m2 97345.4 g 97.9 [degF] 92 /min 112/70 mm[Hg] Lilliejaniya Mireles CMA [facility] [employer] [facility] 3 12:46:13 Date Recorded Body mass index (BMI) Body height Oxygen saturation Heart rate Body temperature Body weight Systolic And Diastolic Provider Name and Address Organization Details Last Updated DateTime 2 26.6 kg/m2 175.26 cm 96 % 70 /min 97.7 [degF] 76180.6 3 g 105/85 mm[Hg] Not Available [facility] 3 04:34:21 Date Recorded Body height Body mass index (BMI) Body weight Heart rate Body temperature Systolic And Diastolic Provider Name and Address Organization Details Last Updated DateTime 3 175.26 cm 25.1 kg/m2 74010.4 2 g 72 /min 97.9 [degF] 124/70 mm[Hg] Teena Patricio Contreras [facility] [employer] 3 10:32:37 Date Recorded Body mass index (BMI) Body height Oxygen saturation Heart rate Body temperature Body weight Systolic And Diastolic Provider Name and Address Organization Details Last Updated DateTime 2 27.2 kg/m2 175.26 cm 97 % 74 /min 97.9 [degF] 77018 g 110/80 mm[Hg] Not Available [facility] 3 04:34:21 Social History Question Answer Notes LastModified by Organizat ion Details LastModified Time Tobacco Smoking Status Never Smoker Gisela gomez, [facility] [employer] 08/14/2022 10:23:41 What Is Your Level Of Caffeine Consumption? Moderate [id number] Information not available 04/15/2022 How Much Tobacco Do You Chew? None [id number] Information not available 04/15/2022 In The 14 Days Before Symptom Onset, Have You Had Close Contact With A Laboratory-confirm ed COVID-19 While That Case Was Ill? No Information n ot available 08/14/2022 In The 14 Days Before Symptom Onset, Have You Had Close Contact With A Person Who Is Under Investigation For COVID-19 While That Person Was Ill? No [email or web address] Information not available 08/14/2022 Which Illicit Or Recreational Drugs Have You Used? None [email or web address] Information not available 08/14/2022 Sex: Female Functional Status Question Answer Note LastModified by Organizat ion Details LastModified Time What is your level of alcohol consumption? Occasional [id number] Information not available 04/15/2022 Do you or have you ever used smokeless tobacco? Never used smokeless tobacco [id number] Information not available 04/15/2022 Do you or have you ever used e-cigarettes or vape? Never used electronic cigarettes [email or web address] Information not available 08/14/2022 Mental Status None recorded. Family History Relationship Description Onset Age of this Age Resolved Age Notes LastModified by Organization Details LastModified Time Mother Hypertensive disorder [id number] Not available 04/15/2022 04:31:10 Mother Diabetes mellitus [id number] Not available 04/15/2022 04:31:10 Maternal Grandmother Diabetes mellitus [id number] Not available 04/15/2022 04:31:10 Maternal Grandfather Malignant lymphoma [email or web address] Not available 2022 10:23:40 Maternal Uncle Malignant lymphoma [email or web address] Not available 2022 10:23:40 Medical History Condition [...] ICD10 Code Diagnosis IMO Codes Diagnosis Note [id number] MD ISAC Osullivan [address] [place] [address] 06/17/2020 00:00:00 06/17/2020 11:17:12 [id number] Mel Wood, MD [facility] [place] [address] [place] [address] 09/17/2020 00:00:00 09/17/2020 12:01:53 [id number] Mel Bass MD [facility] [place] [address] [place] [address] 12/10/2020 00:00:00 12/10/2020 12:25:39 [id number] Mel Bass MD [facility] [place] [address] [place], [place] [address] 06/10/2021 00:00:00 06/10/2021 13:35:28 [id number] [facility] [place] [address] [place], [place] [address] 12/16/2021 00:00:00 12/16/2021 13:48:31 [id number] Mel Bass MD [facility] [place] [address] [place] [address] 04/24/2022 12:20:53 04/24/2022 13:11:43 Prediabetes 496554127 R73.03 A1C of 5.7%- patient having more symptoms suggestive of glucose dysregulat ion- would recommend we trial on low dose metformin ER 500 mg daily with dinner. Discussed carb counting and how to read food labels. Recommende d patient to utilize the diabetesfo [employer]Wellpepper from the ADA website to help with food preparatio n as this presents ideal carb content per meal so this will make carb counting much easier for patient. Recommende d she incorporat e natural insulin blade groover s such as pears, apples, cinnamon, anthony and sweet potatoes to help mobilize her endogenous insulin. Recommende d up to 150 minutes of moderate level activity/e xercise weekly. Hypothyroidism 41392987 E03.9 FT4 high normal range from April labwork- would recommend she drop her dosage down to 88 mcg of synthroid every day with exception of Mon/ursd ay and take 100 mcg dose just [...] she chooses to go outside of the [facility] system to obtain labwork she [...] in her case. She voiced understand ing. [id number] Mel Bass MD [facility] [place] [address] [place] [address] 08/14/2022 10:22:41 08/14/2022 11:08:15 Hypothyroidism 22223386 E03.9 Thyroid levels in range since dose [...] reduce inflammati on. Impaired f asting glycemia 634138865 R73.01 Continue on natural insulin blade groover s as metformin was not well tolerated. Recommende d she incorporat e natural insulin blade groover s such as pears, apples, cinnamon, anthony and sweet potatoes to help mobilize her endogenous insulin. Recommende d up to 150 minutes of moderate level activity/e xercise weekly. Vitamin B1 2 deficiency (non anemic) 56657842 E53.8 Continue on B12 injections weekly as [...] she chooses to go outside of the [facility] system to obtain labwork she was [...] Member ID Guarantor Name 08/11/2022 1 JOSE FRANCISCO-[place] (PPO) [id number] Bernardo Virk [id number] Ira Virk Notes Date Note Type [...] labs from 05/07:195/93/69/107glu cose 102 mg/dLcr normallft gthzarx2q 5.7%TSH of 0.31 uIU/mlFT4 of 1.5 ng/dLFt3 of 3.1 pg/mlinsulin 16 uU/mlb12/folate normal Mel Bass MD [address] [facility], [facility] [address], [place], [address], [facility] [employer] [facility] 04/24/2022 13:47:04 08/14/2022 text/html ROS as noted [...] mg/dLCr normalLFT normal Mel Bass MD [address], [facility] [address], [place], [address], [place] [facility] [place] [employer] [facility] 08/14/2022 14:12:01 OBGyn Episode No OBEpisode recorded.
--- OUTSIDE RECORDS SUMMARY | 2025-01-07 09:16 | XMS_ITS | Encounter Summary ---
Author Organization [facility] Address [address] [place] [address] Care Team Providers Care Liquified Natural Gas Specialist Name Role Phone Brandi Houston DO Primary Care Provider Andie Santoyo MD Primary Care Provider + Encounter Details Date Type Department Care Team (Late st Contact Info) Description 02/06/2024 Vasopharmt Message Enc [facility] Multispecialty Care - [address] [place] [address] Brandi Houston, DO U/S Social History Tobacco [...] Sex Assigned at Female 04/18/2024 1:56 PM POOL ATTENDANT Legal Sex Female 1:00 PM CDT Gender Identity Female 04/18/2024 1:56 PM POOL ATTENDANT Sexual Orientation Not on file documented as of this encounter Plan of Treatment Not on file documented as of this encounter Visit Diagnoses Not on filedocumented in this encounter Additional Health Concerns Infection Onset Date Last Indicated Resolved Time Respiratory Rule Out 04/18/2024 04/18/2024 025 2:09 PM POOL ATTENDANT Influenza - Seasonal 04/18/2024 04/18/2024 025 12:32 AM CDT Assessment Noted Time PHQ-9 Depression Total Score: 6 01/27/20 24 10:34 AM POOL ATTENDANT documented as of this encounter Care Teams Liquified Natural Gas Specialist Relationship Specialty Start Date End Date Brandi Houston DO PCP - General FAMILY PRACTICE 11/23/23 10/08/24 Andie Navarro MD [address] [address] PCP - General FAMILY PRACTICE 10/09/24 documented as of this encounter
--- OUTSIDE RECORDS SUMMARY | 2025-01-07 09:17 | XMS_ITS | Patient Health Record ---
Author Organization [facility] ([address]) Address [address] [place] [address] Care Team Providers Care Central Supply Technician Supervisor Name Role Phone Alpa RED, Ean Primary Care Provider Leticia Kingsley Unavailable [phone] Allergies Allergen (clinical drug ingredient) Drug/Non Drug [...] Reviewed date:11/22/2024 12:55:26 PM Interpretation:Normal Performing Lab:[facility], [address] [place], [address] Emmy Loomis MD Notes/Report: REDRAW TEST CODE 542 FASTING:NO FASTING: NO IMMUNOGLOBULIN E 49 <QV=869 kU/L STRAWBERRY (F44) IGE Reviewed date:11/06/2024 08:42:02 AM Interpretation:Normal Performing Lab:[facility], [address] [place], [address] Emmy Loomis MD Notes/Report: NON-FASTING; NON-FASTING; NON-FASTING FASTING:NO FASTING: NO STRAWBERRY (F44) IGE <0.10 CLASS 0 TRYPTASE Reviewed date:11/06/2024 08:41:51 AM Interpretation:Normal Performing Lab:[facility], [address], [place], [address] Mike Atkinson M.D.,PhD Notes/Report: NON-FASTING; NON-FASTING; NON-FASTING FASTING:NO FASTING: NO TRYPTASE 2.3 <11.0 mcg/L IMMUNOGLOBULIN E Reviewed date:11/06/2024 08:42:35 AM Interpretation:Interpretation Performing Lab:[facility], [address] [place], [address] Emmy Loomis MD Notes/Report: NON-FASTING; NON-FASTING; NON-FASTING FASTING:NO FASTING: NO IMMUNOGLOBULIN E TNP TEST NOT PERFORMED. Quantity not sufficient. AVOCADO (F96) IGE Reviewed date:11/06/2024 08:41:42 AM Interpretation:Normal Performing Lab:[facility], [address] [place], [address] Emmy Loomis MD Notes/Report: NON-FASTING; NON-FASTING; NON-FASTING FASTING:NO FASTING: NO AVOCADO (F96) IGE <0.10 CLASS 0 INTERPRETATION [...] analytical performance characteristics have been determined by [facility]. It has not been cleared or approved by the U.S. Food and Drug Administration. This assay has been validated pursuant to the CLIA regulations and is used for clinical purposes. EGG WHITE (F1) IGE W/REFL EG G COMPONENT PANEL Reviewed date:11/06/2024 08:55:11 AM Interpretation:Normal Performing Lab:[place], [address], [place], [address] Emmy Loomis MD Notes/Report: NON-FASTING; NON-FASTING; NON-FASTING FASTING:NO FASTING: NO EGG WHITE (F1) IGE <0.10 CLASS 0 Reason For Referral No Information Medications Medication SIG (Take, Route, Frequency, Duration) Notes Start Date End Date Status ZyrTEC Allergy 10 MG 1 tablet Orally Once a day Active Astepro 205.5 MCG/SPRAY 2 sprays (1 spra y in each nostril) Nasally Twice a day Active METOPROLOL 50 mg 1 tab(s) orally once a day Active SYNTHROID 100 mcg (0.1 mg) 1 tab(s) orally once a day Active Vitamin D Active Vitamin B12 Active Pepcid Active Calcium Active Magnesium 300 MG 1 capsule with a barbie l Orally Once a day Active Immunizations Vaccine Route Administration [...] (Z88.1) Active confirmed Problem Chronic allergic conjunctivitis (23091617) Other chronic allergic conjunctivitis (H10.45) Active confirmed Problem Allergic rhinitis (68253127) Other allergic rhinitis (J30.89) Active confirmed Problem Food allergy (397055234) Allergy to other foods (Z91.018) Active confirmed Problem Allergic rhinitis caused by pollen (disorder) (92858797) Allergic rhinitis due to pollen (J30.1) Active confirmed Problem Allergic rhinitis caused by animal hair and dander (870073162892150) Allergic rhinitis due to animal (cat) (dog) hair and dander (J30.81) Active confirmed Problem Allergy to peanuts (97290704) Allergy to peanuts (Z91.010) Active confirmed Problem Chronic sinusitis (18854147) Chronic sinusitis, unspecified (J32.9) Active confirmed Problem Allergy to sulfonamides (20009265) Allergy status to sulfonamides status (Z88.2) Active confirmed Vital Signs Blood pressure diastolic 68 mm Hg 11/29/2024 Oximetry 98 % 11/29/2024 Height 68.5 in 11/29/2024 Blood pressure systolic 97 mm Hg 11/29/2024 Weight 190.6 lbs 11/29/2024 BMI 28.56 kg/m2 11/29/2024 Encounters Encounter Location Date Provider Diagnosis [facility] [address] [place] [address] 11/29/2024 Leticia Abad Allergic rhinitis du e to pollen J30.1 ; 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, subsequent encounter T78.080D ; Allergy to other foods Z91.018 ; Allergic rhinitis due to animal (cat) (dog) hair and dander J30.81 ; Other allergic rhinitis J30.89 and Other chronic allergic conjunctivitis H10.45 [facility] [address] [place] [address] 10/11/2024 Leticia Abad Allergic rhinitis du e to pollen J30.1 ; Anaphylactic reaction due to eggs, initial encounter T78.08XA ; Allergy to other foods Z91.018 ; Allergic rhinitis due to animal (cat) (dog) hair and dander J30.81 ; Other allergic rhinitis J30.89 and Other chronic allergic conjunctivitis H10.45 [facility] [address] [place] [address] 09/08/2024 Leticia Abad [address] [address] 11/13/2024 Leticia Abad [address] [address] 11/02/2024 Leticia Abad Assessments Encounter Date Diagnosis [...] For now strict avoidance of problematic food. 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 Negative to chocolate, soy and strawberry. ImmunoCAPs were undetectable for all food tested. Since last visit, she ate regular eggs without event. Recommend keeping a food diary. 11/29/2024 Allergy to other foods (ICD-10 - Z91.018) Tryptase normal. Symptoms are not consistent with mast cell activation syndrome. Continue prn Zyrtec and Famotidine. 10/11/2024 Allergy to other foods (ICD-10 - Z91.018) Labs ordered for further evaluation. Symptoms are not consistent with mast cell activation syndrome. Tryptase ordered for further evaluation. May be secondary to stress 10/11/2024 Allergic rhinitis due to animal (cat) (dog) hair and dander (ICD-10 - J30.81) 11/29/2024 Allergic rhinitis due to animal (cat) (dog) hair and dander (ICD-10 - J30.81) 11/29/2024 Other allergic rhinitis (ICD-10 - J30.89) Follow allergen avoidance, meds and consider SCIT as an adjunctive treatment to current regimen 10/11/2024 Other allergic rhinitis (ICD-10 - J30.89) Follow allergen avoidance, meds and consider SCIT as an adjunctive treatment to current regimen 10/11/2024 Other chronic allergic conjunctivitis (ICD-10 - H10.45) Given ocular signs and symptoms I encouraged allergy avoidance measures and meds as above. If symptoms persist, consider adding additional medications including intraocular antihistamine/mas t cell stabilizer, PRN 11/29/2024 Other chronic allergic conjunctivitis (ICD-10 - H10.45) Given ocular signs and symptoms I encouraged allergy avoidance measures and meds as above. If symptoms persist, consider adding additional medications including intraocular antihistamine/mas t cell stabilizer, PRN 11/29/2024 Other Plan Of Treatment No Information Insurance Providers Payer Name Payer Address Payer Phone Subscriber Number Group Number Insured Name Patient Relationship to Insured Coverage Start Date Coverage End Date [facility] [address] [place] [address] [id number] Bernardo Virk Spouse - patient is the [...]
--- OUTSIDE RECORDS SUMMARY | 2025-01-07 09:17 | XMS_ITS | Encounter Summary ---
Author Organization [facility] Address [address] [place] [address] Phone Care Team Providers Care Bagging Machine Operator Name Role Phone Ean Yuen MD Primary Care Provider [phone] Yasmeen Todd MD Unavailable Encounter Details Date [...] on filedocumented in this encounter Care Teams Bagging Machine Operator Relationship Specialty Start Date End Date Ean Yuen MD [address] [place] [address] [place] [address] PCP - General 06/30/17 Yasmeen Todd MD [address] [facility] [address] [place] [address] Radiation Oncologist Radiation Oncology 09/21/17 documented as of this encounter
--- OUTSIDE RECORDS SUMMARY | 2025-01-07 09:17 | XMS_ITS | Clinical Summary ---
Author Organization [facility] Address [address] [place] [address] Care Team Providers Care Geophysical Prospecting Permit Agent Name Role Phone Ean Yuen MD Primary Care Provider [phone] Yasmeen Todd MD Unavailable Allergies Active Allergy [...] 1 tablet (88 mcg total) by mouth handbag parts cutter before breakfast Active famotidine (PEPCID) 20 mg tablet Take 1 tablet (20 mg total) by mouth as needed for heartburn Active omega 6-glx-brg-fish oil (Fish OiL) 1,000 mg (120 mg-180 [...] follow-up surveillance of breast c ancer 01/01/2021 prison (current) use of aromatase inhibitors 01/01/2021 ER+ [...] Read Routine (OP Routine) 04/23/2022 1:10 PM SHERIFF'S SERGEANT Ductal carcinoma in situ (DCIS) of left breast from Last 3 Months or Most Recently Relevant to Health Maintenance Results * Diagnostic Mammogram Bilateral W Bill (04/23/2022 1:10 PM SHERIFF'S SERGEANT) Anatomical Region Laterality Modality Breast Bilateral Mammography 04/23/2022 1:14 PM SHERIFF'S SERGEANT Impressions 04/23/2022 1:14 PM SHERIFF'S SERGEANT No mammographic or sonographic evidence of malignancy. OVERALL FINAL ASSESSMENT: BI-RADS Category 2: Benign. RECOMMENDATION: Annual screening mammography is recommended. Electronically signed by: Missy Murdock M.D. Narrative 04/23/2022 1:14 PM SHERIFF'S SERGEANT EXAMINATION: BILATERAL DIGITAL DIAGNOSTIC MAMMOGRAM INCLUDING CAD [...] Most Recently Relevant to Health Maintenance Insurance [employer] [facility] [id number] Care Teams Geophysical Prospecting Permit Agent Relationship Specialty Start Date End Date Ean Yuen MD [address] [place] [address] [place] [address] PCP - General 06/30/17 Yasmeen oTdd MD [address] [facility] [address] [place] [address] Radiation Oncologist Radiation Oncology 09/21/17
--- OUTSIDE RECORDS SUMMARY | 2025-01-07 09:17 | XMS_ITS | Encounter Summary ---
Author Organization [facility] Address [address] [place] [address] Phone Care Team Providers Care Vmware Consultant Name Role Phone Ean Yuen MD Primary Care Provider Yasmeen Todd MD Unavailable Encounter Details Date [...] on filedocumented in this encounter Care Teams Vmware Consultant Relationship Specialty Start Date End Date Ean Yuen MD [address] [place] [address] [place] [address] PCP - General 06/30/17 Yasmeen Todd MD [address] [facility] [address] [place] [address] Radiation Oncologist Radiation Oncology 09/21/17 documented as of this encounter
--- OUTSIDE RECORDS SUMMARY | 2025-01-07 09:17 | XMS_ITS | Clinical Summary ---
Author Organization [facility] Address [facility] [place] [address] Care Team Providers Care Locomotive Mechanic Name Role Phone Andie Navarro MD Primary [...] function. Assessment & Plan (04/18/2024 2:35 PM TAG STRINGER): Discussed with patient that this is likely apprenticeship representative of chronic decrease in GFR however [...] She reports following with Dr. Trevino in [place], [place]. Need for wfphsjrggq-ekbzrnj-uxczudmbc (Tdap) vac cine 12/28/2023 Overview (12/28/2023): Patient is due for Tdap vaccine. Assessment & Plan (12/28/2023 11:16 AM TAG STRINGER): She was offered this vaccine at this visit however reports that she would like to think about it. Influenza vaccine refused 12/28/2023 Assessment & Plan (12/28/2023 11:17 AM TAG STRINGER): Patient was offered influenza vaccine at this visit however she declined. H/O: whooping cough 12/28/2023 Overview (12/28/2023): Patient reports she was diagnosed with whooping cough when her son was 3 years old in 2001. Assessment & Plan (12/28/2023 11:18 AM TAG STRINGER): Patient was counseled to obtain Tdap booster [...] only mildly increased based on labs and trauma counsellor wants to continue her on high-dose weekly supplementation at this time. Assessment & Plan (12/28/2023 12:58 PM TAG STRINGER): She is counseled that her vitamin D levels are within normal limits and it is not necessary for her to take high-dose vitamin D at this time. She can however take vitamin D3/cholecalciferol 5000 IUs daily and we can continue to monitor her levels. Colon cancer screening 12/28/2023 Overview (12/28/2023): Colonoscopy 07/17/[address] [facility] with Dr. Mccurdy: The colon was examined and was normal. No colitis, no polyps. A few small sized internal hemorrhoids were seen in the rectum. The hemorrhoids were not actively bleeding. Instructed to return in 10 years Internal hemorrhoids without complication 2023 Overview (12/28/2023): Colonoscopy 07/17/[address] [facility] with [address]. Mccurdy: The colon was examined [...] calf. 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 This is primarily a [...] 146 High She reports she saw her hinging machine operator recently and they recommended medication therapy to lower LDL cholesterol. She reports she wants to try to do with diet and exercise. Cardiology also recommended patient have coronary artery calcium score performed and patient reports that is scheduled within the next few months. Assessment & Plan (01/27/2024 10:46 AM TAG STRINGER): The 10-year ASCVD risk score (Ana Lilia [...] fiber. Assessment & Plan (12/28/2023 1:10 PM TAG STRINGER): Patient was previously counseled on dietary modification [...] 2020. Assessment & Plan (12/28/2023 12:18 PM TAG STRINGER): She is counseled to not eat for [...] intensity. Assessment & Plan (12/28/2023 1:05 PM TAG STRINGER): This is not concerning as self resolves [...] infection. Assessment & Plan (02/28/2024 7:06 PM TAG STRINGER): Counseled her that metformin likely did not contribute to upper respiratory infection and was more likely related to interaction with virus. Recommended to restart metformin at titration starting with 250 mg once daily and titrating upward as tolerated and previously discussed. CMP ordered to evaluate fasting blood glucose prior to next visit. Assessment & Plan (01/27/2024 10:38 AM TAG STRINGER): Encouraged patient to continue metformin and titrating as previously described as tolerated. Assessment & Plan (12/28/2023 11:21 AM TAG STRINGER): Recommended that patient start regular metformin 250 [...] 17 Patient is following with endocrinology in [place], [place]. She is alternating levothyroxine 88 mcg and 100 mcg daily. 01/27/2024: Patient reports she saw endocrinology recently and they had labs ordered and made no changes to her levothyroxine. Assessment & Plan (12/28/2023 1:13 PM TAG STRINGER): She is to continue following with endocrinology [...] today. Assessment & Plan (01/27/2024 10:44 AM TAG STRINGER): Discussed with patient that she has no [...] exposure to other viral communicable diseases 11/24/20212023 buttermaker continuous churn (current) use of a romatase inhibitors 01/01/2021 [...] Sex Assigned at Female 04/18/2024 1:56 PM TAG STRINGER Legal Sex Female 1:00 PM CDT Gender Identity Female 04/18/2024 1:56 PM TAG STRINGER Sexual Orientation Not on file Last Filed Vital Signs Vital Sign Reading Time Taken Comments Blood Pressure 126/66 04/18/2024 1:56 PM TAG STRINGER Pulse 106 04/18/2024 1:56 PM TAG STRINGER Temperature 37.3 C (99.2 F) 04/18/2024 1:56 PM TAG STRINGER Respiratory Rate 16 04/18/2024 1:56 PM TAG STRINGER Oxygen Saturation 97% 02/28/2024 11:48 AM TAG STRINGER Inhaled Oxygen Concentration - - Weight 85.3 kg (188 lb) 04/18/2024 1:56 PM TAG STRINGER Height 175.3 cm (5' 9) 04/18/2024 1:56 PM TAG STRINGER Body Mass Index 27.76 04/18/2024 1:56 PM TAG STRINGER Plan of Treatment Health Maintenance Due Date [...] Td or Tdap) 11/16/2016 11/16/2006 PHQ-2 (Physician [place]) 02/16/2024 01/27/2024 Mammogram Screening 04/23/2024 04/23/2022, 04/14/2021, 04/08/2020, Additional history exists COVID-19 Vaccine ( season) 2024 Influenza Adult (#1) 2024 Annual Physical 01/26/2025 01/27/2024 Cervical Cancer Screening Pap Smear (Age 30 to 64) Every 3 Years 11/07/2026 11/08/2023 Cervical Cancer Screening with HPV 11/07/2026 Colorectal Cancer Screening Colonoscopy (10 Years) 07/17/2032 07/17/2022 Hepatitis C Completed 12/07/2023, 02/17/2021 Hepatitis A Vaccines Aged Out No long er eligible based on patient's age to complete this topic Meningococcal B Vaccine Aged Out No l [...] Final Result [facility] [address] [place] [address], [id number] * PAP SMEAR (SCAN ORDER) (11/08/2023) 11/08/2023 [facility] Scanned SCANNING Final Resu lt * COLONOSCOPY GENERIC (SCAN ORDER) (07/17/2022) 07/17/2022 [facility] Scanned SCANNING Final Resu lt from Last 3 Months or Most Recently Relevant to Health Maintenance Insurance [employer] [facility] Care Teams Locomotive Mechanic Relationship Specialty Start Date End Date Andie Navarro MD [address] [facility] [address] [place] [address] PCP - General FAMILY PRACTICE 10/09/24
--- OUTSIDE RECORDS SUMMARY | 2025-01-07 09:17 | XMS_ITS | Encounter Summary ---
Author Organization [facility] Address [address] [place] [address] Care Team Providers Care Medical Research Scientist Name Role Phone Brandi Houston DO Primary Care Provider Andie Santoyo MD Primary Care Provider + Encounter Details Date Type Department Care Team (Late st Contact Info) Description 12/07/2023 Qluet Message Enc [facility] Multispecialty Care - [address] [place] [address] Brandi Houston DO h. pylori Social History [...] Sex Assigned at Female 04/18/2024 1:56 PM KILN PUSHER Legal Sex Female 1:00 PM CDT Gender Identity Female 04/18/2024 1:56 PM KILN PUSHER Sexual Orientation Not on file documented as of this encounter Plan of Treatment Not on file documented as of this encounter Visit Diagnoses Not on filedocumented in this encounter Additional Health Concerns Infection Onset Date Last Indicated Resolved Time Respiratory Rule Out 04/18/2024 04/18/2024 025 2:09 PM KILN PUSHER Influenza - Seasonal 04/18/2024 04/18/2024 025 12:32 AM CDT documented as of this encounter Care Teams Medical Research Scientist Relationship Specialty Start Date End Date Brandi Houston DO PCP - General FAMILY PRACTICE 11/23/23 10/08/24 Andie Navarro MD [address] [address] PCP - General FAMILY PRACTICE 10/09/24 documented as of this encounter
--- OUTSIDE RECORDS SUMMARY | 2025-01-07 09:17 | XMS_ITS | Encounter Summary ---
Author Organization [facility] Address [address] [place] [address] Phone Care Team Providers Care Process Control Specialist Name Role Phone Ean Yuen MD Primary Care Provider [phone] Yasmeen Todd MD Unavailable Encounter Details Date [...] on filedocumented in this encounter Care Teams Process Control Specialist Relationship Specialty Start Date End Date Ean Yuen MD [address] [place] [address] [place] [address] PCP - General 06/30/17 Yasmeen Todd MD [address] [facility] [address] [place] [address] Radiation Oncologist Radiation Oncology 09/21/17 documented as of this encounter
--- OUTSIDE RECORDS SUMMARY | 2025-01-07 09:17 | XMS_ITS | Encounter Summary ---
Author Organization [facility] Address [address] [facility] [place] [address] Care Team Providers Care Health Data Analyst Name Role Phone Unavailable Primary Care Provider Unavailabl e Encounter Details Date Type Department Care Team (Late st Contact Info) Description 07/07/2022 Lab Requisition [facility] [address] [facility] [place] [phone] Kaitlynn Varner DO [address] [facility] [address] [place] [address] Social History Tobacco Use Types Packs/Day Years Used Date Smoking Tobacco: Never Assessed Comments Unknown Sex and Gender Information Value Date Recorded Sex Assigned at Not on file Legal Sex Female 6:26 AM CHARGE OPERATOR Gender Identity Not on file Sexual Orientation Not on file documented as of this encounter Plan of Treatment Not on file documented as of this encounter Procedures Procedure Name Priority Date/Time Associated Diagnosis Comments DERMATOPATHOLOGY Routine 07/07/2022 1:23 PM CDT documented in this encounter Results * DERMATOPATHOLOGY (07/07/2022 1:23 PM CDT) Case Report Dermatopathology Report Case: [id number] Authorizing Provider: Kaitlynn Varner DO Collected: 07/07/2022 01:23 PM Ordering Location: [facility] DermPath Lab Received: 07/09/2022 05:59 AM [...] characteristic determined by the Dermatopathology Laboratory at [facility], directed by Dr. Robert Mendez. These tests need not be, and therefore are not, approved by the [place] Food and Drug Administration. The tests are used for clinical purposes. Billing Codes Specimen Charges Stain Charges 56026 1 3 1:05 PM CDT DERMATOPATHOLOGY LABORATORY Embedded Images 3 1:05 PM CDT DERMATOPATHOLOGY LABORATORY Pathology/Cytolo gy TISSUE SPECIMEN FROM SKIN / Unknown 07/07/2022 1:23 PM CDT 07/09/2022 5:59 AM CDT us Kaitlynn Varner DO LAB - PATHOLOGY/CYTOLOGY ORDERABLES Final Result DERMATOPATHOLOGY LABORATORY [facility] - Department of Dermatology [address], [address] [phone] documented in this encounter Visit Diagnoses Not on filedocumented in this encounter
[2025-01-07 09:22] LABS: NT Pro B Type Natriuretic Pept 64 pg/mL (19.9-100)
--- NOTE | 2025-01-07 09:30 | ED.GENADULT ---
HPI - General Adult General Chief complaint: Unspecified Stated complaint: weakness, shortness of breath, htn Time Seen by Provider: 01/07/25 08:50 History of Present Illness HPI narrative: 59 year old female presented emergency department for evaluation for multiple multiple complaints that have been going on for proximal last month but did acutely worsen. Patient reports he does have a history of anxiety and does have a history of paroxysmal A flutter. Patient also does have Ibrahima's and states that her thyroid is well controlled. Patient denies any recent changes in medications. Patient states the sensation she is having felt like shortness of breath and that she could not breathe. Patient denied any sick stations of heart flutter or abnormal heart rhythm. Patient was also concerned that her blood pressure was elevated, patient's blood pressure on arrival to the emergency department was 124/81. Patient states her typical blood pressure runs closer to 100 systolic. Related Data Home Medications ?Medication ?Instructions ?Recorded ?Confirmed ?Last Taken ?Type cholecalciferol (vitamin D3) 125 125 mcg PO DAILY 10/28/20 09/14/24 12/03/20 History mcg (5,000 unit) capsule cetirizine 10 mg capsule (Zyrtec) 10 mg PO DAILY 11/20/20 09/14/24 07/16/22 History famotidine 10 mg tablet (Pepcid AC) 10 mg PO DAILY PRN Indigestion 11/20/20 09/14/24 07/16/22 History magnesium carb,citrate,oxide 300 mg PO DAILY 04/03/22 09/14/24 Unknown History (Magnesium Complex) Allergies Allergy/AdvReac Type Severity Reaction Status Date / Time Sulfa (Sulfonamide Allergy Intermediate Muscle Verified 01/07/25 08:39 Antibiotics) Spasms moxifloxacin Allergy Mild Rash Verified 01/07/25 08:39 peanut Allergy Mild Itchy Mouth Verified 01/07/25 08:39 amoxicillin (From Augmentin) AdvReac Severe ear Verified 01/07/25 08:39 pressure clavulanic acid (From AdvReac Severe ear Verified 01/07/25 08:39 Augmentin) pressure eggs Allergy itching Uncoded 11/16/24 16:07 Review of Systems Review of Systems: All systems reviewed & are unremarkable except as noted in HPI and below PMFSH Past Medical History Medical History Cramp of both lower extremities Immunization declined Iron deficiency Vitamin B deficiency Hypothyroidism Obstructive sleep apnea 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 Generalized anxiety disorder Allergic rhinitis GERD (gastroesophageal reflux disease) Osteopenia after menopause MVP (mitral valve prolapse) occasional palpitation Interstitial cystitis Fibromyalgia Vitamin D deficiency Surgical History Surgical History History of partial mastectomy of left breast 08/2017 S/P D&C (status post dilation and curettage) 1998 for SAb S/P laparoscopic procedure H/O breast biopsy H/O lumpectomy Family History Family History Other Diabetes mellitus Family history of Alzheimer's disease Family history of arthritis Family history of atrial fibrillation Family history of cardiovascular disease Family history of congestive heart failure Family history of kidney disease Family history of osteoporosis Family history of thyroid disease Hypertension Social History Social History Smoking status: Never smoker Alcohol intake: never Alcohol use details: sips Substance use: never Substance use type: does not use Do You Feel Safe in your Home?: Yes Lack of Transportation: No Lack of Food: Never True Current Housing: I Have Housing Concerned About Future Housing: No Difficulty Paying Gas/Electric Bills: No Difficulty Paying for Meds: No Currently Unemployed: No Education: Bachelor's Degree Difficulty w/ Childcare or Family Care: No Living arrangements: with family Occupation/Education: unemployed Gender identity (if verbalized by the patient): Female Sexual Orientation (if Verbalized by the Patient): Straight or Heterosexual Spiritual care concerns: No Exam Narrative: APPEARANCE: Well appearing, no pain, no distress, well-nourished. HEAD: normocephalic, atraumatic. EYES: PERRLA/EOMI, conjunctivae clear. NOSE: Normal no drainage EARS:TMS clear with good light reflex. THROAT: Pharynx clear, no exudate. NECK: Supple. No adenopathy, no masses. RESPIRATORY: Airway patent, respirations nonlabored. Clear to auscultation bilaterally, no rales, rhonchi, wheezing. CARDIOVASCULAR: Regular rate and rhythm without murmurs rubs or gallops. ABDOMINAL: Soft, nontender, nondistended, normal bowel sounds MUSCULOSKELETAL: Moves all extremities. Strength/ROM intact, No edema, No calf tenderness. NEURO: Alert. Cranial nerves II through XII intact. Good gait. Good coordination SKIN: Warm, dry. Normal Color PSYCHIATRIC: Anxious affect Course Vital Signs Vital signs: Vital Signs Temperature 97.8 F 01/07/25 08:42 Pulse Rate 87 01/07/25 08:42 Respiratory Rate 18 01/07/25 08:42 Blood Pressure 124/81 01/07/25 08:42 Pulse Oximetry 98 01/07/25 08:42 Oxygen Delivery Room Air 01/07/25 08:42 Temperature 98.1 F 01/07/25 11:07 Pulse Rate 83 01/07/25 11:07 Respiratory Rate 13 01/07/25 11:07 Blood Pressure 103/74 01/07/25 11:07 Pulse Oximetry 99 01/07/25 11:07 Oxygen Delivery Room Air 01/07/25 08:42 Medical Decision Making MDM Narrative Medical decision making narrative: 51-year-old female present to the emergency department for evaluation some intermittent chest tightness. Patient does have history of anxiety and does have an anxious affect time of evaluation. Patient is currently afebrile with no leukocytosis hemoglobin of 13.2. INR of 0.9 a D-dimer of less than 0.48. No acute abnormalities on her CMP. TSH was mildly low. Patient was negative for influenza RSV and for COVID. Chest x-ray shows no acute cardiopulmonary abnormality. Patient is saturating 100% on room air and she is not tachypneic. Patient's vital signs are within normal limits. Patient was up to the results of workup. Patient will be discharged to home with close outpatient follow-up. All questions and concerns were addressed. Differential Diagnosis Differential Diagnosis: COVID, RSV, influenza, pneumonia, pneumothorax, heart palpitation, pulmonary embolism Vital Signs Vital Signs: Vital Signs Temperature 97.8 F 01/07/25 08:42 Pulse Rate 87 01/07/25 08:42 Respiratory Rate 18 01/07/25 08:42 Blood Pressure 124/81 01/07/25 08:42 Pulse Oximetry 98 01/07/25 08:42 Oxygen Delivery Room Air 01/07/25 08:42 Temperature 98.1 F 01/07/25 11:07 Pulse Rate 83 01/07/25 11:07 Respiratory Rate 13 01/07/25 11:07 Blood Pressure 103/74 01/07/25 11:07 Pulse Oximetry 99 01/07/25 11:07 Oxygen Delivery Room Air 01/07/25 08:42 Lab Data Lab results reviewed: Yes I reviewed the patient's lab results. 01/07/25 08:56 01/07/25 08:56 Labs: Lab Results 01/07/25 01/07/25 Range/Units 08:56 08:56 WBC 6.1 (4.5-10.0) K/mm3 RBC 4.20 (4.2-5.4) M/mm3 Hgb 13.2 (12.0-15.0) g/dL Hct 40.1 (37.0-47.0) % MCV 95.5 (80-100) fl MCH 31.4 (26-34) pg MCHC 32.9 (32-36) g/dl RDW 13.2 (11.5-14.5) % Plt Count 317 (150-375) k/mm3 MPV 9.6 (7.4-10.4) fl Immature Gran % (Auto) 0.3 (0-0.5) % Neut % (Auto) 50.4 (45.5-73.1) % Lymph % (Auto) 37.2 (18.3-44.2) % Terry % (Auto) 7.9 (2.6-8.5) % Eos % (Auto) 3.0 (0-4.4) % Baso % (Auto) 1.2 (0.2-1.2) % Lymph # (Auto) 2.26 (0.9-3.2) K/mm3 Terry # (Auto) 0.5 (0.1-0.6) K/mm3 Eos # (Auto) 0.2 (0-0.3) K/mm3 Baso # (Auto) 0.1 (0.0-0.1) K/mm3 Abs Immat Gran (auto) 0.02 (0.00-0.031) K/mm3 Absolute Neuts (auto) 3.1 (1.3-6.7) K/mm3 Absolute Nucleated RBC 0.000 (0.0-0.012) K/mm3 Nucleated RBC % 0.0 (0.0-0.2) % PT 12.1 (11.1-14.7) Seconds INR 0.9 APTT 26.6 (22.3-36.8) Seconds D-Dimer 0.34 (<0.48) ug/mL Sodium 139 (137-145) mmol/L Potassium 4.2 (3.4-5.0) mmol/L Chloride 105 (98-107) mmol/L Carbon Dioxide 23 (22-30) mmol/L Anion Gap 11 (4-12) mmol/L BUN 18 H (7-17) mg/dL Creatinine 0.96 (0.7-1.0) mg/dL Estim Creat Clear Calc 65 ml/min Estimated GFR 60 (59 - ) Glucose 176 H (65-110) mg/dL Calcium 9.3 (8.4-10.2) mg/dL Magnesium 2.0 Cancelled (1.6-2.3) mg/dL Total Bilirubin 0.4 (0.2-1.3) mg/dL AST 41 H (14-36) U/L ALT 49 H (6-35) U/L Alkaline Phosphatase 54 (38-126) U/L NT-Pro-B Natriuret Pep 64 (19.9-100) pg/mL Total Protein 8.1 (6.3-8.2) g/dL Albumin 4.7 (3.5-5.1) g/dL TSH (Reflex) 0.445 L (0.465-4.68) uIU/mL Free T4 1.39 (0.78-2.19) ng/dL Total T3 1.11 (0.82-1.58) NG/ML Influenza A (RT-PCR) Negative (Negative) Influenza B (RT-PCR) Negative (Negative) RSV (RT-PCR) Negative (Negative) SARS-CoV-2 RNA (RT-PCR) Negative (Negative) Imaging Data Radiologist's impression: Impressions Chest X-Ray 01/07/25 10:52 IMPRESSION: 1. No acute cardiopulmonary findings given portable technique. Discharge Plan Discharge Clinical Impression: Dyspnea Patient Disposition: Home Condition: Stable Instructions: Antibiotic Form, Dyspnea (ED) Additional Instructions: Have close follow-up with your primary care physician. If you have any worsening symptoms then please call or return to the emergency department. Patient Language: Faroese Prescriptions: No Action metoprolol succinate 25 mg tablet extended release 24 hr 25 mg PO DAILY Qty: 30 5RF Magnesium Complex 300 mg magnesium tablet 300 mg PO DAILY omeprazole 40 mg capsule,delayed release(DR/EC) 40 mg PO DAILY Qty: 30 3RF Patient Comments: not taking cholecalciferol (vitamin D3) 125 mcg (5,000 unit) capsule 125 mcg PO DAILY famotidine [Pepcid AC] 10 mg Tablet 10 mg PO DAILY PRN (Reason: Indigestion) Zyrtec 10 mg Capsule 10 mg PO DAILY levothyroxine [Synthroid] 100 mcg tablet 100 mcg PO DAILY Qty: 90 1RF Patient Comments: alternate with 88mcg levothyroxine [Synthroid] 88 mcg tablet 88 mcg PO DAILY Qty: 90 1RF azelastine 137 mcg (0.1 %) spray,non-aerosol 137 mcg intranasal Q12H Qty: 30 0RF Patient Comments: not taking Rx Instructions: administer into each nostril Follow-up/Referrals: Ean Yuen MD [Primary Care Provider, Family Practice]
[2025-01-07 09:38] LABS: Influenza A QL RT-PCR Negative (Negative); Influenza B QL RT-PCR Negative (Negative); RSV RNA, RT-PCR Negative (Negative); SARS-CoV-2 RNA PCR Negative (Negative)
[2025-01-07 09:57] LABS: Thyroid Stimulating Hormone Reflex 0.445 uIU/mL (0.465-4.68)
[2025-01-07 10:04] LABS: Magnesium 2.0 mg/dL (1.6-2.3)
[2025-01-07 10:59] LABS: Free T4 Free Thyroxine Reflex 1.39 ng/dL (0.78-2.19)
[2025-01-07 11:07] VITALS: BP 103/74; PULSE 83; RESP 13; TEMP 36.7; O2SAT 99
[2025-01-07 12:01] LABS: Total Triiodothyronine (T3) 1.11 NG/ML (0.82-1.58)
== END 2025-01-07 11:08 | disposition home or self-care (01) ==
PROVIDERS: Emergency Provider Emergency Medicine; PCP Family Medicine
DX: R06.00 Dyspnea, unspecified (principal); Z20.822 Contact with and (suspected) exposure to COVID-19; E06.3 Autoimmune thyroiditis; E53.9 Vitamin B deficiency, unspecified; E61.1 Iron deficiency; E55.9 Vitamin D deficiency, unspecified; I34.1 Nonrheumatic mitral (valve) prolapse; G47.33 Obstructive sleep apnea (adult) (pediatric); K21.9 Gastro-esophageal reflux disease without esophagitis; M85.80 Other specified disorders of bone density and structure, unspecified site; M79.7 Fibromyalgia; N30.10 Interstitial cystitis (chronic) without hematuria; Z85.3 Personal history of malignant neoplasm of breast; Z90.12 Acquired absence of left breast and nipple; Z79.899 Other long term (current) drug therapy; R94.31 Abnormal electrocardiogram [ECG] [EKG]
CPT/HCPCS: 36415; 71045; 80053; 83735; 83880; 84439; 84443; 84480; 85025; 85380; 85610; 85730; 87637; 93005; 99283